=== PATIENT | female | born 1975 | race Caucasian/White ===

== ENCOUNTER 2017-09-21 17:24 | Emergency (ER) | payer MEDICAID, SELFPAY ==
[2017-09-21 17:25] VITALS: BP 133/92; PULSE 72; RESP 18; TEMP 36.3; O2SAT 96; BMI 47.8
--- NOTE | 2017-09-21 18:03 | EKG12_ITS ---
Test Reason : CP Blood Pressure : / mmHG Vent. Rate : 065 BPM Atrial Rate : 065 BPM P-R Int : 152 ms QRS Dur : 094 ms QT Int : 412 ms P-R-T Axes : 049 -65 036 degrees QTc Int : 428 ms Normal sinus rhythm Low voltage QRS Left anterior fascicular block Poor R wave progression Abnormal ECG Confirmed by MAMTA LEAL, KELLY ([id number]), photograph editor DONTA CUNNINGHAM ([id number]) on 09/25/2017 3:16:18 PM Referred By: Confirmed By:KELLY OLEARY MD
--- NOTE | 2017-09-21 18:10 | RAD_ITS ---
STUDY: X-RAY CHEST REASON FOR EXAM: Female, 42 years old. Chest pain radiating down left arm TECHNIQUE: AP COMPARISON: January 19, 2014 FINDINGS: The lungs are clear and expanded. There is no demonstrated pleural abnormality. Normal size heart. Normal mediastinum and prashant. Normal visualized pulmonary arteries. Normal visualized aortic arch and descending thoracic aorta. Normal visualized thoracic spine. Normal visualized ribs, clavicles, and shoulders. There is no demonstrated abnormality of the visualized soft tissue structures of the upper abdomen. No significant change since prior study RAD/Chest 1 View (Portable) IMPRESSION: Normal x-ray examination of the chest. Electronically Signed: Luis Alberto Gamino MD at 18:54 EDT , Service support ,
[2017-09-21 18:21] VITALS: BP 92/57; PULSE 62; RESP 18; O2SAT 99
[2017-09-21 18:21] LABS: Absolute Lymphocyte Count 3.15 X10^3/ul (0.83-4.51); Absolute Neutrophil Count 5.4 X10^3/uL (2.0-7.7); Basophil# 0.03 X10^3/uL; Basophil% 0.3 % (0-1); Eosinophil# 0.17 X10^3/uL; Eosinophils% 1.8 % (0-5); Hematocrit 41.6 % (37-47); Hemoglobin 12.9 g/dl (12.0-15.0); Lymphocyte # 3.15 X10^3/ul (4.0); Lymphocyte % 32.5 % (19-41); Mean Corpuscular Hgb 28.2 pg (27.0-32.0); Mean Corpuscular Volume 90.8 fL (81-99); Mean Platelet Vol. 10.2 fl (6.2-12.0); Monocyte# 0.91 X10^3/uL; Monocyte% 9.4 % (0-10); Neutrophil # 5.41 X10^3/uL (2.7-7.7); Neutrophil % 55.8 % (47-70); Platelet Count 337 K/mm3 (150-450); RBC Distribution Width CV 13.9 % (11.6-14.6); RBC Distribution Width SD 45.7 fl (35.1-43.9); Red Blood Count 4.58 M/mm3 (4.2-5.4); White Blood Count 9.7 K/mm3 (4.4-11.0)
[2017-09-21 18:22] LABS: POSITIVE COUNT NO; POSITIVE DIFFERENTIAL NO; POSITIVE MORPHOLOGY NO
[2017-09-21 18:41] LABS: Anion Gap 7 (5-15); BUN 13 mg/dL (7-18); Calcium,Total 8.9 mg/dL (8.5-10.1); Chloride 108 mmol/L (98-107); EST Glomerular Filtration Rate 48 mL/min (>60); Est Glom Filt Rate - Afr Amer 58 mL/min (>60); Estimated Creatinine Clearance 55.38 ml/min; Glucose 102 mg/dL (74-106); Potassium 4.6 mmol/L (3.5-5.1); Sodium Level 140 mmol/L (136-145)
--- NOTE | 2017-09-21 18:43 | ED.VISSUMM ---
- ER Visit Summary Date of Service: 09/21/17 Chief Complaint: [] Left sharp stabbing chest pain for weeks history of cardiac stent in 2013 History of Present Illness: The patient is a 42 F [] that history she indicates she has had a sharp stabbing pain to the left chest for 4 weeks it is not like her angina, nothing makes it better or worse it is not related to exertion there is no diaphoresis orthopnea or PND her 14-year-old daughter wanted her evaluated and she came in for evaluation. She indicates again she is not sure why she has the pain other than to report she is under significant stress and she feels that is causing her symptoms. She is otherwise been healthy no fever no cough no orthopnea or PND eating and drinking well bowel bladder habits normal review of systems otherwise negative no history of DVT or PE Physical Examination: [] She is resting comfortably in the bed no distress her vital signs are all within normal range she points with one finger tip to the left subcostal margin at about the second rib sternal interface this area is tender to palpation and there is no warmth or redness her lungs are clear the heart tones are unremarkable the abdomen soft nontender upper lower extremity unremarkable moving upper extremities causes minimal pain to this area her pulses are symmetric her upper lower extremity movements are normal no sinus clubbing or edema and she assures me this is nothing like her angina she has had it for 4 weeks or more Test Results: [] Emergency Department Course and Treatment: [] Patient's EKG shows a sinus rhythm her lab studies chest x-ray troponin are negative and again she has had pain for weeks, she does not wish to be admitted we spoke about inpatient versus outpatient management she wants to go home she feels better knowing the tests are negative she understands the concept of an occult cardiac condition and to follow with her physicians and return for change in symptoms, we discussed her situational stress she reports is nothing that can be done about it and she will try to manage as best she can Treatment Plan: [] Disposition: [] Home stable and admission Impression: [] Sharp left stabbing chest pain for 4 weeks history of cardiac stent This note was generated with [employer] dictation software. It may contain incorrect words, spelling, and punctuation that were not noted in review of the chart prior to signing ED Disposition - Plan for ED Patient: Chief Complaint: Chest Pain Referrals: [facility] Doctor,Out of [Primary Care Provider] -
--- NOTE | 2017-09-21 18:49 | ED.DEP ---
ED Disposition - Plan for ED Patient: Chief Complaint: Chest Pain Instructions: ED Chest Pain Atypical Unkn Cause Referrals: [facility],Out of [Primary Care Provider] -
[2017-09-21 19:25] VITALS: BP 143/82; PULSE 76; RESP 16; O2SAT 98
== END 2017-09-21 19:25 | disposition home or self-care (01) ==
PROVIDERS: Emergency Provider Emergency Medicine
DX: R07.9 Chest pain, unspecified (principal); Z95.5 Presence of coronary angioplasty implant and graft; Z79.899 Other long term (current) drug therapy
CPT/HCPCS: 71045; 80048; 84484; 85025; 93005; 99284; A4216

== ENCOUNTER 2018-01-21 18:16 | Emergency (ER) | payer MEDICAID, SELFPAY ==
[2018-01-21 18:17] VITALS: BP 117/96; PULSE 75; RESP 18; TEMP 36.9; O2SAT 98; BMI 47.8
[2018-01-21 18:32] VITALS: O2SAT 98
[2018-01-21 18:44] VITALS: BP 131/117; PULSE 75; RESP 20; O2SAT 94
[2018-01-21 18:50] LABS: Absolute Lymphocyte Count 3.12 X10^3/ul (0.83-4.51); Basophil# 0.06 X10^3/uL; Basophil% 0.5 % (0-1); Eosinophil# 0.16 X10^3/uL; Eosinophils% 1.4 % (0-5); Hematocrit 39.4 % (37-47); Hemoglobin 12.4 g/dl (12.0-15.0); Lymphocyte # 3.12 X10^3/ul (4.0); Lymphocyte % 26.8 % (19-41); Mean Corp Hgb Conc 31.5 g/gl (32-36); Mean Corpuscular Hgb 28.2 pg (27.0-32.0); Mean Corpuscular Volume 89.7 fL (81-99); Mean Platelet Vol. 10.6 fl (6.2-12.0); Monocyte# 1.22 X10^3/uL; Monocyte% 10.5 % (0-10); Neutrophil # 7.04 X10^3/uL (2.7-7.7); Neutrophil % 60.5 % (47-70); Platelet Count 332 K/mm3 (150-450); RBC Distribution Width CV 14.1 % (11.6-14.6); RBC Distribution Width SD 46.6 fl (35.1-43.9); Red Blood Count 4.39 M/mm3 (4.2-5.4); White Blood Count 11.6 K/mm3 (4.4-11.0)
[2018-01-21 18:51] LABS: POSITIVE COUNT NO; POSITIVE DIFFERENTIAL NO; POSITIVE MORPHOLOGY NO
[2018-01-21 19:40] LABS: BUN 13 mg/dL (7-18); Estimated Creatinine Clearance 51.43 ml/min; Glucose 112 mg/dL (74-106)
[2018-01-21 19:41] LABS: Anion Gap 12 (5-15); BUN/Creat Ratio 9.3 RATIO (10-20); Calcium,Total 8.3 mg/dL (8.5-10.1); Chloride 108 mmol/L (98-107); EST Glomerular Filtration Rate 44 mL/min (>60); Est Glom Filt Rate - Afr Amer 53 mL/min (>60); Potassium 4.7 mmol/L (3.5-5.1); Sodium Level 141 mmol/L (136-145)
[2018-01-21 19:48] VITALS: BP 107/88; PULSE 78; RESP 17; O2SAT 97
[2018-01-21 20:00] VITALS: BP 135/79; PULSE 71; RESP 23; O2SAT 96
--- NOTE | 2018-01-21 20:47 | ED.VISSUMM ---
- ER Visit Summary Date of Service: 01/21/18 Chief Complaint: Intermittent central anterior sharp chest pain History of Present Illness: The patient is a 42 F who presents with intermittent sharp central chest pain rated the back 15-20 minute duration. First episode 08 100. Has had at least 10 episodes. No associated symptoms. She denies history of PE or DVT. She denies any pleuritic discomfort. She denies any leg pain, swelling discoloration. She denies any GI symptoms. There is no history of recent URI symptoms. Past medical history of TIA, coronary disease status post stent placement, ischemic cardiomyopathy, atypical chest pain, hypercholesterolemia and end-stage renal disease. Review of old records remarkable for Takotsuba syndrome. Physical Examination: Vital signs reveal slight elevation blood pressure 135/79. BMI is 47.8. Head is atraumatic normocephalic. Pupils are equal round reactive. Extraocular muscles are intact. TMs are pearly white with landmarks noted. Nares patent with no drainage. Posterior pharynx without erythema or exudate. Uvula is midline. There is no dysphonia or dysphasia. Trachea is midline. There is no stridor with auscultation of the neck. Heart is regular without murmur, gallop or rub. S1 and S2 are normal. Lungs are clear to auscultation with good movement of air bilaterally. Abdomen is soft nontender bowel sounds are present normal. There is no CVA tenderness noted. There is no asymmetry, swelling, discoloration, leg vein distention, palpable cords or tenderness along the distribution of the deep venous system. Neuro exam is nonfocal. Test Results: EKG reveals a sinus rhythm rate of 75 a left anterior fascicular block. This is unchanged from prior. Two-view chest x-ray is negative for any acute pathology and unchanged from prior dated September 21, 2017. White count slightly elevated 11.6 with no shift. This is non-specific. Creatinine slightly elevated 1.40. Troponin less than 0.015. Emergency Department Course and Treatment: In light of patient's multiple medical problems and atypical presentation will evaluate for pulmonary versus cardiac versus other cause of her chest discomfort. EKG, chest x-ray and appropriate blood work was obtained. Treatment Plan: Patient was informed that her tests are unremarkable. Plan is to discharge to home with appropriate home-going instructions Disposition: Discharged home in stable condition Impression: 1. Intermittent atypical chest pain unknown etiology 2. History of coronary disease 3. History of hypercholesterolemia 4. History of end-stage renal disease 5. History of atypical chest pain This note was generated with [employer] dictation software. It may contain incorrect words, spelling, and punctuation that were not noted in review of the chart prior to signing ED Disposition - Plan for ED Patient: Disposition: Home or Assisted Living Chief Complaint: Chest Pain Instructions: ED Chest Pain Atypical Unkn Cause Referrals: Kayla Noe NP-C [Primary Care Provider] - 3-5 Days
[2018-01-21 21:10] VITALS: BP 126/81; PULSE 76; RESP 15; O2SAT 96
== END 2018-01-21 21:11 | disposition home or self-care (01) ==
PROVIDERS: Emergency Provider Emergency Medicine; Family Provider Nurse Practitioner Family; PCP Nurse Practitioner Family
DX: R07.89 Other chest pain (principal); I25.10 Atherosclerotic heart disease of native coronary artery without angina pectoris; E78.00 Pure hypercholesterolemia, unspecified; N18.6 End stage renal disease; I25.5 Ischemic cardiomyopathy; E66.9 Obesity, unspecified; Z86.73 Personal history of transient ischemic attack (TIA), and cerebral infarction without residual deficits; Z95.5 Presence of coronary angioplasty implant and graft; Z72.0 Tobacco use; Z79.82 Long term (current) use of aspirin; Z79.899 Other long term (current) drug therapy
CPT/HCPCS: 71045; 80048; 84484; 85025; 93005; 99285; A4216

== ENCOUNTER 2018-02-14 15:43 | Emergency (ER) | payer MEDICAID, SELFPAY ==
[2018-02-14 15:47] VITALS: BP 131/80; PULSE 91; RESP 28; TEMP 35.9; O2SAT 96; BMI 46.6
[2018-02-14 16:10] VITALS: O2SAT 88
--- NOTE | 2018-02-14 16:11 | EKG12_ITS ---
Test Reason : SOB Blood Pressure : / mmHG Vent. Rate : 085 BPM Atrial Rate : 085 BPM P-R Int : 138 ms QRS Dur : 084 ms QT Int : 362 ms P-R-T Axes : 050 -84 062 degrees QTc Int : 430 ms Normal sinus rhythm Pulmonary disease pattern Left anterior fascicular block Abnormal ECG Confirmed by JADA LEAL, SUE ([id number]), film editor supervisor DONTA CUNNINGHAM ([id number]) on 02/19/2018 2:40:49 PM Referred By: TL Confirmed By:SUE ELIAS MD
--- NOTE | 2018-02-14 16:12 | ED.VISSUMM ---
- ER Visit Summary Date of Service: 02/14/18 Chief Complaint: Dyspnea, cough History of Present Illness: The patient is a 42 F 3 day history of dyspnea and nonproductive cough. Subjective fever, chills, sweats. States also continuous midsternal chest pain worse with cough. No radicular symptoms. History of DE ?2 with coronary stent, followed by Dr. Leyva. No nausea vomiting diarrhea. No urinary symptoms. Went to urgent care states pulse ox 91% was sent here due to cardiac history. Denies wheezing. Tobacco history. No PE risk factors. Physical Examination: General: Alert and oriented ?3, frequent coughing while examining. HEENT: Normocephalic, atraumatic. Moist mucosa membranes Neck: supple, nontender. Cardiovascular: Regular rate and rhythm, no murmurs Respiratory: Normal breath sounds, symmetric, no distress Abdomen: Soft, nontender, nondistended Extremities: Nontender, no edema, pulses intact ?4 Neuro: no focal neurological deficits. Test Results: Chest x-ray negative. White count 15.7. Hemoglobin 12.6. Creatinine 1.33. Troponin negative. EKG sinus rate of [address] changes. Isolated T-wave inversion in aVL. Emergency Department Course and Treatment: Patient with coughing episodes leading to chest discomfort. EKG was normal. Cardiac workup along with chest x-ray to rule out pneumonia initiated. This was negative. After aerosol treatments reported she went on 88% with wheezing. She is placed on O2. No pneumonia on x-ray. Troponin negative. 3 days of symptoms negative troponin less likely cardiac in nature. She does have a white count of 15. Creatinine 1.3, however last month she was 1.4. She was ambulated off oxygen remain in the 90s. She was stable. She underlying smoking history denies being diagnosed with COPD or asthma. However concerns for underlying COPD will be treated with Zithromax and prednisone in the ED. 4 additional days of medications. Signs and symptoms discussed with patient to return to ED. Discussed with patient may need official workup pulmonary function tests as an outpatient. All questions were answered. Treatment Plan: [] Disposition: Discharge Impression: 1. Acute bronchitis 2. Atypical chest pain This note was generated with [employer] software. It may contain incorrect words, spelling, and punctuation that were not noted in review of the chart prior to signing ED Disposition - Plan for ED Patient: Disposition: Home or Assisted Living Chief Complaint: Shortness of Breath Diagnosis: Acute bronchitis, Atypical chest pain Instructions: Acute Bronchitis, ED Chest Pain Atypical Unkn Cause Prescriptions: Azithromycin [Zithromax] 250 mg PO DAILY #4 tablet Prednisone [Deltasone] 60 mg PO DAILY #12 tablet Referrals: Kayla Noe NP-C [Primary Care Provider] - 3-5 Days
[2018-02-14] MEDS: Ipratropium/Albuterol Sulfate 3 ML AMPUL.NEB INHALATION (16:26)
[2018-02-14 16:28] VITALS: PULSE 91; RESP 20
--- NOTE | 2018-02-14 17:00 | RAD_ITS ---
STUDY: X-RAY CHEST REASON FOR EXAM: Female, 42 years old. Cough and shortness of breath x3 days TECHNIQUE: PA and lateral views of the chest. COMPARISON: None. FINDINGS: EKG leads overlie the chest The lungs are clear and expanded. There is no demonstrated pleural abnormality. Normal size heart. Normal mediastinum and prashant. Normal visualized pulmonary arteries. Normal visualized aortic arch and descending thoracic aorta. Normal visualized thoracic spine. Normal visualized ribs, clavicles, and shoulders. There is no demonstrated abnormality of the visualized soft tissue structures of the upper abdomen. RAD/Chest PA and Lateral IMPRESSION: Normal x-ray examination of the chest. Electronically Signed: Karthik Ibrahim MD at 17:28 EDT , Service support ,
[2018-02-14 17:06] LABS: Absolute Lymphocyte Count 1.97 X10^3/ul (0.83-4.51); Absolute Neutrophil Count 12.4 X10^3/uL (2.0-7.7); Basophil# 0.05 X10^3/uL; Basophil% 0.3 % (0-1); Eosinophil# 0.21 X10^3/uL; Eosinophils% 1.3 % (0-5); Hematocrit 40.9 % (37-47); Hemoglobin 12.6 g/dl (12.0-15.0); Lymphocyte # 1.97 X10^3/ul (4.0); Lymphocyte % 12.5 % (19-41); Mean Corp Hgb Conc 30.8 g/gl (32-36); Mean Corpuscular Hgb 27.9 pg (27.0-32.0); Mean Corpuscular Volume 90.5 fL (81-99); Mean Platelet Vol. 10.3 fl (6.2-12.0); Neutrophil # 12.39 X10^3/uL (2.7-7.7); Neutrophil % 78.8 % (47-70); Platelet Count 337 K/mm3 (150-450); RBC Distribution Width CV 14.7 % (11.6-14.6); RBC Distribution Width SD 48.3 fl (35.1-43.9); Red Blood Count 4.52 M/mm3 (4.2-5.4); White Blood Count 15.7 K/mm3 (4.4-11.0)
[2018-02-14 17:08] LABS: POSITIVE COUNT NO; POSITIVE DIFFERENTIAL NO; POSITIVE MORPHOLOGY NO
[2018-02-14 17:13] LABS: Anion Gap 9 (5-15); BUN 15 mg/dL (7-18); BUN/Creat Ratio 11.3 RATIO (10-20); Calcium,Total 8.9 mg/dL (8.5-10.1); Chloride 105 mmol/L (98-107); Creatinine, Serum 1.33 mg/dL (0.55-1.02); EST Glomerular Filtration Rate 47 mL/min (>60); Est Glom Filt Rate - Afr Amer 56 mL/min (>60); Estimated Creatinine Clearance 54.13 ml/min; Glucose 103 mg/dL (74-106); Potassium 4.5 mmol/L (3.5-5.1); Sodium Level 138 mmol/L (136-145)
[2018-02-14 18:09] VITALS: BP 120/82; PULSE 96; RESP 28; O2SAT 93; O2SAT 96
[2018-02-14] MEDS: predniSONE 20 MG Tablet 60 MG PO (18:42)
[2018-02-14] MEDS: Azithromycin 250 MG Tablet 500 MG PO (18:42)
[2018-02-14 18:43] VITALS: BP 110/72; PULSE 99; RESP 20; TEMP 37.7; O2SAT 93
== END 2018-02-14 19:03 | disposition home or self-care (01) ==
PROVIDERS: Emergency Provider Emergency Medicine; Family Provider Nurse Practitioner Family; PCP Nurse Practitioner Family
DX: J20.9 Acute bronchitis, unspecified (principal); R07.89 Other chest pain; I25.2 Old myocardial infarction; Z95.5 Presence of coronary angioplasty implant and graft; I25.10 Atherosclerotic heart disease of native coronary artery without angina pectoris; E78.00 Pure hypercholesterolemia, unspecified; I11.0 Hypertensive heart disease with heart failure; I50.9 Heart failure, unspecified; Z86.73 Personal history of transient ischemic attack (TIA), and cerebral infarction without residual deficits; Z72.0 Tobacco use; Z79.899 Other long term (current) drug therapy
CPT/HCPCS: 71046; 80048; 84484; 85025; 93005; 94640; 99285; A4216

== ENCOUNTER 2018-06-20 07:36 | Emergency (ER) | payer MEDICAID, SELFPAY ==
[2018-06-20 07:39] VITALS: BP 152/82; PULSE 79; RESP 18; TEMP 36.1; O2SAT 96; BMI 48.9
--- NOTE | 2018-06-20 07:57 | RAD_ITS ---
STUDY: X-RAY - RIGHT SHOULDER REASON FOR EXAM: Female, 42 years old. Pain following a fall. TECHNIQUE: 4 view(s) of the shoulder. COMPARISON: None. FINDINGS: Normal glenohumeral articulation. Normal acromioclavicular joint. Normal acromion. Normal humeral head and visualized proximal humerus. The soft tissue structures are unremarkable. Normal visualized pulmonary apex. RAD/Shoulder min 2 Views IMPRESSION: Normal x-ray examination of the shoulder. Electronically Signed: Duane Davidson MD at 8:57 EST Tel [phone], Service support ,
--- NOTE | 2018-06-20 08:03 | ED.VISSUMM ---
- ER Visit Summary Date of Service: 06/20/18 Chief Complaint: Slip and fall complaining of right elbow and right shoulder pain History of Present Illness: The patient is a 42 F hand dominant. This morning slipped and fell on ice about 3 hours ago. Landing on her right elbow complaining primarily of pain along her right shoulder and clavicle. She denies hitting her head or neck. No LOC. She is on Plavix and aspirin secondary to cardiac stent but again had no head injury. She is right-hand dominant. No prior surgery to the right shoulder or elbow. She denies any other injuries. Physical Examination: Middle-aged female. No acute distress. Vital signs are stable. Afebrile. H EENT exam pupils round reactive light. There is no signs of trauma to either her face or scalp. They are nontender and nonswollen. C-spine nontender. Her right trapezius has some tenderness in the soft tissue. Chest nontender except mild tenderness to the mid right clavicle. No swelling. No deformity. Lungs clear to auscultation bilaterally. Heart regular rate and rhythm no murmur. Abdomen soft and nontender. LV girdle intact. Nontender. She has full range of motion and completely nontender left upper extremity and both lower extremities. Back other than the right trapezius is nontender. The thoracic and lumbar spine are nontender. She is tenderness along the mid right clavicle. Not so much along the shoulder. There is no deformity. She has increased discomfort with range of motion. She is able to AB and adduction of shoulder. Internal and external rotate the shoulder humerus is nontender. She has mild tenderness along the right elbow but there is no swelling or signs of trauma. She is able to flex and extend and supinate and pronate the right elbow. Right wrist and hand are nontender neurovascular intact. She has 5 out of 5 flatwork finisher hand strength. Radial pulses intact. Neurologically she is awake and alert with no focal motor deficits. GCS of 15. Test Results: Right shoulder and clavicle x-ray shows 4 views there is no acute abnormality. No fracture or dislocation. Right elbow x-ray shows 3 views no acute abnormality. No fracture or dislocation. I did go over the films with the patient. Emergency Department Course and Treatment: Repeat exam at 08:37 AM patient is doing well. I went over the films with the patient. She did not want anything stronger for pain. She will use Tylenol. She does not take NSAIDs due to her stage III renal insufficiency. Treatment Plan: Ice to elbow and shoulder. Tylenol for pain. Follow-up as needed. She did not want a sling. Disposition: Discharge Impression: Slipped and fell on the ice Right shoulder strain Right elbow contusion This note was generated with [employer] dictation software. It may contain incorrect words, spelling, and punctuation that were not noted in review of the chart prior to signing ED Disposition - Plan for ED Patient: Chief Complaint: Upper Extremity Injury Referrals: Kayla Noe, [facility] [Primary Care Provider] -
--- NOTE | 2018-06-20 08:07 | ED.DCSUM_ITS ---
- ER Visit Summary Date of Service: 06/20/18 Chief Complaint: Slip and fall complaining of right elbow and right shoulder pain History of Present Illness: The patient is a 42 F hand dominant. This morning slipped and fell on ice about 3 hours ago. Landing on her right elbow complaining primarily of pain along her right shoulder and clavicle. She denies hitting her head or neck. No LOC. She is on Plavix and aspirin secondary to cardiac stent but again had no head injury. She is right-hand dominant. No prior surgery to the right shoulder or elbow. She denies any other injuries. Physical Examination: Middle-aged female. No acute distress. Vital signs are stable. Afebrile. H EENT exam pupils round reactive light. There is no signs of trauma to either her face or scalp. They are nontender and nonswollen. C- spine nontender. Her right trapezius has some tenderness in the soft tissue. Chest nontender except mild tenderness to the mid right clavicle. No swelling. No deformity. Lungs clear to auscultation bilaterally. Heart regular rate and rhythm no murmur. Abdomen soft and nontender. LV girdle intact. Nontender. She has full range of motion and completely nontender left upper extremity and both lower extremities. Back other than the right trapezius is nontender. The thoracic and lumbar spine are nontender. She is tenderness along the mid right clavicle. Not so much along the shoulder. There is no deformity. She has increased discomfort with range of motion. She is able to AB and adduction of shoulder. Internal and external rotate the shoulder humerus is nontender. She has mild tenderness along the right elbow but there is no swelling or signs of trauma. She is able to flex and extend and supinate and pronate the right elbow. Right wrist and hand are nontender neurovascular intact. She has 5 out of 5 nailer machine strength. Radial pulses intact. Neurologically she is awake and alert with no focal motor deficits. GCS of 15. Test Results: Right shoulder and clavicle x-ray shows 4 views there is no acute abnormality. No fracture or dislocation. Right elbow x-ray shows 3 views no acute abnormality. No fracture or dislocation. I did go over the films with the patient. Emergency Department Course and Treatment: Repeat exam at 08:37 AM patient is doing well. I went over the films with the patient. She did not want anything stronger for pain. She will use Tylenol. She does not take NSAIDs due to her stage III renal insufficiency. Treatment Plan: Ice to elbow and shoulder. Tylenol for pain. Follow-up as needed. She did not want a sling. Disposition: Discharge Impression: Slipped and fell on the ice Right shoulder strain Right elbow contusion This note was generated with [employer] dictation software. It may contain incorrect words, spelling, and punctuation that were not noted in review of the chart prior to signing ED Disposition - Plan for ED Patient: Chief Complaint: Upper Extremity Injury Referrals: Kayla Noe, [facility] [Primary Care Provider] -
--- NOTE | 2018-06-20 08:20 | RAD_ITS ---
STUDY: X-RAY - RIGHT ELBOW REASON FOR EXAM: Female, 42 years old. Pain following a fall. TECHNIQUE: 3 view(s) of the elbow. COMPARISON: None. FINDINGS: Normal visualized humerus, radius and ulna. Normal radiocapitellar and ulnotrochlear articulations. The soft tissue structures are unremarkable. RAD/Elbow min 3 Views IMPRESSION: Normal x-ray examination of the elbow. Electronically Signed: Duane Davidson MD at 8:56 EST Tel [phone], Service support ,
--- NOTE | 2018-06-20 08:41 | ED.DEP ---
ED Disposition - Plan for ED Patient: Disposition: Home or Assisted Living Chief Complaint: Upper Extremity Injury Instructions: ED Contusion Upper Ext, ED Sprain Shoulder Referrals: Kayla Noe NP-C [Primary Care Provider] - 1 Week if not improving Additional Instructions: Ice to all sore areas. Tylenol for pain. If not improving in 1 week have it reevaluated. At this time your x-rays were negative. There were no signs of any broken bones or dislocations.
[2018-06-20 08:46] VITALS: BP 121/67; PULSE 74; RESP 15; O2SAT 98
--- OUTSIDE RECORDS SUMMARY | 2018-08-24 22:57 | XMS RPT_ITS ---
:1975 Author Organization OHIP Care Team Providers Name Role Phone Marlene Boyer Primary Care Unavailable Luis Alberto Watosn Attending Unavailable Marlene Boyer Primary Care Unavailable Matty Ariza Attending Unavailable Bubba Cody Attending Unavailable Marlene Boyer Primary Care Unavailable Lg Leyva Attending Unavailable DOCTOR, OUT OF TOWN Referring Unavailable EARLENE NGUYEN Primary Care Unavailable Jim Fitzgerald Attending Unavailable EARLENE NGUYEN Primary Care Unavailable Sheela Hudson Attending Unavailable KRISTINE GAMEZ ([facility]) Referring Unavailable PAUL BELLAMY Attending Unavailable PAUL BELLAMY Referring Unavailable PAUL BELLAMY Attending Unavailable JOSESITO PAUL Attending Unavailable [facility] Referring Unavailable MARLENE BOYER Primary Care Unavailable JOSESITO, PAUL Attending Unavailable JOSESITO, PAUL Referring Unavailable MARLENE BOYER Primary Care Unavailable GIANNA BELLAMYO Attending Unavailable [facility] Referring Unavailable MARLENE BOYER Primary Care Unavailable PROBLEMS PROBLEMS DATE TYPE CONDITION / CODE ATTENDING STATUS SOURCE Active Pain in left knee / BELLAMY, Active [place] 9 M25.562(ICD-10) [facility] Other [facility] Repository Active Contusion of right knee, BELLAMY, Active [place] [facility] subsequent encounter / [facility] Other S80.01XD(ICD-10) [facility] Repository Active Encounter for screening BELLAMY, [facility] 9 mammogram for malignant [facility] Other neoplasm of breast / [facility] Z12.31(ICD-10) Repository Active Morbid (severe) obesity [facility], [facility] 7 due to excess calories / [facility] Other E66.01(ICD-10) [facility] Repository Active Essential (primary) BELLAMY, [facility] 7 hypertension / [facility] Other I10(ICD-10) [facility] Repository Active Old myocardial infarction [facility], [facility] 7 / I25.2(ICD-10) [facility] Other [facility] Repository Active Personal history of BELLAMY, Active [place] 7 nicotine dependence / [facility] Other Z87.891(ICD-10) [facility] Repository Active Abnormal uterine and BELLAMY, Active [place] 8 vaginal bleeding, [facility] Other unspecified / [facility] N93.9(ICD-10) Repository Active Hyperlipidemia, BELLAMY, Active [place] [facility] unspecified / [facility] Other E78.5(ICD-10) [facility] Repository Active Encounter for screening BELLAMY, [facility] 8 for diabetes mellitus / [facility] Other Z13.1(ICD-10) [facility] Repository Admitting Unknown / UNK(Unknown) JOSESITO, Active [facility] 7 diagnosis [facility] Repository Unknown 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[place], [place]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 / Repository I25.10(ICD-10) Unknown I51.81 - Takotsubo [facility], [place] Active [facility] syndrome / I51.81(ICD-10) [facility] Repository Unknown E78.00 - Pure Gordon, Lg Active [facility] 8 hypercholesterolemia, Community unspecified / Hospital E78.00(ICD-10) Repository Unknown E78.0 - Pure Gordon, Gl Active [place] 8 hypercholesterolemia / Community E78.0(ICD-10) Hospital Repository PROCEDURES PROCEDURES No Procedure Records FoundRESULTS RESULTS EMERGENCY DEPARTMENT Observed: 06/20/2018 Status: F Source: [place] SUMMARY 4:05 PM REPOSITORY [facility] Medical Records Department [address] [place] [address] Emergency Department Summary 06/20/18 0803 MR#: [id number] Acct: [id number] Name: DARREL ROSAS Rep #: [id number] : 1975 42 From: Luis Alberto Watson MD PCP: TONYA Gomez Status: DEP ER - ER Visit Summary Date of Service: 06/20/18 Chief Complaint: Slip and fall complaining of right elbow and right shoulder pain History of Present Illness: The patient is a 42 F hand dominant. This morning slipped and fell on ice about 3 hours ago. Landing on her right elbow complaining primarily of pain along her right shoulder and clavicle. She denies hitting her head or neck. No LOC. She is on Plavix and aspirin secondary to cardiac stent but again had no head injury. She is right-hand dominant. No prior surgery to the right shoulder or elbow. She denies any other injuries. Physical Examination: Middle-aged female. No acute distress. Vital signs are stable. Afebrile. H EENT exam pupils round reactive light. There is no signs of trauma to either her face or scalp. They are nontender and nonswollen. C-spine nontender. Her right trapezius has some tenderness in the soft tissue. Chest nontender except mild tenderness to the mid right clavicle. No swelling. No deformity. Lungs clear to auscultation bilaterally. Heart regular rate and rhythm no murmur. Abdomen soft and nontender. LV girdle intact. Nontender. She has full range of motion and completely nontender left upper extremity and both lower extremities. Back other than the right trapezius is nontender. The thoracic and lumbar spine are nontender. She is tenderness along the mid right clavicle. Not so much along the shoulder. There is no deformity. She has increased discomfort with range of motion. She is able to AB and adduction of shoulder. Internal and external rotate the shoulder humerus is nontender. She has mild tenderness along the right elbow but there is no swelling or signs of trauma. She is able to flex and extend and supinate and pronate the right elbow. Right wrist and hand are nontender neurovascular intact. 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 Radial pulses intact. Neurologically she is awake and alert with no focal motor deficits. GCS of 15. Test Results: Right shoulder and clavicle x-ray shows 4 views there is no acute abnormality. No fracture or dislocation. Right elbow x-ray shows 3 views no acute abnormality. No fracture or dislocation. I did go over the films with the patient. Emergency Department Course and Treatment: Repeat exam at 08:37 AM patient is doing well. I went over the films with the patient. She did not want anything stronger for pain. She will use Tylenol. She does not take NSAIDs due to her stage III renal insufficiency. Treatment Plan: Ice to elbow and shoulder. Tylenol for pain. Follow-up as needed. She did not want a sling. Disposition: Discharge Impression: Slipped and fell on the ice Right shoulder strain Right elbow contusion This note was generated with [employer] dictation software. It may contain incorrect words, spelling, and punctuation that were not noted in review of the chart prior to signing ED Disposition - Plan for ED Patient: Chief Complaint: Upper Extremity Injury Referrals: Marlene Boyer NP-C [Primary Care Provider] - What to do if you have Problems For any increased pain, shortness of breath, bleeding, nausea or vomiting, chest pain, or any unexpected problems, contact your Primary Care Provider. Call [facility] ([phone]) or report to the closest Emergency Room. Call 911 if necessary. 06/20/181604 <Electronically signed by Luis Alberto Watson MD> Date Luis Alberto Watson MD Cosigner Signature (If Indicated): Date CC: TONYA Boyer DISCHARGE INSTRUCTION Observed: 06/20/2018 Status: F Source: [place] 4:05 PM REPOSITORY [facility] Medical Records Department [address] [place] [address] Discharge Instruction 06/20/18 0841 MR#: [id number] Acct: [id number] Name: DARREL ROSAS Rep #: [id number] : 1975 42 From: Luis Alberto Watson MD PCP: TONYA Gomez Status: DEP ER ED Disposition - Plan for ED Patient: Disposition: Home or Assisted Living Chief Complaint: Upper Extremity Injury Instructions: ED Contusion Upper Ext, ED Sprain Shoulder Referrals: Marlene Boyer NP-C [Primary Care Provider] - 1 Week if not improving Additional Instructions: Ice to all sore areas. Tylenol for pain. If not improving in 1 week have it reevaluated. At this time your x-rays were negative. There were no signs of any broken bones or dislocations. What to do if you have Problems For any increased pain, shortness of breath, bleeding, nausea or vomiting, chest pain, or any unexpected problems, contact your Primary Care Provider. Call [facility] ([phone]) or report to the closest Emergency Room. Call 911 if necessary. 06/20/181604 <Electronically signed by Luis Alberto Watson MD> Date Luis Alberto Watson MD Cosigner Signature (If Indicated): Date CC: TONYA Boyer ELBOW MIN 3 VIEWS Observed: 06/20/2018 Status: F Source: [place] 8:03 AM REPOSITORY [facility] Imaging Services [address] [place] [address] Elbow min 3 Views MR#: [id number] Acct: [id number] Name: DARREL ROSAS Rep #: [id number] : 1975 F 42 From: Duane Davidson MD PCP: TONYA Gomez Status: DEP ER Study: Elbow min 3 Views Date of Exam: 06/20/18 Exam# [id number] Ordering Dr: Luis Alberto Watson MD STUDY: X-RAY - RIGHT ELBOW REASON FOR EXAM: Female, 42 years old. Pain following a fall. TECHNIQUE: 3 view(s) of the elbow. COMPARISON: None. FINDINGS: Normal visualized humerus, radius and ulna. Normal radiocapitellar and ulnotrochlear articulations. The soft tissue structures are unremarkable. RAD/Elbow min 3 Views IMPRESSION: Normal x-ray examination of the elbow. Electronically Signed: Duane Davidson MD at 8:56 EST Tel [phone], Service support , CC: TONYA Boyer; Luis Alberto Watson MD [employer]: Signed SHOULDER MIN 2 VIEWS Observed: 06/20/2018 Status: F Source: [place] 8:03 AM REPOSITORY [facility] Imaging Services [address] [place] [address] Shoulder min 2 Views MR#: [id number] Acct: [id number] Name: DARREL ROSAS Rep #: [id number] : 1975 F 42 From: Duane Davidson MD PCP: TONYA Gomez Status: DEP ER Study: Shoulder min 2 Views Date of Exam: 06/20/18 Exam# [id number] Ordering Dr: Luis Alberto Watson MD STUDY: X-RAY - RIGHT SHOULDER REASON FOR EXAM: Female, 42 years old. Pain following a fall. TECHNIQUE: 4 view(s) of the shoulder. COMPARISON: None. FINDINGS: Normal glenohumeral articulation. Normal acromioclavicular joint. Normal acromion. Normal humeral head and visualized proximal humerus. The soft tissue structures are unremarkable. Normal visualized pulmonary apex. RAD/Shoulder min 2 Views IMPRESSION: Normal x-ray examination of the shoulder. Electronically Signed: Duane Davidson MD at 8:57 EST Tel [phone], Service support , CC: TONYA Boyer; Luis Alberto Watson MD [employer]: Signed PROGRESS Observed: 06/07/2018 Status: COMPLETED Source: [place] 3:20 PM [facility] OTHER CAMPUS REPOSITORY HNO ID: [id number] Author: Paul Schmitz Service: (none) Author Type: Physician Type: Progress Notes Filed: 06/07/2018 4:19 PM Note Text: [facility] Dr. Paul Bellamy M.D. [address] [place], [place] [address] [place] [address] Dept Dept. Visit Date: June 07, 2018 Ms.Crystal Bustillo Fortune Date of : 1975 MRN/E #: [id number] PCP: Marlene Boyer APRN.SCIENTIFIC DATABASE CURATOR Chief Complaint: Patient presents with: Right Knee Pain: x 1 month but hit the knee on a concrete wall this morning. History of Present Illness Darrel Rosas is a 42 year old female. The history is provided by the patient. Knee Pain The pain is present in the right knee. This is a new problem. Episode onset: 2 wks ago twisted knee, 2 days ago had minor concussion, today this AM hit deep freezer. There has been a history of trauma (minor). The problem has been unchanged. The pain is at a severity of 5/10. The pain is moderate. 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 Pertinent negatives include no joint locking, joint swelling or tingling. The symptoms are aggravated by activity. She has tried nothing for the symptoms. The treatment provided no relief. 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 rosuvastatin (CRESTOR) 10 mg tablet Take 1 tablet by mouth daily at bedtime. escitalopram oxalate (LEXAPRO) 20 mg tablet Take 1 tablet by mouth once daily. VITAMIN D-3 2,000 unit cap Take 1 capsule by mouth once daily. famotidine (PEPCID) 40 mg tablet Take 1 tablet by mouth daily at bedtime. clopidogrel (PLAVIX) 75 mg tablet lisinopril (ZESTRIL, PRINIVIL) 5 mg tablet metoprolol tartrate, short acting, (LOPRESSOR) 25 mg tablet acetaminophen (TYLENOL EXTRA STRENGTH) 500 mg tablet Take 2 tablets by mouth three times daily as needed. medroxyPROGESTERone (PROVERA) 10 mg tablet Take 1 tablet by mouth once daily for 10 days. busPIRone (BUSPAR) 15 mg tablet Take 1 tablet by mouth twice daily. No current facility-administered medications for this visit. Review of Systems Review of Systems Musculoskeletal: Positive for stiffness (mild). Neurological: Positive for numbness (upper lower leg). Negative for tingling. Physical Exam BP 141/94 Pulse 85 Temp 97 Resp 16 Wt 312 lb (141.5kg) SpO2 96% Physical Exam Constitutional: She is oriented to person, place, and time. She appears well-developed and well-nourished. She is cooperative. Obese HENT: Head: Atraumatic. Musculoskeletal: Right knee: She exhibits decreased range of motion (due to pain) and swelling (minimal - knee was wrapped). She exhibits no ecchymosis and no deformity. Mild limping over RT leg noticed during ambulation. Neurological: She is alert and oriented to person, place, and time. Psychiatric: She has a normal mood and affect. She is not agitated and not aggressive. Assessment and Plan Encounter Diagnosis ICD-10-CM 1. Acute pain of left knee M25.562 acetaminophen (TYLENOL EXTRA STRENGTH) 500 mg tablet Pt with minor trauma, today, 2 days ago, and 2 wks ago, over RT knee. Seen at Urgent Care this AM. Xray negative. RICE and Tylenol recommended. 2. Contusion of right knee, subsequent encounter S80.01XD acetaminophen (TYLENOL EXTRA STRENGTH) 500 mg tablet Work letter written. 3. Visit for screening mammogram Z12.31 [facility]CREEN[facility] Discussed above plan with patient and/or caregiver. Patient and/or caregiver agreeable with above plan. Return if symptoms worsen or fail to improve. Paul Bellamy MD, signed on June 07, 2018 3:49 PM CNOV Observed: 06/07/2018 Status: COMPLETED Source: [place] 3:20 PM CLINIC OTHER CAMPUS REPOSITORY Office Visit (AGFAMPLI) DARREL ROSAS ([id number]) 1975 F Date Time Provider Department 06/07/18 3:20 PM PAUL SCHMITZ During your visit today, we recorded the following information about you: Temperature Pulse Respiration Blood pressure 97 degrees 85/minute 16/minute 141/94 Weight 141.5 kg Connie Epstein MA 06/07/2018 3:49 PM Signed Pt here today for right knee pain. VAN Putnam MD 06/07/2018 4:19 PM Signed [facility] Dr. Paul Bellamy M.D. [address] [place] [address] Dept Dept. Visit Date: June 07, 2018 Ms.Crystal Iwona Rosas Date of : 1975 MRN/E #: [id number] PCP: Marlene Boyer APRN.SCIENTIFIC DATABASE CURATOR Chief Complaint: Patient presents with: Right Knee Pain: x 1 month but hit the knee on a concrete wall this morning. History of Present Illness Darrel Rosas is a 42 year old female. The history is provided by the patient. Knee Pain The pain is present in the right knee. This is a new problem. Episode onset: 2 wks ago twisted knee, 2 days ago had minor concussion, today this AM hit deep freezer. There has been a history of trauma (minor). The problem has been unchanged. The pain is at a severity of 5/10. The pain is moderate. 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 Pertinent negatives include no joint locking, joint swelling or tingling. The symptoms are aggravated by activity. She has tried nothing for the symptoms. The treatment provided no relief. 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 rosuvastatin (CRESTOR) 10 mg tablet Take 1 tablet by mouth daily at bedtime. escitalopram oxalate (LEXAPRO) 20 mg tablet Take 1 tablet by mouth once daily. VITAMIN D-3 2,000 unit cap Take 1 capsule by mouth once daily. famotidine (PEPCID) 40 mg tablet Take 1 tablet by mouth daily at bedtime. clopidogrel (PLAVIX) 75 mg tablet lisinopril (ZESTRIL, PRINIVIL) 5 mg tablet metoprolol tartrate, short acting, (LOPRESSOR) 25 mg tablet acetaminophen (TYLENOL EXTRA STRENGTH) 500 mg tablet Take 2 tablets by mouth three times daily as needed. medroxyPROGESTERone (PROVERA) 10 mg tablet Take 1 tablet by mouth once daily for 10 days. busPIRone (BUSPAR) 15 mg tablet Take 1 tablet by mouth twice daily. No current facility-administered medications for this visit. Review of Systems Review of Systems Musculoskeletal: Positive for stiffness (mild). Neurological: Positive for numbness (upper lower leg). Negative for tingling. Physical Exam BP 141/94 Pulse 85 Temp 97 Resp 16 Wt 312 lb (141.5kg) SpO2 96% Physical Exam Constitutional: She is oriented to person, place, and time. She appears well-developed and well-nourished. She is cooperative. Obese HENT: Head: Atraumatic. Musculoskeletal: Right knee: She exhibits decreased range of motion (due to pain) and swelling (minimal - knee was wrapped). She exhibits no ecchymosis and no deformity. Mild limping over RT leg noticed during ambulation. Neurological: She is alert and oriented to person, place, and time. Psychiatric: She has a normal mood and affect. She is not agitated and not aggressive. Assessment and Plan Encounter Diagnosis ICD-10-CM 1. Acute pain of left knee M25.562 acetaminophen (TYLENOL EXTRA STRENGTH) 500 mg tablet Pt with minor trauma, today, 2 days ago, and 2 wks ago, over RT knee. Seen at Urgent Care this AM. Xray negative. RICE and Tylenol recommended. 2. Contusion of right knee, subsequent encounter S80.01XD acetaminophen (TYLENOL EXTRA STRENGTH) 500 mg tablet Work letter written. 3. Visit for screening mammogram Z12.31 [facility] SCREENING Discussed above plan with patient and/or caregiver. Patient and/or caregiver agreeable with above plan. Return if symptoms worsen or fail to improve. Paul Bellamy MD, signed on June 07, 2018 3:49 PM Paul Bellamy MD 06/07/2018 4:06 PM Signed For knee symptoms: - Take Tylenol (Acetaminophen) 500mg 2 tabs 3 times a day for the next 3 days, then as needed. Prescription sent to pharmacy. - Rest, meaning take things easy, stay at home and relax. - Ice leg/knee, 15-20 minutes, 3 times a day for the next 2 days. - Elevated leg for 30 minutes, 3 times a day for the 3 days, then as needed. - Compression. Use FRANKLIN wrap, medium pressure, for the next 2-3 days. Can remove when in bed, or leg elevated. Referring Provider: SELF [200] Allergies As of Date: 06/07/2018 Noted Allergy Reaction CLARITIN-D 12 HOUR (LORATADINE-PS*08/18/2008 4 - Hives Date Reviewed: 06/07/2018 Reviewed by: Connie Welch) Minor - Fully Assessed Reason for Visit: Right Knee Pain [1209] Cmt: x 1 month but hit the knee on a concrete wall this morning. Primary Visit Diagnosis:Acute pain of left knee [M25.562] Comment:Pt with minor trauma, today, 2 days ago, and 2 wks ago, over RT knee. Seen at Urgent Care this AM. Xray negative. RICE and Tylenol recommended. Other Visit Diagnoses:Contusion of right knee, subsequent encounter [S80.01XD] Comment:Work letter written. Visit for screening mammogram [Z12.31] Order(s):[facility] SCREENING [[id number]] Order #: [id number] FUTURE acetaminophen (TYLENOL EXTRA STRENGTH) 500 mg tabletTake 2 tablets by mouth three times daily as needed.Disp: 60 tabletRfl: 1 Prescriptions as of 06/07/2018 Sig: ASPIRIN 81 MG TABLET,DELAYED * Take 81 mg by mouth once preston* ROSUVASTATIN 10 MG TABLET Take 1 tablet by mouth daily * ESCITALOPRAM 20 MG TABLET Take 1 tablet by mouth once d* VITAMIN D3 2,000 UNIT CAPSULE Take 1 capsule by mouth once * FAMOTIDINE 40 MG TABLET Take 1 tablet by mouth daily * CLOPIDOGREL 75 MG TABLET LISINOPRIL 5 MG TABLET METOPROLOL TARTRATE 25 MG TAB* ACETAMINOPHEN 500 MG TABLET Take 2 tablets by mouth three* MEDROXYPROGESTERONE 10 MG TAB* Take 1 tablet by mouth once d* BUSPIRONE 15 MG TABLET Take 1 tablet by mouth twice * Medication notes this encounter BUSPIRONE 15 MG TABLET >> Connie Epstein MA 06/07/2018 3:41 PM >> CONNIE EPSTEIN MA Jun 07, 2018 3:41 PM Not taking Problem List As Of Date 06/07/2018 Noted Resolved HEADACHE [R51] INVALID FOR* Chronic kidney disease with active medical debra*INVALID FOR* Essential (primary) hypertension [I10] INVALID FOR* Hyperlipidemia, unspecified [E78.5] INVALID FOR* Old myocardial infarction [I25.2] INVALID FOR* Personal history of nicotine dependence [Z87.89*INVALID FOR* Presence of coronary angioplasty implant and gr*INVALID FOR* Depression [F32.9] INVALID FOR* Gastroesophageal reflux disease without esophag*INVALID FOR* Bacterial vaginosis [N76.0, B96.89] INVALID FOR* Transformation zone absent on cervical Pap smea*INVALID FOR* Obesity, Class III, BMI >= 40 (morbid obesity) *INVALID FOR* Other instructions from your clinician: For knee symptoms: - Take Tylenol (Acetaminophen) 500mg 2 tabs 3 times a day for the next 3 days, then as needed. Prescription sent to pharmacy. - Rest, meaning take things easy, stay at home and relax. - Ice leg/knee, 15-20 minutes, 3 times a day for the next 2 days. - Elevated leg for 30 minutes, 3 times a day for the 3 days, then as needed. - Compression. Use FRANKLIN wrap, medium pressure, for the next 2-3 days. Can remove when in bed, or leg elevated. Visit Notes: >> Connie Epstein Leilani Jun 07, 2018 3:20 PM Status: Signed Pt here today for right knee pain. Connie Epstein MA Prescriptions ordered this encounter Disp Refills Start End ACETAMINOPHEN 500 MG TABLET 60 t* 1 06/07/2018 Route: ORAL Sig: Take 2 tablets by mouth three times daily as needed. Disposition: Return if symptoms worsen or fail to improve. Follow-up and Disposition History Recorded Letter Text Paul Bellamy M.D. [facility] [address] [place] [address], [address] [place] [address] June 07, 2018 Darrel Rosas [address] [facility] [address] 1975 To Whom It May Concern: This is to certify that Darrel is currently under my professional care. Mrs. Rosas suffered RT knee injury 2 days ago, and today. Was seen on Urgent Care, and today at my office. She will be unable to work from 06/07/18, and may return to work as of: 06/11/18. Work Restrictions: No restrictions Additional Comments: If symptoms or limitations return, will need additional evaluation and treatment. Sincerely, Paul Bellamy M.D. (Electronically signed to expedite care.) Encounter Status:Closed by PAUL BELLAMY MD on 06/07/18 PROGRESS Observed: 06/07/2018 Status: COMPLETED Source: [place] 1:24 PM [facility] REPOSITORY O ID: [id number] Author: KERVIN Villegas (Ct) Service: (none) Author Type: Clinical Supervisor Mixing Type: Progress Notes Filed: 06/07/2018 1:25 PM Note Text: Radiology Service Progress Note PATIENT NAME: Darrel Rosas DATE OF SERVICE: June 07, 2018 TIME: 1:24 PM PATIENT IDENTITY VERIFICATION COMPLETED USING TWO (2) METHODS: Patient confirmed name verbally and Date of . PATIENT GENDER DATA: Female. status: : No status: NO. PATIENT RELEVANT IMPLANT DATA REVIEWED: Not Applicable RADIOLOGY DEPARTMENT: General X-ray: Exam(s) Completed: Lower Extremity X-Ray(s): Knee, AP / Lat / Tunne / Merchant Right, Bilateral and Wt. Bearing: PERIPHERAL IV DATA: Not applicable SIGNED BY: KERVIN Villegas June 07, 2018 1:24 PM XR KNEE 4V AP/PA Observed: 06/07/2018 Status: F Source: [place] BOTH+LAT/RICKY RT 1:24 PM [facility] [place] REPOSITORY * * *Final Report* * * DATE OF EXAM: Jun 07 2018 1:24PM WOX [id number] - XR KNEE 4V AP/PA BOTH+LAT/RICKY RT / PROCEDURE REASON: Acute pain of right knee * * * * Physician Interpretation * * * * EXAMINATION: XR KNEE 4V AP/PA BOTH+LAT/RICKY RT CLINICAL HISTORY: TWISTED KNEE AT THE END OF MAY, THEN FELL ONTO RIGHT KNEE YESTERDAY, PAIN WITH ALL MOVEMENT Acute pain of right knee Technique: XR KNEE 4V AP/PA BOTH+LAT/RICKY RT -- RIGHT knee with 4 views on 4 images Comparison: None RESULT: No acute fracture or dislocation. The joint spaces are maintained without significant degenerative spurring. No right knee joint effusion. IMPRESSION: No acute osseous abnormality or joint effusion. 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 No car inspection and repair manager was used. HPI Darrel Rosas is a 42 year old female who presents today for CC of right knee pain. This started 6 months ago, she twisted knee, seemed to get better and than last week fell landing on patella and then again fell yesterday the same way. She has used ice and tylenol as needed. Mild swelling pain with walking. No surgeries or previous injury to right knee She is able to weight bear. H/o [place] on plavix BP 140/96 Pulse 80 Temp 36.6 ?C (97.9 ?F) (Left Tympanic) Resp 20 Wt (!) 140.4 kg (309 lb 9.6 oz) BMI 48.49 kg/m? PAST MEDICAL HISTORY Diagnosis Date - Anemia in chronic kidney disease - Hyperparathyroidism (HCC) Dr. 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 Stevens - Sleep apnea - Stroke ([facility]) 2009 I have confirmed and edited as necessary, the [facility] Review of Systems Constitutional: Negative for chills and fever. Musculoskeletal: Positive for joint pain (right knee). Negative for myalgias. Skin: Negative for rash. All other systems reviewed and are negative. Objective Physical Exam Constitutional: She is oriented to person, place, and time and well-developed, well-nourished, and in no distress. Cardiovascular: Pulses: Dorsalis pedis pulses are 2+ on the right side, and 2+ on the left side. Posterior tibial pulses are 2+ on the right side, and 2+ on the left side. Pulmonary/Chest: Effort normal. Musculoskeletal: Right knee: She exhibits decreased range of motion, swelling and abnormal meniscus. She exhibits no effusion, no ecchymosis, no deformity, no laceration, no erythema, normal alignment, no LCL laxity, normal patellar mobility, no bony tenderness and no MCL laxity. Tenderness found. Medial joint line and lateral joint line tenderness noted. No MCL, no LCL and no patellar tendon tenderness noted. Neurological: She is alert and oriented to person, place, and time. She has normal sensation and normal reflexes. Gait abnormal. Reflex Scores: Patellar reflexes are 2+ on the right side and 2+ on the left side. Achilles reflexes are 2+ on the right side and 2+ on the left side. Skin: Skin is warm and dry. Psychiatric: Affect normal. Nursing note and vitals reviewed. ASSESSMENT/PLAN: 1. Acute pain of right knee - ICD9: 719.46, ICD10: M25.561 Rest, ice, elevation, FRANKLIN wrap , pain medications as discussed Tylenol as needed for pain See your doctor if not improving if pain persists beyond 10-14 days there are times where a repeat x-ray is needed to rule out occult fracture - XR KNEE GENERAL 4V AP BOTH/PA BOTH/LAT/MERC RT - interpreted by BRAN ADAME MD IMPRESSION: No acute osseous abnormality or joint effusion. RESULT: No acute fracture or dislocation. The joint spaces are maintained without significant degenerative spurring. No right knee joint effusion. Diagnosis and treatment plan were discussed and questions were answered to the patient's satisfaction. Pt acknowledged understanding of concepts and follow up plan. Specific signs and symptoms that would indicate the need for higher level of care were discussed in detail warranting prompt ER evaluation. Kristine Gamez APRN.CNP CNOV Observed: 06/07/2018 Status: COMPLETED Source: [place] 12:30 PM [facility] REPOSITORY Office Visit (WSTR) DARREL ROSAS ([id number]) 1975 F Date Time Provider Department 06/07/18 12:30 PM KRISTINE GAMEZ (MARILEE) [facility] During your visit today, we recorded the following information about you: Temperature Pulse Respiration Blood pressure 97.9 degrees 80/minute 20/minute 140/96 Weight 140.4 kg Kristine Gamez APRN.CNP 06/07/2018 1:45 PM Signed Subjective The history is provided by the patient. No car inspection and repair manager was used. CANDACE Rosas is a 42 year old female who presents today for CC of right knee pain. This started 6 months ago, she twisted knee, seemed to get better and than last week fell landing on patella and then again fell yesterday the same way. She has used ice and tylenol as needed. Mild swelling pain with walking. No surgeries or previous injury to right knee She is able to weight bear. H/o [place] on plavix BP 140/96 Pulse 80 Temp 36.6 ?C (97.9 ?F) (Left Tympanic) Resp 20 Wt (!) 140.4 kg (309 lb 9.6 oz) BMI 48.49 kg/m? PAST MEDICAL HISTORY Diagnosis Date - Anemia in chronic kidney disease - Hyperparathyroidism (HCC) Dr. 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 Stevens - Sleep apnea - Stroke (HCC) 2009 I have confirmed and edited as necessary, the [facility] Review of Systems Constitutional: Negative for chills and fever. Musculoskeletal: Positive for joint pain (right knee). Negative for myalgias. Skin: Negative for rash. All other systems reviewed and are negative. Objective Physical Exam Constitutional: She is oriented to person, place, and time and well-developed, well-nourished, and in no distress. Cardiovascular: Pulses: Dorsalis pedis pulses are 2+ on the right side, and 2+ on the left side. Posterior tibial pulses are 2+ on the right side, and 2+ on the left side. Pulmonary/Chest: Effort normal. Musculoskeletal: Right knee: She exhibits decreased range of motion, swelling and abnormal meniscus. She exhibits no effusion, no ecchymosis, no deformity, no laceration, no erythema, normal alignment, no LCL laxity, normal patellar mobility, no bony tenderness and no MCL laxity. Tenderness found. Medial joint line and lateral joint line tenderness noted. No MCL, no LCL and no patellar tendon tenderness noted. Neurological: She is alert and oriented to person, place, and time. She has normal sensation and normal reflexes. Gait abnormal. Reflex Scores: Patellar reflexes are 2+ on the right side and 2+ on the left side. Achilles reflexes are 2+ on the right side and 2+ on the left side. Skin: Skin is warm and dry. Psychiatric: Affect normal. Nursing note and vitals reviewed. ASSESSMENT/PLAN: 1. Acute pain of right knee - ICD9: 719.46, ICD10: M25.561 Rest, ice, elevation, FRANKLIN wrap , pain medications as discussed Tylenol as needed for pain See your doctor if not improving if pain persists beyond 10-14 days there are times where a repeat x-ray is needed to rule out occult fracture - XR KNEE GENERAL 4V AP BOTH/PA BOTH/LAT/MERC RT - interpreted by BRAN ADAME MD IMPRESSION: No acute osseous abnormality or joint effusion. RESULT: No acute fracture or dislocation. The joint spaces are maintained without significant degenerative spurring. No right knee joint effusion. Diagnosis and treatment plan were discussed and questions were answered to the patient's satisfaction. Pt acknowledged understanding of concepts and follow up plan. Specific signs and symptoms that would indicate the need for higher level of care were discussed in detail warranting prompt ER evaluation. GABRIELA Soto APRN.CNP 06/07/2018 1:38 PM Signed ASSESSMENT/PLAN: 1. Acute pain of right knee - ICD9: 719.46, ICD10: M25.561 Rest, ice, elevation, FRANKLIN wrap , pain medications as discussed Tylenol as needed for pain See your doctor if not improving if pain persists beyond 10-14 days there are times where a repeat x-ray is needed to rule out occult fracture - XR KNEE GENERAL 4V AP BOTH/PA BOTH/LAT/MERC RT Referring Provider: SELF [200] Allergies As of Date: 06/07/2018 Noted Allergy Reaction CLARITIN-D 12 HOUR (LORATADINE-PS*08/18/2008 4 - Hives Date Reviewed: 06/07/2018 Reviewed by: Kristine (Marilee) Franco - Fully Assessed Reason for Visit: Knee Pain [132] Cmt: RIGHT with swelling from fall x 2 days Primary Visit Diagnosis:Acute pain of right knee [M25.561] Order(s):XR KNEE GENERAL 4V AP BOTH/PA BOTH/LAT/MERC RT [[id number]] Order #: [id number]. #:[id number] CONSULT TO ORTHOPAEDICS [9071] Order #: [id number]: [id number] Prescriptions as of 06/07/2018 Sig: ASPIRIN 81 MG TABLET,DELAYED * Take 81 mg by mouth once preston* ROSUVASTATIN 10 MG TABLET Take 1 tablet by mouth daily * ESCITALOPRAM 20 MG TABLET Take 1 tablet by mouth once d* VITAMIN D3 2,000 UNIT CAPSULE Take 1 capsule by mouth once * BUSPIRONE 15 MG TABLET Take 1 tablet by mouth twice * FAMOTIDINE 40 MG TABLET Take 1 tablet by mouth daily * CLOPIDOGREL 75 MG TABLET LISINOPRIL 5 MG TABLET METOPROLOL TARTRATE 25 MG TAB* MEDROXYPROGESTERONE 10 MG TAB* Take 1 tablet by mouth once d* Problem List As Of Date 06/07/2018 Noted Resolved HEADACHE [R51] INVALID FOR* Chronic kidney disease with active medical debra*INVALID FOR* Essential (primary) hypertension [I10] INVALID FOR* Hyperlipidemia, unspecified [E78.5] INVALID FOR* Old myocardial infarction [I25.2] INVALID FOR* Personal history of nicotine dependence [Z87.89*INVALID FOR* Presence of coronary angioplasty implant and gr*INVALID FOR* Depression [F32.9] INVALID FOR* Gastroesophageal reflux disease without esophag*INVALID FOR* Bacterial vaginosis [N76.0, B96.89] INVALID FOR* 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 Acute pain of right knee - ICD9: 719.46, ICD10: M25.561 Rest, ice, elevation, FRANKLIN wrap , pain medications as discussed Tylenol as needed for pain See your doctor if not improving if pain persists beyond 10-14 days there are times where a repeat x-ray is needed to rule out occult fracture - XR KNEE GENERAL 4V AP BOTH/PA BOTH/LAT/MERC RT Encounter Status:Closed by KRISTINE GAMEZ CNP on 06/07/18 HEMOGRAM Collected: 05/10/2018 Status: F Source: [facility] 12:52 PM HEALTH SYSTEM REPOSITORY TYPE CODE TESTS RESULT OUT OF REFERENCE UNITS RANGE LAB LWBC(LOINC) 4.8-10.8 thou/cmm WBC 9.3 LAB LRBC(LOINC) 4.20-5.40 mil/cmm RBC 4.33 LAB LHGB(LOINC) 12.0-16.0 g/dL Hgb 12.2 LAB LHCT(LOINC) 37.0-47.0 % Hct 39.8 LAB LMCV(LOINC) 81.0-99.0 fl MCV 91.9 LAB LMCH(LOINC) 27.0-31.0 pg MCH 28.2 LAB LMCHC(LOINC 32.0-36.0 % ) Low MCHC 30.7 LAB LRDW(LOINC) 11.5-15.9 % RDW 14.9 LAB LPLT(LOINC) 150-400 thou/cmm Platelet 341 LAB LMPV(LOINC) 7.1-10.5 fl MPV 10.3 Performed By: #### LCBC #### [place] [address] HCG, QUAL. SERUM Collected: 05/10/2018 Status: F Source: [facility] 12:52 PM HEALTH SYSTEM REPOSITORY TYPE CODE TESTS RESULT OUT OF REFERENCE UNITS RANGE LAB LSHCG(LOINC Negative ) HCG, Negative Qual. Serum Performed By: #### LSHCG #### [place] [address] LIPID PROFILE Collected: 05/10/2018 Status: F Source: [facility] 12:52 PM HEALTH SYSTEM REPOSITORY TYPE CODE TESTS RESULT OUT OF REFERENCE UNITS RANGE LAB LCHOL(LOIN 0-199 mg/dL C) Cholesterol High Blood 259 LAB LTRIG(LOIN 0-149 mg/dL C) Triglyceride High Blood 167 LAB LHDL2(LOIN >40 mg/dL C) HDL Cholesterol 50 LAB LLDL(LOINC 0-150 mg/dL ) LDL High 176 LAB LCHHD(LOIN 1.8-5.3 C) CHOL/HDL 5.2 LAB LRISK(LOIN C) Risk Factor 5.2 Result Comment: Cardiac Risk Factor The CHD risk factor is based on the total Chol/HDL ratio. Other factors affect CHD risk such as hypertension, smoking, diabetes, severe obesity and premature CHD. Cardiac Risk Total Chol/HDL ratio Men Women 1/2 avg risk 3.4-4.9 3.3-6.3 Avg risk 5.0-9.5 6.4-7.0 2x avg risk 9.6-23.3 7.1-10.9 3x avg risk >23.4 >11.0 Performed By: #### LLIPD #### [facility] [address] [place] [address] PROTIME Collected: 05/10/2018 Status: F Source: [facility] 12:[facility] REPOSITORY TYPE CODE TESTS RESULT OUT OF REFERENCE UNITS RANGE LAB LPTI(LOINC 9.7-13.0 sec ) Prothrombin Time 9.7 Result Comment: . LAB LINR(LOINC) 0.90-1.30 INR 0.95 Result Comment: Note: Reference Range Change Vitamin K Antagonist (VKA) Therapeutic Range: INR 2 to 3 (Target INR of 2.5) Note: For patients treated with VKA drugs, such as warfarin, the [place] [employer] 2012 Guideline recommends a therapeutic INR range of 2 to 3 (target INR of 2.5). This recommendation includes high-risk patients with antiphospholipid syndrome with previous arterial or venous thromboembolism, current-generation mechanical or bioprosthetic aortic heart valve replacement. VKA Therapeutic Range for some Mechanical Valve Replacement: INR 2.5 to 3.5 (Target INR of 3) Note: Patients with mechanical aortic valve replacement and additional risk factors for thromboembolic events (atrial fibrillation, previous thromboembolism, LV dysfunction, hypercoagulable conditions) or an older generation mechanical AVR (i.e., ball in-Cage) or any mechanical MVR should have a INR therapeutic range of 2.5 to 3.5 target INR of 3). Kavonyatt GH, et al. Chest 2012; 141:7S-47S Jesica RA et al. JAC 2017; 70: 252-289 Performed By: #### LPT #### [place] [address] HEMOGLOBIN A1C Collected: 05/10/2018 Status: F Source: [facility] 12:52 PM HEALTH SYSTEM REPOSITORY TYPE CODE TESTS RESULT OUT OF REFERENCE UNITS RANGE LAB LA1C2(LOINC 4.5-6.2 % ) High Hgb A1c 6.4 LAB ESAV(LOINC) mg/dl Est. Avg. 137 Glucose Performed By: #### LA1C #### [address] [address] PROGRESS Observed: 05/10/2018 Status: COMPLETED Source: [place] 11:20 AM CLINIC OTHER CAMPUS REPOSITORY O ID: [id number] Author: Paul Schmitz Service: (none) Author Type: Physician Type: Progress Notes Filed: 05/10/2018 2:02 PM Note Text: [facility] Dr. Paul Bellamy M.D. [address] [place] [address],[address] [place] [address] Dept Dept. Visit Date: May 10, 2018 Ms.Crystal Iwona Rosas Date of : 1975 MRN/E #: [id number] PCP: Marlene Boyer APRN.CNP Chief Complaint: Patient presents with: Menstrual Problem: bleeding x 10 days bright red, clots, lower abdominal cramping History of Present Illness Darrel Rosas is a 42 year old female. Vaginal Bleeding This is a new problem. The current episode started 1 to 4 weeks ago (for the last 10 days). The problem occurs constantly. The problem has been unchanged (bleeding for the last 10 days. Pt missed normal period last month. Previous to that normal regular menses). Associated symptoms include fatigue (always). Pertinent negatives include no abdominal pain, chest pain, chills, coughing, diaphoresis, fever, headaches, nausea, rash or vomiting. Associated symptoms comments: Heavy bleeding, 52 pads so far, using 2 pads at a time, 3-4 times changes per day, suprapubic/low abdomen pain. 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 escitalopram oxalate (LEXAPRO) 20 mg tablet Take 1 tablet by mouth once daily. VITAMIN D-3 2,000 unit cap Take 1 capsule by mouth once daily. busPIRone (BUSPAR) 15 mg tablet Take 1 tablet by mouth twice daily. famotidine (PEPCID) 40 mg tablet Take 1 tablet by mouth daily at bedtime. clopidogrel (PLAVIX) 75 mg tablet lisinopril (ZESTRIL, PRINIVIL) 5 mg tablet metoprolol tartrate, short acting, (LOPRESSOR) 25 mg tablet medroxyPROGESTERone (PROVERA) 10 mg tablet Take 1 tablet by mouth once daily for 10 days. rosuvastatin (CRESTOR) 10 mg tablet Take 1 tablet by mouth daily at bedtime. No current facility-administered medications for this visit. Review of Systems Review of Systems Constitutional: Positive for fatigue (always). Negative for activity change, appetite change, chills, diaphoresis and fever. Respiratory: Positive for apnea (Hx of [place], no CPAP). Negative for cough and shortness of breath. Cardiovascular: Negative for chest pain and palpitations. Gastrointestinal: Negative for abdominal pain, diarrhea, nausea and vomiting. Genitourinary: Positive for menstrual problem (just now. Hx of regular menses, 3 days, every month) and vaginal bleeding. Negative for difficulty urinating and frequency. Skin: Negative for rash. Neurological: Negative for dizziness and headaches. Psychiatric/Behavioral: Positive for sleep disturbance (chronic. Interrupted sleeping, takes time to fall back to sleep.). Physical Exam BP 113/83 Pulse 65 Temp 96.7 Resp 16 Ht 5' 7 (1.70m) Wt 303 lb (137.4kg) SpO2 96% BMI 47.45 kg/(m2). Last 2 Encounter Wt Readings: Date: Wt: 05/10/2018 137.4 kg (303 lb) 11/30/2017 135 kg (297 lb 9.6 oz) Physical Exam Constitutional: She is oriented to person, place, and time. Vital signs are normal. She appears well-developed and well-nourished. She is cooperative. She does not have a sickly appearance. She does not appear ill. No distress. Obese HENT: Mouth/Throat: Oropharynx is clear and moist. Mucous membranes are not pale and not dry. Abdominal: Bowel sounds are normal. There is tenderness (mild) in the right lower quadrant, suprapubic area and left lower quadrant. There is no rigidity and no guarding. Genitourinary: Genitourinary Comments: Not examined Neurological: She is alert and oriented to person, place, and time. Skin: Skin is warm. No pallor. Psychiatric: She has a normal mood and affect. Her behavior is normal. Assessment and Plan Encounter Diagnosis ICD-10-CM 1. Abnormal uterine bleeding N93.9 CBC HCG QUAL BLD medroxyPROGESTERone (PROVERA) 10 mg tablet PROTHROMBIN TIME/PT CANCELED: INR FINGERSTICK B/O Metrorrhagia, first time. Hx of regular menses. Pt on ASA AND Plavix which puts her at risk for bleeding. Consider early menopause changed. Labs ordered. Consider also US imaging. 2. Essential (primary) hypertension I10 CONSULT TO BARIATRIC SURGERY HGB A1C Controlled. 3. Old myocardial infarction I25.2 CONSULT TO BARIATRIC SURGERY LIPID PANEL BASIC Pt with established CAD. Pt at very high risk for ASCVD. On ASA and Plavix. Not on statin. 4. Obesity, Class III, BMI >= 40 (morbid obesity) E66.01 E66.01 CONSULT TO BARIATRIC SURGERY HGB A1C High risk pt. BMI >40, we'll refer to bariatrics for consultation. Advise given. We'll refer to supervised exercise program. 5. Personal history of nicotine dependence Z87.891 6. Hyperlipidemia LDL goal <70 E78.5 rosuvastatin (CRESTOR) 10 mg tablet Hx of intolerance to Atorvastatin. Should be on statin if tolerated due to high risk of ASCVD. We'll try rosuvastatin. LDL goal <55 following guidelines. 7. Screening for diabetes mellitus Z13.1 HGB A1C Discussed above plan with patient and/or caregiver. Patient and/or caregiver agreeable with above plan. Return in about 6 weeks (around 06/21/2018) for f/u cholesterol med, general. Paul Bellamy MD, signed on May 10, 2018 11:16 AM CHARLIE Observed: 05/10/2018 Status: COMPLETED Source: [place] 11:20 AM [facility] OTHER CAMPUS REPOSITORY Office Visit (BETH) DARREL ROSAS ([id number]) 1975 F Date Time Provider Department 05/10/18 11:20 AM PAUL SCHMITZ During your visit today, we recorded the following information about you: Temperature Pulse Respiration Blood pressure 96.7 degrees 65/minute 16/minute 113/83 Weight Height 137.4 kg 1.702 m Paul Bellamy MD 05/10/2018 2:02 PM Addendum [facility] Dr. Paul Bellamy M.D. [address] [place] [address],[address] [place] [address] Dept Dept. Visit Date: May 10, 2018 Ms.Crystal Iwona Rosas Date of : 1975 MRN/E #: [id number] PCP: Marlene Boyer APRN.MARILEE Chief Complaint: Patient presents with: Menstrual Problem: bleeding x 10 days bright red, clots, lower abdominal cramping History of Present Illness Darrel Rosas is a 42 year old female. Vaginal Bleeding This is a new problem. The current episode started 1 to 4 weeks ago (for the last 10 days). The problem occurs constantly. The problem has been unchanged (bleeding for the last 10 days. Pt missed normal period last month. Previous to that normal regular menses). Associated symptoms include fatigue (always). Pertinent negatives include no abdominal pain, chest pain, chills, coughing, diaphoresis, fever, headaches, nausea, rash or vomiting. Associated symptoms comments: Heavy bleeding, 52 pads so far, using 2 pads at a time, 3-4 times changes per day, suprapubic/low abdomen pain. 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 escitalopram oxalate (LEXAPRO) 20 mg tablet Take 1 tablet by mouth once daily. VITAMIN D-3 2,000 unit cap Take 1 capsule by mouth once daily. busPIRone (BUSPAR) 15 mg tablet Take 1 tablet by mouth twice daily. famotidine (PEPCID) 40 mg tablet Take 1 tablet by mouth daily at bedtime. clopidogrel (PLAVIX) 75 mg tablet lisinopril (ZESTRIL, PRINIVIL) 5 mg tablet metoprolol tartrate, short acting, (LOPRESSOR) 25 mg tablet medroxyPROGESTERone (PROVERA) 10 mg tablet Take 1 tablet by mouth once daily for 10 days. rosuvastatin (CRESTOR) 10 mg tablet Take 1 tablet by mouth daily at bedtime. No current facility-administered medications for this visit. Review of Systems Review of Systems Constitutional: Positive for fatigue (always). Negative for activity change, appetite change, chills, diaphoresis and fever. Respiratory: Positive for apnea (Hx of [place], no CPAP). Negative for cough and shortness of breath. Cardiovascular: Negative for chest pain and palpitations. Gastrointestinal: Negative for abdominal pain, diarrhea, nausea and vomiting. Genitourinary: Positive for menstrual problem (just now. Hx of regular menses, 3 days, every month) and vaginal bleeding. Negative for difficulty urinating and frequency. Skin: Negative for rash. Neurological: Negative for dizziness and headaches. Psychiatric/Behavioral: Positive for sleep disturbance (chronic. Interrupted sleeping, takes time to fall back to sleep.). Physical Exam BP 113/83 Pulse 65 Temp 96.7 Resp 16 Ht 5' 7 (1.70m) Wt 303 lb (137.4kg) SpO2 96% BMI 47.45 kg/(m2). Last 2 Encounter Wt Readings: Date: Wt: 05/10/2018 137.4 kg (303 lb) 11/30/2017 135 kg (297 lb 9.6 oz) Physical Exam Constitutional: She is oriented to person, place, and time. Vital signs are normal. She appears well-developed and well-nourished. She is cooperative. She does not have a sickly appearance. She does not appear ill. No distress. Obese HENT: Mouth/Throat: Oropharynx is clear and moist. Mucous membranes are not pale and not dry. Abdominal: Bowel sounds are normal. There is tenderness (mild) in the right lower quadrant, suprapubic area and left lower quadrant. There is no rigidity and no guarding. Genitourinary: Genitourinary Comments: Not examined Neurological: She is alert and oriented to person, place, and time. Skin: Skin is warm. No pallor. Psychiatric: She has a normal mood and affect. Her behavior is normal. Assessment and Plan Encounter Diagnosis ICD-10-CM 1. Abnormal uterine bleeding N93.9 CBC HCG QUAL BLD medroxyPROGESTERone (PROVERA) 10 mg tablet PROTHROMBIN TIME/PT CANCELED: INR FINGERSTICK B/O Metrorrhagia, first time. Hx of regular menses. Pt on ASA AND Plavix which puts her at risk for bleeding. Consider early menopause changed. Labs ordered. Consider also US imaging. 2. Essential (primary) hypertension I10 CONSULT TO BARIATRIC SURGERY HGB A1C Controlled. 3. Old myocardial infarction I25.2 CONSULT TO BARIATRIC SURGERY LIPID PANEL BASIC Pt with established CAD. Pt at very high risk for ASCVD. On ASA and Plavix. Not on statin. 4. Obesity, Class III, BMI >= 40 (morbid obesity) E66.01 E66.01 CONSULT TO BARIATRIC SURGERY HGB A1C High risk pt. BMI >40, we'll refer to bariatrics for consultation. Advise given. We'll refer to supervised exercise program. 5. Personal history of nicotine dependence Z87.891 6. Hyperlipidemia LDL goal <70 E78.5 rosuvastatin (CRESTOR) 10 mg tablet Hx of intolerance to Atorvastatin. Should be on statin if tolerated due to high risk of ASCVD. We'll try rosuvastatin. LDL goal <55 following guidelines. 7. Screening for diabetes mellitus Z13.1 HGB A1C Discussed above plan with patient and/or caregiver. Patient and/or caregiver agreeable with above plan. Return in about 6 weeks (around 06/21/2018) for f/u cholesterol med, general. Paul Bellamy MD, signed on May 10, 2018 11:16 AM Connie Epstein MA 05/10/2018 11:33 AM Signed See symptoms VAN Putnam MD 05/10/2018 2:02 PM Signed Addended by: PAUL BELLAMY MD on: 05/10/2018 02:02 PM Modules accepted: Orders Referring Provider: SELF [[id number]] Allergies As of Date: 05/10/2018 Noted Allergy Reaction CLARITIN-D 12 HOUR (LORATADINE-PS*08/18/2008 4 - Hives Date Reviewed: 05/10/2018 Reviewed by: Connie Welch) Lucian - Fully Assessed Reason for Visit: Menstrual Problem [67] Cmt: bleeding x 10 days bright red, clots, lower abdominal cramping Primary Visit Diagnosis:Abnormal uterine bleeding [N93.9] Comment:Metrorrhagia, first time. Hx of regular menses. Pt on ASA AND Plavix which puts her at risk for bleeding. Consider early menopause changed. Labs ordered. Cons Other Visit Diagnoses:Essential (primary) hypertension [I10] Comment:Controlled. Old myocardial infarction [I25.2] Comment:Pt with established CAD. Pt at very high risk for ASCVD. On ASA and Plavix. Not on statin. Obesity, Class III, BMI >= 40 (morbid obesity) E66.01 [E66.01] Comment:High risk pt. BMI >40, we'll refer to bariatrics for consultation. Advise given. We'll refer to supervised exercise program. Personal history of nicotine dependence [Z87.891] Hyperlipidemia LDL goal <70 [E78.5] Comment:Hx of intolerance to Atorvastatin. Should be on statin if tolerated due to high risk of ASCVD. We'll try rosuvastatin. LDL goal <55 following guidelines. Screening for diabetes mellitus [Z13.1] Order(s):CBC [SQCBC] Order #: [id number] FUTURE HCG QUAL BLD [SQHCG] Order #: [id number] FUTURE medroxyPROGESTERone (PROVERA) 10 mg tabletTake 1 tablet by mouth once daily for 10 days.Disp: 10 tabletRfl: 0 CONSULT TO BARIATRIC SURGERY [2039698] Order #: [id number]: 1 rosuvastatin (CRESTOR) 10 mg tabletTake 1 tablet by mouth daily at bedtime.Disp: 30 tabletRfl: 2 PROTHROMBIN TIME/PT [SQPT] Order #: [id number] FUTURE LIPID PANEL BASIC [SQLIPB] Order #: [id number] FUTURE HGB A1C [YEIWQ1Q] Order #: [id number] FUTURE CONSULT TO CARD REHAB PHASE III [1306560] Order #: [id number]: 1 Prescriptions as of 05/10/2018 Sig: ASPIRIN 81 MG TABLET,DELAYED * Take 81 mg by mouth once preston* ESCITALOPRAM 20 MG TABLET Take 1 tablet by mouth once d* VITAMIN D3 2,000 UNIT CAPSULE Take 1 capsule by mouth once * BUSPIRONE 15 MG TABLET Take 1 tablet by mouth twice * FAMOTIDINE 40 MG TABLET Take 1 tablet by mouth daily * CLOPIDOGREL 75 MG TABLET LISINOPRIL 5 MG TABLET METOPROLOL TARTRATE 25 MG TAB* MEDROXYPROGESTERONE 10 MG TAB* Take 1 tablet by mouth once d* ROSUVASTATIN 10 MG TABLET Take 1 tablet by mouth daily * Problem List As Of Date 05/10/2018 Noted Resolved HEADACHE [R51] INVALID FOR* Chronic kidney disease with active medical debra*INVALID FOR* Essential (primary) hypertension [I10] INVALID FOR* Hyperlipidemia, unspecified [E78.5] INVALID FOR* Old myocardial infarction [I25.2] INVALID FOR* Personal history of nicotine dependence [Z87.89*INVALID FOR* Presence of coronary angioplasty implant and gr*INVALID FOR* Depression [F32.9] INVALID FOR* Gastroesophageal reflux disease without esophag*INVALID FOR* Bacterial vaginosis [N76.0, B96.89] INVALID FOR* Transformation zone absent on cervical Pap smea*INVALID FOR* Obesity, Class III, BMI >= 40 (morbid obesity) *INVALID FOR* Visit Notes: >> Connie Epstein [facility] May 10, 2018 11:20 AM Status: Signed See symptoms Connie Epstein MA Prescriptions ordered this encounter Disp Refills Start End MEDROXYPROGESTERONE 10 MG TABLET 10 t* 0 05/10/2018 05/20/2018 Route: ORAL Sig: Take 1 tablet by mouth once daily for 10 days. ROSUVASTATIN 10 MG TABLET 30 t* 2 05/10/2018 08/08/2018 Route: ORAL Sig: Take 1 tablet by mouth daily at bedtime. Medications Discontinued During This Encounter atorvastatin (LIPITOR) 40 mg tablet 04/24/2016 05/10/2018 Class: Historical Med Sig: Disc: Side Effects Disposition: Return in about 6 weeks (around 06/21/2018) for f/u cholesterol med, general. Follow-up and Disposition History Recorded Encounter Status:Closed by PAUL BELLAMY MD on 05/10/18 12 LEAD ELECTROCARDIOGRAM Observed: 02/19/2018 Status: F Source: [place] 2:40 PM REPOSITORY [facility] Cardiovascular Services [address] [place] [address] 12 Lead EKG 02/14/18 1619 MR#: [id number] Acct: [id number] Name: DARREL ROSAS Rep #: [id number] : 1975 42 From: Lg Leyva MD Attending Dr: Status: DEP ER Ordering Dr: Matty Ariza DO Date: 02/14/18 Location: ED Sex: F C Admitted: Test Reason : SOB Blood Pressure : / mmHG Vent. Rate : 085 BPM Atrial Rate : 085 BPM P-R Int : 138 ms QRS Dur : 084 ms QT Int : 362 ms P-R-T Axes : 050 -84 062 degrees QTc Int : 430 ms Normal sinus rhythm Pulmonary disease pattern Left anterior fascicular block Abnormal ECG Confirmed by LG LEYVA MD ([id number]), acquisition editor DONTA CUNNINGHAM ([id number]) on 02/19/2018 2:40:49 PM Referred By: TL Confirmed By:LG LEYVA MD 02/19/18 1440 Date Lg Leyva MD CC: MEDIA PRODUCER-C Marlene Boyer; Matty Ariza Signed OBSOLETE Observed: 02/15/2018 Status: COMPLETED Source: [place] 12:00 AM [facility] REPOSITORY Refill (AGFAMPLE) DARREL ROSAS ([id number]) 1975 F Date Time Provider Department 02/15/18 MARLENE BOYER ([facility]) AGFAMPLE During your visit today, we recorded the following information about you: Allergies As of Date: 02/15/2018 Noted Allergy Reaction CLARITIN-D 12 HOUR (LORATADINE-PS*08/18/2008 4 - Hives Date Reviewed: 11/30/2017 Reviewed by: Ashley ([facility]) Thompson - Fully Assessed Reason for Visit: Refill Request [94] Prescriptions as of 02/15/2018 Sig: ESCITALOPRAM 20 MG TABLET Take 1 tablet by mouth once d* VITAMIN D3 2,000 UNIT CAPSULE Take 1 capsule by mouth once * BUSPIRONE 15 MG TABLET Take 1 tablet by mouth twice * FAMOTIDINE 40 MG TABLET Take 1 tablet by mouth daily * ATORVASTATIN 40 MG TABLET CLOPIDOGREL 75 MG TABLET LISINOPRIL 5 MG TABLET METOPROLOL TARTRATE 25 MG TAB* Problem List As Of Date 02/15/2018 Noted Resolved HEADACHE [R51] INVALID FOR* Chronic kidney disease with active medical debra*INVALID FOR* Essential (primary) hypertension [I10] INVALID FOR* Hyperlipidemia, unspecified [E78.5] INVALID FOR* Old myocardial infarction [I25.2] INVALID FOR* Personal history of nicotine dependence [Z87.89*INVALID FOR* Presence of coronary angioplasty implant and gr*INVALID FOR* Depression [F32.9] INVALID FOR* Gastroesophageal reflux disease without esophag*INVALID FOR* Bacterial vaginosis [N76.0, B96.89] INVALID FOR* Transformation zone absent on cervical Pap smea*INVALID FOR* Obesity, Class III, BMI >= 40 (morbid obesity) *INVALID FOR* Encounter Status:Closed by ALFRED CABELLO on 03/19/18 EMERGENCY DEPARTMENT Observed: 02/14/2018 Status: F Source: [place] SUMMARY 6:35 PM REPOSITORY [facility] Medical Records Department [address] [place] [address] Emergency Department Summary 02/14/18 1612 MR#: [id number] Acct: [id number] Name: DARREL ROSAS Rep #: [id number] : 1975 42 From: Matty Aparicio PCP: TONYA Gomez Status: REG ER - ER Visit Summary Date of Service: 02/14/18 Chief Complaint: Dyspnea, cough History of Present Illness: The patient is a 42 F 3 day history of dyspnea and nonproductive cough. Subjective fever, chills, sweats. States also continuous midsternal chest pain worse with cough. No radicular symptoms. History of WV 2 with coronary stent, followed by Dr. Leyva. No nausea vomiting diarrhea. No urinary symptoms. Went to urgent care states pulse ox 91% was sent here due to cardiac history. Denies wheezing. Tobacco history. No PE risk factors. Physical Examination: General: Alert and oriented 3, frequent coughing while examining. HEENT: Normocephalic, atraumatic. Moist mucosa membranes Neck: supple, nontender. Cardiovascular: Regular rate and rhythm, no murmurs Respiratory: Normal breath sounds, symmetric, no distress Abdomen: Soft, nontender, nondistended Extremities: Nontender, no edema, pulses intact 4 Neuro: no focal neurological deficits. Test Results: Chest x-ray negative. White count 15.7. Hemoglobin 12.6. Creatinine 1.33. Troponin negative. EKG sinus rate of [address] changes. Isolated T-wave inversion in aVL. Emergency Department Course and Treatment: Patient with coughing episodes leading to chest discomfort. EKG was normal. Cardiac workup along with chest x-ray to rule out pneumonia initiated. This was negative. After aerosol treatments reported she went on 88% with wheezing. She is placed on O2. No pneumonia on x-ray. Troponin negative. 3 days of symptoms negative troponin less likely cardiac in nature. She does have a white count of 15. Creatinine 1.3, however last month she was 1.4. She was ambulated off oxygen remain in the 90s. She was stable. She underlying smoking history denies being diagnosed with COPD or asthma. However concerns for underlying COPD will be treated with Zithromax and prednisone in the ED. 4 additional days of medications. Signs and symptoms discussed with patient to return to ED. Discussed with patient may need official workup pulmonary function tests as an outpatient. All questions were answered. Treatment Plan: [] Disposition: Discharge Impression: 1. Acute bronchitis 2. Atypical chest pain This note was generated with [employer] dictation software. It may contain incorrect words, spelling, and punctuation that were not noted in review of the chart prior to signing ED Disposition - Plan for ED Patient: Disposition: Home or Assisted Living Chief Complaint: Shortness of Breath Diagnosis: Acute bronchitis, Atypical chest pain Instructions: Acute Bronchitis, ED Chest Pain Atypical Unkn Cause Prescriptions: Azithromycin [Zithromax] 250 mg PO DAILY #4 tablet Prednisone [Deltasone] 60 mg PO DAILY #12 tablet Referrals: Marlene Boyer NP-C [Primary Care Provider] - 3-5 Days What to do if you have Problems For any increased pain, shortness of breath, bleeding, nausea or vomiting, chest pain, or any unexpected problems, contact your Primary Care Provider. Call [facility] ([phone]) or report to the closest Emergency Room. Call 911 if necessary. 02/14/18 2495 <Electronically signed by Matty Aparicio> Date Matty Aparicio Cosigner Signature (If Indicated): Date CC: DIONY-C Marlene Boyer CBC W/DIFF, AUTOMATED Collected: 02/14/2018 Status: F Source: [place] 4:30 PM REPOSITORY TYPE CODE TESTS RESULT OUT OF RANGE REFERENCE UNITS LAB L100.1000 4.4-11.0 K/mm3 High WBC 15.7 LAB L100.1200 4.2-5.4 M/mm3 Normal RBC 4.52 LAB L100.1300 12.0-15.0 g/dl Normal HGB 12.6 LAB L100.1400 37-47 % Normal HCT 40.9 LAB L100.1500 81-99 fL Normal MCV 90.5 LAB L100.1600 27.0-32.0 pg Normal MCH 27.9 LAB L100.1700 32-36 g/gl Low MCHC 30.8 LAB L100.1810 11.6-14.6 % High RDW CV 14.7 LAB L100.1820 35.1-43.9 fl High RDW SD 48.3 LAB L100.1900 150-450 K/mm3 Normal PLT 337 LAB L100.2000 6.2-12.0 fl Normal MPV 10.3 LAB L100.2100 47-70 % High NEUT% 78.8 LAB L100.2200 19-41 % Low LY% 12.5 LAB L100.2300 0-10 % Normal MONO% 7.0 LAB L100.2400 0-5 % Normal EO% 1.3 LAB L100.2500 0-1 % Normal BASO% 0.3 LAB L100.2550 0.0-0.9 % Normal IM GRAN % 0.100 Result Comment: IG% - Immature Granulocytes (promyelocytes, myelocytes and metamyelocytes) > 1% indicates that a LEFT SHIFT is Present. LAB L100.2620 2.0-7.7 X10 3/uL High Absolute Neut 12.4 LAB L100.2720 0.83-4.51 X10 3/ul Normal Absolute Lymph 1.97 Performed By: #### L100.0100 #### [facility] [address] [place], [place], [address] BASIC METABOLIC Collected: 02/14/2018 Status: F Source: [place] PROFILE (BMP) 4:30 PM REPOSITORY TYPE CODE TESTS RESULT OUT OF RANGE REFERENCE UNITS LAB L501.0100 74-106 mg/dL Normal GLU 103 Result Comment: Fasting Glucose result from 100 to 125 mg/dL suggests IMPAIRED HOMEOSTASIS per A.D.A. criteria. Please note revised GLUCOSE reference range effective 2017. LAB L501.1000 7-18 mg/dL Normal BUN 15 LAB L501.1100 0.55-1.02 mg/dL High CREAT,SERUM 1.33 Result Comment: The validity of the calculated GFR AND GFRAA in patients over 70 years has not been determined. Clinical correlation is essential. LAB L501.1110 >60 mL/min Low EST GFR 47 Result Comment: Non- GFR Calc LAB L501.1115 >60 mL/min Low EST GFR - AA 56 Result Comment: GFR Calc LAB L501.1255 ml/min Normal Estimated CRCL 54.13 LAB L501.1300 10-20 RATIO Normal BUN/CRE 11.3 LAB L501.2200 8.5-10 mg/dL Normal .1 CA 8.9 LAB L501.5300 136-14 mmol/L Normal 5 NA 138 LAB L501.5600 3.5-5. mmol/L Normal 1 K 4.5 LAB L501.5900 98-107 mmol/L Normal CL 105 LAB L501.6100 21.0-3 mmol/L Normal 2.0 CO2 24.0 LAB L501.6200 5-15 Normal GAP 9 Performed By: #### L500.2500, L501.4010 #### [facility] [address] [place], [address] TROPONIN-I Collected: 02/14/2018 Status: F Source: [place] 4:30 PM REPOSITORY TYPE CODE TESTS RESULT OUT OF RANGE REFERENCE UNITS LAB L501.4010 <0.045 ng/mL Normal < 0.015 TROPONIN-I Result Comment: TROPONIN-I EXPECTED VALUES <0.045 Negative 0.045 - 0.590 Consistent with Cardiac Damage > OR = 0.600 Critical Value Not every elevated troponin is indicative of WV. These values should be used with clinical judgement in examining the patient's clinical picture for diagnosis. To establish a diagnosis of WV versus myocardial injury, there must be a demonstrated rise and/or fall in the troponin values, in addition to ischemic symptoms, EKG changes, new regional wall motion abnormality, and/or angiographical evidence. PLEASE NOTE: REFERENCE RANGES EDITED 17 Performed By: #### L500.2500, L501.4010 #### [facility] [address] [place], [address] CHEST PA AND LATERAL Observed: 02/14/2018 Status: F Source: [place] 4:12 PM REPOSITORY [facility] Imaging Services [address] [place] [address] Chest PA and Lateral MR#: [id number] Acct: [id number] Name: DARREL ROSAS Rep #: [id number] : 1975 F 42 From: Ryan Ibrahim MD PCP: TONYA Gomez Status: [facility] ER Study: Chest PA and Lateral Date of Exam: 02/14/18 Exam# [id number] Ordering Dr: Matty Ariza DO STUDY: X-RAY CHEST REASON FOR EXAM: Female, 42 years old. Cough and shortness of breath x3 days TECHNIQUE: PA and lateral views of the chest. COMPARISON: None. FINDINGS: EKG leads overlie the chest The lungs are clear and expanded. There is no demonstrated pleural abnormality. Normal size heart. Normal mediastinum and prashant. Normal visualized pulmonary arteries. Normal visualized aortic arch and descending thoracic aorta. Normal visualized thoracic spine. Normal visualized ribs, clavicles, and shoulders. There is no demonstrated abnormality of the visualized soft tissue structures of the upper abdomen. RAD/Chest PA and Lateral IMPRESSION: Normal x-ray examination of the chest. Electronically Signed: Karthik Ibrahim MD at 17:28 EDT , Service support , CC: TONYA Boyer; Matty Ariza Electrical Electronics Engineers: Signed 12 LEAD ELECTROCARDIOGRAM Observed: 01/25/2018 Status: F Source: [place] 1:02 PM REPOSITORY [facility] Cardiovascular Services [address] [place] [address] 12 Lead EKG 01/21/18 1822 MR#: [id number] Acct: [id number] Name: DARREL ROSAS Rep #: [id number] : 1975 42 From: Fermin Oleary MD Attending Dr: Status: DEP ER Ordering Dr: Provider, Ed P. Date: 01/21/18 Location: ED Sex: F C Admitted: Test Reason : CP Blood Pressure : / mmHG Vent. Rate : 075 BPM Atrial Rate : 075 BPM P-R Int : 144 ms QRS Dur : 090 ms QT Int : 396 ms P-R-T Axes : 042 -72 065 degrees QTc Int : 442 ms Normal sinus rhythm Left anterior fascicular block Poor R wave progression Abnormal ECG Confirmed by MAMTA LEAL, FERMIN ([id number]), acquisition editor DONTA CUNNINGHAM ([id number]) on 01/25/2018 1:01:36 PM Referred By: IRVIN Confirmed By:FERMIN OLEARY MD 01/25/18 1308 Date Fermin Oleary MD CC: TONYA Boyer; ED PHYSICIAN PROVIDER; Bubba Cody MD Signed EMERGENCY DEPARTMENT Observed: 01/21/2018 Status: F Source: [place] SUMMARY 8:52 PM REPOSITORY [facility] Medical Records Department [address] [place] [address] Emergency Department Summary 01/21/182046 MR#: [id number] Acct: [id number] Name: DARREL ROSAS Rep #: [id number] : 1975 42 From: Bubba Cody MD PCP: TONYA Gomez Status: REG ER - ER Visit Summary Date of Service: 01/21/18 Chief Complaint: Intermittent central anterior sharp chest pain History of Present Illness: The patient is a 42 F who presents with intermittent sharp central chest pain rated the back 15-20 minute duration. First episode 08 100. Has had at least 10 episodes. No associated symptoms. She denies history of PE or DVT. She denies any pleuritic discomfort. She denies any leg pain, swelling discoloration. She denies any GI symptoms. There is no history of recent URI symptoms. Past medical history of TIA, coronary disease status post stent placement, ischemic cardiomyopathy, atypical chest pain, hypercholesterolemia and end-stage renal disease. Review of old records remarkable for Takotsuba syndrome. Physical Examination: Vital signs reveal slight elevation blood pressure 135/79. BMI is 47.8. Head is atraumatic normocephalic. Pupils are equal round reactive. Extraocular muscles are intact. TMs are pearly white with landmarks noted. Nares patent with no drainage. Posterior pharynx without erythema or exudate. Uvula is midline. There is no dysphonia or dysphasia. Trachea is midline. There is no stridor with auscultation of the neck. Heart is regular without murmur, gallop or rub. S1 and S2 are normal. Lungs are clear to auscultation with good movement of air bilaterally. Abdomen is soft nontender bowel sounds are present normal. There is no CVA tenderness noted. There is no asymmetry, swelling, discoloration, leg vein distention, palpable cords or tenderness along the distribution of the deep venous system. Neuro exam is nonfocal. Test Results: EKG reveals a sinus rhythm rate of 75 a left anterior fascicular block. This is unchanged from prior. Two-view chest x-ray is negative for any acute pathology and unchanged from prior dated September 21, 2017. White count slightly elevated 11.6 with no shift. This is non-specific. Creatinine slightly elevated 1.40. Troponin less than 0.015. Emergency Department Course and Treatment: In light of patient's multiple medical problems and atypical presentation will evaluate for pulmonary versus cardiac versus other cause of her chest discomfort. EKG, chest x-ray and appropriate blood work was obtained. Treatment Plan: Patient was informed that her tests are unremarkable. Plan is to discharge to home with appropriate home-going instructions Disposition: Discharged home in stable condition Impression: 1. Intermittent atypical chest pain unknown etiology 2. History of coronary disease 3. History of hypercholesterolemia 4. History of end-stage renal disease 5. History of atypical chest pain This note was generated with [employer] software. It may contain incorrect words, spelling, and punctuation that were not noted in review of the chart prior to signing ED Disposition - Plan for ED Patient: Disposition: Home or Assisted Living Chief Complaint: Chest Pain Instructions: ED Chest Pain Atypical Unkn Cause Referrals: Marlene Boyer NP-C [Primary Care Provider] - 3-5 Days What to do if you have Problems For any increased pain, shortness of breath, bleeding, nausea or vomiting, chest pain, or any unexpected problems, contact your Primary Care Provider. Call [facility] ([phone]) or report to the closest Emergency Room. Call 911 if necessary. 01/21/182051 <Electronically signed by Bubba Cody MD> Date Bubba Cody MD Cosigner Signature (If Indicated): Date CC: TONYA Boyer CHEST 1 VIEW Observed: 01/21/2018 Status: F Source: [place] (PORTABLE) 6:33 PM REPOSITORY [facility] Imaging Services [address] [place] [address] Chest 1 View (Portable) MR#: [id number] Acct: [id number] Name: DARREL ROSAS Rep #: [id number] : 1975 F 42 From: Lizzette Mccrary MD PCP: TONYA Gomez Status: PRE ER Study: Chest 1 View (Portable) Date of Exam: 01/21/18 Exam# [id number] Ordering Dr: Bubba Cody MD STUDY: X-RAY CHEST REASON FOR EXAM: Female, 42 years old. Intermittent chest pain. TECHNIQUE: 1 view COMPARISON: Prior chest radiograph of September 21, 2017 FINDINGS: The lungs are clear and expanded. There is no demonstrated pleural abnormality. Normal size heart. Normal mediastinum and prashant. Normal visualized pulmonary arteries. Normal visualized aortic arch and descending thoracic aorta. Normal visualized thoracic spine. Normal visualized ribs, clavicles, and shoulders. There is no demonstrated abnormality of the visualized soft tissue structures of the upper abdomen. RAD/Chest 1 View (Portable) IMPRESSION: Normal x-ray examination of the chest. Electronically Signed: Lizzette Mccrary MD at 19:06 EDT , Service support , CC: TOYNA Boyer; Bubba Cody MD Electrical [employer]: Signed CBC W/DIFF, AUTOMATED Collected: 01/21/2018 Status: F Source: [place] 6:22 PM REPOSITORY TYPE CODE TESTS RESULT OUT OF RANGE REFERENCE UNITS LAB L100.1000 4.4-11.0 K/mm3 High WBC 11.6 LAB L100.1200 4.2-5.4 M/mm3 Normal RBC 4.39 LAB L100.1300 12.0-15.0 g/dl Normal HGB 12.4 LAB L100.1400 37-47 % Normal HCT 39.4 LAB L100.1500 81-99 fL Normal MCV 89.7 LAB L100.1600 27.0-32.0 pg Normal MCH 28.2 LAB L100.1700 32-36 g/gl Low MCHC 31.5 LAB L100.1810 11.6-14.6 % Normal RDW CV 14.1 LAB L100.1820 35.1-43.9 fl High RDW SD 46.6 LAB L100.1900 150-450 K/mm3 Normal PLT 332 LAB L100.2000 6.2-12.0 fl Normal MPV 10.6 LAB L100.2100 47-70 % Normal NEUT% 60.5 LAB L100.2200 19-41 % Normal LY% 26.8 LAB L100.2300 0-10 % High MONO% 10.5 LAB L100.2400 0-5 % Normal EO% 1.4 LAB L100.2500 0-1 % Normal BASO% 0.5 LAB L100.2550 0.0-0.9 % Normal IM GRAN % 0.300 Result Comment: IG% - Immature Granulocytes (promyelocytes, myelocytes and metamyelocytes) > 1% indicates that a LEFT SHIFT is Present. LAB L100.2620 2.0-7.7 X10 3/uL Normal Absolute Neut 7.0 LAB L100.2720 0.83-4.51 X10 3/ul Normal Absolute Lymph 3.12 Performed By: #### L100.0100 #### [facility] [address] [place], [place], [id number] BASIC METABOLIC Collected: 01/21/2018 Status: F Source: [place] PROFILE (BMP) 6:22 PM REPOSITORY TYPE CODE TESTS RESULT OUT OF RANGE REFERENCE UNITS LAB L501.0100 74-106 mg/dL High GLU 112 Result Comment: Fasting Glucose result from 100 to 125 mg/dL suggests IMPAIRED HOMEOSTASIS per A.D.A. criteria. Please note revised GLUCOSE reference range effective 2017. LAB L501.1000 7-18 mg/dL Normal BUN 13 LAB L501.1100 0.55-1.02 mg/dL High CREAT,SERUM 1.40 Result Comment: The validity of the calculated GFR AND GFRAA in patients over 70 years has not been determined. Clinical correlation is essential. LAB L501.1110 >60 mL/min Low EST GFR 44 Result Comment: Non- GFR Calc LAB L501.1115 >60 mL/min Low EST GFR - AA 53 Result Comment: GFR Calc LAB L501.1255 ml/min Normal Estimated CRCL 51.43 LAB L501.1300 10-20 RATIO Low BUN/CRE 9.3 LAB L501.2200 8.5-10 mg/dL Low .1 CA 8.3 LAB L501.5300 136-14 mmol/L Normal 5 NA 141 LAB L501.5600 3.5-5. mmol/L Normal 1 K 4.7 LAB L501.5900 98-107 mmol/L High CL 108 LAB L501.6100 21.0-3 mmol/L Normal 2.0 CO2 21.0 LAB L501.6200 5-15 Normal GAP 12 Performed By: #### L500.2500, L501.4010 #### [facility] [address] [facility] [place], [place], [id number] TROPONIN-I Collected: 01/21/2018 Status: F Source: [place] 6:22 PM REPOSITORY TYPE CODE TESTS RESULT OUT OF RANGE REFERENCE UNITS LAB L501.4010 <0.045 ng/mL Normal < 0.015 TROPONIN-I Result Comment: TROPONIN-I EXPECTED VALUES <0.045 Negative 0.045 - 0.590 Consistent with Cardiac Damage > OR = 0.600 Critical Value Not every elevated troponin is indicative of WV. These values should be used with clinical judgement in examining the patient's clinical picture for diagnosis. To establish a diagnosis of WV versus myocardial injury, there must be a demonstrated rise and/or fall in the troponin values, in addition to ischemic symptoms, EKG changes, new regional wall motion abnormality, and/or angiographical evidence. PLEASE NOTE: REFERENCE RANGES EDITED 17 Performed By: #### L500.2500, L501.4010 #### [facility] [address] [facility] [place], [place], [id number] GROUP A STREP BY Collected: 11/30/2017 Status: F Source: [facility] 6:28 PM [facility] [place] REPOSITORY TYPE CODE TESTS RESULT OUT OF REFERENCE UNITS RANGE LAB GASSRC Throat Swab GAS Specimen Source LAB PCRGAS Negative for Group A Strep Group A PCR Streptococcus by PCR. Result Comment: This test was developed and its performance characteristics determined by [facility] [place] ([facility]). It has not been cleared or approved by the FDA. [facility] is regulated under CLIA as qualified to perform high-complexity testing. This test is used for clinical purposes. It should not be regarded as inv estigational or for research. Performed By: #### GASPCR #### [facility] [address] [place], [place] [address] PROGRESS Observed: 11/30/2017 Status: COMPLETED Source: [place] 5:07 PM [facility] [place] REPOSITORY HNO ID: [id number] Author: Ashley ([employer]) Thompson Service: (none) Author Type: Nurse Practitioner Type: Progress Notes Filed: 11/30/2017 5:20 PM Note Text: Subjective HPI Darrel Rosas is a 42 year old female who presents with cough, congestion, bilateral ear pain and sore throat for the past 7 days. She has taken mucinex, tylenol. Review of Systems Constitutional: Positive for chills. Negative for fever. HENT: Positive for congestion, ear pain and sore throat. Negative for ear discharge, hearing loss and tinnitus. Respiratory: Positive for cough and shortness of breath (chronic per patient). Cardiovascular: Negative. Negative for chest pain. Gastrointestinal: Negative. Negative for abdominal pain, diarrhea, nausea and vomiting. Musculoskeletal: Negative. Skin: Negative. Negative for rash. BP 120/84 Pulse 82 Temp 36.9 ?C (98.4 ?F) (Tympanic) Resp 16 Wt 135 kg (297 lb 9.6 oz) SpO2 97% BMI 46.61 kg/m? PAST MEDICAL HISTORY Diagnosis Date - Anemia in chronic kidney disease - Hyperparathyroidism (HCC) Dr. 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 Stevens - Sleep apnea - Stroke (HCC) 2009 PAST SURGICAL HISTORY Procedure Laterality Date - APPENDECTOMY - LAPAROSCOPIC CHOLEYCYSTECTOMY Cholecystectomy, lap - PAST SURGICAL HISTORY OF cardiac stentsx1 ALLERGIES Claritin-D 12 Hour [Loratadine-Pseudoephedrine] MEDICATIONS escitalopram oxalate (LEXAPRO) 20 mg tablet Take 1 tablet by mouth once daily. VITAMIN D-3 2,000 unit cap Take 1 capsule by mouth once daily. busPIRone (BUSPAR) 15 mg tablet Take 1 tablet by mouth twice daily. famotidine (PEPCID) 40 mg tablet Take 1 tablet by mouth daily at bedtime. atorvastatin (LIPITOR) 40 mg tablet clopidogrel (PLAVIX) 75 mg tablet lisinopril (ZESTRIL, PRINIVIL) 5 mg tablet metoprolol tartrate, short acting, (LOPRESSOR) 25 mg tablet predniSONE (DELTASONE) 10 mg tablet metroNIDAZOLE (FLAGYL) 500 mg tablet Take 1 tablet by mouth twice daily. nystatin (MYCOSTATIN) cream Apply 1 application to affected area twice daily. FAMILY HISTORY Problem Relation Age of Onset - Diabetes Father - Cancer Mother ovarian - Hypertension Father Social History Substance Use Topics - Smoking status: Former Smoker Packs/day: 0.50 Types: Cigarettes Quit date: 06/05/2013 - Smokeless tobacco: Never Used - Alcohol use No Objective Physical Exam Constitutional: She is well-developed, well-nourished, and in no distress. HENT: Head: Normocephalic. Right Ear: Tympanic membrane, external ear and ear canal normal. Left Ear: Tympanic membrane, external ear and ear canal normal. Nose: Rhinorrhea present. No sinus tenderness. Mouth/Throat: Uvula is midline and mucous membranes are normal. Posterior oropharyngeal erythema present. No oropharyngeal exudate or posterior oropharyngeal edema. Eyes: Conjunctivae are normal. Right eye exhibits no discharge. Left eye exhibits no discharge. Neck: Neck supple. Cardiovascular: Normal rate, regular rhythm and normal heart sounds. Pulmonary/Chest: Effort normal and breath sounds normal. Lymphadenopathy: She has no cervical adenopathy. Neurological: She is alert. Skin: Skin is warm and dry. No rash noted. Nursing note and vitals reviewed. ASSESSMENT/PLAN: 1. Sore throat - ICD9: 462, ICD10: J02.9 (primary diagnosis) - suspect viral - Rapid Strep negative in the office today and Throat culture pending - Discussed supportive care treatment with fluids, rest and analgesia. - The patient may also use warm salt water gargles, throat lozenges and/or OTC throat spray as needed. - Call back if drooling, increased temperature, symptoms of dehydration and/or still sick in one week - RAPID STREP TEST B/O - GROUP A STREPTOCOCCUS BY PCR 2. Viral URI with cough - ICD9: 465.9, ICD10: J06.9, B97.89 - Discussed viral etiology and rationale for treatment. - Rapid strep negative in office today - Symptomatic treatment with prn analgesia - Supportive care with fluids and rest - GUAIFENESIN ER 600 MG TABLET, EXTENDED RELEASE 12 HR - Follow-up with your PCP in 3-5 days if symptoms have not improved or sooner if symptoms worsen - Discussed red flags and need for immediate medical evaluation if any occur. - Discussed supportive care treatment with fluids, rest and analgesia. - Discussed expected course of illness Ashley Mackay APRN.CNP CNOV Observed: 11/30/2017 Status: COMPLETED Source: [place] 5:00 PM [facility] REPOSITORY Office Visit (UCWSTR) DARREL ROSAS ([id number]) 1975 F Date Time Provider Department 11/30/17 5:00 PM ASHLEY MACKAY ([facility]) [facility] During your visit today, we recorded the following information about you: Temperature Pulse Respiration Blood pressure 98.4 degrees 82/minute 16/minute 120/84 Weight 135 kg Ashley Mackay APRN.CNP 11/30/2017 5:20 PM Signed Subjective HPI Darrel Rosas is a 42 year old female who presents with cough, congestion, bilateral ear pain and sore throat for the past 7 days. She has taken mucinex, tylenol. Review of Systems Constitutional: Positive for chills. Negative for fever. HENT: Positive for congestion, ear pain and sore throat. Negative for ear discharge, hearing loss and tinnitus. Respiratory: Positive for cough and shortness of breath (chronic per patient). Cardiovascular: Negative. Negative for chest pain. Gastrointestinal: Negative. Negative for abdominal pain, diarrhea, nausea and vomiting. Musculoskeletal: Negative. Skin: Negative. Negative for rash. BP 120/84 Pulse 82 Temp 36.9 ?C (98.4 ?F) (Tympanic) Resp 16 Wt 135 kg (297 lb 9.6 oz) SpO2 97% BMI 46.61 kg/m? PAST MEDICAL HISTORY Diagnosis Date - Anemia in chronic kidney disease - Hyperparathyroidism (HCC) Dr. 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 Stevens - Sleep apnea - Stroke (HCC) 2009 PAST SURGICAL HISTORY Procedure Laterality Date - APPENDECTOMY - LAPAROSCOPIC CHOLEYCYSTECTOMY Cholecystectomy, lap - PAST SURGICAL HISTORY OF cardiac stentsx1 ALLERGIES Claritin-D 12 Hour [Loratadine-Pseudoephedrine] MEDICATIONS escitalopram oxalate (LEXAPRO) 20 mg tablet Take 1 tablet by mouth once daily. VITAMIN D-3 2,000 unit cap Take 1 capsule by mouth once daily. busPIRone (BUSPAR) 15 mg tablet Take 1 tablet by mouth twice daily. famotidine (PEPCID) 40 mg tablet Take 1 tablet by mouth daily at bedtime. atorvastatin (LIPITOR) 40 mg tablet clopidogrel (PLAVIX) 75 mg tablet lisinopril (ZESTRIL, PRINIVIL) 5 mg tablet metoprolol tartrate, short acting, (LOPRESSOR) 25 mg tablet predniSONE (DELTASONE) 10 mg tablet metroNIDAZOLE (FLAGYL) 500 mg tablet Take 1 tablet by mouth twice daily. nystatin (MYCOSTATIN) cream Apply 1 application to affected area twice daily. FAMILY HISTORY Problem Relation Age of Onset - Diabetes Father - Cancer Mother ovarian - Hypertension Father Social History Substance Use Topics - Smoking status: Former Smoker Packs/day: 0.50 Types: Cigarettes Quit date: 06/05/2013 - Smokeless tobacco: Never Used - Alcohol use No Objective Physical Exam Constitutional: She is well-developed, well-nourished, and in no distress. HENT: Head: Normocephalic. Right Ear: Tympanic membrane, external ear and ear canal normal. Left Ear: Tympanic membrane, external ear and ear canal normal. Nose: Rhinorrhea present. No sinus tenderness. Mouth/Throat: Uvula is midline and mucous membranes are normal. Posterior oropharyngeal erythema present. No oropharyngeal exudate or posterior oropharyngeal edema. Eyes: Conjunctivae are normal. Right eye exhibits no discharge. Left eye exhibits no discharge. Neck: Neck supple. Cardiovascular: Normal rate, regular rhythm and normal heart sounds. Pulmonary/Chest: Effort normal and breath sounds normal. Lymphadenopathy: She has no cervical adenopathy. Neurological: She is alert. Skin: Skin is warm and dry. No rash noted. Nursing note and vitals reviewed. ASSESSMENT/PLAN: 1. Sore throat - ICD9: 462, ICD10: J02.9 (primary diagnosis) - suspect viral - Rapid Strep negative in the office today and Throat culture pending - Discussed supportive care treatment with fluids, rest and analgesia. - The patient may also use warm salt water gargles, throat lozenges and/or OTC throat spray as needed. - Call back if drooling, increased temperature, symptoms of dehydration and/or still sick in one week - RAPID STREP TEST B/O - GROUP A STREPTOCOCCUS BY PCR 2. Viral URI with cough - ICD9: 465.9, ICD10: J06.9, B97.89 - Discussed viral etiology and rationale for treatment. - Rapid strep negative in office today - Symptomatic treatment with prn analgesia - Supportive care with fluids and rest - GUAIFENESIN ER 600 MG TABLET, EXTENDED RELEASE 12 HR - Follow-up with your PCP in 3-5 days if symptoms have not improved or sooner if symptoms worsen - Discussed red flags and need for immediate medical evaluation if any occur. - Discussed supportive care treatment with fluids, rest and analgesia. - Discussed expected course of illness GABRIELA Jack APRN.CNP 11/30/2017 5:15 PM Signed Treatment for Viral Upper Respiratory Tract Infections Your body will kill off the virus by itself. Additionally, you can prime your body's immune system. This may help you get better more quickly. 1. Drink lots of fluids - at least one gallon of non-caffeinated liquids per day 2. Make sure you are eating well 3. Get plenty of rest - at least 8 hours of sleep per night for adults and more for children We do not have any medications that kill off these viruses. Antibiotics are used to treat bacterial infections; however, they are not active against viral infections. There are some things that might help you feel better, though. 1. Vaporizers, humidifiers, hot showers, and hot fluids help open respiratory and sinus passages 2. [place] Nasal [place] may offer relief of nasal and head congestion 3. [place]'s Vapor Rub placed on a hot towel and draped over the head may relieve congestion 4. Tylenol and Advil help control fevers and headaches 5. Salt water gargles help relieve sore throats 6. Chloraceptic spray or throat lozenges may also help relieve sore throat symptoms 7. Mucinex will help loosen up secretions and also provide relief from a cough Occasionally, viral infections turn into something more serious. You should see your doctor or return to the Urgent Care if: 1. You have fevers for longer than five days 2. You have fevers above 102 degrees 3. You are still sick after 10 days 4. You have shortness of breath or wheezing 5. After several days you are getting worse rather than better Referring Provider: SELF [200] Allergies As of Date: 11/30/2017 Noted Allergy Reaction CLARITIN-D 12 HOUR (LORATADINE-PS*08/18/2008 4 - Hives Date Reviewed: 11/30/2017 Reviewed by: Ashley ([facility]) Thompson - Fully Assessed Reason for Visit: cough, congestion, bilateral ear pain and ST [Other] Cmt: x 1 week Primary Visit Diagnosis:Sore throat [J02.9] Other Visit Diagnosis:Viral URI with cough [J06.9, B97.89] Order(s):RAPID STREP TEST B/O [0316047] Order #: [id number] GROUP A STREPTOCOCCUS BY PCR [SQGASPCR] Order #: [id number] guaiFENesin (MUCINEX) 600 mg 12 hr tabletTake 2 tablets by mouth twice daily for 10 days.Disp: 40 tabletRfl: 0 Prescriptions as of 11/30/2017 Sig: ESCITALOPRAM 20 MG TABLET Take 1 tablet by mouth once d* VITAMIN D3 2,000 UNIT CAPSULE Take 1 capsule by mouth once * BUSPIRONE 15 MG TABLET Take 1 tablet by mouth twice * FAMOTIDINE 40 MG TABLET Take 1 tablet by mouth daily * ATORVASTATIN 40 MG TABLET CLOPIDOGREL 75 MG TABLET LISINOPRIL 5 MG TABLET METOPROLOL TARTRATE 25 MG TAB* GUAIFENESIN ER 600 MG TABLET,* Take 2 tablets by mouth twice* Problem List As Of Date 11/30/2017 Noted Resolved HEADACHE [R51] INVALID FOR* Chronic kidney disease with active medical debra*INVALID FOR* Essential (primary) hypertension [I10] INVALID FOR* Hyperlipidemia, unspecified [E78.5] INVALID FOR* Old myocardial infarction [I25.2] INVALID FOR* Personal history of nicotine dependence [Z87.89*INVALID FOR* Presence of coronary angioplasty implant and gr*INVALID FOR* Depression [F32.9] INVALID FOR* Gastroesophageal reflux disease without esophag*INVALID FOR* Bacterial vaginosis [N76.0, B96.89] INVALID FOR* Transformation zone absent on cervical Pap smea*INVALID FOR* Obesity, Class III, BMI >= 40 (morbid obesity) *INVALID FOR* Other instructions from your clinician: Treatment for Viral Upper Respiratory Tract Infections Your body will kill off the virus by itself. Additionally, you can prime your body's immune system. This may help you get better more quickly. 1. Drink lots of fluids - at least one gallon of non-caffeinated liquids per day 2. Make sure you are eating well 3. Get plenty of rest - at least 8 hours of sleep per night for adults and more for children We do not have any medications that kill off these viruses. Antibiotics are used to treat bacterial infections; however, they are not active against viral infections. There are some things that might help you feel better, though. 1. Vaporizers, humidifiers, hot showers, and hot fluids help open respiratory and sinus passages 2. [place] Nasal [place] may offer relief of nasal and head congestion 3. [place]'s Vapor Rub placed on a hot towel and draped over the head may relieve congestion 4. Tylenol and Advil help control fevers and headaches 5. Salt water gargles help relieve sore throats 6. Chloraceptic spray or throat lozenges may also help relieve sore throat symptoms 7. Mucinex will help loosen up secretions and also provide relief from a cough Occasionally, viral infections turn into something more serious. You should see your doctor or return to the Urgent Care if: 1. You have fevers for longer than five days 2. You have fevers above 102 degrees 3. You are still sick after 10 days 4. You have shortness of breath or wheezing 5. After several days you are getting worse rather than better Prescriptions ordered this encounter Disp Refills Start End GUAIFENESIN ER 600 MG TABLET, EXTEND* 40 t* 0 11/30/2017 12/10/2017 Route: ORAL Sig: Take 2 tablets by mouth twice daily for 10 days. Medications Discontinued During This Encounter predniSONE (DELTASONE) 10 mg tablet 02/24/2017 11/30/2017 Class: Historical Med Sig: Disc: Reason for discontinue is not on file. metroNIDAZOLE (FLAGYL) 500 mg tablet 14 t* 0 08/17/2016 11/30/2017 Route: ORAL Sig: Take 1 tablet by mouth twice daily. Disc: Reason for discontinue is not on file. nystatin (MYCOSTATIN) cream 30 g 2 08/09/2016 11/30/2017 Route: TOPICAL Sig: Apply 1 application to affected area twice daily. Disc: Reason for discontinue is not on file. Letter Text Ashley Mackay APRN.[facility] [address] [facility] [address] Dept: [phone] 11/30/2017 Darrel Rosas [address] [facility] [address] To Whom it May Concern: This is to certify that Darrel Rosas was seen at our office for medical care. Darrel may return to work on 12/01/2017. If you have any questions please feel free to call. Sincerely: Ashley Mackay APRN.[facility] Encounter Status:Closed by ASHLEY MACKAY on 11/30/17 TOTAL 25-OH VITAMIN Collected: 10/19/2017 Status: F Source: [facility] 7:19 AM [facility] REPOSITORY TYPE CODE TESTS RESULT OUT OF REFERENCE UNITS RANGE LAB 25VD1(LOINC 30.0-100.0 ng/mL ) Total 25-OH 35.7 Vitamin D Performed By: #### 25VD1 #### [place] [address] PTH, INTACT Collected: 10/19/2017 Status: F Source: [facility] 7:19 AM [facility]ALTH SYSTEM REPOSITORY TYPE CODE TESTS RESULT OUT OF REFERENCE UNITS RANGE LAB PTHI2(LOINC 18.5-88.0 pg/mL ) PTH, Intact 41.2 Performed By: #### PTHI2 #### [place] [address] URINE PROTEIN/CREATININE Collected: Status: F Source: [facility] 10/19/2017 7:19 AM [facility] REPOSITORY TYPE CODE TESTS RESULT OUT OF REFERENCE UNITS RANGE LAB UP(LOINC) 0.0-11.9 mg/dL High Urine Protein 29.2 LAB CREAU(LOINC mg/dL ) Creatinine,Uri 209.0 ne LAB PCRAT(LOINC 0.02-0.16 mg/mg creat ) Prot/Creat 0.14 Ratio Performed By: #### UPCRE #### [facility] [address] [place] [address] HEMOGRAM Collected: 10/19/2017 Status: F Source: [facility] 7:18 AM [facility]ALTH SYSTEM REPOSITORY TYPE CODE TESTS RESULT OUT OF REFERENCE UNITS RANGE LAB LWBC(LOINC) 4.8-10.8 thou/cmm WBC 9.9 LAB LRBC(LOINC) 4.20-5.40 mil/cmm Low RBC 4.19 LAB LHGB(LOINC) 12.0-16.0 g/dL Hgb 12.0 LAB LHCT(LOINC) 37.0-47.0 % Hct 38.3 LAB LMCV(LOINC) 81.0-99.0 fl MCV 91.4 LAB LMCH(LOINC) 27.0-31.0 pg MCH 28.6 LAB LMCHC(LOINC 32.0-36.0 % ) Low MCHC 31.3 LAB LRDW(LOINC) 11.5-15.9 % RDW 13.8 LAB LPLT(LOINC) 150-400 thou/cmm Platelet 339 LAB LMPV(LOINC) 7.1-10.5 fl MPV 10.4 Performed By: #### LCBC #### [facility] [address] [place] [address] LIPID PROFILE Collected: 10/19/2017 Status: F Source: [facility] 7:18 AM [facility]ALTH SYSTEM REPOSITORY TYPE CODE TESTS RESULT OUT OF REFERENCE UNITS RANGE LAB LCHOL(LOIN 0-199 mg/dL C) Cholesterol High Blood 213 LAB LTRIG(LOIN 0-149 mg/dL C) Triglyceride High Blood 222 LAB LHDL2(LOIN >40 mg/dL C) HDL Cholesterol 40 LAB LLDL(LOINC 0-150 mg/dL ) LDL 129 LAB LCHHD(LOIN 1.8-5.3 C) CHOL/HDL 5.3 LAB LRISK(LOIN C) Risk Factor 5.3 Result Comment: Cardiac Risk Factor The CHD risk factor is based on the total Chol/HDL ratio. Other factors affect CHD risk such as hypertension, smoking, diabetes, severe obesity and premature CHD. Cardiac Risk Total Chol/HDL ratio Men Women 1/2 avg risk 3.4-4.9 3.3-6.3 Avg risk 5.0-9.5 6.4-7.0 2x avg risk 9.6-23.3 7.1-10.9 3x avg risk >23.4 >11.0 Performed By: #### LLIPD #### [place] [address] RENAL PANEL Collected: 10/19/2017 Status: F Source: [facility] 7:18 AM [facility]ALTH SYSTEM REPOSITORY TYPE CODE TESTS RESULT OUT OF REFERENCE UNITS RANGE LAB [place](LOINC) 136-145 mEq/L Low Sodium Blood 135 LAB LK(LOINC) 3.5-5.1 mEq/L Potassium Blood 4.6 LAB LCL(LOINC) 98-107 mEq/L Chloride High Blood 108 LAB LCO2(LOINC 21-32 mEq/L ) CO2 Blood 25 LAB LGLU(LOINC 70-99 mg/dL ) Glucose High Blood 105 LAB LBUN(LOINC 7-25 mg/dL ) BUN Blood 16 LAB LCREA(LOIN 0.51-0.95 mg/dL C) High Creatinine Blood 1.27 LAB LCA(LOINC) 8.5-10.1 mg/dL Calcium Blood 9.0 LAB LALB(LOINC 3.4-5.0 g/dL ) Low Albumin Blood 3.2 LAB LPHOS(LOIN 2.6-4.7 mg/dL C) Phosphorus Blood 4.1 LAB LANGP(LOIN 8-20 C) Low Anion Gap 6 LAB LBNCR(LOIN 10-20 C) BUN/Creatinine 13 Ratio Performed By: #### LRENL #### [facility] [address] [place] [address] MAGNESIUM BLOOD Collected: 10/19/2017 Status: F Source: [facility] 7:18 AM [facility] SYSTEM REPOSITORY TYPE CODE TESTS RESULT OUT OF REFERENCE UNITS RANGE LAB LMAG(LOINC 1.8-2.4 mg/dL ) Magnesium Blood 1.9 Performed By: #### LMAG #### [facility] [address] [place], [place] [address] MDRD EGFR Collected: 10/19/2017 Status: F Source: [facility] 7:18 AM [facility] SYSTEM REPOSITORY TYPE CODE TESTS RESULT OUT OF RANGE REFERENCE UNITS LAB LGFRF(LOINC >60mL/min/1.73m ) 2 eGFR 49.23 Result Comment: If the patient is , multiply the result by 1.210. Performed By: #### LGFR #### [facility] [address] [place], [place] [address] CARDIOLOGY VISIT Observed: 10/12/2017 Status: F Source: [facility] REPORT 11:34 AM REPOSITORY [facility] [address] [place] [address] OFFICE VISIT Date of Service: 10/12/17 MR#: [id number] Acct: [id number] Name: DARREL ROSAS Rep #: [id number] : 1975 Provider: Lg Leyva MD Age/Sex: 42/F Location: [facility] [place] Status: Signed HPI HPI Chief Complaint: Follow up Details: DARREL ROSAS, is a 42 F who presents to the office today for a follow-up visit. She is a lady with history of premature coronary artery disease status post previous non-ST elevation myocardial infarction in 2009 and subsequently 2013. Her last cardiac catheterization demonstrated a discrete 90% stenotic lesion in the left anterior descending artery which was angioplastied. She also has a history of previous cerebrovascular accident for which is completely recovered and a history of hyperlipidemia. She has been under some stress recently because of family issues. She has had no neck arm or jaw discomfort suggest angina no dizziness or diaphoresis she does have mild shortness of breath with activity. She remains compliant with all her medications. Her last stress test in 2014 demonstrated no evidence of ischemia at a moderate workload there is evidence of previous anterior apical infarct present. Her physical exam today demonstrates clear lung bennett regular rate and rhythm and no pedal edema. Her chest pain that she occasionally gets is rather atypical and sharp. 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 Accompanied by: None Is patient in pain?: No Allergies loratadine [From Claritin-D] Allergy (Verified 10/12/17 11:18) Hives pseudoephedrine sulfate [From Claritin-D] Allergy (Verified 10/12/17 11:18) Hives Medications clopidogrel 75 mg tablet 75 mg PO QDAY #1 tab 07/20/17 [Rx Confirmed 10/12/17] lisinopril 5 mg tablet 5 mg PO QDAY #1 tab 07/20/17 [Rx Confirmed 10/12/17] metoprolol tartrate 25 mg tablet 12.5 mg PO BID #1 tab 07/20/17 [Rx Confirmed 10/12/17] aspirin 81 mg tablet,delayed release 81 mg PO QDAY 10/12/17 [History Confirmed 10/12/17] buspirone 15 mg tablet 15 mg PO BID 30 Days #60 tab 10/12/17 [History Confirmed 10/12/17] cholecalciferol (vitamin D3) 2,000 unit capsule 2,000 unit PO QDAY 30 Days #30 cap 10/12/17 [History Confirmed 10/12/17] escitalopram 20 mg tablet 20 mg PO QDAY 30 Days #30 tab 10/12/17 [History Confirmed 10/12/17] Ejection fraction %: 40 to 44 (40% per echo 01/20/2014 at [facility]) [facility] Medical History Atypical chest pain (Chronic) History of coronary artery stent placement (Chronic) Takotsubo syndrome (Chronic) TIA (transient ischemic attack) (Chronic) Ischemic cardiomyopathy (Chronic) Atherosclerotic heart disease of havasupai coronary artery without angina pectoris (Chronic) Old myocardial infarction (Chronic) HLD (hyperlipidemia) (Chronic) Renal failure (Chronic) Surgical History Hx laparoscopic cholecystectomy (Chronic) Hx of appendectomy (Chronic) Family History Sister Cancer Renal cancer Social History Smoking Status: Former smoker how long ago did patient quit smokin01/2014 alcohol intake: never ROS Const Const: Positive for fatigue and headache(s); negative for body ache, fever(s), chills, night sweats, daytime sleepiness, difficulty sleeping, weight gain, weight loss, increased appetite, poor appetite, anorexia, other, frequent falls, weakness or excessive sweating Eyes Eyes: Negative for blind spots, loss of peripheral vision, transient loss of vision, change in vision, floaters, tunnel vision, other, blurry vision or double vision ENT ENT: Positive for headache(s), neck pain and dizziness; negative for hearing loss, tinnitus, Nosebleed/epistaxis, post nasal drip, bleeding gums, hoarseness, dry mouth, other, balance problems, tongue swelling or lip swelling Cardio Chest Pain: Yes (went to ER determined it was stress related) Palpitations: No Edema: None Muscle aches with walking: Bilateral (lower extremities) Resp Respiratory: Positive for SOB with activity; negative for SOB at rest, SOB orthopnea\SOB lying down, Cough, Coughing up blood/hemoptysis, chest congestion, pain on inspiration, snoring, stridor, wheezing, crackles, paroxysmal nocturnal dyspnea or other GI GI: Negative nausea, vomiting, heartburn, constipation, belching, bloating, cramping, vomiting blood/hematemesis, bright, red blood in stools, black,tarry stools, loose stools, Difficulty Swallowing or other : Negative for hematuria, frequent nighttime urination/ nocturia, erectile dysfunction or abnormal vaginal bleeding Musc Musc: Positive for muscle aches/ myalgia; negative for muscle weakness, joint pain or balance problems Skin Skin: Negative redness, non-healing lesions, unusual bruising, skin ulcer, wounds, jaundice, other or rash Neuro Neuro: Positive for headache(s) and dizziness; negative for lightheadedness, near syncope, syncope, orthostatic symptoms, frequent falls, weakness, confusion, memory loss, restless legs, blurry vision, double vision, vertigo, seizures, lack of coordination or other Jose Hematologic/Lymphatic: Negative for easy bleeding, easy bruising, enlarged lymph nodes or other Endo Endo: Positive for fatigue; negative for cold intolerance, heat intolerance, excessive sweating, flushing, increased thirst/drinking, increased hunger, hair loss, hair growth or other Psych Psych: Negative for anxiety, depression, thoughts of harming anyone, thoughts of harming yourself, visual hallucinations, panic attacks or audible hallucinations Allergy Allergy/Immunology: Negative for throat swelling, Negative for tongue swelling, Negative for hives, Negative for rash, Negative for lip swelling Cardiology Exam Const Appearance: cooperative, healthy appearing, well developed, well groomed and no acute distress Nutritional Appearance: well nourished and average body habitus Orientation: alert, awake and oriented x3 Head Head: normal to inspection, normocephalic and atraumatic Ears: hearing grossly normal bilaterally and external ears normal Nose: external nose normal, nasal mucous membranes and turbinates normal, nares normal, septum normal, no nasal discharge Face and Sinus: face symmetric Mouth: oral mucosae normal, tongue normal, oropharynx normal and moist mucous membranes Teeth and gingiva: dentition normal Throat: posterior oropharynx normal, tonsils normal and uvula midline Eyes General: appearance normal, both eyes and all related structures Eyelids: eyelids normal Conjunctivae: conjunctivae normal Pupils: PERRL, normal by confrontation and accommodation normal EOM: EOM intact bilaterally Neck Neck: normal visual inspection, trachea midline and no JVD JVD: +5 Carotids: normal carotid upstroke and bounding pulses Chest Chest inspection: normal inspection of the chest, symmetric chest movement and normal respiratory effort Auscultation: Bilateral: Clear to Auscultation Cardio Palpation: normal PMI Rate: regular rate Rhythm: regular rhythm Heart sounds: S1 normal, S2 normal and normal, physiologic split S2; negative rub, gallop or murmur GI GI: normal to inspection, soft, no hepatosplenomegaly and bowel sounds present Neuro General: alert, awake, oriented x3, no focal sensory deficit, gait normal and moves all extremities Skin Skin: no rashes or lesions noted Extremities Pulses: Normal: Right Femoral Pulse, Left Femoral Pulse, Right Dorsalis Pedis Pulse, Left Dorsalis Pedis Pulse, Right Posterior Tibial Pulse, Left Posterior Tibial Pulse, Right Radial Pulse, Left Radial Pulse Lower Extremity Edema: None: Bilateral Musculoskel Musculoskeletal: No joint tenderness Psych Psychological: normal affect Assessment AND Plan 1. 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 My recommendation is to continue her on the current medications. She will remain on the aspirin the beta-roman as well as the clopidogrel. 2. Takotsubo syndrome I51.81 Plan This appears to have largely recovered. Her last evaluation in 2013 demonstrated an ejection fraction of 50-55%. There was hypokinesis of the apical myocardium present. 3. Pure hypercholesterolemia E78.00; E78.0 Plan She is currently not on any statins due to leg cramps and myalgias her last lipid profile however demonstrated total cholesterol 150 LDL of 66 and HDL of 51. No other major changes will be made. Thank you for allowing me to participate in the care of your patient. 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 transplanted heart: havasupai heart Takotsubo syndrome I51.81 Pure hypercholesterolemia E78.00; E78.0 Hyperlipidemia type: pure hypercholesterolemia 10/12/17 1134 <Electronically signed by Lg Leyva MD> Date Lg Leyva MD Cosigner Signature: Date (if applicable) CC: TONYA Boyer 12 LEAD ELECTROCARDIOGRAM Observed: 09/25/2017 Status: F Source: [place] 3:16 PM REPOSITORY [facility] Cardiovascular Services [address] [place] [address] 12 Lead EKG 09/21/17 1733 MR#: [id number] Acct: [id number] Name: DARREL ROSAS Rep #: [id number] : 1975 42 From: Fermin Oleary MD Attending Dr: Status: DEP ER Ordering Dr: Ismael Garza Date: 09/21/17 Location: ED Sex: F C Admitted: Test Reason : CP Blood Pressure : / mmHG Vent. Rate : 065 BPM Atrial Rate : 065 BPM P-R Int : 152 ms QRS Dur : 094 ms QT Int : 412 ms P-R-T Axes : 049 -65 036 degrees QTc Int : 428 ms Normal sinus rhythm Low voltage QRS Left anterior fascicular block Poor R wave progression Abnormal ECG Confirmed by MAMTA LEAL, FERMIN ([id number]), acquisition editor DONTA CUNNINGHAM ([id number]) on 09/25/2017 3:16:18 PM Referred By: Confirmed By:FERMIN OLEARY MD 09/25/17 1516 Date Fermin Oleary MD CC: MD Darren Hudson; ED PHYSICIAN PROVIDER; OUT OF TOWN DOCTOR Signed EMERGENCY DEPARTMENT Observed: 09/22/2017 Status: F Source: [place] SUMMARY 12:54 AM REPOSITORY [facility] Medical Records Department [address] [place] [address] Emergency Department Summary 09/21/17 1843 MR#: [id number] Acct: [id number] Name: DARREL ROSAS Rep #: [id number] : 1975 42 From: Sheela Hudson MD PCP: OUT OF TOWN DOCTOR Status: DEP ER - ER Visit Summary Date of Service: 09/21/17 Chief Complaint: [] Left sharp stabbing chest pain for weeks history of cardiac stent in 2013 History of Present Illness: The patient is a 42 F [] that history she indicates she has had a sharp stabbing pain to the left chest for 4 weeks it is not like her angina, nothing makes it better or worse it is not related to exertion there is no diaphoresis orthopnea or PND her 14-year-old daughter wanted her evaluated and she came in for evaluation. She indicates again she is not sure why she has the pain other than to report she is under significant stress and she feels that is causing her symptoms. She is otherwise been healthy no fever no cough no orthopnea or PND eating and drinking well bowel bladder habits normal review of systems otherwise negative no history of DVT or PE Physical Examination: [] She is resting comfortably in the bed no distress her vital signs are all within normal range she points with one finger tip to the left subcostal margin at about the second rib sternal interface this area is tender to palpation and there is no warmth or redness her lungs are clear the heart tones are unremarkable the abdomen soft nontender upper lower extremity unremarkable moving upper extremities causes minimal pain to this area her pulses are symmetric her upper lower extremity movements are normal no sinus clubbing or edema and she assures me this is nothing like her angina she has had it for 4 weeks or more Test Results: [] Emergency Department Course and Treatment: [] Patient's EKG shows a sinus rhythm her lab studies chest x-ray troponin are negative and again she has had pain for weeks, she does not wish to be admitted we spoke about inpatient versus outpatient management she wants to go home she feels better knowing the tests are negative she understands the concept of an occult cardiac condition and to follow with her physicians and return for change in symptoms, we discussed her situational stress she reports is nothing that can be done about it and she will try to manage as best she can Treatment Plan: [] Disposition: [] Home stable and admission Impression: [] Sharp left stabbing chest pain for 4 weeks history of cardiac stent This note was generated with [employer] dictation software. It may contain incorrect words, spelling, and punctuation that were not noted in review of the chart prior to signing ED Disposition - Plan for ED Patient: Chief Complaint: Chest Pain Referrals: [facility] Doctor,Out of [Primary Care Provider] - What to do if you have Problems For any increased pain, shortness of breath, bleeding, nausea or vomiting, chest pain, or any unexpected problems, contact your Primary Care Provider. Call Doctors [facility] ([phone]) or report to the closest Emergency Room. Call 911 if necessary. 09/22/17 0054 <Electronically signed by Sheela Hudson MD> Date Sheela Hudson MD Cosigner Signature (If Indicated): Date CC: OUT OF TOWN DOCTOR DISCHARGE INSTRUCTION Observed: 09/21/2017 Status: F Source: [place] 6:49 PM [facility] Medical Records Department [address] [place] [address] Discharge Instruction 09/21/171848 MR#: [id number] Acct: [id number] Name: DARREL ROSAS Rep #: [id number] : 1975 42 From: Sheela Hudson MD PCP: OUT OF TOWN DOCTOR Status: PRE ER ED Disposition - Plan for ED Patient: Chief Complaint: Chest Pain Instructions: ED Chest Pain Atypical Unkn Cause Referrals: [facility] Doctor,Out of [Primary Care Provider] - What to do if you have Problems For any increased pain, shortness of breath, bleeding, nausea or vomiting, chest pain, or any unexpected problems, contact your Primary Care Provider. Call [facility] ([phone]) or report to the closest Emergency Room. Call 911 if necessary. 09/21/171848 <Electronically signed by Sheela uHdson MD> Date Sheela Hudson MD Cosigner Signature (If Indicated): Date CC: OUT OF TOWN DOCTOR CHEST 1 VIEW Observed: 09/21/2017 Status: F Source: [place] (PORTABLE) 6:04 PM [facility] Imaging Services [address] [place] [address] Chest 1 View (Portable) MR#: [id number] Acct: [id number] Name: DARREL ROSAS Rep #: [id number] : 1975 F 42 From: Luis Alberto Gamino MD PCP: OUT OF TOWN DOCTOR Status: PRE ER Study: Chest 1 View (Portable) Date of Exam: 09/21/17 Exam# [id number] Ordering Dr: Sheela Hudson MD STUDY: X-RAY CHEST REASON FOR EXAM: Female, 42 years old. Chest pain radiating down left arm TECHNIQUE: AP COMPARISON: January 19, 2014 FINDINGS: The lungs are clear and expanded. There is no demonstrated pleural abnormality. Normal size heart. Normal mediastinum and prashant. Normal visualized pulmonary arteries. Normal visualized aortic arch and descending thoracic aorta. Normal visualized thoracic spine. Normal visualized ribs, clavicles, and shoulders. There is no demonstrated abnormality of the visualized soft tissue structures of the upper abdomen. No significant change since prior study RAD/Chest 1 View (Portable) IMPRESSION: Normal x-ray examination of the chest. Electronically Signed: Luis Alberto Gamino MD at 18:54 EDT , Service support , CC: MD Darren Hudson; [facility] Electrical [employer]: Signed CBC W/DIFF, AUTOMATED Collected: 09/21/2017 Status: F Source: [place] 6:01 PM REPOSITORY TYPE CODE TESTS RESULT OUT OF RANGE REFERENCE UNITS LAB L100.1000 4.4-11.0 K/mm3 Normal WBC 9.7 LAB L100.1200 4.2-5.4 M/mm3 Normal RBC 4.58 LAB L100.1300 12.0-15.0 g/dl Normal HGB 12.9 LAB L100.1400 37-47 % Normal HCT 41.6 LAB L100.1500 81-99 fL Normal MCV 90.8 LAB L100.1600 27.0-32.0 pg Normal MCH 28.2 LAB L100.1700 32-36 g/gl Low MCHC 31.0 LAB L100.1810 11.6-14.6 % Normal RDW CV 13.9 LAB L100.1820 35.1-43.9 fl High RDW SD 45.7 LAB L100.1900 150-450 K/mm3 Normal PLT 337 LAB L100.2000 6.2-12.0 fl Normal MPV 10.2 LAB L100.2100 47-70 % Normal NEUT% 55.8 LAB L100.2200 19-41 % Normal LY% 32.5 LAB L100.2300 0-10 % Normal MONO% 9.4 LAB L100.2400 0-5 % Normal EO% 1.8 LAB L100.2500 0-1 % Normal BASO% 0.3 LAB L100.2550 0.0-0.9 % Normal IM GRAN % 0.200 Result Comment: IG% - Immature Granulocytes (promyelocytes, myelocytes and metamyelocytes) > 1% indicates that a LEFT SHIFT is Present. LAB L100.2620 2.0-7.7 X10 3/uL Normal Absolute Neut 5.4 LAB L100.2720 0.83-4.51 X10 3/ul Normal Absolute Lymph 3.15 Performed By: #### L100.0100 #### [facility] [address] [place], [address] BASIC METABOLIC Collected: 09/21/2017 Status: F Source: [place] PROFILE ([facility]) 6:01 PM REPOSITORY Order Comment: 'TROP' Serial specimen #1, #2, #3, or #4: 1 TYPE CODE TESTS RESULT OUT OF RANGE REFERENCE UNITS LAB L501.0100 74-106 mg/dL Normal GLU 102 Result Comment: Fasting Glucose result from 100 to 125 mg/dL suggests IMPAIRED HOMEOSTASIS per A.D.A. criteria. Please note revised GLUCOSE reference range effective 2017. LAB L501.1000 7-18 mg/dL Normal BUN 13 LAB L501.1100 0.55-1.02 mg/dL High CREAT,SERUM 1.30 Result Comment: The validity of the calculated GFR AND GFRAA in patients over 70 years has not been determined. Clinical correlation is essential. LAB L501.1110 >60 mL/min Low EST GFR 48 Result Comment: Non- GFR Calc LAB L501.1115 >60 mL/min Low EST GFR - AA 58 Result Comment: GFR Calc LAB L501.1255 ml/min Normal Estimated CRCL 55.38 LAB L501.1300 10-20 RATIO Normal BUN/CRE 10.0 LAB L501.2200 8.5-10 mg/dL Normal .1 CA 8.9 LAB L501.5300 136-14 mmol/L Normal 5 NA 140 LAB L501.5600 3.5-5. mmol/L Normal 1 K 4.6 LAB L501.5900 98-107 mmol/L High CL 108 LAB L501.6100 21.0-3 mmol/L Normal 2.0 CO2 25.0 LAB L501.6200 5-15 Normal GAP 7 Performed By: #### L500.2500, L501.4010 #### [facility] [address] [facility]. [place], [place], [id number] TROPONIN-I Collected: 09/21/2017 Status: F Source: [place] 6:01 PM REPOSITORY Order Comment: 'TROP' Serial specimen #1, #2, #3, or #4: 1 TYPE CODE TESTS RESULT OUT OF RANGE REFERENCE UNITS LAB L501.4010 <0.06 ng/mL Normal < 0.02 TROPONIN-I Result Comment: TROPONIN-I EXPECTED VALUES <0.05 NEGATIVE 0.06 - 0.59 AT RISK OF [place] > OR = 0.60 SUGGEST [place] Performed By: #### L500.2500, L501.4010 #### [facility] [address] [facility] [place], [place], [address] OBSOLETE Observed: 08/02/2017 Status: COMPLETED Source: [place] 12:00 AM [facility] REPOSITORY Refill (WENDY) DARREL ROSAS ([id number]) 1975 F Date Time Provider Department 08/02/17 MARLENE BOYER (SCIENTIFIC DATABASE CURATOR) WENDY During your visit today, we recorded the following information about you: Shruti Chacko CMA 08/02/2017 4:18 PM Signed Last OV 03/13/17 Pharmacy electronically requests the following refill(s) Pending Prescriptions Disp Refills ESCITALOPRAM 20 MG TABLET 30 tablet 2 Sig: Take 1 tablet by mouth once daily. RUPA: Yes Shruti Chacko CMA Allergies As of Date: 08/02/2017 Noted Allergy Reaction CLARITIN-D 12 HOUR (LORATADINE-PS*08/18/2008 4 - Hives Date Reviewed: 03/13/2017 Reviewed by: Shruti Hernandez) [place] - Fully Assessed Reason for Visit: Refill Request [94] Order(s):escitalopram oxalate (LEXAPRO) 20 mg tabletTake 1 tablet by mouth once daily.Disp: 30 tabletRfl: 11 Prescriptions as of 08/02/2017 Sig: ESCITALOPRAM 20 MG TABLET Take 1 tablet by mouth once d* VITAMIN D3 2,000 UNIT CAPSULE Take 1 capsule by mouth once * BUSPIRONE 15 MG TABLET Take 1 tablet by mouth twice * PREDNISONE 10 MG TABLET METRONIDAZOLE 500 MG TABLET Take 1 tablet by mouth twice * NYSTATIN 100,000 UNIT/GRAM TO* Apply 1 application to affect* FAMOTIDINE 40 MG TABLET Take 1 tablet by mouth daily * ATORVASTATIN 40 MG TABLET CLOPIDOGREL 75 MG TABLET LISINOPRIL 5 MG TABLET METOPROLOL TARTRATE 25 MG TAB* Problem List As Of Date 08/02/2017 Noted Resolved HEADACHE [R51] INVALID FOR* Chronic kidney disease with active medical debra*INVALID FOR* Essential (primary) hypertension [I10] INVALID FOR* Hyperlipidemia, unspecified [E78.5] INVALID FOR* Old myocardial infarction [I25.2] INVALID FOR* Personal history of nicotine dependence [Z87.89*INVALID FOR* Presence of coronary angioplasty implant and gr*INVALID FOR* Depression [F32.9] INVALID FOR* Gastroesophageal reflux disease without esophag*INVALID FOR* Bacterial vaginosis [N76.0, B96.89] INVALID FOR* Transformation zone absent on cervical Pap smea*INVALID FOR* Obesity, Class III, BMI >= 40 (morbid obesity) *INVALID FOR* Prescriptions ordered this encounter Disp Refills Start End ESCITALOPRAM 20 MG TABLET 30 t* 11 08/02/2017 Sig: Take 1 tablet by mouth once daily. Medications Discontinued During This Encounter escitalopram oxalate (LEXAPRO) 20 mg* 30 t* 11 07/12/2016 08/02/2017 Route: ORAL Sig: Take 1 tablet by mouth once daily. Disc: Reason for discontinue is not on file. Encounter Status:Closed by MARLENE BOYER CNP on 08/02/17 OBSOLETE Observed: 07/14/2017 Status: COMPLETED Source: [place] 12:00 AM [facility] REPOSITORY Refill (AGFAMPLE) DARREL ROSAS ([id number]) 1975 F Date Time Provider Department 07/14/17 MARLENE BOYER (MARILEE) AGFAMPLE During your visit today, we recorded the following information about you: Mckenzie Landon LPN 07/14/2017 1:50 PM Signed Pharmacy calls in requesting the following refill(s): Pending Prescriptions Disp Refills VITAMIN D3 2,000 UNIT CAPSULE 30 capsule 0 Sig: Take 1 capsule by mouth once daily. RUPA: Yes Last OV 03/13/17. Last Rx filled 07/12/16. Please advise. Thank you. Mckenzie Landon LPN Allergies As of Date: 07/14/2017 Noted Allergy Reaction CLARITIN-D 12 HOUR (LORATADINE-PS*08/18/2008 4 - Hives Date Reviewed: 03/13/2017 Reviewed by: Shruti ([facility]) [place] - Fully Assessed Reason for Visit: Refill Request [94] Order(s):VITAMIN D-3 2,000 unit capTake 1 capsule by mouth once daily.Disp: 30 capsuleRfl: 11 Prescriptions as of 07/14/2017 Sig: VITAMIN D3 2,000 UNIT CAPSULE Take 1 capsule by mouth once * BUSPIRONE 15 MG TABLET Take 1 tablet by mouth twice * PREDNISONE 10 MG TABLET METRONIDAZOLE 500 MG TABLET Take 1 tablet by mouth twice * NYSTATIN 100,000 UNIT/GRAM TO* Apply 1 application to affect* ESCITALOPRAM 20 MG TABLET Take 1 tablet by mouth once d* FAMOTIDINE 40 MG TABLET Take 1 tablet by mouth daily * ATORVASTATIN 40 MG TABLET CLOPIDOGREL 75 MG TABLET LISINOPRIL 5 MG TABLET METOPROLOL TARTRATE 25 MG TAB* Problem List As Of Date 07/14/2017 Noted Resolved HEADACHE [R51] INVALID FOR* Chronic kidney disease with active medical debra*INVALID FOR* Essential (primary) hypertension [I10] INVALID FOR* Hyperlipidemia, unspecified [E78.5] INVALID FOR* Old myocardial infarction [I25.2] INVALID FOR* Personal history of nicotine dependence [Z87.89*INVALID FOR* Presence of coronary angioplasty implant and gr*INVALID FOR* Depression [F32.9] INVALID FOR* Gastroesophageal reflux disease without esophag*INVALID FOR* Bacterial vaginosis [N76.0, B96.89] INVALID FOR* Transformation zone absent on cervical Pap smea*INVALID FOR* Obesity, Class III, BMI >= 40 (morbid obesity) *INVALID FOR* Prescriptions ordered this encounter Disp Refills Start End VITAMIN D3 2,000 UNIT CAPSULE 30 c* 11 07/14/2017 Sig: Take 1 capsule by mouth once daily. Medications Discontinued During This Encounter Cholecalciferol, Vitamin D3, (VITAMI* 30 c* 11 07/12/2016 07/14/2017 Route: ORAL Sig: Take 1 capsule by mouth once daily. Disc: Reason for discontinue is not on file. Encounter Status:Closed by MARLENE BOYER CNP on 07/14/17 ALLERGIES ALLERGIES DATE TYPE / NAME / CODE REACTION SEVERITY SOURCE CODE 06/20/2018 Drug pseudoephedrine Hives Unknown [place] Allergy/41 sulfate/[id number]([facility] [id number]([facility]) Repository 06/20/2018 Drug loratadine/[id number] Hives Unknown [place] Allergy/41 ([facility]NORM) Community [id number]([facility]) Repository 08/18/2008 DRUG/[id number] LORATADINE-PSEUDOEPHE HIVES [facility] 1003([facility] [place]) Repository [id number] LORATADINE-PSEUDOEPHE [facility] 06([facility]) Repository ENCOUNTERS ENCOUNTERS ADMIT/DISCHARGE ACCOUNT NUMBER ADMITTING ENCOUNTER LOCATION SOURCE CLASS 06/20/2018/06/20/19 [id number] Emergency [address] ding:ED Repository 06/18/2018 [id number] Ambulatory [facility] MEDICAL Repository CENTERBuildi ng:AGLO 06/07/2018/06/07/19 [id number] Ambulatory [address] Other [place] Repository 06/07/2018/06/07/19 [id number] Ambulatory [address] MEDICAL Repository CENTERBuildi ng:AGLO 06/07/2018/06/07/19 [id number] Ambulatory [address] Main [place] Repository 06/07/2018/06/08/19 [id number] Ambulatory [address] Main [place] Repository 05/10/2018 [id number] Ambulatory [facility] Other [place] Repository 05/10/2018/05/10/20 [id number] Ambulatory [address] Other [place] Repository 05/10/2018/05/10/20 [id number] Ambulatory [address] MEDICAL Repository CENTERBuildi ng:AGLO 02/14/2018/02/15/20 [id number] Emergency [place] ding:ED Repository 01/21/2018/01/22/20 [id number] Emergency [address] ding:ED Repository 11/30/2017/12/02/19 [id number] Ambulatory [address] [place] Repository 10/12/2017/10/13/19 [id number] Ambulatory BMSBuilding: [place] 18 [facility] Repository 10/11/2017 [id number] Ambulatory BMSBuilding: [place] [facility]MS[facility] Repository 09/21/2017/09/22/19 [id number] Emergency [place] ding:ED Repository PAYERS PAYERS ENCOUNTER GUARANTOR PAYER SUBSCRIBER SOURCE 06/20/2018 CRYSTAL E Primary CRYSTAL E [place] [id number] Insurance:[facility] Number: [id number], [place] [id number] Repository 09655Xms: (330) Date:2018-06-20 O [phone] () [address]ATTN: [place] [address]TA: 06/20/2018 Secondary NOT GIVENUNK [place] Insurance:SELF PAY [facility] Number: Effective Repository Date:2018-06-20 06/18/2018 CRYSTAL E Primary CRYSTAL E [facility] FORTUNEDOB: Insurance:CARESOURCE FORTUNEDOB: Health System MEDICAIDPolicy [id number] Repository KARLA Number[facility] [place] [id number] [address]Eaz: ([phone]) Date: [id number] () 06/07/2018 CRYSTAL E Primary CRYSTAL E [facility] FORTUNEDOB: Insurance:[facility] FORTUNEDOB: [facility] System MEDICAIDPolicy [id number] Repository KARLA Number: [facility] [id number]: ([phone]) Date: [phone] () 05/10/2018 CRYSTAL E Primary CRYSTAL E [facility] FORTUNEDOB: Insurance:[facility] FORTUNEDOB: Health System MEDICAIDPolicy [id number] Repository KARLA Number: [place] [id number]: ([phone]) Date: [phone] () 02/14/2018 CRYSTAL E Primary CRYSTAL E [place] [id number] Insurance:CARESOURCEP FORTUNEDOB: [facility] Number: [id number], [place] [id number] Repository [address]Ymq: (330) Date:2018-02-14 O [phone] () [address]ATTN: [place] [address]WG: 02/14/2018 Secondary NOT GIVENUNK [place] Insurance:SELF PAY [facility] Number: Effective Repository Date:2018-02-14 01/21/2018 CRYSTAL E Primary CRYSTAL E [place] [id number] Insurance:CARESOURCEP FORTUNEDOB: Community KARLA olicy Number: [id number], [place] [id number] Repository [address]Kaa: (330) Date:2018-01-21P O [phone] () [address]ATTN: [place] [address]SC: 01/21/2018 Secondary NOT GIVENUNK [place] Insurance:SELF PAY [facility] Number: Effective Repository Date:2018-01-21 10/12/2017 CRYSTAL E Primary CRYSTAL E [place] [id number] Insurance:CARESOURCEP FORTUNEDOB: Community KARLA olicy Number: [id number], [place] [id number] Repository [address]Rgg: (330) Date:2017-05-15P O [phone] () [address]ATTN: [place] [address]VP: 10/12/2017 Secondary NOT GIVENUNK [place] Insurance:SELF PAY [facility] Number: Effective Repository Date:2017-10-12 10/11/2017 CRYSTAL E Primary CRYSTAL E [place] [id number] Insurance:CARESOURCEP FORTUNEDOB: Community [place] olicy Number: [id number], [place] [id number] Repository [address]Dhm: (330) Date:2017-10-11P O [phone] () [address]ATTN: [place] [address]XN: 10/11/2017 Secondary NOT GIVENUNK [place] Insurance:SELF PAY [facility] Number: Effective Repository Date:2017-10-11 09/21/2017 CRYSTAL E Primary CRYSTAL E [place] [id number] Insurance:CARESOURCEP FORTUNEDOB: Community Karla olicy Number: [id number], [place] [id number] Repository [address]Ogf: (330) Date:2017-09-21P O [phone] () [address]ATTN: [place] [address]DF: 09/21/2017 Secondary NOT GIVENUNK [place] Insurance:SELF PAY [facility] Number: Effective Repository Date:2017-09-21
== END 2018-06-20 08:48 | disposition home or self-care (01) ==
PROVIDERS: Emergency Provider Emergency Medicine; Family Provider Nurse Practitioner Family; PCP Nurse Practitioner Family
DX: S50.01XA Contusion of right elbow, initial encounter (principal); S46.911A Strain of unspecified muscle, fascia and tendon at shoulder and upper arm level, right arm, initial encounter; Z95.5 Presence of coronary angioplasty implant and graft; Z79.02 Long term (current) use of antithrombotics/antiplatelets; Z79.82 Long term (current) use of aspirin; Z79.899 Other long term (current) drug therapy; W00.0XXA Fall on same level due to ice and snow, initial encounter; Y93.01 Activity, walking, marching and hiking; Y92.89 Other specified places as the place of occurrence of the external cause; Y99.8 Other external cause status
CPT/HCPCS: 73030; 73080; 99282

== ENCOUNTER → 2018-07-09 11:46 | Outpatient (CLI) | payer MEDICAID, SELFPAY ==
[2018-06-20 07:39] VITALS: BMI 48.9
[2018-07-09 12:37] LABS: Color, Urine Yellow (Yellow); Glucose, Dipstick Normal (Normal); Ketone-Dipstick Negative (Negative); Leukocyte Esterase-Dipstick 100 /ul (Negative); Nitrite-Dipstick Negative (Negative); Occult Blood-Urine 10 /ul (Negative); Protein-Dipstick 15 mg/dl (Negative); Specific Gravity, Urine 1.025 (1.002-1.030); Urine Bilirubin Dipstick Negative (Negative); Urine Clarity Sl. Cloudy (Clear); Urine Urobilinogen Normal (Normal)
[2018-07-09 12:47] LABS: Hematocrit 38.9 % (37-47); Hemoglobin 11.8 g/dl (12.0-15.0); Mean Corp Hgb Conc 30.3 g/gl (32-36); Mean Corpuscular Hgb 27.7 pg (27.0-32.0); Mean Corpuscular Volume 91.3 fL (81-99); Mean Platelet Vol. 10.7 fl (6.2-12.0); Platelet Count 321 K/mm3 (150-450); RBC Distribution Width CV 14.7 % (11.6-14.6); Red Blood Count 4.26 M/mm3 (4.2-5.4); Scan Indicated on CBC? Y/N NO; White Blood Count 7.8 K/mm3 (4.4-11.0)
[2018-07-09 13:01] LABS: Microalbumin,Random Urine 59.5 mg/L (NO RANGE EST.); Microalbumin:Creatinine Ratio 42.5 mg/g CRE (<30 mg/g CRE); Protein, Urine (Random) 23.6 mg/dL (<11.9); Protein:Creat Ratio 169 mg/g CRE (0-200)
[2018-07-09 13:05] LABS: Albumin, Serum 3.3 g/dL (3.2-5.0); BUN 18 mg/dL (7-18); Calcium,Total 8.5 mg/dL (8.5-10.1); Chloride 113 mmol/L (98-107); Creatinine, Serum 1.29 mg/dL (0.55-1.02); EST Glomerular Filtration Rate 48 mL/min (>60); Est Glom Filt Rate - Afr Amer 58 mL/min (>60); Glucose 159 mg/dL (74-106); Phosphorus 2.6 mg/dL (2.5-4.9); Potassium 5.1 mmol/L (3.5-5.1); Sodium Level 140 mmol/L (136-145)
[2018-07-09 13:14] LABS: Vitamin D,25 Hydroxy 25.4 ng/mL (29.95-100.01)
[2018-07-09 13:15] LABS: PTHIN 51.5 pg/mL (18.4-80.1)
== END ==
PROVIDERS: Family Provider Nurse Practitioner Family; PCP Nurse Practitioner Family; Referring Provider Internal Medicine Nephrology; Visit Provider Internal Medicine Nephrology
DX: N18.3 Chronic kidney disease, stage 3 (moderate) (principal); N25.81 Secondary hyperparathyroidism of renal origin; D63.1 Anemia in chronic kidney disease
CPT/HCPCS: 36415; 80069; 81002; 82043; 82306; 82570; 83970; 84156; 85027

== ENCOUNTER 2018-09-12 09:19 | Observation (INO) | payer MEDICAID, SELFPAY ==
[2018-09-12] VITALS (12 sets, daily range): BP systolic 128–151; BP diastolic 74–96; PULSE 59–79; RESP 14–20; TEMP 36.3–36.7; O2SAT 95–99; BMI 47.0; BMI 47.5
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
--- NOTE | 2018-09-12 09:37 | RAD_ITS ---
STUDY: X-RAY CHEST REASON FOR EXAM: Female, 43 years old. Chest pain. TECHNIQUE: Single AP portable view of the chest. COMPARISON: Comparison is made with prior study of February 14, 2018. FINDINGS: The lungs are clear and expanded. There is no demonstrated pleural abnormality. Normal size heart. Normal mediastinum and prashant. Normal visualized pulmonary arteries. Normal visualized aortic arch and descending thoracic aorta. Normal visualized thoracic spine. Normal visualized ribs, clavicles, and shoulders. There is no demonstrated abnormality of the visualized soft tissue structures of the upper abdomen. RAD/Chest 1 View (Portable) IMPRESSION: Normal x-ray examination of the chest. Electronically Signed: Duane Davidson, at 10:13 EDT , Service support ,
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
[2018-09-12] MEDS: fentaNYL 100 MCG/2 ML Ampul 50 MCG IV (09:58)
[2018-09-12 09:59] LABS: Absolute Lymphocyte Count 2.31 X10^3/ul (0.83-4.51); Absolute Neutrophil Count 7.5 X10^3/uL (2.0-7.7); Basophil# 0.06 X10^3/uL; Basophil% 0.6 % (0-1); Eosinophil# 0.13 X10^3/uL; Eosinophils% 1.2 % (0-5); Hematocrit 39.8 % (37-47); Hemoglobin 12.3 g/dl (12.0-15.0); Lymphocyte # 2.31 X10^3/ul (4.0); Lymphocyte % 21.3 % (19-41); Mean Corp Hgb Conc 30.9 g/gl (32-36); Mean Corpuscular Hgb 27.4 pg (27.0-32.0); Mean Corpuscular Volume 88.6 fL (81-99); Mean Platelet Vol. 10.1 fl (6.2-12.0); Monocyte# 0.81 X10^3/uL; Monocyte% 7.5 % (0-10); Neutrophil # 7.48 X10^3/uL (2.7-7.7); Platelet Count 345 K/mm3 (150-450); RBC Distribution Width CV 14.8 % (11.6-14.6); RBC Distribution Width SD 47.8 fl (35.1-43.9); Red Blood Count 4.49 M/mm3 (4.2-5.4); White Blood Count 10.8 K/mm3 (4.4-11.0)
[2018-09-12 10:00] LABS: POSITIVE COUNT NO; POSITIVE DIFFERENTIAL NO; POSITIVE MORPHOLOGY NO
[2018-09-12 10:12] LABS: Partial Thromboplast Time 24.4 Seconds (24.1-36.2)
[2018-09-12 10:15] LABS: Anion Gap 3 (5-15); BUN 14 mg/dL (7-18); BUN/Creat Ratio 11.6 RATIO (10-20); Calcium,Total 8.8 mg/dL (8.5-10.1); Chloride 110 mmol/L (98-107); Creatinine, Serum 1.21 mg/dL (0.55-1.02); EST Glomerular Filtration Rate 52 mL/min (>60); Est Glom Filt Rate - Afr Amer 63 mL/min (>60); Glucose 113 mg/dL (74-106); Potassium 5.2 mmol/L (3.5-5.1); Sodium Level 140 mmol/L (136-145)
--- NOTE | 2018-09-12 11:00 | NURSING ---
DR VICKI SEGAL
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
--- NOTE | 2018-09-12 11:11 | NURSING ---
MED SURG SYNCOPE KORAM
[2018-09-12] MEDS: Ketorolac 15 MG/ML Vial IV (11:13)
--- NOTE | 2018-09-12 11:37 | NURSING ---
DR COHEN IN ER
[2018-09-12] MEDS: 0.9% Normal Saline 1,000 ML 120 ML IV ×2 (14:20→22:47)
[2018-09-12] MEDS: Escitalopram Oxalate 20 MG Tablet PO (14:23)
[2018-09-12] MEDS: Aspirin E.C. 81 MG Tablet PO (14:23)
[2018-09-12] MEDS: Metoprolol Tartrate 25 MG Tablet 12.5 MG PO ×2 (14:24→21:05)
[2018-09-12] MEDS: Clopidogrel Bisulfate 75 MG Tablet PO (14:24)
[2018-09-12] MEDS: SUMAtriptan 6 MG/0.5 ML Vial SC (14:38)
[2018-09-12] MEDS: Sodium Polystyrene Sulfonate 15 GM/60 ML UDC PO (16:51)
[2018-09-12] MEDS: Acetaminophen 325 MG Tablet 650 MG PO (18:21)
[2018-09-12] MEDS: Atorvastatin Calcium 20 MG Tablet PO (21:07)
[2018-09-12 21:41] LABS: Bedside Glucose 159 mg/dL (70-110)
[2018-09-12] MEDS: 0.9% NaCl Peripheral Flush Adult/Peds IV (22:24)
[2018-09-13 03:02] VITALS: PULSE 54
[2018-09-13 03:05] VITALS: BP 121/70; PULSE 53; RESP 20; TEMP 36.5; O2SAT 97
[2018-09-13 06:16] LABS: Absolute Lymphocyte Count 1.23 X10^3/ul (0.83-4.51); Absolute Neutrophil Count 12.8 X10^3/uL (2.0-7.7); Basophil# 0.01 X10^3/uL; Basophil% 0.1 % (0-1); Hematocrit 38.4 % (37-47); Hemoglobin 11.8 g/dl (12.0-15.0); Lymphocyte # 1.23 X10^3/ul (4.0); Lymphocyte % 8.6 % (19-41); Mean Corp Hgb Conc 30.7 g/gl (32-36); Mean Corpuscular Volume 87.9 fL (81-99); Mean Platelet Vol. 10.6 fl (6.2-12.0); Monocyte% 2.1 % (0-10); Neutrophil # 12.75 X10^3/uL (2.7-7.7); Neutrophil % 88.6 % (47-70); Platelet Count 313 K/mm3 (150-450); RBC Distribution Width CV 14.5 % (11.6-14.6); RBC Distribution Width SD 46.5 fl (35.1-43.9); Red Blood Count 4.37 M/mm3 (4.2-5.4); White Blood Count 14.4 K/mm3 (4.4-11.0)
[2018-09-13 06:23] LABS: POSITIVE COUNT NO; POSITIVE DIFFERENTIAL NO; POSITIVE MORPHOLOGY NO
[2018-09-13 06:47] LABS: Anion Gap 6 (5-15); BUN 14 mg/dL (7-18); BUN/Creat Ratio 12.5 RATIO (10-20); Calcium,Total 8.1 mg/dL (8.5-10.1); Chloride 110 mmol/L (98-107); Creatinine, Serum 1.12 mg/dL (0.55-1.02); EST Glomerular Filtration Rate 57 mL/min (>60); Est Glom Filt Rate - Afr Amer 69 mL/min (>60); Estimated Creatinine Clearance 63.63 ml/min; Glucose 144 mg/dL (74-106); Potassium 5.7 mmol/L (3.5-5.1); Sodium Level 139 mmol/L (136-145)
[2018-09-13 07:29] VITALS: PULSE 64
[2018-09-13 09:05] VITALS: BP 124/78; PULSE 70; RESP 18; TEMP 36.8; O2SAT 94
[2018-09-13] MEDS: Acetaminophen 325 MG Tablet 650 MG PO (09:50)
[2018-09-13] MEDS: Sodium Polystyrene Sulfonate 15 GM/60 ML UDC 30 GM PO (09:50)
[2018-09-13 09:51] VITALS: PULSE 74
[2018-09-13] MEDS: Clopidogrel Bisulfate 75 MG Tablet PO (09:51)
[2018-09-13] MEDS: Aspirin E.C. 81 MG Tablet PO (09:51)
[2018-09-13] MEDS: Metoprolol Tartrate 25 MG Tablet 12.5 MG PO (09:51)
[2018-09-13] MEDS: Enoxaparin 40 MG/0.4 ML Syringe SC (09:52)
[2018-09-13] MEDS: Escitalopram Oxalate 20 MG Tablet PO (09:52)
--- NOTE | 2018-09-13 11:52 | DCINST_ITS ---
You will use the following diet at home:: Cardiac Discharge Activity: Return to Normal Activity Call your doctor if you observe: Shortness of breath, Dizziness, Fainting spells, Chest pain Additional Instructions: Your home lisinopril regimen was discontinued due to high potassium. You will need repeat BMP in 1 week to reassess potassium by primary care provider. This may be restarted or replaced with different blood pressure medication as found necessary. Your blood pressure is currently well controlled on metoprolol alone. Recommend follow up with neurology to evaluate for chronic migraines. Allergies/Adverse Reactions: Allergies loratadine [From Claritin-D] Allergy (Verified 09/12/18 09:25) Hives pseudoephedrine sulfate [From Claritin-D] Allergy (Verified 09/12/18 09:25) Hives Medications to take at Discharge aspirin 81 mg tablet,delayed release 81 mg PO QDAY 10/12/17 cholecalciferol (vitamin D3) 2,000 unit capsule 2,000 unit PO QDAY 30 Days #30 cap 10/12/17 escitalopram 20 mg tablet 20 mg PO QDAY 30 Days #30 tab 10/12/17 clopidogrel 75 mg tablet 75 mg PO QDAY #90 tab 10/27/17 Crestor 10 mg PO QHS 06/20/18 Metoprolol Tartrate 12.5 mg PO BID 09/12/18 Primary Care Physician: Kayla Noe NP-C [Primary Care Provider] - Please follow up with your Primary Care Physician in: 1 Week Test Results: Test results from this visit will be discussed in further detail at your follow- up appointment, if applicable. Please Follow Up With: Lg Leyva MD When: As scheduled, 10/16/18 Please Follow Up With: Neurologist - Dr. Noble or your preference When: Evaluation of chronic migraines Proposed Discharge Date: 09/13/18
[2018-09-13 13:11] LABS: Potassium 4.4 mmol/L (3.5-5.1)
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
== END 2018-09-13 11:50 | disposition home or self-care (01) ==
LOC: ED 09:54 → PCU 11:46
PROVIDERS: Nurse Practitioner Family; Admitting Provider Student in an Organized Health Care Education/Training Program; Emergency Provider Emergency Medicine; Family Provider Nurse Practitioner Family; PCP Nurse Practitioner Family; Visit Provider Student in an Organized Health Care Education/Training Program
DX: G43.909 Migraine, unspecified, not intractable, without status migrainosus (principal); E87.5 Hyperkalemia; I25.10 Atherosclerotic heart disease of native coronary artery without angina pectoris; E78.5 Hyperlipidemia, unspecified; G47.33 Obstructive sleep apnea (adult) (pediatric); I12.9 Hypertensive chronic kidney disease with stage 1 through stage 4 chronic kidney disease, or unspecified chronic kidney disease; N18.3 Chronic kidney disease, stage 3 (moderate); E66.9 Obesity, unspecified; I25.2 Old myocardial infarction; Z68.42 Body mass index [BMI] 45.0-49.9, adult; Z71.3 Dietary counseling and surveillance; Z95.5 Presence of coronary angioplasty implant and graft; Z86.73 Personal history of transient ischemic attack (TIA), and cerebral infarction without residual deficits; Z79.899 Other long term (current) drug therapy; Z79.82 Long term (current) use of aspirin; Z79.02 Long term (current) use of antithrombotics/antiplatelets
CPT/HCPCS: 36415; 70450; 71045; 72125; 80048; 82962; 84132; 84484; 85025; 85610; 85730; 93005; 96361; 96372; 96374; 96375; 96376; 99218; 99285; 99406; J7030; A4216; G0378; J3030

== ENCOUNTER 2018-11-16 14:33 | Emergency (ER) | payer MEDICAID, SELFPAY ==
[2018-09-12 12:15] VITALS: BMI 47.5
[2018-11-16 14:34] VITALS: BP 151/82; PULSE 95; RESP 25; TEMP 36.9; O2SAT 96; BMI 50.4
--- NOTE | 2018-11-16 14:58 | EKG12_ITS ---
Test Reason : CP Blood Pressure : / mmHG Vent. Rate : 084 BPM Atrial Rate : 084 BPM P-R Int : 140 ms QRS Dur : 094 ms QT Int : 394 ms P-R-T Axes : 062 -74 056 degrees QTc Int : 465 ms Normal sinus rhythm Left anterior fascicular block Anterior infarct , age undetermined Abnormal ECG Confirmed by JADA LEAL, SUE ([id number]), deputy editor in chief ZEKE GUPTA ([id number]) on 11/20/2018 9:23:17 AM Referred By: ARIANE Confirmed By:SUE ELIAS MD
--- NOTE | 2018-11-16 14:58 | RAD_ITS ---
STUDY: X-RAY CHEST REASON FOR EXAM: Female, 43 years old. Chest pain. TECHNIQUE: Single AP portable view of the chest. COMPARISON: Comparison is made with prior study dated September 12, 2018. FINDINGS: EKG electrode traversing. The lungs are clear and expanded. Scattered calcified granulomas. There is no demonstrated pleural abnormality. Normal size heart. Normal mediastinum and prashant. Normal visualized pulmonary arteries. Normal visualized aortic arch and descending thoracic aorta. Normal visualized thoracic spine. Normal visualized ribs, clavicles, and shoulders. There is no demonstrated abnormality of the visualized soft tissue structures of the upper abdomen. RAD/Chest 1 View (Portable) IMPRESSION: No acute abnormality is seen. Electronically Signed: Duane Davidson, at 15:35 EDT , Service support ,
--- NOTE | 2018-11-16 15:12 | ED.VIS.GEN ---
History of Present Illness Chief Complaint: Chest Pain Informant: Patient Onset: Today Narrative: Patient reports waxing and waning substernal chest pain after waking 8 AM this morning 7 hours ago. No radicular symptoms. No dyspnea or nausea. No diaphoresis. Reports similar symptoms in 2013 when she had a heart stent. Prior to that she reports had diagnosis of Takasubo in 2009. She reports she is followed by Dr. Leyva. Last seen a year ago. She thinks her last stress test was a year ago. History of hypertension hypercholesterolemia. Tobacco history. Denies family history of MIs at young age, however does not know her father's side. No history of diabetes. No recent travel, surgeries, or immobilizations. No history of PE or DVT. Patient is on aspirin and Plavix therapy, took her medications this morning. 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 She had a normal ejection fraction at that time noting improvement of her takasubo syndrome. Prior similar symptoms: Yes Past Medical History - Allergies and Home Meds Allergies/Adverse Reactions: Allergies loratadine [From Claritin-D] Allergy (Verified 11/16/18 14:46) Hives pseudoephedrine sulfate [From Claritin-D] Allergy (Verified 11/16/18 14:46) jL Primary Care Physician: Kayla Noe NP-C [Primary Care Provider] - Surgical History: appendectomy, cholecystectomy, - - cardiac cath at [facility] in 2009 Smoking Status: Current every day smoker - Family History Paternal Family History: Family History (Last Reviewed 10/12/17 @ 11:31 by Lg Leyva MD) Sister Cancer Family History: Reports: Diabetes, Hypertension Maternal Family History: Family History (Last Reviewed 10/12/17 @ 11:31 by Lg Leyva MD) Sister Cancer Family History: Reports: - - she is estranged from her mother and does not know any of the maternal history Sibling Family History: Family History (Last Reviewed 10/12/17 @ 11:31 by Lg Leyva MD) Sister Cancer Family History: Reports: - - She states she has a sister who has 2 different kinds of CA but she does not know what they are Review of Systems General: Denies: Chills, Fever, Sweats Eyes: Denies: Visual changes - bilaterally, Diplopia ENT: Denies: Rhinorrhea, Sore throat Cardiovascular: Reports: Chest pain. Denies: Palpitations Respiratory: Denies: Dyspnea, Cough, Dyspnea on exertion Gastrointestinal: Denies: Abdominal pain, Nausea, Vomiting, Diarrhea, Melena, Hematochezia Genitourinary: Denies: Dysuria, Hematuria, Frequency Musculoskeletal: Denies: Back pain, Extremity Pain Skin: Denies: Rash, Wounds Neurological: Denies: Headache, Weakness, Numbness Physical Exam Vital Signs/Narrative: Vital Signs Temp Pulse Resp BP Pulse Ox 11/16/18 14:34 98.4 F 95 25 H 151/82 H 96 Inital Vital Signs reviewed: Yes General: Well nourished, Well developed, No Acute Distress Head: Normocephalic, Atraumatic Eyes: Perrl, EOMI ENT: Moist mucous membranes, No rhinorrhea Neck: Supple, Nontender Cardiovascular: Regular rate, Regular rhythm, No murmurs Respiratory: No distress, CTA bilaterally, Chest nontender Abdomen: Soft, Nontender, Nondistended, Normal bowel sounds Back: Nontender, Normal Inspection Extremities: Nontender, No edema Skin: Normal color, No rash Neurological: Alert, Oriented x3, Cranial nerves II-XII grossly intact, Normal Strength, Normal Sensation Psychological: Normal affect, Normal Mood Diagnostic/Tx/Re-eval Chest X-Ray - ED: 2 View, Read by ED Physician, Read by Radiologist, No Acute Disease - EKG Initial EKG Interpretation: Sinus Rhythm - Sinus rate of 84, no ST changes. T wave flattening in aVL. - Medical Decision Making Patient EKG nonspecific T wave flattening aVL. Took aspirin and Plavix this morning. Initial order for nitroglycerin however she declined this per nursing. Cardiac work-up negative chest x-ray negative. She requested Tylenol which was given, reevaluation symptoms were improving. She had more than 7 hours of symptoms negative troponin. I did discussed heart pathway guideline with the patient, she understands the risks she did not want to stay for repeat troponin. CARROLL score is 1. Heart score 3. Signs and symptoms discussed with patient to return she has appoint with Dr. Leyva this coming Monday. ED Disposition - Plan for ED Patient: Disposition: Home or Assisted Living Diagnosis: Chest pain Instructions: ED Chest Pain Atypical Unkn Cause Referrals: Kayla Noe NP-C [Primary Care Provider] - Lg Leyva MD [STAFF PHYSICIAN] - Keep Komal appointment
[2018-11-16 15:13] VITALS: O2SAT 100
--- NOTE | 2018-11-16 15:15 | ED.DCSUM_ITS ---
History of Present Illness Chief Complaint: Chest Pain Informant: Patient Onset: Today Narrative: Patient reports waxing and waning substernal chest pain after waking 8 AM this morning 7 hours ago. No radicular symptoms. No dyspnea or nausea. No diaphoresis. Reports similar symptoms in 2013 when she had a heart stent. Prior to that she reports had diagnosis of Takasubo in 2009. She reports she is followed by Dr. Leyva. Last seen a year ago. She thinks her last stress test was a year ago. History of hypertension hypercholesterolemia. Tobacco history. Denies family history of MIs at young age, however does not know her father's side. No history of diabetes. No recent travel, surgeries, or immobilizations. No history of PE or DVT. Patient is on aspirin and Plavix therapy, took her medications this morning. 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 She had a normal ejection fraction at that time noting improvement of her takasubo syndr ome. Prior similar symptoms: Yes Past Medical History - Allergies and Home Meds Allergies/Adverse Reactions: Allergies loratadine [From Claritin-D] Allergy (Verified 11/16/18 14:46) Hives pseudoephedrine sulfate [From Claritin-D] Allergy (Verified 11/16/18 14:46) Lj Primary Care Physician: Kayla Noe NP-C [Primary Care Provider] - Surgical History: appendectomy, cholecystectomy, - - cardiac cath at [facility] in 2009 Smoking Status: Current every day smoker - Family History Paternal Family History: Family History (Last Reviewed 10/12/17 @ 11:31 by Lg Leyva MD) Sister Cancer Family History: Reports: Diabetes, Hypertension Maternal Family History: Family History (Last Reviewed 10/12/17 @ 11:31 by Lg Leyva MD) Sister Cancer Family History: Reports: - - she is estranged from her mother and does not know any of the maternal history Sibling Family History: Family History (Last Reviewed 10/12/17 @ 11:31 by Lg Leyva MD) Sister Cancer Family History: Reports: - - She states she has a sister who has 2 different kinds of CA but she does not know what they are Review of Systems General: Denies: Chills, Fever, Sweats Eyes: Denies: Visual changes - bilaterally, Diplopia ENT: Denies: Rhinorrhea, Sore throat Cardiovascular: Reports: Chest pain. Denies: Palpitations Respiratory: Denies: Dyspnea, Cough, Dyspnea on exertion Gastrointestinal: Denies: Abdominal pain, Nausea, Vomiting, Diarrhea, Melena, Hematochezia Genitourinary: Denies: Dysuria, Hematuria, Frequency Musculoskeletal: Denies: Back pain, Extremity Pain Skin: Denies: Rash, Wounds Neurological: Denies: Headache, Weakness, Numbness Physical Exam Vital Signs/Narrative: Vital Signs Temp Pulse Resp BP Pulse Ox 11/16/18 14:34 98.4 F 95 25 H 151/82 H 96 Inital Vital Signs reviewed: Yes General: Well nourished, Well developed, No Acute Distress Head: Normocephalic, Atraumatic Eyes: Perrl, EOMI ENT: Moist mucous membranes, No rhinorrhea Neck: Supple, Nontender Cardiovascular: Regular rate, Regular rhythm, No murmurs Respiratory: No distress, CTA bilaterally, Chest nontender Abdomen: Soft, Nontender, Nondistended, Normal bowel sounds Back: Nontender, Normal Inspection Extremities: Nontender, No edema Skin: Normal color, No rash Neurological: Alert, Oriented x3, Cranial nerves II-XII grossly intact, Normal Strength, Normal Sensation Psychological: Normal affect, Normal Mood Diagnostic/Tx/Re-eval Chest X-Ray - ED: 2 View, Read by ED Physician, Read by Radiologist, No Acute Disease - EKG Initial EKG Interpretation: Sinus Rhythm - Sinus rate of 84, no ST changes. T wave flattening in aVL. - Medical Decision Making Patient EKG nonspecific T wave flattening aVL. Took aspirin and Plavix this mor oanh. Initial order for nitroglycerin however she declined this per nursing. Cardiac work-up negative chest x-ray negative. She requested Tylenol which was given, reevaluation symptoms were improving. She had more than 7 hours of symptoms negative troponin. I did discussed heart pathway guideline with the patient, she understands the risks she did not want to stay for repeat troponin. CARROLL score is 1. Heart score 3. Signs and symptoms discussed with patient to return she has appoint with Dr. Leyva this coming Monday. ED Disposition - Plan for ED Patient: Disposition: Home or Assisted Living Diagnosis: Chest pain Instructions: ED Chest Pain Atypical Unkn Cause Referrals: Kayla Noe NP-C [Primary Care Provider] - Lg Leyva MD [STAFF PHYSICIAN] - Keep Komal appointment
[2018-11-16 15:16] LABS: Absolute Lymphocyte Count 2.91 X10^3/ul (0.83-4.51); Absolute Neutrophil Count 6.5 X10^3/uL (2.0-7.7); Basophil# 0.05 X10^3/uL; Basophil% 0.5 % (0-1); Eosinophil# 0.17 X10^3/uL; Eosinophils% 1.6 % (0-5); Hematocrit 37.7 % (37-47); Hemoglobin 11.9 g/dl (12.0-15.0); Lymphocyte # 2.91 X10^3/ul (4.0); Lymphocyte % 27.5 % (19-41); Mean Corp Hgb Conc 31.6 g/gl (32-36); Mean Corpuscular Hgb 27.4 pg (27.0-32.0); Mean Corpuscular Volume 86.7 fL (81-99); Mean Platelet Vol. 10.3 fl (6.2-12.0); Monocyte# 0.97 X10^3/uL; Monocyte% 9.2 % (0-10); Neutrophil # 6.46 X10^3/uL (2.7-7.7); Neutrophil % 60.9 % (47-70); Platelet Count 404 K/mm3 (150-450); RBC Distribution Width CV 15.1 % (11.6-14.6); RBC Distribution Width SD 48.5 fl (35.1-43.9); Red Blood Count 4.35 M/mm3 (4.2-5.4); White Blood Count 10.6 K/mm3 (4.4-11.0)
--- NOTE | 2018-11-16 15:16 | ED.RN ---
PT REFUSED NITRO
[2018-11-16 15:17] LABS: POSITIVE COUNT NO; POSITIVE DIFFERENTIAL NO; POSITIVE MORPHOLOGY NO
[2018-11-16] MEDS: Acetaminophen 500 MG Tablet 1000 MG PO (15:26)
[2018-11-16 15:36] LABS: Anion Gap 5 (5-15); BUN 14 mg/dL (7-18); BUN/Creat Ratio 11.4 RATIO (10-20); Calcium,Total 8.8 mg/dL (8.5-10.1); Chloride 112 mmol/L (98-107); Creatinine, Serum 1.23 mg/dL (0.55-1.02); EST Glomerular Filtration Rate 51 mL/min (>60); Est Glom Filt Rate - Afr Amer 62 mL/min (>60); Estimated Creatinine Clearance 57.94 ml/min; Glucose 115 mg/dL (74-106); Potassium 4.5 mmol/L (3.5-5.1); Sodium Level 138 mmol/L (136-145)
[2018-11-16 16:11] VITALS: BP 127/84; PULSE 69; RESP 15; O2SAT 99
--- NOTE | 2018-11-16 16:11 | ED.RN ---
IV DC'ED, CATHETER INTACT, SMALL GAUZE DRESSING PLACED. DISCHARGE INSTRUCTIONS GIVEN TO AND REVIEWED WITH PATIENT, PATIENT DENIES QUESTIONS OR CONCERNS AND VOICES UNDERSTANDING OF DISCHARGE INSTRUCTIONS. PT AMBULATES OUT OF ROOM WITHOUT DIFFICULTY.
== END 2018-11-16 16:12 | disposition home or self-care (01) ==
PROVIDERS: Emergency Provider Emergency Medicine; Family Provider Nurse Practitioner Family; PCP Nurse Practitioner Family
DX: R07.9 Chest pain, unspecified (principal); E78.00 Pure hypercholesterolemia, unspecified; I10 Essential (primary) hypertension; F17.200 Nicotine dependence, unspecified, uncomplicated; Z79.82 Long term (current) use of aspirin; Z79.02 Long term (current) use of antithrombotics/antiplatelets; Z79.899 Other long term (current) drug therapy
CPT/HCPCS: 71045; 80048; 84484; 85025; 93005; 99285; A4216

== ENCOUNTER 2018-11-22 06:56 | Day surgery (SDC) | payer MEDICAID, SELFPAY ==
[2018-11-20 13:03] VITALS: BMI 48.0
[2018-11-21 09:17] VITALS: BMI 48.0
[2018-11-22 08:11] LABS: Internal QC Validated? YES +Cl - CLEAR BKGD; Pregnancy, Serum, hCG Quali. NEGATIVE Negative
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
--- NOTE | 2018-11-22 09:02 | CL.D_ITS ---
Patient Name: DARREL VICK Study Date: 11/22/2018 Performing: Lg Leyva MD Ht: 66.92 inches 170 cm : 1975 Wt: 306.44 lbs 139 kg Age: 43 Gender: female BSA: 2.42 PROCEDURE(S) PERFORMED [id number]/LV CLINICAL PROFILE AND INDICATIONS Indications: Suspected CAD Heart Failure: None Stress/Imaging Stress/Image Study Performed: No CAD Presentations: Unstable angina. CONCLUSIONS Mild coronary artery disease with previously placed stent in the left anterior descending artery with mild in-stent stenosis. Mild cardiomyopathy present. RECOMMENDATIONS Medical therapy DESCRIPTION OF PROCEDURE The patient arrived to the procedure lab. The risks and benefits of the procedure as well as a full d escription of our services here and current unavailability of surgical backup were fully explained to the patient and/or their significant other prior to the catheterization. The Timeout was completed, verifying the correct patient and procedure. The patient's procedural site was prepped and draped in the usual fashion. Local anesthetic was given subcutaneously to right radial region with Lidocaine 2% . Using a modified Seldinger technique, arterial access was obtained via the right radial artery, a 6 Fr sheath was inserted. Left Coronary Artery selective angiography was performed in multiple views u sing a 5 Fr. 4.0 [place] catheter. Right Coronary Artery selective angiography was then performed in mu ltiple views using a 5 Fr. 4.0 [place] catheter. Left Ventriculography was performed in LINO projection using a 5 Fr. [place] catheter. LV to AO pullback pressures were then recorded.The arterial sheath was pulled and a TR Band was applied for hemostasis CORONARY ANGIOGRAPHY DOMINANCE: Right Dominant LEFT HEART ASSESSMENT Left Ventricular Ejection Fraction: by LV Gram 40 % Global Hypokinesis - Mild Depressed Left Ventricular systolic function LEFT MAIN: Angiographically normal LEFT ANTERIOR DESCENDING ARTERY: MID LAD: Previously placed stent has an instent 30 % restenosis CIRCUMFLEX ARTERY: Mild luminal irregularities RIGHT CORONARY ARTERY: Mild luminal irregularities COMPLICATIONS No Complications PROCEDURE MEDICATIONS Versed 1 mg IV Fentanyl 50 mcg IV Oxygen: 2 L/min via nasal cannula Heparin diluted in 23cc Heparinized saline. Patient given 5cc IA of this solution. 11/22/2018 08:34:4 2 Verapamil 2.5mg, Ntg 100mcgs, 2000 units of Heparin diluted in 23cc Heparinized saline. Patient give n 5cc IA of this solution. 11/22/2018 08:34:42 SUMMARY OF HEMODYNAMIC DATA Time AIR REST ECG 07:50:20 AO 116/78 (93) SA 08:36:06 LV 112/9, 15 08:45:01 LV 113/9, 16 08:45:07 LV 117/6, 24 08:45:53 LVp 120/5, 21 08:46:06 AOp 123/73 (95) 08:46:11 ECG 08:55:22 Signed By Lg Leyva MD On 11/22/2018 09:01:04 Lg Leyva MD
== END 2018-11-22 11:30 | disposition home or self-care (01) ==
LOC: CLSP 06:57
PROVIDERS: Family Provider Nurse Practitioner Family; PCP Nurse Practitioner Family; Referring Provider Internal Medicine Cardiovascular Disease; Visit Provider Internal Medicine Cardiovascular Disease
DX: R07.9 Chest pain, unspecified (principal); I25.5 Ischemic cardiomyopathy; E78.00 Pure hypercholesterolemia, unspecified; I25.2 Old myocardial infarction; I25.110 Atherosclerotic heart disease of native coronary artery with unstable angina pectoris; N18.9 Chronic kidney disease, unspecified; E66.9 Obesity, unspecified; G47.33 Obstructive sleep apnea (adult) (pediatric); F17.200 Nicotine dependence, unspecified, uncomplicated; Z68.42 Body mass index [BMI] 45.0-49.9, adult; Z79.82 Long term (current) use of aspirin; Z79.899 Other long term (current) drug therapy; Z86.73 Personal history of transient ischemic attack (TIA), and cerebral infarction without residual deficits
CPT/HCPCS: 84703; 93458; 99152; 99153; J7040; Q9967; C1769; C1894

== ENCOUNTER 2018-12-03 16:52 | Inpatient (IN) | payer MEDICAID, SELFPAY ==
[2018-11-21 09:17] VITALS: BMI 48.0
[2018-12-03] VITALS (8 sets, daily range): BP systolic 109–121; BP diastolic 63–75; PULSE 74–83; RESP 24–32; TEMP 36.6–37.1; O2SAT 94–97; BMI 45.7; BMI 45.8
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
[2018-12-03] MEDS: Ipratropium/Albuterol Sulfate 3 ML AMPUL.NEB INHALATION (17:38)
[2018-12-03] MEDS: Ceftriaxone 1 GM/50 ML BAG IV (18:03)
[2018-12-03] MEDS: guaiFENesin 1,200 MG Tablet 1200 MG PO (22:01)
[2018-12-03] MEDS: Metoprolol Tartrate 25 MG Tablet 12.5 MG PO (22:01)
[2018-12-03] MEDS: MELATONIN 3 MG TABLET PO (22:05)
[2018-12-04] VITALS (20 sets, daily range): BP systolic 90–128; BP diastolic 52–79; PULSE 66–990; RESP 18–32; TEMP 36.2–37.1; O2SAT 93–97
[2018-12-04] MEDS: 0.9% Normal Saline 1,000 ML 100 ML IV (01:18)
[2018-12-04] MEDS: Albuterol 2.5 MG/3 ML VIAL.NEB. INHALATION (04:25)
[2018-12-04] MEDS: Ceftriaxone 1 GM/50 ML BAG IV (05:23)
[2018-12-04] MEDS: Enoxaparin 40 MG/0.4 ML Syringe SC (05:23)
[2018-12-04 06:16] LABS: Absolute Lymphocyte Count 1.69 X10^3/ul (0.83-4.51); Basophil# 0.06 X10^3/uL; Basophil% 0.4 % (0-1); Eosinophil# 0.19 X10^3/uL; Eosinophils% 1.3 % (0-5); Hematocrit 30.4 % (37-47); Hemoglobin 9.9 g/dl (12.0-15.0); Lymphocyte # 1.69 X10^3/ul (4.0); Lymphocyte % 11.3 % (19-41); Mean Corp Hgb Conc 32.6 g/gl (32-36); Mean Corpuscular Hgb 26.7 pg (27.0-32.0); Mean Corpuscular Volume 81.9 fL (81-99); Mean Platelet Vol. 11.3 fl (6.2-12.0); Monocyte# 0.96 X10^3/uL; Monocyte% 6.4 % (0-10); Neutrophil # 10.95 X10^3/uL (2.7-7.7); Neutrophil % 73.6 % (47-70); Platelet Count 321 K/mm3 (150-450); RBC Distribution Width CV 16.2 % (11.6-14.6); RBC Distribution Width SD 46.4 fl (35.1-43.9); Red Blood Count 3.71 M/mm3 (4.2-5.4); White Blood Count 14.9 K/mm3 (4.4-11.0)
[2018-12-04 06:18] LABS: POSITIVE COUNT NO; POSITIVE DIFFERENTIAL NO; POSITIVE MORPHOLOGY NO
[2018-12-04 06:33] LABS: ALB/GLOB Ratio 0.4 RATIO (0.9-2.4); AST(SGOT) 200 U/L (15-37); Alanine Aminotransfer ALT/SGPT 145 U/L (13-56); Albumin, Serum 1.8 g/dL (3.2-5.0); Alkaline Phosphatase 149 U/L (45-117); Anion Gap 10 (5-15); BUN 16 mg/dL (7-18); BUN/Creat Ratio 15.7 RATIO (10-20); Calcium,Total 8.3 mg/dL (8.5-10.1); Chloride 108 mmol/L (98-107); Creatinine, Serum 1.02 mg/dL (0.55-1.02); EST Glomerular Filtration Rate 63 mL/min (>60); Est Glom Filt Rate - Afr Amer 76 mL/min (>60); Estimated Creatinine Clearance 69.87 ml/min; Glucose 98 mg/dL (74-106); Potassium 4.3 mmol/L (3.5-5.1); Protein, Total 6.8 g/dL (6.4-8.2); Sodium Level 140 mmol/L (136-145)
[2018-12-04] MEDS: Ipratropium/Albuterol Sulfate 3 ML AMPUL.NEB INHALATION ×3 (06:47→19:13)
[2018-12-04 06:51] LABS: Eosinophil 1 % (0-5); Lymphocyte 7 % (19-41); Metamyelocyte 1 % (0-1); Monocyte 1 % (0-10); Neutrophil-Band 5 % (0-5); Neutrophil-Segmented 85 % (47-70)
[2018-12-04 06:52] LABS: Anisocytosis 1+; Hypochromasia 1+; Microcytosis 1+; Platelet Estimate ADEQUATE (ADEQ); Platelet Morphology LARGE; Polychromasia RARE
[2018-12-04 06:53] LABS: Differential Indicated SCAN CRITERIA MET
[2018-12-04] MEDS: guaiFENesin 1,200 MG Tablet 1200 MG PO ×2 (07:55→22:02)
[2018-12-04] MEDS: Aspirin E.C. 81 MG Tablet PO (07:55)
[2018-12-04] MEDS: Escitalopram Oxalate 20 MG Tablet PO (07:55)
[2018-12-04] MEDS: Metoprolol Tartrate 25 MG Tablet 12.5 MG PO ×2 (07:56→22:02)
[2018-12-04] MEDS: Isosorbide Mononitrate 30 MG Tablet PO (07:56)
[2018-12-04] MEDS: Clopidogrel Bisulfate 75 MG Tablet PO (07:56)
--- NOTE | 2018-12-04 10:00 | CASEMGMT ---
RN CM Face to Face with patient for initial transition planning/care coordination assessment. RN CM introduced self and role at [facility]. Patient lying in bed, alert and oriented. Patient willing to participate in assessment and is able to answer all questions appropriately. Care providers, pharmacy, and demographics verified. Patient wishes to discharge home, denies need for home health at this time. Patient states he has no further needs or concerns at this time. CM to follow for discharge planning needs that may arise. PCP: DIONY Noe Specialists: Gordon, medical claims assistant, Traveling Engineer at [facility] Preferred Pharmacy: [facility], [place] or [place] Insurance: [employer] Prescription Benefit: yes Living Will/HPOA: none LNOK: mother, teenage children Living Arrangements: Patient lives with children in 2 story house with bed and bath on first floor. Transportation: self/family DME/HHC: Patient denies need for DME Or HHC. Will monitor for need for home oxygen at discharge. Patient prefers [facility] for DME if needed. Disposition Plan: Patient to discharge home with family support and follow-up plans in place. Rosa CANTU, RN, CM
--- NOTE | 2018-12-04 14:05 | PN_ITS ---
Patient Problems: Active and Suspected Problems (Last Reviewed 12/03/18 @ 17:30 by Juan Mckeon DO) Pneumonia (Acute) Pneumococcal pneumonia (Acute) Subjective: Pt reports feeling about the same as yesterday. No change in cough, SOB, O2 demand. + for legionella. No CP/LH/palp. No N/V/abd pain. Remains on 2lpm. - Physical Exam General: Alert, Oriented x3, Cooperative HEENT: Atraumatic, PERRLA, EOMI, Normocephalic Neck: Supple, No JVD, Negative Carotid Bruits Lungs: Normal air movement, No rales - left side, Wheezes - left lobe, middle lobe heard posteriorly on exhalation Cardiovascular: Regular rate, No murmurs Abdomen: Bowel Sounds Present, Soft, Non Tender Extremities: No edema, Capillary Refill Less than 3 Seconds Skin: No rashes, No breakdown Musculoskeletal: No Tenderness to Palpation of Joints or Extremities Neurological: Cranial nerves II-XII grossly intact Psych/Mental Status: Normal Affect, Appropriate, Alert and oriented to time, place, person, mood and affect Vital Signs Temp Pulse Resp BP Pulse Ox 97.6 F L 66 24 H 118/68 95 12/04/18 12:30 12/04/18 12:30 12/04/18 12:30 12/04/18 12:30 12/04/18 12:30 Oxygen Flow Rate (L/min) 2 Oxygen Delivery Method Nasal Cannula Weight: 292 lb 1.8 oz Body Mass Index (BMI) 45.7 Intake and Output for Last 24 Hours 12/02/18 12/03/18 12/04/18 23:59 23:59 23:59 Intake Total 2768 / 2768 Balance 2768 / 2768 Microbiology Past 72 Hours 12/04/18 08:10 Gram Stain - Final Sputum, Expectorated/Coughed 12/03/18 19:25 Gram Stain - Final Sputum, Expectorated/Coughed 12/03/18 19:25 Streptococcus pneumoniae Antigen (M - Final Urine, Clean Catch 12/03/18 19:25 Legionella Antigen - Final Urine, Clean Catch Legionella Antigen Laboratory Tests Past 24 Hrs 12/04/18 12/04/18 05:30 05:30 WBC 14.9 H RBC 3.71 L Hgb 9.9 L Hct 30.4 L MCV 81.9 MCH 26.7 L MCHC 32.6 RDW 16.2 H RDW Differential 46.4 H Plt Count 321 MPV 11.3 Immature Gran % (Auto) 7.000 H Neut % (Auto) 73.6 H Lymph % (Auto) 11.3 L [place] % (Auto) 6.4 Eos % (Auto) 1.3 Baso % (Auto) 0.4 Absolute Neuts (auto) 11.0 H Absolute Lymphs (auto) 1.69 Total Counted 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 Neutrophils % (Manual) 85 H Band Neutrophils % 5 Lymphocytes % (Manual) 7 L Monocytes % (Manual) 1 Eosinophils % (Manual) 1 Metamyelocytes % 1 Diff Path Review May foll Platelet Estimate ADEQUATE Plt Morphology Comment LARGE Polychromasia RARE Hypochromasia 1+ Anisocytosis 1+ Microcytosis 1+ Sodium 140 Potassium 4.3 Chloride 108 H Carbon Dioxide 22.0 Anion Gap 10 BUN 16 Creatinine 1.02 Estim Creat Clear Calc 69.87 Est GFR (MDRD) Af Amer 76 Est GFR (MDRD) Non-Af 63 BUN/Creatinine Ratio 15.7 Glucose 98 Calcium 8.3 L Total Bilirubin 0.30 AST 200 H ALT 145 H Alkaline Phosphatase 149 H Total Protein 6.8 Albumin 1.8 L Globulin 5.0 H Albumin/Globulin Ratio 0.4 L Medical Necessity - Tobacco Use Smoking Status: Current every day smoker Tobacco Use: Cigarettes Assessment/Plan All Active Problems (Last Reviewed 12/03/18 @ 17:30 by Juan Mckeon DO) Pneumonia (Acute) Pneumococcal pneumonia (Acute) Dyspnea (Acute) Chest pain (Acute) History of non-ST elevation myocardial infarction (NSTEMI) (Resolved) History of coronary artery stent placement (Resolved 01/20/14) Takotsubo syndrome (Resolved) Atypical chest pain (Resolved) 1. Acute sepsis 2/2 Acute left sided CAP - legionella antigen is +. Sputum culture prelim shows 3+ WBC, 2+ GPC, 2+ GPR. Continue rocephin/azithro, mucinex, PEP/IS/Vest. Slight improvement in WBC. Abnormal LFTs. Unclear etiology possibly 2/2 sepsis, will trend. Will need followed as o/p. Continue aerosols. Monitor for hemoptysis. 2. Nicotine abuse - smoked since age 19. Denies lung disease. Smokes 1/2-1ppd. Needs outpatient PFTs. 3. Hx CAD prior 2x VT and 1x stent - last stent 2013, however had cath about 2 weeks ago-per the cath report mild coronary disease with previously placed stent in the LAD with mild in-stent stenosis and medical therapy was recommended. No CP at all reported here. On asa/plavix/imdur/metoprolol/crestor 4. Hx CVA 5. Morbid obesity - dietary eval 6. Anx/Depression - continue home meds. DVT ppx: lovenox This patient was seen by Raymond Greene PA-C under the supervision of Dr. Jeffrey
[2018-12-04] MEDS: MELATONIN 3 MG TABLET PO (22:02)
[2018-12-04] MEDS: 0.9% NaCl Peripheral Flush Adult/Peds IV (22:03)
[2018-12-05] VITALS (10 sets, daily range): BP systolic 117–134; BP diastolic 72–86; PULSE 72–89; RESP 16–22; TEMP 36.6–36.7; O2SAT 94–95
[2018-12-05] MEDS: Enoxaparin 40 MG/0.4 ML Syringe SC (05:33)
[2018-12-05] MEDS: Ceftriaxone 1 GM/50 ML BAG IV (05:33)
[2018-12-05] MEDS: 0.9% NaCl Peripheral Flush Adult/Peds IV (05:33)
[2018-12-05] MEDS: Ipratropium/Albuterol Sulfate 3 ML AMPUL.NEB INHALATION ×3 (05:46→19:06)
[2018-12-05 06:16] LABS: Hematocrit 29.7 % (37-47); Hemoglobin 9.6 g/dl (12.0-15.0); Mean Corp Hgb Conc 32.3 g/gl (32-36); Mean Corpuscular Hgb 27.1 pg (27.0-32.0); Mean Corpuscular Volume 83.9 fL (81-99); Mean Platelet Vol. 10.8 fl (6.2-12.0); Platelet Count 408 K/mm3 (150-450); RBC Distribution Width SD 49.2 fl (35.1-43.9); Red Blood Count 3.54 M/mm3 (4.2-5.4); White Blood Count 15.2 K/mm3 (4.4-11.0)
[2018-12-05 06:18] LABS: Differential Indicated MANUAL DIFF; POSITIVE COUNT YES; POSITIVE DIFFERENTIAL NO; POSITIVE MORPHOLOGY YES
[2018-12-05 06:19] LABS: ALB/GLOB Ratio 0.4 RATIO (0.9-2.4); AST(SGOT) 106 U/L (15-37); Alanine Aminotransfer ALT/SGPT 105 U/L (13-56); Albumin, Serum 1.9 g/dL (3.2-5.0); Alkaline Phosphatase 131 U/L (45-117); Anion Gap 11 (5-15); BUN 14 mg/dL (7-18); BUN/Creat Ratio 15.2 RATIO (10-20); Calcium,Total 8.4 mg/dL (8.5-10.1); Chloride 109 mmol/L (98-107); Creatinine, Serum 0.92 mg/dL (0.55-1.02); EST Glomerular Filtration Rate 71 mL/min (>60); Est Glom Filt Rate - Afr Amer 86 mL/min (>60); Estimated Creatinine Clearance 77.46 ml/min; Globulin 4.7 g/dL (2.2-4.2); Glucose 96 mg/dL (74-106); Potassium 4.3 mmol/L (3.5-5.1); Protein, Total 6.6 g/dL (6.4-8.2); Sodium Level 142 mmol/L (136-145)
[2018-12-05 06:39] LABS: Eosinophil 2 % (0-5); Lymphocyte 9 % (19-41); Metamyelocyte 4 % (0-1); Monocyte 3 % (0-10); Neutrophil-Band 3 % (0-5); Neutrophil-Segmented 79 % (47-70); Total Cells Counted 100 (MANUAL DIFF)
[2018-12-05 06:40] LABS: Anisocytosis 1+; Hypochromasia 1+; Microcytosis 1+; Platelet Estimate ADEQUATE (ADEQ); Polychromasia 1+
[2018-12-05 06:42] LABS: Absolute Lymphocyte Count 1.37 X10^3/ul (0.83-4.51); Absolute Neutrophil Count 12.5 X10^3/uL (2.0-7.7)
[2018-12-05 09:51] LABS: Pathologist Review Reviewed
[2018-12-05] MEDS: Escitalopram Oxalate 20 MG Tablet PO (10:26)
[2018-12-05] MEDS: Isosorbide Mononitrate 30 MG Tablet PO (10:27)
[2018-12-05] MEDS: Clopidogrel Bisulfate 75 MG Tablet PO (10:27)
[2018-12-05] MEDS: guaiFENesin 1,200 MG Tablet 1200 MG PO ×2 (10:27→21:33)
[2018-12-05] MEDS: Aspirin E.C. 81 MG Tablet PO (10:27)
[2018-12-05] MEDS: Metoprolol Tartrate 25 MG Tablet 12.5 MG PO ×2 (10:27→21:32)
[2018-12-05 14:33] LABS: Pathologist Review Reviewed
--- NOTE | 2018-12-05 16:23 | PCM.PROGNOTE ---
Patient Problems: Active and Suspected Problems (Last Reviewed 12/03/18 @ 17:30 by Juan Mckeon DO) Pneumonia (Acute) Pneumococcal pneumonia (Acute) Subjective: Day #3 Rocephin and azithromycin All events of the past 24 hours have been reviewed Afebrile since admission Vital signs stable Maintaining appropriate oxygen saturation of 95% on room air Good oral intake All lab was reviewed. White blood cell count remains elevated at 15.2. Hemoglobin is stable at 9.6. LFTs are still mildly elevated but are improving. Creatinine is 0.92 today with a BUN of 14. Sputum Gram stain had 3+ white blood cells. The sputum culture obtained on 12/03/2018 appears to be normal respiratory jacqueline. We received a urine culture done at another facility on 12/03/2018 and this was positive for E. coli which was resistant to fluoroquinolones but susceptible to ceftriaxone. States she is feeling better and she wants to go home. rare cough, denies SOB, no N/V/D - Physical Exam General: Alert, Oriented x3, Cooperative, No apparent distress, Well developed, Well nourished Oral: Moist Mucosa Neck: Supple, Trachea Midline Lungs: Clear to auscultation, - - Not tachypneic, no conversational dyspnea, no accessory muscle use, lying flat in bed without any shortness of breath Cardiovascular: Regular rate, Regular Rhythm, Normal S1, Normal S2, No murmurs, No Gallop Abdomen: Bowel Sounds Present, Soft, Non Tender, Non-Distended Extremities: No edema Psych/Mental Status: Normal Affect, Appropriate Vital Signs Temp Pulse Resp BP Pulse Ox 97.9 F 78 20 H 124/86 H 95 12/05/18 10:22 12/05/18 10:27 12/05/18 10:22 12/05/18 10:22 12/05/18 10:22 Oxygen Flow Rate (L/min) 2 Oxygen Delivery Method Room Air Weight: 292 lb 1.8 oz Body Mass Index (BMI) 45.7 Intake and Output for Last 24 Hours 12/03/18 12/04/18 12/05/18 23:59 23:59 23:59 Intake Total 4575 / 4575 710 / 710 Balance 4575 / 4575 710 / 710 Microbiology Past 72 Hours 12/03/18 19:25 Gram Stain - Final Sputum, Expectorated/Coughed Respiratory Culture - Preliminary Appears to be normal respiratory jacqueline. Further studies to follow. 12/04/18 08:10 Gram Stain - Final Sputum, Expectorated/Coughed 12/03/18 19:25 Streptococcus pneumoniae Antigen (M - Final Urine, Clean Catch 12/03/18 19:25 Legionella Antigen - Final Urine, Clean Catch Legionella Antigen Laboratory Tests Past 24 Hrs 12/04/18 12/05/18 12/05/18 05:30 04:56 04:56 WBC 15.2 H RBC 3.54 L Hgb 9.6 L Hct 29.7 L MCV 83.9 MCH 27.1 MCHC 32.3 RDW 16.0 H RDW Differential 49.2 H Plt Count 408 MPV 10.8 Neut % (Auto) Not Reportable Absolute Neuts (auto) 12.5 H Absolute Lymphs (auto) 1.37 Total Counted 100 Neutrophils % (Manual) 79 H Band Neutrophils % 3 Lymphocytes % (Manual) 9 L Monocytes % (Manual) 3 Eosinophils % (Manual) 2 Metamyelocytes % 4 H Diff Path Review Reviewed Reviewed Platelet Estimate ADEQUATE Polychromasia 1+ Hypochromasia 1+ Anisocytosis 1+ Microcytosis 1+ Sodium 142 Potassium 4.3 Chloride 109 H Carbon Dioxide 22.0 Anion Gap 11 BUN 14 Creatinine 0.92 Estim Creat Clear Calc 77.46 Est GFR (MDRD) Af Amer 86 Est GFR (MDRD) Non-Af 71 BUN/Creatinine Ratio 15.2 Glucose 96 Calcium 8.4 L Total Bilirubin 0.30 AST 106 H ALT 105 H Alkaline Phosphatase 131 H Total Protein 6.6 Albumin 1.9 L Globulin 4.7 H Albumin/Globulin Ratio 0.4 L Medical Necessity - Tobacco Use Smoking Status: Current every day smoker Tobacco Use: Cigarettes Assessment/Plan All Active Problems (Last Reviewed 12/03/18 @ 17:30 by Juan Mckeon DO) Pneumonia (Acute) Pneumococcal pneumonia (Acute) Dyspnea (Acute) Chest pain (Acute) History of non-ST elevation myocardial infarction (NSTEMI) (Resolved) History of coronary artery stent placement (Resolved 01/20/14) Takotsubo syndrome (Resolved) Atypical chest pain (Resolved) Impressions 1. Severe sepsis secondary to Legionella pneumonia and E. coli UTI 2. Urinary tract infection secondary to E. coli 3. Morbid obesity 4. Tobacco dependence 5. Abnormal LFTs 6. Anxiety/depression 7. History of CVA 8. Coronary artery disease with history of PTCA/ZAFAR to the LAD 9. History of obstructive sleep apnea-noncompliant with CPAP 10. Normocytic anemia with an increased RDW and unremarkable iron studies - this is new in the past few months. She is on 2 antiplatelet agents Continue azithromycin and Rocephin PA and lateral chest x-ray in the a.m. Ambulatory pulse ox on room air prior to discharge Recommended she follow-up in the pulmonary clinic to have PFTs and a sleep study arranged Start Protonix 40 mg daily Check Hemoccult stool Possible discharge tomorrow Smoking cessation counseling given and weight loss advised Code Visit Inpatient E&M: 19695 Subs Hosp L2
[2018-12-05 17:20] LABS: Immature Platelet Fraction 4.2 % (1.0-7.9); RET-HE 30.7 pg (30-35); Reticulocyte Count 0.99 % (0.5-1.5)
[2018-12-05 18:11] LABS: Ferritin 450 ng/mL (8-252); Iron 60 ug/dL (50-170); Iron Binding Capacity,Total 214 ug/dL (250-450)
[2018-12-05] MEDS: Pantoprazole Sodium 40 MG Tablet PO (21:32)
--- NOTE | 2018-12-06 05:55 | RAD_ITS ---
STUDY: X-RAY CHEST REASON FOR EXAM: Female, 43 years old. legionella pneumonia TECHNIQUE: PA and lateral chest COMPARISON: 11/16/2017 FINDINGS: Right lung is clear. Diffuse hazy to intermediately dense infiltrates are present throughout the left lung, without dense focal consolidation. These features were not present on the study of 11/16/2017. Normal cardiomediastinal silhouette, prashant and pleural margins. No acute osseous or upper abdominal process. RAD/Chest PA and Lateral IMPRESSION: Diffuse left lung infiltrates, although, all segments. Electronically Signed: Min Simms MD at 10:04 EDT Tel , Service support ,
[2018-12-06 06:42] VITALS: PULSE 80; RESP 16; O2SAT 94
[2018-12-06] MEDS: Ipratropium/Albuterol Sulfate 3 ML AMPUL.NEB INHALATION (06:42)
[2018-12-06 09:32] VITALS: BP 142/77; PULSE 78; RESP 18; TEMP 36.4; O2SAT 95
[2018-12-06 09:35] VITALS: PULSE 78
[2018-12-06] MEDS: 0.9% NaCl Peripheral Flush Adult/Peds IV (09:35)
[2018-12-06] MEDS: guaiFENesin 1,200 MG Tablet 1200 MG PO (09:35)
[2018-12-06] MEDS: Aspirin E.C. 81 MG Tablet PO (09:35)
[2018-12-06] MEDS: Metoprolol Tartrate 25 MG Tablet 12.5 MG PO (09:35)
[2018-12-06] MEDS: Clopidogrel Bisulfate 75 MG Tablet PO (09:35)
[2018-12-06] MEDS: Ceftriaxone 1 GM/50 ML BAG IV (09:35)
[2018-12-06] MEDS: Isosorbide Mononitrate 30 MG Tablet PO (09:35)
[2018-12-06] MEDS: Escitalopram Oxalate 20 MG Tablet PO (09:35)
[2018-12-06] MEDS: Pantoprazole Sodium 40 MG Tablet PO (09:36)
--- NOTE | 2018-12-06 10:02 | DCINST_ITS ---
- Discharge Diagnoses Current Active Problems: Current Active and Chronic Problems (Last Reviewed 12/03/18 @ 17:30 by Juan Mckeon DO) CAD (coronary artery disease) (Chronic) Nicotine abuse (Chronic) Morbid obesity (Chronic) Pneumonia (Acute) Pneumococcal pneumonia (Acute) You will use the following diet at home:: Other - recommend a 1600 - 1800 calorie diet to assist with weight loss Your food should be the consistency of: Regular Your liquids should be the consistency of: Regular/Thin Discharge Activity: - - Gradually return to normal activity as tolerated. Avoid exposure to any strong smells such as bleach, cleaning products, strong colognes or perfumes, paint fumes and smoke of any kind. Avoid sudden exposure to cold air because this can cause bronchospasm. You may want to cover your mouth when you go outside in the winter. Avoid exposure to anyone who is sick with a cough or sore throat. Call your doctor if you observe: Fever of 101 or Higher, Shortness of breath, Dizziness, Fainting spells, Swelling in the ankles, Chest pain, Calf discomfort, - - Call your PCP if severe diarrhea ( > 5 stools a day), painful sores in the mouth, painful swallowing, rash or itching. Taking a probiotic such as Lactobacillus or Kefir can help with loose stools while taking antibiotics. Instructions: Tips for Quitting Smoking (Cardiovascular), Why Do You Smoke?, Planning to Quit Smoking, Getting Support for Quitting Smoking Additional Instructions: 1. You have pneumonia and a urinary tract infection. you will need 2 different antibiotics for 4 days after DC. Make sure to take ALL of the antibiotic prescribed or the infections could recur and may then be resistant to the antibiotics. 2. There are a lot of bad things that happen over the years when you have untreated sleep apnea. The BP increases in the lungs and causes Pulmonary Hypertension, addictions are common and difficult to quit, depression is common, Headaches, restless legs, weight gain, cardiac arrythmias are common, etc. There are many different types of masks now and there is even an option that fits in the nose only- like the oxygen you got in the hospital. I think it would be a good idea to ask your PCP about scheduling a sleep study. 3. Losing weight will help with heart disease, breathing, sleep apnea and overall well being. Exercise helps increase the metabolism to help with weight loss. 4. you will need a repeat chest XRAY in 4-6 weeks to document clearing of the pneumonia Pending Tests on Discharge: Blood and urine culture results Allergies/Adverse Reactions: Allergies levofloxacin [From Levaquin] Allergy (Verified 12/03/18 17:00) Hives loratadine [From Claritin-D] Allergy (Verified 11/20/18 13:04) Hives pseudoephedrine Allergy (Verified 12/03/18 17:24) Hives pseudoephedrine sulfate [From Claritin-D] Allergy (Verified 11/20/18 13:04) Hives Medications to take at Discharge aspirin 81 mg tablet,delayed release 81 mg PO QDAY 10/12/17 cholecalciferol (vitamin D3) 2,000 unit capsule 2,000 unit PO QDAY 30 Days #30 cap 10/12/17 escitalopram 20 mg tablet 20 mg PO QDAY 30 Days #30 tab 10/12/17 clopidogrel 75 mg tablet 75 mg PO QDAY #90 tab 10/30/18 metoprolol tartrate 25 mg tablet 12.5 mg PO BID #90 tab 10/30/18 rosuvastatin 10 mg tablet 10 mg PO QHS 11/20/18 Albuterol Sulfate [Albuterol Sulfate Hfa] 2 puff INHALATION 4X/DAY PRN PRN 12/03/18 Cyclobenzaprine HCl 5 mg PO TID PRN 12/03/18 Isosorbide Mononitrate [Isosorbide Mononitrate ER] 30 mg PO DAILY 12/03/18 Azithromycin 500 mg PO DAILY #4 tab 12/06/18 Cefadroxil 1 gm PO DAILY #4 tab 12/06/18 Guaifenesin [Mucinex] 1,200 mg PO BID #20 tab 12/06/18 The following prescriptions were given: Azithromycin 500 mg PO DAILY #4 tab Prescription Printed Cefadroxil 1 gm PO DAILY #4 tab Prescription Printed Guaifenesin [Mucinex] 1,200 mg PO BID #20 tab Prescription Printed Primary Care Physician: Kayla Noe NP-C [Primary Care Provider] - Please follow up with your Primary Care Physician in: 5-7 days Test Results: Test results from this visit will be discussed in further detail at your follow- up appointment, if applicable. Proposed Discharge Date: 12/06/18
--- NOTE | 2018-12-06 10:18 | PCM.DC.SUM ---
Discharge Date and Diagnosis Date of Admission: 12/03/18 Date of Discharge: 12/06/18 - Primary Discharge Diagnosis Active and Suspected Problems (Last Reviewed 12/03/18 @ 17:30 by Juan Mckeon DO) Severe sepsis due to Legionella pneumonia and E. coli UTI with abnormal LFTs Legionella pneumonia (Acute) E. Coli UTI Abnormal LFTs-likely secondary to legionnaires disease - Secondary Discharge Diagnosis Chronic Problems (Last Reviewed 12/03/18 @ 17:30 by Juan Mckeon DO) CAD (coronary artery disease) (Chronic) Nicotine abuse (Chronic) Morbid obesity (Chronic) Old anterior wall myocardial infarction (Chronic) CVA (cerebral vascular accident) (Chronic) Ischemic cardiomyopathy (Chronic) Atherosclerotic heart disease of [place] coronary artery without angina pectoris (Chronic) [id number] 01/20/2014 HLD (hyperlipidemia) (Chronic) Obstructive sleep apnea-noncompliant with positive pressure ventilation Hospital Course and Treatment Imaging Results: 12/06/18 05:55 Chest PA and Lateral [RAD] AM (NON MEDS) Clinical Impression(s) from Imaging Studies Chest X-Ray 12/06/18 05:55 IMPRESSION: Diffuse left lung infiltrates, although, all segments. Electronically Signed: Min Simms MD at 10:04 EDT Tel , Service support , Laboratory Results - last 24 hr 12/05/18 12/05/18 12/05/18 04:56 04:56 04:56 Diff Path Review Reviewed Immature Plt Fraction 4.2 Retic Count 0.99 Immature Retic Fraction 32.40 H Retic Hgb Equivalent 30.7 Iron 60 TIBC 214 L Iron Saturation 28.0 Ferritin 450 H Microbiology 12/03/18 19:25 Sputum, Expectorated/Coughed Gram Stain - Final 12/03/18 19:25 Sputum, Expectorated/Coughed Respiratory Culture - Final Mixed normal respiratory jacqueline. No Haemophilus, Streptococcus pneumoniae, beta-hemolytic Streptococcus or Staphylococcus aureus isolated. 12/04/18 08:10 Sputum, Expectorated/Coughed Gram Stain - Final 12/03/18 19:25 Urine, Clean Catch Streptococcus pneumoniae Antigen (M - Final 12/03/18 19:25 Urine, Clean Catch Legionella Antigen - Final Legionella Antigen none Operations: None Procedures: None Summary of Care Provided: The patient is a 43 year old F with a past medical history of tobacco dependence, coronary artery disease, CVA, morbid obesity, obstructive sleep apnea (noncompliant with CPAP) and hyperlipidemia who was admitted to the hospital with a diagnosis of severe sepsis secondary to pneumonia. Legionella antigen in the urine was positive. She was treated with Rocephin and azithromycin. She had recently been diagnosed with urinary tract infection and had a urine culture done at another facility which was positive for E. coli which was sensitive to Rocephin. Smoking cessation counseling was given while she was in the hospital. On 12/06/2018 she was afebrile with a pulse rate of 78, blood pressure 142/77 and she was 95% saturated on room air. She was also 95% ambulating on room air. She does have a hx of [place] that was diagnosed many years ago and she is non-compliant with CPAP. She was advised to consider a new sleep study and she was given printed literature regarding visiting a sleep lab and the adverse aided with long-standing untreated sleep apnea. Weight loss was recommended in a regular exercise program. She was discharged home with prescriptions for cefadroxil and azithromycin to complete 7 days of treatment for E. coli UTI and Legionella pneumonia. She was instructed to follow-up with her primary care provider in 5 to 7 days. PHYSICAL EXAM: GENERAL: alert, oriented X 3, Cooperative, NAD ORAL: moist mucosa, no mucosal lesions NECK: No JVD, supple, trachea midline LUNGS: CTA, symmetric chest expansion HEART: RRR, Normal S1 and S2, no rub, no gallop ABDOMEN: soft, NT, ND, BS present, no guarding with palpation, no obese EXTREMITIES: no edema, no cyanosis, no calf tenderness SKIN: No rashes, no breakdown NEUROLOGIC: no focal neurologic deficits PSYCH: appropriate, normal affect, pleasant This note was generated with [employer] dictation software. It may contain incorrect words, spelling, and punctuation that were not noted in checking the note before signing. - Physical Exam Vital Signs Temp Pulse Resp BP Pulse Ox 97.5 F L 78 18 142/77 H 95 12/06/18 09:32 12/06/18 09:35 12/06/18 09:32 12/06/18 09:32 12/06/18 09:32 Oxygen Flow Rate (L/min) 2 Oxygen Delivery Method Room Air Weight: 292 lb 1.8 oz Body Mass Index (BMI) 45.7 Intake and Output for Last 24 Hours 12/04/18 12/05/18 12/06/18 23:59 23:59 23:59 Intake Total 4575 / 4575 1310 / 2364 1654 / 1654 Output Total 725 / 725 Balance 4575 / 4575 1310 / 1639 929 / 929 Microbiology Past 72 Hours 12/03/18 19:25 Gram Stain - Final Sputum, Expectorated/Coughed Respiratory Culture - Final Mixed normal respiratory jacqueline. No Haemophilus, Streptococcus pneumoniae, beta-hemolytic Streptococcus or Staphylococcus aureus isolated. 12/04/18 08:10 Gram Stain - Final Sputum, Expectorated/Coughed 12/03/18 19:25 Streptococcus pneumoniae Antigen (M - Final Urine, Clean Catch 12/03/18 19:25 Legionella Antigen - Final Urine, Clean Catch Legionella Antigen Laboratory Tests Past 24 Hrs 12/05/18 12/05/18 12/05/18 04:56 04:56 04:56 Diff Path Review Reviewed Immature Plt Fraction 4.2 Retic Count 0.99 Immature Retic Fraction 32.40 H Retic Hgb Equivalent 30.7 Iron 60 TIBC 214 L Iron Saturation 28.0 Ferritin 450 H Discharge Activity: - - Gradually return to normal activity as tolerated. Avoid exposure to any strong smells such as bleach, cleaning products, strong colognes or perfumes, paint fumes and smoke of any kind. Avoid sudden exposure to cold air because this can cause bronchospasm. You may want to cover your mouth when you go outside in the winter. Avoid exposure to anyone who is sick with a cough or sore throat. Call your doctor if you observe: Fever of 101 or Higher, Shortness of breath, Dizziness, Fainting spells, Swelling in the ankles, Chest pain, Calf discomfort, - - Call your PCP if severe diarrhea ( > 5 stools a day), painful sores in the mouth, painful swallowing, rash or itching. Taking a probiotic such as Lactobacillus or Kefir can help with loose stools while taking antibiotics. Home Medications: Medications to take at Discharge aspirin 81 mg tablet,delayed release 81 mg PO QDAY 10/12/17 cholecalciferol (vitamin D3) 2,000 unit capsule 2,000 unit PO QDAY 30 Days #30 cap 10/12/17 escitalopram 20 mg tablet 20 mg PO QDAY 30 Days #30 tab 10/12/17 clopidogrel 75 mg tablet 75 mg PO QDAY #90 tab 10/30/18 metoprolol tartrate 25 mg tablet 12.5 mg PO BID #90 tab 10/30/18 rosuvastatin 10 mg tablet 10 mg PO QHS 11/20/18 Albuterol Sulfate [Albuterol Sulfate Hfa] 2 puff INHALATION 4X/DAY PRN PRN 12/03/18 Cyclobenzaprine HCl 5 mg PO TID PRN 12/03/18 Isosorbide Mononitrate [Isosorbide Mononitrate ER] 30 mg PO DAILY 12/03/18 Azithromycin 500 mg PO DAILY #4 tab 12/06/18 Cefadroxil 1 gm PO DAILY #4 tab 12/06/18 Guaifenesin [Mucinex] 1,200 mg PO BID #20 tab 12/06/18 Following Prescrptions Were Given to Patient: Azithromycin 500 mg PO DAILY #4 tab Prescription Printed Cefadroxil 1 gm PO DAILY #4 tab Prescription Printed Guaifenesin [Mucinex] 1,200 mg PO BID #20 tab Prescription Printed Primary Care Physician: Kayla Noe NP-C [Primary Care Provider] - Please follow up with your Primary Care Physician in: 5-7 days Patient Instructions: Tips for Quitting Smoking (Cardiovascular), Why Do You Smoke?, Planning to Quit Smoking, Getting Support for Quitting Smoking Disposition: Home Minutes spent on discharge:: 30 Patient Condition:: Stable Medical Necessity - Tobacco Use Smoking Status: Current every day smoker Tobacco Use: Cigarettes Meaningful Use Info Meaningful Use Diagnoses (Choose all that apply): None applicable Code Visit Inpatient E&M: 66831 Disch Hosp
== END 2018-12-06 11:28 | disposition home or self-care (01) | DRG 720 ==
PROVIDERS: Physician Assistant; Family Provider Nurse Practitioner Family; PCP Nurse Practitioner Family; Visit Provider Internal Medicine
DX: A41.59 Other Gram-negative sepsis (principal); I25.10 Atherosclerotic heart disease of native coronary artery without angina pectoris; R65.20 Severe sepsis without septic shock; A48.1 Legionnaires' disease; E66.01 Morbid (severe) obesity due to excess calories; E78.5 Hyperlipidemia, unspecified; F17.210 Nicotine dependence, cigarettes, uncomplicated; N39.0 Urinary tract infection, site not specified; Z68.42 Body mass index [BMI] 45.0-49.9, adult; L50.0 Allergic urticaria; T36.8X5A Adverse effect of other systemic antibiotics, initial encounter; G47.33 Obstructive sleep apnea (adult) (pediatric); B96.20 Unspecified Escherichia coli [E. coli] as the cause of diseases classified elsewhere; D64.9 Anemia, unspecified; Z91.19 Patient's noncompliance with other medical treatment and regimen; R94.5 Abnormal results of liver function studies; I25.5 Ischemic cardiomyopathy; Z95.5 Presence of coronary angioplasty implant and graft; I25.2 Old myocardial infarction; Z86.73 Personal history of transient ischemic attack (TIA), and cerebral infarction without residual deficits
CPT/HCPCS: 36415; 71046; 80053; 82728; 83540; 83550; 85025; 85045; 87070; 87077; 87205; 87449; 94640; 94667; 94668; 99251; J7030; A4216; G0463

== ENCOUNTER → 2019-02-19 | Outpatient (CLI) | payer MEDICAID, SELFPAY ==
[2018-12-03 16:56] VITALS: BMI 45.7
--- NOTE | 2019-02-19 09:11 | ECHOCS_ITS ---
Reason For Study: CAD/ASHD Procedure This was a 2D Doppler, Color Flow transthoracic echocardiogram. The study was technically difficult. Contrast injection was performed. Exam performed in department. Left Ventricle Mildly dilated left ventricle. Mild segmental systolic dysfunction (see wall motion). The estimated ejection fraction is 45 %. Diastolic function is indeterminate. Mid-inferoseptal : Hypokinetic. Mid- anteroseptal : Hypokinetic. [place] : Akinetic. Right Ventricle Normal RV size. Normal systolic function. Atria The left atrium is mildly enlarged. Normal right atrium. No doppler evidence for ASD. Mitral Valve There is no mitral annular calcification. Normal mitral valve. Mild (1+) mitral valve insufficiency. Tricuspid Valve Normal tricuspid valve. Trivial tricuspid valve insufficiency. Unable to estimate RV systolic pressure/pulmonary artery pressure due to technically difficult study. Aortic Valve Trisinus/trileaflet aortic valve. Normal aortic valve. Pulmonic Valve The pulmonic valve is not well visualized. Trivial eccentric pulmonic valve insufficiency. Great Vessels The aortic root is not well visualized. Pericardium/Pleural No pericardial effusion. Medication 22 gauge I.V. with prn adaptor inserted into left arm. Diluted definity 2ml given slow IV push to enhance endocardial definition. MMode/2D Measurements & Calculations LVIDd: 5.7 cm IVSd: 1.1 cm LA dimension: 4.0 cm LVIDs: 4.0 cm LVPWd: 1.3 cm FS: 29.1 % LAV(MOD-bp): 70.9 ml LA A4 area: 23.9 cm2 RA A4 area: 14.4 cm2 LAV(MOD-bp) Indexed: 29.2 ml/m2 LAV(MOD-sp2): 56.8 ml LAV(MOD-sp4): 73.6 ml Time Measurements MV dec time: 0.22 sec Doppler Measurements & Calculations MV E max eliezer: 83.8 cm/sec Lat Peak E' Eliezer: 7.3 cm/sec Med Peak E' Eliezer: 8.6 cm/sec MV A max eliezer: 123.8 cm/sec E/E' lat: 11.5 E/E' med: 9.7 MV E/A: 0.68 MV V2 max: 128.1 cm/sec MV P1/2t max eliezer: 98.2 cm/sec Ao V2 max: 129.0 cm/sec MV max P.6 mmHg MV P1/2t: 69.5 msec Ao max P.7 mmHg MV V2 mean: 65.3 cm/sec MV dec slope: 414.0 cm/sec2 MV mean P.0 mmHg MV V2 VTI: 27.0 cm MVA(P1/2t): 3.2 cm2 LV V1 max: 100.6 cm/sec PA V2 max: 87.6 cm/sec LV V1 max P.0 mmHg Interpretation Summary The study was technically difficult. Contrast injection was performed. Mildly dilated left ventricle. Mild segmental systolic dysfunction (see wall motion). The estimated ejection fraction is 45 %. The left atrium is mildly enlarged. Mild (1+) mitral valve insufficiency. Trivial tricuspid valve insufficiency. Trivial eccentric pulmonic valve insufficiency. Unable to estimate RV systolic pressure/pulmonary artery pressure due to technically difficult study. Diastolic function is indeterminate. Ordering Physician: Fermin Lawson Referring Physician: Fermin Lawson Performed By: Juan Miguel White RCS
[2019-02-19 11:05] LABS: Anion Gap 6 (5-15); BUN 15 mg/dL (7-18); BUN/Creat Ratio 12.7 RATIO (10-20); Calcium,Total 8.6 mg/dL (8.5-10.1); Chloride 111 mmol/L (98-107); Creatinine, Serum 1.18 mg/dL (0.55-1.02); EST Glomerular Filtration Rate 53 mL/min (>60); Est Glom Filt Rate - Afr Amer 64 mL/min (>60); Glucose 93 mg/dL (74-106); Potassium 4.9 mmol/L (3.5-5.1); Sodium Level 143 mmol/L (136-145)
== END | disposition home or self-care (01) ==
PROVIDERS: Family Provider Nurse Practitioner Family; PCP Nurse Practitioner Family; Referring Provider Internal Medicine Cardiovascular Disease; Visit Provider Internal Medicine Cardiovascular Disease
DX: I25.10 Atherosclerotic heart disease of native coronary artery without angina pectoris (principal); I25.5 Ischemic cardiomyopathy; I51.81 Takotsubo syndrome; I25.2 Old myocardial infarction; Z95.5 Presence of coronary angioplasty implant and graft
CPT/HCPCS: 36415; 80048; 93306; Q9957; A4216; C8929

== ENCOUNTER → 2019-03-28 | Outpatient (CLI) | payer MEDICAID, SELFPAY ==
[2019-03-28 08:45] VITALS: BMI 48.7
[2019-03-28 11:01] LABS: AST(SGOT) 21 U/L (15-37); Alanine Aminotransfer ALT/SGPT 27 U/L (13-56); Albumin, Serum 3.7 g/dL (3.2-5.0); Alkaline Phosphatase 104 U/L (45-117); Bilirubin, Direct 0.07 mg/dL (0.00-0.30); Cholesterol 220 mg/dL (200); Globulin 4.3 g/dL (2.2-4.2); High Density Lipoprotein 43 mg/dL; Triglycerides 240 mg/dL; Very Low Density Lipoprotein 48 mg/dL (5-40)
== END | disposition home or self-care (01) ==
LOC: LAB 09:38
PROVIDERS: Family Provider Nurse Practitioner Family; PCP Nurse Practitioner Family; Referring Provider Physician Assistant Medical; Visit Provider Physician Assistant Medical
DX: I25.10 Atherosclerotic heart disease of native coronary artery without angina pectoris (principal); E78.5 Hyperlipidemia, unspecified
CPT/HCPCS: 36415; 80061; 80076

== ENCOUNTER → 2019-06-24 14:35 | Outpatient (CLI) | payer MEDICAID, SELFPAY ==
[2019-03-28 08:45] VITALS: BMI 48.7
[2019-06-24 15:24] LABS: Hematocrit 43.3 % (37-47); Hemoglobin 13.2 g/dL (12.0-15.0); Mean Corp Hgb Conc 30.5 g/dL (32-36); Mean Corpuscular Hgb 28.4 pg (27.0-32.0); Mean Corpuscular Volume 93.3 fL (81-99); Mean Platelet Vol. 10.7 fl (6.2-12.0); Platelet Count 293 K/mm3 (150-450); RBC Distribution Width CV 14.6 % (11.6-14.6); RBC Distribution Width SD 50.6 fl (35.1-43.9); Red Blood Count 4.64 M/mm3 (4.2-5.4); White Blood Count 11.2 K/mm3 (4.4-11.0)
[2019-06-24 15:31] LABS: Color, Urine Yellow (Yellow); Glucose, Dipstick Normal (Normal); Ketone-Dipstick Negative (Negative); Leukocyte Esterase-Dipstick 25 /ul (Negative); Nitrite-Dipstick Negative (Negative); Occult Blood-Urine 10 /ul (Negative); Protein-Dipstick Negative (Negative); Urine Bilirubin Dipstick Negative (Negative); Urine Clarity Cloudy (Clear); Urine Urobilinogen Normal (Normal)
[2019-06-24 16:12] LABS: BUN 15 mg/dL (7-18); Creatinine, Serum 1.26 mg/dL (0.55-1.02); Glucose 112 mg/dL (74-106)
[2019-06-24 16:13] LABS: Albumin, Serum 3.5 g/dL (3.2-5.0); BUN/Creat Ratio 11.9 RATIO (10-20); Calcium,Total 8.6 mg/dL (8.5-10.1); Chloride 105 mmol/L (98-107); EST Glomerular Filtration Rate 49 mL/min (>60); Est Glom Filt Rate - Afr Amer 60 mL/min (>60); Phosphorus 2.9 mg/dL (2.5-4.9); Potassium 4.3 mmol/L (3.5-5.1); Sodium Level 137 mmol/L (136-145)
[2019-06-24 16:15] LABS: Vitamin D,25 Hydroxy 29.6 ng/mL (29.95-100.01)
[2019-06-24 16:29] LABS: Microalbumin,Random Urine 50.5 mg/L (NO RANGE EST.); Microalbumin:Creatinine Ratio 38.8 mg/g CRE (<30 mg/g CRE); Protein, Urine (Random) 14.8 mg/dL (<11.9); Protein:Creat Ratio 114 mg/g CRE (0-200)
[2019-06-25 09:58] LABS: PTHIN 72.8 pg/mL (18.4-80.1)
== END ==
PROVIDERS: PCP Nurse Practitioner Family; Referring Provider Internal Medicine Nephrology; Visit Provider Internal Medicine Nephrology
DX: N18.3 Chronic kidney disease, stage 3 (moderate) (principal); D63.1 Anemia in chronic kidney disease; N25.81 Secondary hyperparathyroidism of renal origin
CPT/HCPCS: 36415; 80069; 81002; 82043; 82306; 82570; 83970; 84156; 85027

== ENCOUNTER → 2019-11-08 | Outpatient (CLI) | payer MEDICAID, SELFPAY ==
[2019-03-28 08:45] VITALS: BMI 48.7
[2019-10-10 07:56] VITALS: BMI 48.7
--- NOTE | 2019-11-08 09:41 | US_ITS ---
STUDY: RENAL ULTRASOUND - COMPLETE REASON FOR EXAM: Female, 44 years old. CKD 3 TECHNIQUE: Ultrasound evaluation of the kidneys was performed with real-time and static de leon-scale imaging. COMPARISON: None. FINDINGS: RIGHT KIDNEY: Normal location of the right kidney, which is normal in size. The right kidney measures 13.7 cm x 6.7 cm x 5.0 cm. There is a normal cortex of the right kidney. The renal cortex measures 1.4 cm. There is no right renal mass or cyst. There are no right renal calculi. There is an extra-renal pelvis of the right kidney. There is no distention of the renal calyces. DISTAL RIGHT URETER: There is non-visualization of the distal right ureter. There is no demonstrated right ureterovesical junction calculus. There is a visualized right ureteral jet. LEFT KIDNEY: with moderate renal atrophy. The left kidney measures 7.4 cm x 4.4 cm x 3.0 cm. There is a normal cortex of the left kidney. The renal cortex measures 0.7 cm. There is no left renal mass or cyst. There are no left renal calculi. There is no left hydronephrosis. DISTAL LEFT URETER: There is non-visualization of the distal left ureter. There is no demonstrated left ureterovesical junction calculus. There is no demonstrated left ureteral jet. BLADDER: The distended urinary bladder has a volume of 101 ml. There is a normal wall thickness of the distended urinary bladder. There is no demonstrated mass within the urinary bladder. There are no demonstrated bladder calculi. US/Kidney and Bladder IMPRESSION: Atrophy of the left kidney. Electronically Signed: Duane Davidson, at 11:15 EDT , Service support ,
== END | disposition home or self-care (01) ==
LOC: US 09:38
PROVIDERS: PCP Nurse Practitioner Family; Referring Provider Internal Medicine; Visit Provider Internal Medicine
DX: N18.3 Chronic kidney disease, stage 3 (moderate) (principal)
CPT/HCPCS: 76770

== ENCOUNTER → 2019-12-12 | Outpatient (CLI) | payer MEDICAID, SELFPAY ==
[2019-12-12 09:52] VITALS: BMI 50.1
[2019-12-12 10:06] LABS: Bacteria 0 SEEN /hpf (None Seen); Mucous, Urine 0 SEEN /hpf (<or=2+); White Blood Cells 0 SEEN /hpf (0-5)
[2019-12-12 10:46] LABS: Color, Urine Yellow (Yellow); Glucose, Dipstick Normal (Normal); Ketone-Dipstick Negative (Negative); Leukocyte Esterase-Dipstick Negative /ul (Negative); Nitrite-Dipstick Negative (Negative); Occult Blood-Urine 150 /ul (Negative); Protein-Dipstick 30 mg/dl (Negative); Urine Bilirubin Dipstick Negative (Negative); Urine Clarity Sl. Cloudy (Clear); Urine Urobilinogen Normal (Normal)
[2019-12-12 10:52] LABS: Red Blood Cells-Urine 0-5 SEEN /hpf (0-5); Squamous Epithelial Cells - UA 0-5 SEEN /hpf (5-10)
[2019-12-12 10:54] LABS: Protein, Urine (Random) 21.1 mg/dL (<11.9); Protein:Creat Ratio 190 mg/g CRE (0-200)
[2019-12-12 11:17] LABS: PTHIN 49.2 pg/mL (18.4-80.1)
[2019-12-12 11:21] LABS: Vitamin D,25 Hydroxy 32.4 ng/mL
[2019-12-12 11:22] LABS: AST(SGOT) 19 U/L (15-37); Alanine Aminotransfer ALT/SGPT 30 U/L (13-56); Albumin, Serum 3.3 g/dL (3.2-5.0); Alkaline Phosphatase 89 U/L (45-117); Anion Gap 4 (5-15); BUN 17 mg/dL (7-18); BUN/Creat Ratio 14.3 RATIO (10-20); Bilirubin, Direct 0.12 mg/dL (0.00-0.30); Calcium,Total 8.6 mg/dL (8.5-10.1); Chloride 109 mmol/L (98-107); Cholesterol 148 mg/dL (200); Creatinine, Serum 1.19 mg/dL (0.55-1.02); EST Glomerular Filtration Rate 53 mL/min (>60); Est Glom Filt Rate - Afr Amer 64 mL/min (>60); Globulin 4.2 g/dL (2.2-4.2); Glucose 104 mg/dL (74-106); High Density Lipoprotein 41 mg/dL; Phosphorus 2.2 mg/dL (2.5-4.9); Potassium 5.4 mmol/L (3.5-5.1); Protein, Total 7.5 g/dL (6.4-8.2); Sodium Level 138 mmol/L (136-145); Triglycerides 237 mg/dL; Very Low Density Lipoprotein 47 mg/dL (5-40)
== END | disposition home or self-care (01) ==
PROVIDERS: PCP Nurse Practitioner Family; Referring Provider Physician Assistant Medical; Visit Provider Physician Assistant Medical
DX: E78.00 Pure hypercholesterolemia, unspecified (principal); E78.5 Hyperlipidemia, unspecified; N18.3 Chronic kidney disease, stage 3 (moderate)
CPT/HCPCS: 36415; 80048; 80061; 80076; 81001; 82306; 82570; 83970; 84100; 84156

== ENCOUNTER → 2020-06-23 11:20 | Outpatient (CLI) | payer MEDICAID, SELFPAY ==
[2020-06-23 10:26] VITALS: BMI 58.3
[2020-06-23 12:41] LABS: Absolute Lymphocyte Count 2.71 X10^3/uL (0.83-4.51); Absolute Neutrophil Count 5.3 X10^3/uL (2.0-7.7); Basophil# 0.08 X10^3/uL; Basophil% 0.9 % (0-1); Eosinophil# 0.25 X10^3/uL; Eosinophils% 2.7 % (0-5); Hematocrit 38.8 % (37-47); Lymphocyte # 2.71 X10^3/ul (4.0); Lymphocyte % 29.2 % (19-41); Mean Corp Hgb Conc 30.9 g/dL (32-36); Mean Corpuscular Hgb 28.3 pg (27.0-32.0); Mean Corpuscular Volume 91.5 fL (81-99); Mean Platelet Vol. 10.6 fl (6.2-12.0); Monocyte# 0.83 X10^3/uL; Monocyte% 8.9 % (0-10); NRBC Flagged by Analyzer 0 % (0-5); Neutrophil # 5.33 X10^3/uL (2.7-7.7); Neutrophil % 57.4 % (47-70); Platelet Count 336 K/mm3 (150-450); RBC Distribution Width CV 13.5 % (11.6-14.6); RBC Distribution Width SD 45.7 fl (35.1-43.9); Red Blood Count 4.24 M/mm3 (4.2-5.4); White Blood Count 9.3 K/mm3 (4.4-11.0)
[2020-06-23 13:03] LABS: Anion Gap 2 (5-15); BNP,B-Type NATRIURETIC PEPTIDE 36.9 pg/mL (0-100); BUN 20 mg/dL (7-18); Calcium,Total 8.7 mg/dL (8.5-10.1); Chloride 109 mmol/L (98-107); Creatinine, Serum 1.25 mg/dL (0.55-1.02); EST Glomerular Filtration Rate 50 mL/min (>60); Est Glom Filt Rate - Afr Amer 60 mL/min (>60); Glucose 96 mg/dL (74-106); Potassium 5.3 mmol/L (3.5-5.1); Sodium Level 137 mmol/L (136-145)
== END ==
PROVIDERS: PCP Nurse Practitioner Family; Referring Provider Nurse Practitioner Family; Visit Provider Nurse Practitioner Family
DX: I25.10 Atherosclerotic heart disease of native coronary artery without angina pectoris (principal); I25.5 Ischemic cardiomyopathy; I10 Essential (primary) hypertension; E78.5 Hyperlipidemia, unspecified; Z95.5 Presence of coronary angioplasty implant and graft
CPT/HCPCS: 36415; 80048; 83880; 85025

== ENCOUNTER → 2020-07-02 06:05 | Outpatient (CLI) | payer MEDICAID, SELFPAY ==
[2020-06-23 10:26] VITALS: BMI 58.3
--- NOTE | 2020-07-02 13:02 | STRESSREP ---
Stress Test Report Pharmacologic myocardial perfusion stress test. 44-year-old lady with a history of previous coronary artery disease status post previous PCI. Medications aspirin, Plavix, carvedilol, rosuvastatin. Stress protocol: Resting EKG demonstrates normal sinus rhythm with a rate of 74 bpm normal intervals are noted resting blood pressure is 126/72 mmHg. Poor R wave progression is noted. 0.4 mg of regadenoson was infused per usual protocol followed by rapid intravenous saline flush injection continuous EKG monitoring was performed. The maximum heart rate attained was 95 bpm which was 53% of max impacted heart rate the maximum workload was 1 metabolic equivalent. At rest there were no ST or T wave changes noted to suggest abnormal flow reserve at peak infusion nonspecific ST-T wave changes were noted with no meet the criteria for abnormal flow reserve. The resting blood pressure is 126/72 with a final blood pressure 134/68 mmHg. Myocardial perfusion protocol. 14.8 mCi of technetium 99m sestamibi was injected at rest. 0.4 mg of regadenoson was infused per usual protocol and at peak infusion 44.3 mCi of technetium 99m sestamibi was injected stress images were obtained stress and rest images were reconstructed and compared in the short axis vertical long horizontal long axis. Gated images were also obtained P Perfusion SPECT analysis: Review of the images demonstrate a defect noted in the distal anterior wall and apex with the rest of the jimenez be normally perfused. The septum and lateral wall and inferior wall are well perfused. On the resting images a similar pattern is noted. The above is suggestive of a distal anterior apical infarct. No ischemia is noted. Gated SPECT analysis: The gated ejection fraction is 51%. Conclusion: Pharmacologic myocardial perfusion stress test with evidence of distal anterior infarct. No ischemia noted.
== END ==
PROVIDERS: PCP Nurse Practitioner Family; Referring Provider Nurse Practitioner Family; Visit Provider Nurse Practitioner Family
DX: I25.10 Atherosclerotic heart disease of native coronary artery without angina pectoris (principal); I25.5 Ischemic cardiomyopathy; E78.5 Hyperlipidemia, unspecified; I10 Essential (primary) hypertension; Z95.5 Presence of coronary angioplasty implant and graft
CPT/HCPCS: 78452; 93017; A9500; A4216; J2785

== ENCOUNTER → 2021-05-08 10:09 | Outpatient (CLI) | payer MEDICAID, SELFPAY ==
[2021-05-08 10:42] LABS: AST(SGOT) 18 U/L (15-37); Alanine Aminotransfer ALT/SGPT 33 U/L (13-56); Albumin, Serum 3.1 g/dL (3.2-5.0); Alkaline Phosphatase 82 U/L (45-117); Anion Gap 3 (5-15); BUN 15 mg/dL (7-18); BUN/Creat Ratio 10.5 RATIO (10-20); Bilirubin, Direct 0.08 mg/dL (0.00-0.30); Calcium,Total 8.8 mg/dL (8.5-10.1); Chloride 110 mmol/L (98-107); Cholesterol 181 mg/dL (200); Creatinine, Serum 1.43 mg/dL (0.55-1.02); EST Glomerular Filtration Rate 42 mL/min (>60); Est Glom Filt Rate - Afr Amer 51 mL/min (>60); Glucose 139 mg/dL (74-106); High Density Lipoprotein 40 mg/dL; Potassium 5.2 mmol/L (3.5-5.1); Protein, Total 7.1 g/dL (6.4-8.2); Sodium Level 139 mmol/L (136-145); Triglycerides 154 mg/dL; Very Low Density Lipoprotein 31 mg/dL (5-40)
== END ==
PROVIDERS: PCP Nurse Practitioner Family; Referring Provider Nurse Practitioner Gerontology; Visit Provider Nurse Practitioner Gerontology
DX: I10 Essential (primary) hypertension (principal); E78.5 Hyperlipidemia, unspecified
CPT/HCPCS: 36415; 80048; 80061; 80076

== ENCOUNTER → 2021-11-30 | Outpatient (CLI) | payer MEDICAID, SELFPAY ==
[2021-11-30 10:07] LABS: BNP,B-Type NATRIURETIC PEPTIDE 112.9 pg/mL (0-100)
[2021-11-30 10:13] LABS: AST(SGOT) 19 U/L (15-37); Alanine Aminotransfer ALT/SGPT 23 U/L (13-56); Albumin, Serum 3.2 g/dL (3.2-5.0); Alkaline Phosphatase 98 U/L (45-117); Anion Gap 4 (5-15); BUN 15 mg/dL (7-18); BUN/Creat Ratio 12.3 RATIO (10-20); Bilirubin, Direct 0.06 mg/dL (0.00-0.30); Calcium,Total 8.7 mg/dL (8.5-10.1); Chloride 111 mmol/L (98-107); Cholesterol 122 mg/dL (200); Creatinine, Serum 1.22 mg/dL (0.55-1.02); EST Glomerular Filtration Rate 51 mL/min (>60); Est Glom Filt Rate - Afr Amer 61 mL/min (>60); Globulin 4.6 g/dL (2.2-4.2); Glucose 181 mg/dL (74-106); High Density Lipoprotein 38 mg/dL; Potassium 5.6 mmol/L (3.5-5.1); Protein, Total 7.8 g/dL (6.4-8.2); Sodium Level 138 mmol/L (136-145); Triglycerides 154 mg/dL; Very Low Density Lipoprotein 31 mg/dL (5-40)
== END | disposition home or self-care (01) ==
PROVIDERS: PCP Nurse Practitioner Family; Visit Provider Nurse Practitioner Gerontology
DX: R06.00 Dyspnea, unspecified (principal); N18.32 Chronic kidney disease, stage 3b
CPT/HCPCS: 36415; 80048; 80061; 80076; 83880

== ENCOUNTER → 2021-12-22 | Outpatient (CLI) | payer MEDICAID, SELFPAY ==
--- NOTE | 2021-12-22 13:53 | ECHOD_ITS ---
Reason For Study: DYSPNEA/SOB Procedure This was a 2D Doppler, Color Flow transthoracic echocardiogram. Exam performed in department. Left Ventricle Normal LV size. Mild segmental systolic dysfunction (see wall motion). The estimated ejection fraction is 40 %. Stage 1 diastolic dysfunction. [place] : Akinetic. Mid-anteroseptal : Hypokinetic. Inferior [place] : Hypokinetic. Right Ventricle Normal RV size. Normal systolic function. Atria Normal left atrium. Normal right atrium. Mitral Valve Normal mitral valve. Tricuspid Valve Normal tricuspid valve. Aortic Valve Normal aortic valve. Trisinus/trileaflet aortic valve. Pulmonic Valve Normal pulmonic valve. Great Vessels Normal aortic root. The pulmonary artery is normal size. Normal inferior vena cava. Pericardium/Pleural No pericardial effusion. MMode/2D Measurements & Calculations LVIDd: 6.3 cm IVSd: 1.1 cm Ao root diam: 3.2 cm LVIDs: 5.0 cm LVPWd: 0.99 cm RVDd: 2.6 cm FS: 21.1 % LAV(MOD-bp): 64.8 ml LVAd ap4: 39.9 cm2 SV(MOD-sp4): 45.9 ml LAV(MOD-bp) Indexed: 25.9 ml/m2 LVLd ap4: 9.4 cm LAV(MOD-sp2): 60.8 ml EDV(MOD-sp4): 146.3 ml LAV(MOD-sp4): 65.0 ml EDV(sp4-el): 143.7 ml LVAs ap4: 31.9 cm2 LVLs ap4: 8.7 cm ESV(MOD-sp4): 100.4 ml ESV(sp4-el): 98.7 ml EF(MOD-sp4): 31.4 % EF(sp4-el): 31.3 % SV(sp4-el): 45.0 ml LA A4 area: 22.1 cm2 LA dimension(2D): 3.9 cm RA A4 area: 10.7 cm2 Time Measurements MV dec time: 0.20 sec Doppler Measurements & Calculations MV E max eliezer: 77.1 cm/sec Lat Peak E' Eliezer: 7.0 cm/sec Med Peak E' Eliezer: 6.6 cm/sec MV A max eliezer: 96.6 cm/sec E/E' lat: 11.0 E/E' med: 11.7 MV E/A: 0.80 Ao V2 max: 135.3 cm/sec LV V1 max: 103.5 cm/sec MV dec slope: 393.0 cm/sec2 Ao max P.3 mmHg LV V1 max P.3 mmHg Ao V2 mean: 98.0 cm/sec LV V1 mean P.6 mmHg Ao mean P.3 mmHg LV V1 mean: 77.1 cm/sec Ao V2 VTI: 34.0 cm LV V1 VTI: 26.1 cm PA V2 max: 84.7 cm/sec ECHO/Echo Complete Interpretation Summary Normal LV size. Mild segmental systolic dysfunction (see wall motion). The estimated ejection fraction is 40 %. Stage 1 diastolic dysfunction. Compared to previous study, the left ventricular systolic function is the same. . Ordering Physician: Tiana Jaramillo Referring Physician: Tiana Jaramillo Performed By: Alejandra Fabian RCS
== END | disposition home or self-care (01) ==
LOC: CVS 13:52
PROVIDERS: PCP Nurse Practitioner Family; Referring Provider Nurse Practitioner Gerontology; Visit Provider Nurse Practitioner Gerontology
DX: R06.02 Shortness of breath (principal)
CPT/HCPCS: 93306

== ENCOUNTER → 2022-05-09 | Outpatient (CLI) | payer MEDICAID, SELFPAY ==
[2022-05-09 11:17] LABS: Hematocrit 42.6 % (37-47); Mean Corp Hgb Conc 30.5 g/dL (32-36); Mean Corpuscular Hgb 27.8 pg (27.0-32.0); Platelet Count 288 K/mm3 (150-450); RBC Distribution Width CV 13.7 % (11.6-14.6); Red Blood Count 4.68 M/mm3 (4.2-5.4)
[2022-05-09 11:28] LABS: Protein, Urine (Random) 8.5 mg/dL (<11.9); Protein:Creat Ratio 75 mg/g CRE (0-200)
[2022-05-09 11:46] LABS: PTHIN 74.7 pg/mL (18.4-80.1)
[2022-05-09 11:48] LABS: Albumin, Serum 3.2 g/dL (3.2-5.0); BUN 20 mg/dL (7-18); BUN/Creat Ratio 14.3 RATIO (10-20); Calcium,Total 8.8 mg/dL (8.5-10.1); Chloride 108 mmol/L (98-107); EST Glomerular Filtration Rate 43 mL/min (>60); Est Glom Filt Rate - Afr Amer 52 mL/min (>60); Glucose 151 mg/dL (74-106); Phosphorus 3.7 mg/dL (2.5-4.9); Potassium 4.6 mmol/L (3.5-5.1); Sodium Level 139 mmol/L (136-145)
[2022-05-09 11:50] LABS: Vitamin D,25 Hydroxy 20.2 ng/mL
== END | disposition home or self-care (01) ==
LOC: LAB 10:42
PROVIDERS: PCP Nurse Practitioner Family; Referring Provider Nurse Practitioner Adult Health; Visit Provider Nurse Practitioner Adult Health
DX: N18.32 Chronic kidney disease, stage 3b (principal); N25.81 Secondary hyperparathyroidism of renal origin; D63.1 Anemia in chronic kidney disease
CPT/HCPCS: 36415; 80069; 82306; 82570; 83970; 84156; 85027

== ENCOUNTER → 2022-07-28 | Outpatient (CLI) | payer MEDICAID, SELFPAY ==
[2022-07-28 11:38] LABS: AST(SGOT) 20 U/L (15-37); Alanine Aminotransfer ALT/SGPT 23 U/L (13-56); Albumin, Serum 3.4 g/dL (3.2-5.0); Alkaline Phosphatase 83 U/L (45-117); Anion Gap 4 (5-15); BUN 17 mg/dL (7-18); Bilirubin, Direct < 0.05 mg/dL (0.00-0.30); Calcium,Total 8.9 mg/dL (8.5-10.1); Chloride 107 mmol/L (98-107); Cholesterol 141 mg/dL (200); Creatinine, Serum 1.42 mg/dL (0.55-1.02); EST Glomerular Filtration Rate 42 mL/min (>60); Est Glom Filt Rate - Afr Amer 51 mL/min (>60); Globulin 4.2 g/dL (2.2-4.2); Glucose 118 mg/dL (74-106); High Density Lipoprotein 41 mg/dL; Protein, Total 7.6 g/dL (6.4-8.2); Sodium Level 137 mmol/L (136-145); Thyroid Stim Hormone (TSH) 1.89 uIU/mL (0.358-3.74); Triglycerides 333 mg/dL; Very Low Density Lipoprotein 67 mg/dL (5-40)
== END | disposition home or self-care (01) ==
LOC: LAB 09:27
PROVIDERS: PCP Nurse Practitioner Family; Referring Provider Internal Medicine Cardiovascular Disease; Visit Provider Internal Medicine Cardiovascular Disease
DX: E78.5 Hyperlipidemia, unspecified (principal)
CPT/HCPCS: 36415; 80048; 80061; 80076; 84443

== ENCOUNTER → 2023-01-06 | Outpatient (CLI) | payer MEDICAID, SELFPAY ==
[2023-01-06 09:16] LABS: Hematocrit 34.3 % (37-47); Hemoglobin 10.4 g/dL (12.0-15.0); Mean Corp Hgb Conc 30.3 g/dL (32-36); Mean Corpuscular Hgb 27.7 pg (27.0-32.0); Mean Corpuscular Volume 91.5 fL (81-99); Mean Platelet Vol. 10.5 fl (6.2-12.0); Platelet Count 351 K/mm3 (150-450); RBC Distribution Width CV 13.6 % (11.6-14.6); RBC Distribution Width SD 45.9 fl (35.1-43.9); Red Blood Count 3.75 M/mm3 (4.2-5.4); White Blood Count 9.1 K/mm3 (4.4-11.0)
[2023-01-06 09:43] LABS: Protein, Urine (Random) 14.2 mg/dL (<11.9); Protein:Creat Ratio 107 mg/g CRE (0-200)
[2023-01-06 09:47] LABS: PTHIN 90.4 pg/mL (18.4-80.1)
[2023-01-06 09:48] LABS: BUN 14 mg/dL (7-18); BUN/Creat Ratio 11.3 RATIO (10-20); Calcium,Total 8.5 mg/dL (8.5-10.1); Chloride 108 mmol/L (98-107); Creatinine, Serum 1.24 mg/dL (0.55-1.02); EST Glomerular Filtration Rate 49 mL/min (>60); Est Glom Filt Rate - Afr Amer 60 mL/min (>60); Glucose 97 mg/dL (74-106); Phosphorus 2.7 mg/dL (2.5-4.9); Potassium 4.9 mmol/L (3.5-5.1); Sodium Level 137 mmol/L (136-145)
[2023-01-06 09:49] LABS: Vitamin D,25 Hydroxy 27.9 ng/mL
== END | disposition home or self-care (01) ==
LOC: LAB 08:04
PROVIDERS: PCP Nurse Practitioner Family; Referring Provider Nurse Practitioner Adult Health; Visit Provider Nurse Practitioner Adult Health
DX: E55.9 Vitamin D deficiency, unspecified (principal); N18.32 Chronic kidney disease, stage 3b; D63.1 Anemia in chronic kidney disease
CPT/HCPCS: 36415; 80069; 82306; 82570; 83970; 84156; 85027

== ENCOUNTER 2023-05-09 18:17 | Inpatient (IN) | payer MEDICAID, SELFPAY ==
[2023-05-09] VITALS (7 sets, daily range): BP systolic 143–173; BP diastolic 64–106; PULSE 71–78; RESP 15–19; TEMP 36.4–36.6; O2SAT 94–98; BMI 54.8
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
--- NOTE | 2023-05-09 18:51 | RAD_ITS ---
INDICATION: chest pain EXAMINATION/TECHNIQUE: X-RAY - portable upright AP chest x-ray COMPARISON: 12/06/2018 FINDINGS: LINES/DEVICES: None. LUNGS: No consolidation, edema or effusion. No pneumothorax. MEDIASTINUM AND CARDIOVASCULAR STRUCTURES: Cardiac silhouette not enlarged. Central airways and mediastinal contour are unremarkable. BONES AND SOFT TISSUES: No acute findings. RAD/Chest 1 View (Portable) IMPRESSION: No radiographic evidence of acute cardiopulmonary disease. Electronically Signed: Marcial Gunderson MD at 19:17 EST ,
[2023-05-09 18:56] LABS: Absolute Lymphocyte Count 3.01 X10^3/uL (0.83-4.51); Absolute Neutrophil Count 5.4 X10^3/uL (2.0-7.7); Basophil# 0.08 X10^3/uL; Basophil% 0.8 % (0-1); Eosinophil# 0.24 X10^3/uL; Eosinophils% 2.5 % (0-5); Hemoglobin 10.4 g/dL (12.0-15.0); Lymphocyte # 3.01 X10^3/ul (0.83-4.51); Lymphocyte % 31.3 % (19-41); Mean Corp Hgb Conc 28.9 g/dL (32-36); Mean Corpuscular Hgb 23.1 pg (27.0-32.0); Mean Corpuscular Volume 79.8 fL (81-99); Mean Platelet Vol. 10.4 fl (6.2-12.0); Monocyte# 0.83 X10^3/uL; Monocyte% 8.6 % (0-10); NRBC Flagged by Analyzer 0 % (0-5); Neutrophil % 56.3 % (47-70); Platelet Count 323 K/mm3 (150-450); RBC Distribution Width CV 17.1 % (11.6-14.6); RBC Distribution Width SD 49.2 fl (35.1-43.9); Red Blood Count 4.51 M/mm3 (4.2-5.4); White Blood Count 9.6 K/mm3 (4.4-11.0)
[2023-05-09 19:15] LABS: Anion Gap 5 (5-15); BUN 13 mg/dL (7-18); BUN/Creat Ratio 11.3 RATIO (10-20); Calcium,Total 8.8 mg/dL (8.5-10.1); Chloride 109 mmol/L (98-107); Creatinine, Serum 1.15 mg/dL (0.55-1.02); EST Glomerular Filtration Rate 54 mL/min (>60); Est Glom Filt Rate - Afr Amer 65 mL/min (>60); Glucose 106 mg/dL (74-106); Potassium 4.6 mmol/L (3.5-5.1); Sodium Level 139 mmol/L (136-145); Troponin-I HS (w/2H Reflex) 63 pg/mL (3.0-54.0)
[2023-05-09 20:52] LABS: Reflex Troponin-HS? (from REC) Y
[2023-05-09 21:45] LABS: Troponin-I HS 122 pg/mL (3.0-54.0)
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
--- NOTE | 2023-05-09 22:40 | ECHOCS_ITS ---
Reason For Study: Chest Pain Procedure This was a 2D Doppler, Color Flow transthoracic echocardiogram. The study was technically difficult. Contrast injection was performed. Exam performed portable in patient room. Left Ventricle Normal size and thickness. The left ventricular ejection fraction is 50 %. Normal diastology for age. Right Ventricle Normal right ventricle. Atria The left and right atria are normal. Lipomatous hypertrophy of the atrial septum. Mitral Valve Trivial mitral valve insufficiency. Tricuspid Valve Trivial tricuspid valve insufficiency. Aortic Valve Trisinus/trileaflet aortic valve. Pulmonic Valve The pulmonic valve is not well visualized. Trivial pulmonic valve insufficiency. Great Vessels Normal sized aortic root. Pericardium/Pleural No pericardial effusion. Medication Diluted definity 2ml given slow IV push to enhance endocardial definition. MMode/2D Measurements & Calculations LVIDd: 6.3 cm IVSd: 1.1 cm Ao root diam: 3.2 cm LVIDs: 4.5 cm LVPWd: 0.98 cm LA dimension: 4.0 cm RVDd: 4.3 cm FS: 29.1 % LAV(MOD-bp): 54.0 ml LVAd ap4: 41.3 cm2 SV(MOD-sp4): 80.2 ml LAV(MOD-bp) Indexed: 22.2 ml/m2 LVLd ap4: 9.2 cm LAV(MOD-sp2): 33.4 ml EDV(MOD-sp4): 153.2 ml LAV(MOD-sp4): 58.2 ml EDV(sp4-el): 157.5 ml LVAs ap4: 25.7 cm2 LVLs ap4: 7.7 cm ESV(MOD-sp4): 73.0 ml ESV(sp4-el): 72.5 ml EF(MOD-sp4): 52.4 % EF(sp4-el): 54.0 % SV(sp4-el): 85.1 ml LA A4 area: 21.1 cm2 RA A4 area: 15.2 cm2 TAPSE: 1.7 cm Time Measurements MV dec time: 0.24 sec Doppler Measurements & Calculations MV E max eliezer: 72.3 cm/sec Lat Peak E' Eliezer: 6.9 cm/sec Med Peak E' Eliezer: 9.8 cm/sec MV A max eliezer: 97.0 cm/sec E/E' lat: 10.4 E/E' med: 7.3 MV E/A: 0.75 MV V2 max: 116.1 cm/sec MV P1/2t max eliezer: 105.9 cm/sec Ao V2 max: 128.5 cm/sec MV max P.4 mmHg MV P1/2t: 94.1 msec Ao max P.6 mmHg MV V2 mean: 67.3 cm/sec Ao V2 mean: 85.3 cm/sec MV mean P.1 mmHg MV dec slope: 329.5 cm/sec2 Ao mean P.3 mmHg MV V2 VTI: 34.8 cm MVA(P1/2t): 2.3 cm2 Ao V2 VTI: 29.3 cm AV (velocity ratio): 0.95 LV V1 max: 114.7 cm/sec PA V2 max: 83.4 cm/sec LV V1 max P.3 mmHg LV V1 mean P.1 mmHg LV V1 mean: 84.6 cm/sec LV V1 VTI: 27.9 cm ECHO/Echo Complete W/ Contrast Interpretation Summary The left ventricular ejection fraction is 50 %. Lipomatous hypertrophy of the atrial septum. Ordering Physician: Jaylon Subramanian Performed By: Juan Miguel White RCS
[2023-05-10] VITALS (15 sets, daily range): BP systolic 119–165; BP diastolic 68–99; PULSE 58–78; RESP 14–18; TEMP 36.4–37.2; O2SAT 93–99; BMI 51.0
[2023-05-10 00:24] LABS: International Normalized Ratio 0.9; Partial Thromboplast Time 23.7 Seconds (24.1-36.2); Prothrombin Time (Protime)PT. 12.4 SECONDS (11.7-14.9)
[2023-05-10] MEDS: Heparin Injection (Vial) 5,000 UNIT/ML VIAL 4000 UNIT IV (00:51)
[2023-05-10] MEDS: HEPARIN/D5w 25,000 UNITS 25,000 UNITS/250 ML IV.SOLN. 10 UNITS CONT INF (01:02)
[2023-05-10 01:28] LABS: Troponin-I HS 369 pg/mL (3.0-54.0)
[2023-05-10] MEDS: Carvedilol 25 MG Tablet PO ×2 (06:40→18:05)
[2023-05-10] MEDS: Aspirin E.C. 81 MG Tablet PO (06:40)
[2023-05-10] MEDS: Clopidogrel Bisulfate 75 MG Tablet PO (06:40)
[2023-05-10 07:16] LABS: Hematocrit 34.4 % (37-47); Hemoglobin 9.7 g/dL (12.0-15.0); Mean Corp Hgb Conc 28.2 g/dL (32-36); Mean Corpuscular Hgb 22.1 pg (27.0-32.0); Mean Corpuscular Volume 78.5 fL (81-99); Mean Platelet Vol. 10.1 fl (6.2-12.0); Platelet Count 299 K/mm3 (150-450); RBC Distribution Width CV 17.2 % (11.6-14.6); RBC Distribution Width SD 49.1 fl (35.1-43.9); Red Blood Count 4.38 M/mm3 (4.2-5.4)
[2023-05-10 07:50] LABS: Partial Thromboplast Time 31.1 Seconds (24.1-36.2)
[2023-05-10 08:00] LABS: ALB/GLOB Ratio 0.7 RATIO (0.9-2.4); AST(SGOT) 23 U/L (15-37); Alanine Aminotransfer ALT/SGPT 23 U/L (13-56); Albumin, Serum 2.9 g/dL (3.2-5.0); Alkaline Phosphatase 78 U/L (45-117); Anion Gap 5 (5-15); BUN 13 mg/dL (7-18); BUN/Creat Ratio 11.7 RATIO (10-20); Calcium,Total 8.5 mg/dL (8.5-10.1); Chloride 110 mmol/L (98-107); Cholesterol 216 mg/dL (200); Creatinine, Serum 1.11 mg/dL (0.55-1.02); EST Glomerular Filtration Rate 56 mL/min (>60); Est Glom Filt Rate - Afr Amer 68 mL/min (>60); Estimated Creatinine Clearance 61.58 ml/min; Globulin 3.9 g/dL (2.2-4.2); Glucose 117 mg/dL (74-106); High Density Lipoprotein 49 mg/dL; Potassium 4.2 mmol/L (3.5-5.1); Protein, Total 6.8 g/dL (6.4-8.2); Sodium Level 138 mmol/L (136-145); Thyroid Stim Hormone (TSH) 1.57 uIU/mL (0.358-3.74); Triglycerides 281 mg/dL; Very Low Density Lipoprotein 56 mg/dL (5-40)
[2023-05-10] MEDS: Heparin Injection (Vial) 5,000 UNIT/ML VIAL IV (08:09)
--- NOTE | 2023-05-10 08:53 | PCM.PN.HOSP ---
Reason for Visit Reason for Visit: Diagnoses Hyperlipidemia, unspecified (05/09/23) Essential (primary) hypertension (05/09/23) Non-ST elevation (NSTEMI) myocardial infarction (05/09/23) Atherosclerotic heart disease of [place] coronary artery without angina pectoris (05/09/23) Ischemic cardiomyopathy (05/09/23) Presence of coronary angioplasty implant and graft (05/09/23) Objective Data Objective Data Vital Signs: Vital Signs Temp Pulse Resp BP Pulse Ox O2 Del Method 97.8 F 76 16 165/91 H 95 Room Air 05/10/23 06:38 05/10/23 06:38 05/10/23 06:38 05/10/23 06:38 05/10/23 07:20 05/10/23 08:45 Oxygen Delivery Method Room Air Weight: 325 lb 13.491 oz Body Mass Index (BMI) 51.0 Intake & Output: Intake and Output for Last 24 Hours 05/08/23 05/09/23 05/10/23 23:59 23:59 23:59 Intake Total 70.17 / 70.17 Balance 70.17 / 70.17 Lab / Micro Data 05/10/23 07:00 05/10/23 07:00 Labs: Laboratory Results - last 24 hr 05/09/23 18:30: WBC 9.6, RBC 4.51, Hgb 10.4 L, Hct 36.0 L, MCV 79.8 L, MCH 23.1 L, MCHC 28.9 L, RDW Std Deviation 49.2 H, RDW Coeff of [place]ane 17.1 H, Plt Count 323, MPV 10.4, Immature Gran % (Auto) 0.500, Neut % (Auto) 56.3, Lymph % (Auto) 31.3, [place] % (Auto) 8.6, Eos % (Auto) 2.5, Baso % (Auto) 0.8, Absolute Neuts (auto) 5.4, Absolute Lymphs (auto) 3.01, Nucleated RBC % 0, Sodium 139, Potassium 4.6, Chloride 109 H, Carbon Dioxide 25.0, Anion Gap 5, BUN 13, Creatinine 1.15 H, Estim Creat Clear Calc 55.00, Est GFR (MDRD) Af Amer 65, Est GFR (MDRD) Non-Af 54 L, BUN/Creatinine Ratio 11.3, Glucose 106, Calcium 8.8, Troponin I High Sens 63 H 05/09/23 21:00: PT 12.4, INR 0.9, APTT 23.7 L, Troponin I High Sens 122 H* 05/10/23 00:50: Troponin I High Sens 369 H* 05/10/23 07:00: WBC 9.0, RBC 4.38, Hgb 9.7 L, Hct 34.4 L, MCV 78.5 L, MCH 22.1 L, MCHC 28.2 L, RDW Std Deviation 49.1 H, RDW Coeff of Dane 17.2 H, Plt Count 299, MPV 10.1, APTT 31.1, Sodium 138, Potassium 4.2, Chloride 110 H, Carbon Dioxide 23.0, Anion Gap 5, BUN 13, Creatinine 1.11 H, Estim Creat Clear Calc 61.58, Est GFR (MDRD) Af Amer 68, Est GFR (MDRD) Non-Af 56 L, BUN/Creatinine Ratio 11.7, Glucose 117 H, Calcium 8.5, Total Bilirubin 0.30, AST 23, ALT 23, Alkaline Phosphatase 78, Total Protein 6.8, Albumin 2.9 L, Globulin 3.9, Albumin/Globulin Ratio 0.7 L, Triglycerides 281 H, Cholesterol 216 H, LDL Cholesterol 111, VLDL Cholesterol 56 H, HDL Cholesterol 49, TSH 1.57 Radiography Diagnostic Testing: Radiology Impression Chest X-Ray 05/09/23 18:51 IMPRESSION: No radiographic evidence of acute cardiopulmonary disease. Electronically Signed: Marcial Gunderson MD at 19:17 EST , Physical Exam Narrative Seen and examined. Patient does not have chest pain or shortness of breath. General: Alert, Oriented x3, Cooperative. Morbid obesity BMI 51.0 kg/m? HEENT: Atraumatic, PERRLA, EOMI, Normocephalic Oral: Thick and white neck. Deep oropharyngeal estrogens could not be visualized. Neck: Supple, No JVD, Negative Carotid Bruits Lungs: Air entry diminished in bilateral lung bases. No crepitation/rhonchi Cardiovascular: Regular rate, Regular Rhythm, Normal S1, Normal S2, No murmurs Abdomen: Bowel Sounds Present, Soft, Non Tender, Non-Distended : No renal angle tenderness. No suprapubic tenderness. Extremities: No edema, Capillary Refill Less than 3 Seconds Skin: No rashes, No breakdown Musculoskeletal: No Tenderness to Palpation of Joints or Extremities Neurological: Cranial nerves II-XII grossly intact, DTR 2+/4. No acute focal neurological deficit. Psych/Mental Status: Normal Affect, Appropriate. Assessment & Plan Assessment/Plan (1) Non-ST elevation myocardial infarction (NSTEMI), initial care episode: (2) History of coronary artery stent placement: (3) Ischemic cardiomyopathy: (4) HLD (hyperlipidemia): PLAN: Plan The 47-year-old female was admitted with chest pain for approximately 1 hour prior to arrival in ED. It is intermittent, pressure-like over substernal area without aggravating or relieving factor lasting for few minutes with spontaneous resolution. She had vomiting. 1. Non-ST elevation ND evidenced by initial troponin of 63 pg/mL followed by a second troponin rising to 122 pg/mL and a third troponin of 369 pg/mL in the setting of 2 previous MIs and ischemic cardiomyopathy - Admit to PCU for ongoing care. Continue aspirin, statin and Coreg plus add IV heparin with Plavix. Serialize troponin. Check echocardiogram to evaluate left ventricular ejection fraction. Give Tylenol as needed for mild to moderate level 1-5 out of 10 pain or fever. Give morphine IV as needed severe level 6-10 out of 10 pain. 05/10: Gear Cutting Machine Set Up Operator Dr. Farooq was consulted. Patient had cardiac cath which shows ISR mid LAD 60%, 90-95% jailed ostial D1. D1 discrete 90% ostial lesion. Medical therapy was recommended. On dapagliflozin 10 mg daily. 2. Ongoing tobacco abuse promoting #1 - Tobacco cessation will be strongly encouraged. 3. Morbid obesity; with BMI 54.9 this admission plus obstructive sleep apnea - Weight loss will be recommended. 4. History of CVA (2009) - Stable. Continue home medications as previous. 5. Essential hypertension - Resume home regimen plus give IV hydralazine as needed for systolic blood pressure greater than 160 mmHg. 6. Hyperlipidemia - Continue statin and check lipid profile. 7. History of migraine headaches - Stable no evidence of recurrence at this time. 8. DVT prophylaxis - Patient on IV heparin Charges/Coding Visit Charges Inpatient E&M: 26733 Subs Hosp L2
--- NOTE | 2023-05-10 10:15 | CASEMGMT ---
RN CM Face to Face with patient for initial transition planning/care coordination assessment. RN CM introduced self and role at [facility]. Patient lying in bed, alert and oriented. Patient willing to participate in assessment and is able to answer all questions appropriately. Care providers, pharmacy, and demographics verified. Patient wishes to discharge home, denies need for home health at this time. Patient states he has no further needs or concerns at this time. CM to follow for discharge planning needs that may arise. PCP: [facility] Specialists: Gordon, welfare adviser; Hannah reexaminer Preferred Pharmacy: [facility] Insurance: [employer] Prescription Benefit: yes Living Will/HPOA: none LNOK: daughter Living Arrangements: Patient lives with daughters and son in a 2 story home with bed and bath on first floor, 2 steps. Patient is independent at home. Transportation: self, daughter DME/HHC: Patient denies DME in the home. No previous HHC or SNF. Disposition Plan: Patient to discharge home with family support and follow-up plans in place. Rosa CANTU, RN, CM
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
--- NOTE | 2023-05-10 12:09 | CL.D_ITS ---
Patient Name: DARREL VICK Study Date: 05/10/2023 Performing: Pedro Pablo Farooq MD Ht: 67 inches 170.18 cm : 1975 Wt: 325.84 lbs 147.8 kg Age: 47 Gender: female BSA: 2.49 PROCEDURE(S) PERFORMED [id number])[facility] CLINICAL PROFILE AND INDICATIONS Indications: ACS <= 24 hrs Heart Failure: None CAD Presentations: Non-STEMI. Symptom onset Date/Time: Time Not Available CONCLUSIONS 90-95% Jailed Ostial D1 60% ISR Mid LAD RECOMMENDATIONS Medical therapy DESCRIPTION OF PROCEDURE The patient arrived to the procedure lab. The risks and benefits of the procedure as well as a full description of our services here and current unavailability of surgical backup were fully explained to the patient and/or their significant other prior to the catheterization. The Timeout was completed, verifying the correct patient and procedure. The patient's procedural site was prepped and draped in the usual fashion. Local anesthetic was given subcutaneously to right radial region with Lidocaine 2%. Using a modified Seldinger technique, arterial access was obtained via the right radial artery, a 6Fr sheath was inserted. Left Coronary Artery selective angiography was performed in multiple views using a 5 Fr. JL3.5 catheter. Right Coronary Artery selective angiography was then performed in multiple views using a 5 Fr. JR 4 catheter.The arterial sheath was pulled and a TR Band was applied for hemostasis CORONARY ANGIOGRAPHY DOMINANCE: Right Dominant LEFT MAIN: Angiographically normal LEFT ANTERIOR DESCENDING ARTERY: 60% ISR Mid LAD; 90-95% Jailed ostial D1 LAD: In-Stent Restenosis 60% Mid lesion in LAD DIAGONAL 1: Discrete 90% Ostial lesion in 1st Diagonal CIRCUMFLEX ARTERY: Angiographically normal RIGHT CORONARY ARTERY: Angiographically normal COMPLICATIONS No Complications PROCEDURE MEDICATIONS Versed 1 mg IV Fentanyl 50 mcg IV Versed 1 mg IV Fentanyl 50 mcg IV Oxygen: 2 L/min via nasal cannula Oxygen: 4 L/min via nasal cannula Heparin given IA 05/10/2023 11:41:58 Verapamil 2.5mg, Ntg 200mcgs, 2000 units of Heparin given IA 05/10/2023 11:41:58 IV Fluids: .9 NaCl IV started @ 100 ml/hr 05/10/2023 11:46:55 SUMMARY OF HEMODYNAMIC DATA Time AIR REST ECG 11:27:47 AO 129/79 (94) SA 11:46:45 Signed By Pedro Pablo Farooq MD On 05/10/2023 12:08:48 Pedro Pablo Farooq MD
--- NOTE | 2023-05-10 12:09 | PCM.PN.BLA ---
Progress Note Coronary angiography performed. 95% jailed ostial D1. 60% ISR mid LAD. Recommend medical management. Start on amlodipine. Continue beta-blockers, aspirin and Plavix. Start on low-dose [place]LIN inhibitor. Stop smoking.
[2023-05-10] MEDS: 0.9% Normal Saline (1000mL) 1,000 ML 100 ML IV (12:34)
[2023-05-10] MEDS: amLODIPine 5 MG Tablet PO (12:34)
[2023-05-10 12:39] LABS: D-Dimer Quantitative (DVT/PE) < 0.27 FEU/ug/m (0.27-0.49)
[2023-05-10 14:30] LABS: Partial Thromboplast Time 27.7 Seconds (24.1-36.2)
[2023-05-10] MEDS: Lisinopril 2.5 MG Tablet PO (15:21)
[2023-05-10] MEDS: Atorvastatin Calcium 40 MG Tablet PO (22:03)
[2023-05-11] MEDS: 0.9% Normal Saline (1000mL) 1,000 ML 75 ML IV (00:35)
[2023-05-11 04:00] VITALS: BP 122/60; PULSE 64; RESP 16; TEMP 36.7; O2SAT 98
[2023-05-11 07:02] VITALS: O2SAT 96
[2023-05-11] MEDS: Aspirin E.C. 81 MG Tablet PO (08:06)
[2023-05-11] MEDS: amLODIPine 5 MG Tablet PO ×2 (08:06→08:07)
[2023-05-11] MEDS: Carvedilol 25 MG Tablet PO (08:07)
[2023-05-11] MEDS: Clopidogrel Bisulfate 75 MG Tablet PO (08:07)
[2023-05-11] MEDS: Lisinopril 2.5 MG Tablet PO (08:07)
[2023-05-11] MEDS: Empagliflozin 10 MG Tablet PO (08:11)
[2023-05-11 08:14] VITALS: BP 153/91; PULSE 66; RESP 18; TEMP 36.6; O2SAT 98
--- NOTE | 2023-05-11 09:28 | DCINST_ITS ---
Discharge Instructions Follow Up Care Test Results: Test results from this visit will be discussed in further detail at your follow- up appointment, if applicable. Discharge Plan Admission Admit Date/Time: 05/09/23 22:38 Attending Provider: Lul Fontana Primary Care Provider: Kayla Noe NP Consulting Providers: Pedro Pablo Farooq; Jaylon Subramanian Discharge Orders/Prescriptions Prescriptions: New clopidogrel 75 mg Tablet 75 mg PO DAILY Qty: 30 3RF lisinopril 5 mg tablet 5 mg PO DAILY Qty: 30 2RF Rx Instructions: Hold for SBP less than 120 mmHg Continued aspirin [Adult Low Dose Aspirin] 81 mg tablet,delayed release (DR/EC) 81 mg PO QDAY Qty: 90 3RF albuterol sulfate [Ventolin HFA] 90 mcg/actuation HFA aerosol inhaler 2 puff inhalation Q6H PRN (Reason: sob) Farxiga 10 mg tablet 10 mg PO DAILY Qty: 90 3RF carvedilol 25 mg tablet 25 mg PO BID Qty: 180 3RF Rx Instructions: must administer with a meal/food Changed rosuvastatin 20 mg tablet 40 mg PO QHS Qty: 90 3RF Referrals / Follow Up: Pedro Pablo Farooq MD [Med Staff - Active Staff] - Within 1 Month Kayla Noe NP, DOUGH MACHINE OPERATOR-C [Primary Care Provider] - Disposition Disposition (needs filled in before D/C Order can be placed): Home, Self Care
--- NOTE | 2023-05-11 09:44 | PCM.DC ---
Discharge Instructions Diet Discharge Diet: Low fat / Low cholesterol, 1800 Calorie Control Diet and 2000 mg Sodium Diet Activity Discharge Activity: Return to Normal Activity Weight Bearing Status: Weight bearing as tolerated Dressing / Incision Call your doctor if you observe: Fever of 101 or Higher, Coldness, Increased Pain, Numbness or Tingling, Change in Color, Inability to urinate, Inability to have a bowel movement, Using more than 1 pad per hour, Shortness of breath, Dizziness, Fainting spells, Swelling in the ankles, Chest pain, Prolonged hiccupping, Increased palpitations (irregular heartbeat) and Calf discomfort Follow Up Care When: IN 2 WEEKS Test Results: Test results from this visit will be discussed in further detail at your follow-up appointment, if applicable. Discharge Plan Admission Admit Date/Time: 05/09/23 22:38 Primary Reason for Your Visit: Non-STEMI Attending Provider: Lul Fontana Primary Care Provider: Kayla Noe NP Consulting Providers: Pedro Pablo Farooq; Jaylon Subramanian Discharge Orders/Prescriptions Prescriptions: New clopidogrel 75 mg Tablet 75 mg PO DAILY Qty: 30 3RF lisinopril 5 mg tablet 5 mg PO DAILY Qty: 30 2RF Rx Instructions: Hold for SBP less than 120 mmHg Continued aspirin [Adult Low Dose Aspirin] 81 mg tablet,delayed release (DR/EC) 81 mg PO QDAY Qty: 90 3RF albuterol sulfate [Ventolin HFA] 90 mcg/actuation HFA aerosol inhaler 2 puff inhalation Q6H PRN (Reason: sob) Farxiga 10 mg tablet 10 mg PO DAILY Qty: 90 3RF carvedilol 25 mg tablet 25 mg PO BID Qty: 180 3RF Rx Instructions: must administer with a meal/food Changed rosuvastatin 20 mg tablet 40 mg PO QHS Qty: 90 3RF Referrals / Follow Up: Pedro Pablo Farooq MD [Med Staff - Active Staff] - Within 1 Month Kayla Noe NP, MEDICAL DIRECTOR/HEAD TEAM PHYSICIAN-C [Primary Care Provider] - Disposition Disposition (needs filled in before D/C Order can be placed): Home, Self Care
--- NOTE | 2023-05-11 09:45 | PCM.DC.SUM ---
Providers Date of Admission: 05/09/23 Primary Care Physician: TONYA Gomez Consultations 05/09/23 22:41 Consult: Cardiology Routine Consulting Provider: Pedro Pablo Farooq Reason for Consult: Chest Pain EMERGENT Consult: No MD Notified: Yes Date Notified: 05/10/23 Time Notified: 06:47 Method of Notification: Text Method of Consult:: In-Person Reason For Visit: NSTEMI Diagnosis Discharge Diagnosis (1) Non-ST elevation myocardial infarction (NSTEMI), initial care episode: Status: Acute Code(s): I21.4 - Non-ST elevation (NSTEMI) myocardial infarction (2) History of coronary artery stent placement: Status: Resolved Code(s): Z95.5 - Presence of coronary angioplasty implant and graft (3) Ischemic cardiomyopathy: Status: Chronic Code(s): I25.5 - Ischemic cardiomyopathy (4) HLD (hyperlipidemia): Status: Chronic Code(s): E78.5 - Hyperlipidemia, unspecified Qualifiers: Hyperlipidemia type: unspecified Qualified Code(s): E78.5 - Hyperlipidemia, unspecified Plan The 47-year-old female was admitted with chest pain for approximately 1 hour prior to arrival in ED. It is intermittent, pressure-like over substernal area without aggravating or relieving factor lasting for few minutes with spontaneous resolution. She had vomiting. 1. Non-ST elevation HI evidenced by initial troponin of 63 pg/mL followed by a second troponin rising to 122 pg/mL and a third troponin of 369 pg/mL in the setting of 2 previous MIs and ischemic cardiomyopathy - Admit to PCU for ongoing care. Continue aspirin, statin and Coreg plus add IV heparin with Plavix. Serialize troponin. Check echocardiogram to evaluate left ventricular ejection fraction. Give Tylenol as needed for mild to moderate level 1-5 out of 10 pain or fever. Give morphine IV as needed severe level 6-10 out of 10 pain. 05/10: Manufacturing Quality Engineer Dr. Farooq was consulted. Patient had cardiac cath which shows ISR mid LAD 60%, 90-95% jailed ostial D1. D1 discrete 90% ostial lesion. Medical therapy was recommended. On dapagliflozin 10 mg daily. 05/11 : Cardiac cath findings were explained to the patient in detail. Prescription given for Plavix, amlodipine and lisinopril. Patient already on maximum dose of carvedilol and Farxiga. Follow-up with the newspaper manager Dr. Farooq. 2. Ongoing tobacco abuse - Tobacco cessation will be strongly encouraged. 3. Morbid obesity; with BMI 54.9 this admission plus obstructive sleep apnea - Weight loss will be recommended. 4. History of CVA (2009) - Stable. Continue home medications as previous. 5. Essential hypertension - Resume home regimen plus give IV hydralazine as needed for systolic blood pressure greater than 160 mmHg. 6. Hyperlipidemia - Continue statin and check lipid profile. 7. History of migraine headaches - Stable no evidence of recurrence at this time. 8. DVT prophylaxis - Patient on IV heparin Discharge medication reconciliation done. Discharge follow-up instructions completed. Discharge process discussed with the patient and all questions were answered to patient's satisfaction. Follow with PCP in 1 to 2 weeks Total time spent, exact 35 minutes on discharge meds reconciliation, examination, coordination of care with nurses and ancillary staff, review of imaging and blood test and discussion with the patient on follow-up instructions. Medications at Discharge Home Medications aspirin 81 mg tablet,delayed release (Adult Low Dose Aspirin) 81 mg PO QDAY heart #90 tabs 05/07/21 albuterol sulfate 90 mcg/actuation aerosol inhaler (Ventolin HFA) 2 puff inhalation Q6H PRN sob 01/19/22 dapagliflozin propanediol 10 mg tablet (Farxiga) 10 mg PO DAILY #90 tabs 07/28/22 carvedilol 25 mg tablet 25 mg PO BID #180 tabs 02/07/23 amlodipine 5 mg tablet 5 mg PO DAILY #30 tabs 05/11/23 clopidogrel 75 mg tablet 75 mg PO DAILY #30 tabs 05/11/23 lisinopril 5 mg tablet 5 mg PO DAILY #30 tabs 05/11/23 rosuvastatin 20 mg tablet 40 mg (2 x 20 mg) PO QHS cholesterol #90 tabs 05/11/23 Physical Exam Narrative Seen and examined. Patient does not have chest pain or shortness of breath. Right radial artery access site no hematoma or bruise. Physical exam General: Alert, Oriented x3, Cooperative. Morbid obesity BMI 51.0 kg/m? HEENT: Atraumatic, PERRLA, EOMI, Normocephalic Oral: Thick and white neck. Deep oropharyngeal estrogens could not be visualized. Neck: Supple, No JVD, Negative Carotid Bruits Lungs: Air entry diminished in bilateral lung bases. No crepitation/rhonchi Cardiovascular: Regular rate, Regular Rhythm, Normal S1, Normal S2, No murmurs Abdomen: Bowel Sounds Present, Soft, Non Tender, Non-Distended : No renal angle tenderness. No suprapubic tenderness. Extremities: No edema, Capillary Refill Less than 3 Seconds Skin: No rashes, No breakdown Musculoskeletal: No Tenderness to Palpation of Joints or Extremities Neurological: Cranial nerves II-XII grossly intact, DTR 2+/4. No acute focal neurological deficit. Psych/Mental Status: Normal Affect, Appropriate. Weight / BMI Weight Weight: 325 lb 13.491 oz Body Mass Index (BMI) 51.0 ABG / Lab / Microbiology Data 05/10/23 07:00 05/10/23 07:00 Laboratory: Laboratory Results - last 24 hr 05/10/23 07:00: D-Dimer Quant (PE/DVT) < 0.27 L 05/10/23 13:51: APTT 27.7 Radiography Diagnostic Testing: Radiology Impression Echocardiogram 05/09/23 22:40 Interpretation Summary The left ventricular ejection fraction is 50 %. Lipomatous hypertrophy of the atrial septum. Ordering Physician: Jaylon Subramanian Performed By: Juan Miguel White RCS D/C Instructions Discharge Diet: Low fat / Low cholesterol, 1800 Calorie Control Diet and 2000 mg Sodium Diet Weight Bearing Status: Weight bearing as tolerated Call your doctor if you observe: Fever of 101 or Higher, Coldness, Increased Pain, Numbness or Tingling, Change in Color, Inability to urinate, Inability to have a bowel movement, Using more than 1 pad per hour, Shortness of breath, Dizziness, Fainting spells, Swelling in the ankles, Chest pain, Prolonged hiccupping, Increased palpitations (irregular heartbeat) and Calf discomfort When: IN 2 WEEKS Meaningful Use Info Meaningful Use Diagnoses (Choose all that apply): None applicable Discharge Plan Admission Admit Date/Time: 05/09/23 22:38 Primary Reason for Your Visit: Non-STEMI Attending Provider: Lul Fontana Primary Care Provider: Kayla Noe NP Consulting Providers: Pedro Pablo Farooq; Jaylon Subramanian Discharge Orders/Prescriptions Prescriptions: New clopidogrel 75 mg Tablet 75 mg PO DAILY Qty: 30 3RF lisinopril 5 mg tablet 5 mg PO DAILY Qty: 30 2RF Rx Instructions: Hold for SBP less than 120 mmHg amlodipine 5 mg tablet 5 mg PO DAILY Qty: 30 2RF Rx Instructions: Hold for SBP less than 120 mmHg Continued aspirin [Adult Low Dose Aspirin] 81 mg tablet,delayed release (DR/EC) 81 mg PO QDAY Qty: 90 3RF albuterol sulfate [Ventolin HFA] 90 mcg/actuation HFA aerosol inhaler 2 puff inhalation Q6H PRN (Reason: sob) Farxiga 10 mg tablet 10 mg PO DAILY Qty: 90 3RF carvedilol 25 mg tablet 25 mg PO BID Qty: 180 3RF Rx Instructions: must administer with a meal/food Changed rosuvastatin 20 mg tablet 40 mg PO QHS Qty: 90 3RF Referrals / Follow Up: Pedro Pablo Farooq MD [Med Staff - Active Staff] - 06/12/23 10:30 am Kayla Noe NP, OFFICE WORKFORCE PLANNER-C [Primary Care Provider] - (TRIED CALLING SEVERAL TIMES AND JUST KEEPS RINGING BUSY) Disposition Disposition (needs filled in before D/C Order can be placed): Home, Self Care Charges/Coding Visit Charges Inpatient E&M: 75297 Disch Hosp >30min
--- NOTE | 2023-05-11 10:09 | CASEMGMT ---
Patient has order for discharge. RN CM in to discuss needs at discharge. Patient denies needs at discharge. Patient had no further questions or concerns.
--- NOTE | 2023-05-11 12:18 | PHA.DC_ITS ---
Pharmacy [facility] has performed discharge medication reconciliation and counseling for this patient. The patient's discharge medication list was reviewed for discrepancies and discrepancies were resolved. The patient was counseled on the following discharge medications and changes in medications for homegoing were reviewed. 1. AMLODIPINE 2. LISINOPRIL 3. PLAVIX The Reason for Use, instructions for use, and potential side effects were reviewed for all new medications. The patient's questions regarding all of their medications were answered. The patient was able to verbally demonstrate an understanding of their discharge medications. Medications at Discharge Home Medications aspirin 81 mg tablet,delayed release (Adult Low Dose Aspirin) 81 mg PO QDAY heart #90 tabs 05/07/21 albuterol sulfate 90 mcg/actuation aerosol inhaler (Ventolin HFA) 2 puff inha lation Q6H PRN sob 01/19/22 dapagliflozin propanediol 10 mg tablet (Farxiga) 10 mg PO DAILY #90 tabs 07/28/22 carvedilol 25 mg tablet 25 mg PO BID #180 tabs 02/07/23 amlodipine 5 mg tablet 5 mg PO DAILY #30 tabs 05/11/23 clopidogrel 75 mg tablet 75 mg PO DAILY #30 tabs 05/11/23 lisinopril 5 mg tablet 5 mg PO DAILY #30 tabs 05/11/23 rosuvastatin 20 mg tablet 40 mg (2 x 20 mg) PO QHS cholesterol #90 tabs 05/11/23
[2023-05-11 13:24] VITALS: BP 112/78; PULSE 68; RESP 16; TEMP 36.4; O2SAT 99
== END 2023-05-11 13:39 | disposition home or self-care (01) | DRG 192 ==
LOC: ED 22:08 → PCU 22:58
PROVIDERS: Internal Medicine Cardiovascular Disease; Admitting Provider Internal Medicine; Emergency Provider Emergency Medicine; PCP Nurse Practitioner Family; Visit Provider Internal Medicine
DX: T82.855A Stenosis of coronary artery stent, initial encounter (principal); I21.4 Non-ST elevation (NSTEMI) myocardial infarction; Z68.43 Body mass index [BMI] 50.0-59.9, adult; E66.01 Morbid (severe) obesity due to excess calories; I12.9 Hypertensive chronic kidney disease with stage 1 through stage 4 chronic kidney disease, or unspecified chronic kidney disease; N18.9 Chronic kidney disease, unspecified; F17.200 Nicotine dependence, unspecified, uncomplicated; E78.5 Hyperlipidemia, unspecified; I25.10 Atherosclerotic heart disease of native coronary artery without angina pectoris; I25.5 Ischemic cardiomyopathy; I25.2 Old myocardial infarction; G47.33 Obstructive sleep apnea (adult) (pediatric); Z79.82 Long term (current) use of aspirin; Y71.2 Prosthetic and other implants, materials and accessory cardiovascular devices associated with adverse incidents; Z95.5 Presence of coronary angioplasty implant and graft; Z86.73 Personal history of transient ischemic attack (TIA), and cerebral infarction without residual deficits
CPT/HCPCS: 36415; 71045; 80048; 80053; 80061; 84443; 84484; 85025; 85027; 85379; 85610; 85730; 93005; 93306; 93454; 99152; 99153; 99285; J7030; J7040; Q9957; Q9967; A4216; C1769; C1894; C8929

== ENCOUNTER → 2023-06-12 | Outpatient (CLI) | payer MEDICAID, SELFPAY ==
[2023-06-12 11:57] LABS: Absolute Neutrophil Count 4.6 X10^3/uL (2.0-7.7); Basophil# 0.09 X10^3/uL; Eosinophil# 0.31 X10^3/uL; Eosinophils% 3.5 % (0-5); Hemoglobin 8.5 g/dL (12.0-15.0); Lymphocyte % 32.3 % (19-41); Mean Corp Hgb Conc 28.3 g/dL (32-36); Mean Corpuscular Hgb 22.3 pg (27.0-32.0); Mean Corpuscular Volume 78.7 fL (81-99); Mean Platelet Vol. 9.7 fl (6.2-12.0); Monocyte# 0.96 X10^3/uL; Monocyte% 10.7 % (0-10); NRBC Flagged by Analyzer 0 % (0-5); Neutrophil # 4.56 X10^3/uL (2.7-7.7); Neutrophil % 50.8 % (47-70); Platelet Count 333 K/mm3 (150-450); RBC Distribution Width CV 17.6 % (11.6-14.6); RBC Distribution Width SD 50.2 fl (35.1-43.9); Red Blood Count 3.81 M/mm3 (4.2-5.4)
--- OUTSIDE RECORDS SUMMARY | 2023-06-12 11:59 | XMS RPT_ITS | CCD ---
Author Name Unknown Address [address] [place] [address] Organization [facility] Care Team Providers Care Mass Spectrometry Manager Name Role Phone [place] ANIMAL BIOLOGIST.Marlene HEATH Primary Care Provider MARLENE BOYER Referring Unavailable MARLENE BOYER Primary Care Unavailable MARLENE BOYER Attending Unavailable MARLENE BOYER Primary Care Unavailable MARLENE BOYER Primary Care Unavailable MARLENE BOYER Primary Care Unavailable [place] ANIMAL BIOLOGIST.Marlene HEATH Primary Care Provider Allergies Allergy Classification Reported Allergen(s) Allergy Type Date of Onset Reaction(s) Facility (20 sources) levoFLOXacin; Translations: [LEVOFLOXACIN] Drug Allergy 12-03-2018 [facility] (20 sources) Loratadine; Translations: [LORATADINE] Drug Allergy 09-20-2010 [facility] Work Phone: (20 sources) Loratadine / Pseudoephedrine; Translations: [LORATADINE-PSEUD OEPHEDRINE] Drug Allergy 08-18-2008 [facility] Work Phone: (20 sources) Pseudoephedrine; Translations: [PSEUDOEPHEDRINE] Drug Allergy 09-20-2010 [facility] Work Phone: Medications Current Medications Medication Drug Class(es) Dates Sig (Normalized) Sig (Original) amoxicillin 875 mg / clavulanate 125 mg oral tablet (1 source) Penicillin-class Antibacterial Start: 03-27-2023 End: 04-03-2023 take 1 tablet by mouth twice daily amoxicillin-clav ulanic acid (AUGMENTIN) 875-125 mg per tablet Indications: Bacterial sinusitis Take 1 tablet by mouth two times a day for 7 days. 14 tablet 0 03/27/2023 04/03/2023 Active Completed/Discontinued Medications Medication Drug Class(es) Dates Sig (Normalized) Sig (Original) acyclovir 400 mg oral tablet (8 sources) Herpesvirus Nucleoside Analog DNA Polymerase Inhibitor, Herpes Simplex Virus Nucleoside Analog DNA Polymerase Inhibitor, Herpes Zoster Virus Nucleoside Analog DNA Polymerase Inhibitor Start: 06-07-2022 take 1 tablet by mouth three times daily acyclovir (ZOVIRAX) 400 mg tablet Indications: Cold sores Take 1 tablet by mouth three times daily. 21 tablet 0 06/07/2022 Active Problems Active Problems Problem Classification Problem Date Documented Date Episodic/Chronic Acute cerebrovascular disease (20 sources) Cerebrovascular accident; Translations: [Cerebral infarction, unspecified] Onset: 9 05-21-2019 Chronic Chronic kidney disease (20 sources) Chronic kidney disease stage 3; Translations: [Chronic kidney disease with active medical management without dialysis, stage 3 (moderate)] Onset: 6 07-25-2016 Chronic Chronic kidney disease (1 source) Chronic kidney disease; Translations: [Chronic kidney disease with active medical management without dialysis, stage 3 (moderate) (HCC)] Onset: 7 Conditions associated with dizziness or vertigo (1 source) Dizziness; Translations: [Dizziness and giddiness] Episodic Coronary atherosclerosis and other heart disease (20 sources) Old myocardial infarction; Translations: [Old myocardial infarction] Onset: 1 07-25-2016 Chronic Diabetes mellitus without complication (4 sources) Type 2 diabetes mellitus; Translations: [Type 2 diabetes mellitus without complications] Onset: 3 Chronic Disorders of lipid metabolism (20 sources) Hyperlipidemia; Translations: [Hyperlipidemia, unspecified] Onset: 6 07-25-2016 Chronic Esophageal disorders (20 sources) Gastroesophageal reflux disease without esophagitis; Translations: [Gastro-esophageal reflux disease without esophagitis] Onset: 7 07-25-2016 Chronic Essential hypertension (20 sources) Essential hypertension; Translations: [Essential (primary) hypertension] Onset: 6 07-25-2016 Chronic Hypertension with complications and secondary hypertension (16 sources) Nephrosclerosis; Translations: [Hypertensive chronic kidney disease with stage 1 through stage 4 chronic kidney disease, or unspecified chronic kidney disease] Onset: 2 12-29-2021 Chronic Mood disorders (20 sources) Depressive disorder; Translations: [Depression] Onset: 7 07-25-2016 Chronic Nutritional deficiencies (16 sources) Vitamin D deficiency; Translations: [Vitamin D deficiency, unspecified] Onset: 2 12-29-2021 Chronic Other and ill-defined heart disease (20 sources) Takotsubo cardiomyopathy; Translations: [Takotsubo syndrome] Onset: 8 09-25-2018 Chronic Other circulatory disease (2 sources) History of cerebrovascular accident; Translations: [Personal history of transient ischemic attack (TIA), and cerebral infarction without residual deficits] Episodic Other connective tissue disease (2 sources) Bilateral hand weakness; Translations: [Other symptoms and signs involving the musculoskeletal system] Episodic Other connective tissue disease (1 source) Pain in left arm; Translations: [Pain in left arm] Episodic Other diseases of kidney and ureters (14 sources) Hyperparathyroidism due to renal insufficiency; Translations: [Secondary hyperparathyroidism of renal origin] Onset: 2 12-29-2021 Chronic Other ear and sense organ disorders (1 source) Bilateral earache; Translations: [Otalgia, bilateral] 03-27-2023 Episodic Other lower respiratory disease (1 source) Cough; Translations: [Acute cough] 03-27-2023 Episodic Other nervous system disorders (1 source) Carpal tunnel syndrome of right wrist; Translations: [Carpal tunnel syndrome, right upper limb] Chronic Other nervous system disorders (1 source) Bilateral carpal tunnel syndrome; Translations: [Carpal tunnel syndrome, bilateral upper limbs] Chronic Other nervous system disorders (3 sources) Numbness of lower limb ; Translations: [Anesthesia of skin] Episodic Other nervous system disorders (2 sources) Numbness of upper limb; Translations: [Anesthesia of skin] Episodic Other nervous system disorders (2 sources) Paresthesia of hand ; Translations: [Anesthesia of skin] Episodic Other nervous system disorders (1 source) Paresthesia; Translations: [Paresthesia of skin] Episodic Other non-traumatic joint disorders (1 source) Acute ankle pain; Translations: [Pain in left ankle and joints of left foot] Episodic Other nutritional; endocrine; and metabolic disorders (20 sources) Body mass index 40+ - severely obese; Translations: [Morbid (severe) obesity due to excess calories] Onset: 03-13-2017 Chronic Other upper respiratory infections (1 source) Bacterial sinusitis; Translations: [Chronic sinusitis, unspecified] 03-27-2023 Chronic Spondylosis; intervertebral disc disorders; other back problems (8 sources) Chronic low back pain; Translations: [Lumbago with sciatica, left side] Episodic Past or Other Problems Problem Classification Problem Date Documented Da te Episodic/Chronic Coronary atherosclerosis and other heart disease (20 sources) History of cardiovascular surgery; Translations: [Presence of coronary angioplasty implant and graft] Onset: 03-25-2014 07-25-2016 Episodic Fluid and electrolyte disorders (15 sources) Hyperkalemia; Translations: [Hyperkalemia] Onset: 12-29-2021 Episodic Headache; including migraine (20 sources) Headache; Translations: [Headache] Onset: 08-20-2008 08-20-2008 Episodic Inflammatory diseases of female pelvic organs (20 sources) Bacterial vaginosis; Translations: [Acute vaginitis] Onset: 08-17-2016 08-17-2016 Episodic Other non-traumatic joint disorders (1 source) Pain in left ankle and joints of left foot; Translations: [Acute left ankle pain] Onset: 06-07-2022 Episodic Other screening for suspected conditions (not mental disorders or infectious disease) (20 sources) Cervical smear transformation zone cells absent; Translations: [Satisfactory cervical smear but lacking transformation zone] Onset: 08-17-2016 08-17-2016 Episodic Screening and history of mental health and substance abuse codes (20 sources) H/O: drug dependency; Translations: [Personal history of nicotine dependence] Onset: 09-16-2015 07-25-2016 Episodic Viral infection (2 sources) Herpes labialis; Translations: [Herpesviral vesicular dermatitis] Onset: 06-07-2022 Episodic Results Test Name Value Interpretation Reference Range Facil ity Vital Signs Date Time Vital Sign Value Performing Clinician John marks 03-27-2023 11:54-0400 Body temperature 97 [degF] Ashley Mackay APRN.CNP Work Phone: [facility] 03-27-2023 11:54-0400 Body weight 147.87 kg Ashley Mackay APRN.CNP Work Phone: [facility] 03-27-2023 11:54-0400 Diastolic blood pressure 74 mm[Hg] Ashley Praisler-Wood ANIMAL BIOLOGIST.CONGRESSIONAL AIDE Work Phone: [facility] 03-27-2023 11:54-0400 Heart rate 76 /min Ashley Praisler-Wood ANIMAL BIOLOGIST.CONGRESSIONAL AIDE Work Phone: [facility] 03-27-2023 11:54-0400 Respiratory rate 16 /min Ashley Praisler-Wood ANIMAL BIOLOGIST.CONGRESSIONAL AIDE Work Phone: [facility] 03-27-2023 11:54-0400 SaO2% (BldA) [Mass fraction] 96 % Ashley Praisler-Wood ANIMAL BIOLOGIST.CONGRESSIONAL AIDE Work Phone: [facility] 03-27-2023 11:54-0400 Systolic blood pressure 128 mm[Hg] Ashley Praisler-Wood ANIMAL BIOLOGIST.CONGRESSIONAL AIDE Work Phone: [facility] 06-07-2022 08:54-0500 Body height 170.2 cm Marlene Trill ANIMAL BIOLOGIST.CONGRESSIONAL AIDE Work Phone: [facility] 06-07-2022 08:54-0500 Body temperature 98.4 [degF] Marlene Trill ANIMAL BIOLOGIST.CONGRESSIONAL AIDE Work Phone: [facility] 06-07-2022 08:54-0500 Body weight 144.7 kg Marlene Trill ANIMAL BIOLOGIST.CONGRESSIONAL AIDE Work Phone: [facility] 06-07-2022 08:54-0500 Diastolic blood pressure 72 mm[Hg] Marlene Trill ANIMAL BIOLOGIST.CONGRESSIONAL AIDE Work Phone: [facility] 06-07-2022 08:54-0500 Heart rate 82 /min Marlene Trill ANIMAL BIOLOGIST.CONGRESSIONAL AIDE Work Phone: [facility] 06-07-2022 08:54-0500 SaO2% (BldA) [Mass fraction] 97 % Marlene Trill ANIMAL BIOLOGIST.CONGRESSIONAL AIDE Work Phone: [facility] 06-07-2022 08:54-0500 Systolic blood pressure 101 mm[Hg] Marlene Trill ANIMAL BIOLOGIST.CONGRESSIONAL AIDE Work Phone: [facility] 12-29-2021 10:27-0400 Body height 170.2 cm Marlene Trill ANIMAL BIOLOGIST.CONGRESSIONAL AIDE Work Phone: [facility] 12-29-2021 10:27-0400 Body temperature 98.01 [degF] Marlene Trill ANIMAL BIOLOGIST.CONGRESSIONAL AIDE Work Phone: [facility] 12-29-2021 10:27-0400 Body weight 151.5 kg Marlene Trill ANIMAL BIOLOGIST.CONGRESSIONAL AIDE Work Phone: [facility] 12-29-2021 10:27-0400 Diastolic blood pressure 76 mm[Hg] Marlene Trill ANIMAL BIOLOGIST.CONGRESSIONAL AIDE Work Phone: [facility] 12-29-2021 10:27-0400 Heart rate 75 /min Marlene Trisanchez ANIMAL BIOLOGIST.CONGRESSIONAL AIDE Work Phone: [facility] 12-29-2021 10:27-0400 SaO2% (BldA) [Mass fraction] 100 % Marlene Trill ANIMAL BIOLOGIST.CONGRESSIONAL AIDE Work Phone: [facility] 12-29-2021 10:27-0400 Systolic blood pressure 121 mm[Hg] Marlene Trill ANIMAL BIOLOGIST.CONGRESSIONAL AIDE Work Phone: [facility] 10-29-2021 11:47-0400 Diastolic blood pressure 91 mm[Hg] Marlene Trill ANIMAL BIOLOGIST.CONGRESSIONAL AIDE Work Phone: [facility] 10-29-2021 11:47-0400 Systolic blood pressure 140 mm[Hg] Marlene Trill ANIMAL BIOLOGIST.CONGRESSIONAL AIDE Work Phone: [facility] 10-29-2021 11:06-0400 Body height 170.2 cm Marlene Trill ANIMAL BIOLOGIST.CONGRESSIONAL AIDE Work Phone: [facility] 10-29-2021 11:06-0400 Body temperature 98.2 [degF] Marlene Trill ANIMAL BIOLOGIST.CONGRESSIONAL AIDE Work Phone: [facility] 10-29-2021 11:06-0400 Body weight 155.58 kg Marlene Trill ANIMAL BIOLOGIST.CONGRESSIONAL AIDE Work Phone: [facility] 10-29-2021 11:06-0400 Heart rate 78 /min Marlene Trill ANIMAL BIOLOGIST.CONGRESSIONAL AIDE Work Phone: [facility] 10-29-2021 11:06-0400 SaO2% (BldA) [Mass fraction] 98 % Marlene Trill ANIMAL BIOLOGIST.CONGRESSIONAL AIDE Work Phone: [facility] 10-20-2021 10:30-0400 Diastolic blood pressure 99 mm[Hg] Marlene Trill ANIMAL BIOLOGIST.CONGRESSIONAL AIDE Work Phone: [facility] 10-20-2021 10:30-0400 Systolic blood pressure 153 mm[Hg] Marlene Trill ANIMAL BIOLOGIST.CONGRESSIONAL AIDE Work Phone: [facility] 10-20-2021 09:59-0400 Body height 170.2 cm Marlene Trill ANIMAL BIOLOGIST.CONGRESSIONAL AIDE Work Phone: [facility] 10-20-2021 09:59-0400 Body temperature 97.7 [degF] Marlene Trill ANIMAL BIOLOGIST.CONGRESSIONAL AIDE Work Phone: [facility] 10-20-2021 09:59-0400 Body weight 155.58 kg Marlene Trill ANIMAL BIOLOGIST.CONGRESSIONAL AIDE Work Phone: [facility] 10-20-2021 09:59-0400 Heart rate 97 /min Marlene Trill ANIMAL BIOLOGIST.CONGRESSIONAL AIDE Work Phone: [facility] 10-20-2021 09:59-0400 SaO2% (BldA) [Mass fraction] 98 % Marlene Trill ANIMAL BIOLOGIST.CONGRESSIONAL AIDE Work Phone: [facility] Encounters Encounter Date Encounter Type Care Provider Facility Start: 05-26-2023 Refill Marlene C Tril l ANIMAL BIOLOGIST.CONGRESSIONAL AIDE Work Phone: [facility] Procedures Date Procedure Procedure Detail Performing Clinician Start: 06-07-2022 Hemoglobin A1c/Hemoglobin.total in Blood Marlene C Trill ANIMAL BIOLOGIST.CONGRESSIONAL AIDE Work Phone: Start: 12-30-2021 End: 12-30-2021 Screening mammography bi 2-view breast inc cad Marlene Boyer APRN.CONGRESSIONAL AIDE Work Phone: Start: 12-29-2021 Radex spine cervical 4 or 5 views Marlene Boyer APRN.CONGRESSIONAL AIDE Work Phone: Start: 11-05-2021 Nerve conduction inocencio dies 5-6 studies Marlene Boyer APRN.CONGRESSIONAL AIDE Work Phone: Start: 10-20-2021 Ct head/brain w/o contrast material Marlene Boyer APRN.CONGRESSIONAL AIDE Work Phone: Start: 10-20-2021 Radex spine lumbosac ral minimum 4 views Marlene Boyer APRN.CONGRESSIONAL AIDE Work Phone: Start: 10-20-2021 Urine albumin quantitative Marlene Boyer APRN.CONGRESSIONAL AIDE Work Phone: Start: 08-25-2016 Mammography Marlene lee APRN.CNP Work Phone: Start: 03-25-2014 History of placement of stent for coronary artery disease History of coronary artery stent placement Marlene Boyer APRN.CNP Work Phone: Plan of Treatment Date Care Activity Detail Author Start: 05-19-2024 BP Controlled (<130/80) BP Controlle d (<130/80) [facility] Start: 03-27-2024 BP Controlled (<130/80) BP Controlle d (<130/80) [facility] Start: 06-07-2023 ANNUAL PCP TEAM SHEET 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 PRINTER RYLEE DISEASE VISIT ANNUAL PCP TEAM CHRONIC DISEASE VISIT [facility] Start: 06-07-2023 BP CONTROLLED (<130/80) BP CONTROLLE D (<130/80) [facility] Start: 02-03-2023 Influenza vaccination [facility] Start: 12-30-2022 Mammography [facility] Start: 12-30-2022 Screening for malign ant neoplasm of breast Mammogram Screening [facility] Start: 12-29-2022 ANNUAL PCP 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 2016 Medicaid [id number] 2016 Medicaid [id number] Social History Date Type Detail Facility Start: 08-10-2021 End: 03-27-2023 Tobacco smoking status NHIS Smokes tobacco daily [facility] History of tobacco use Cigarette Smoker [facility] Start: 08-10-2021 End: 12-12-2022 Cigarettes smoked current (pack per day) - Reported 1 [facility] Start: 08-10-2021 End: 03-27-2023 Tobacco use and exposure Smokeless tobacco non-user [facility] Start: 08-10-2021 End: 10-29-2021 Alcohol intake Current non-drinker of alcohol (finding) [facility] Start: 1975 Sex Assigned At Not on file [facility] Start: 10-09-2021 End: 10-19-2021 Exposure to SARS-CoV-2 (event) Unable to assess [facility] Start: 10-10-2021 End: 12-29-2021 Exposure to SARS-CoV-2 (event) Not sure [facility] Start: 12-29-2021 End: 05-19-2023 Alcohol intake Current drinker of alcohol (finding) [facility] Start: 11-29-2021 History SDOH Alcohol Comment Rarely [facility] Start: 11-29-2021 End: 03-27-2023 Tobacco Comment Smokes 1 pack every 3 days [facility] Start: 06-07-2022 End: 12-12-2022 Tobacco use panel [facility] Adult Depression Scr eening Assessment 0 [facility] Clinical Notes 05-21-2019 to 05-26-2023 Telephone Encounter - Charlee Lyon MA - 05/26/2023 3:52 PM ESTPraAshley Elmore APRN.KUMAR - 03/27/2023 12:10 PM EDTPatient InstructionsMarlene Boyer APRN.CONGRESSIONAL AIDE - 06/07/2022 9:08 AM EST Note Date & Type Note Facility 05-26-2023 Miscellaneous Notes pharm requesting refills: Last office visit 06/07/2022. Last refill 07/01/2022 nov none lmon pt. Vm apt. Needed. My chart message sent also. Requested Prescriptions Pending Prescriptions Disp Refills rosuvastatin (CRESTOR) 20 mg tablet [Pharmacy Med Name: rosuvastatin 20 mg tablet] 30 tablet 5 Sig: Take 1 tablet by mouth daily at bedtime. Please review and advise. Charlee Lyon MA documented in this encounter [facility] 05-19-2023 Note HNO ID: [id number] Author: Ashley Mackay APRN.CONGRESSIONAL AIDE Service: ? Author Type: Nurse Practitioner Type: Progress Notes Filed: 05/19/2023 9:34 AM Note Text: Subjective Cough Associated symptoms include ear pain. Pertinent negatives include no chest pain, no chills, no sore throat, no myalgias, no shortness of breath and no wheezing. Galilea Rosas is a 47 year old female who presents with cough, congestion, sore throat, right ear pain for the past 2 days. Was hospitalized on 05/09/23 for acute KS. Discharged 2 days later. Hx of two previous KS. These symptoms started a week after being discharged. She took Nyquil last night due to frequent cough. She denies fever or chills or chest pain. Review of Systems Constitutional: Negative for chills and fever. HENT: Positive for congestion and ear pain. Negative for sore throat. Respiratory: Positive for cough and sputum production. Negative for shortness of breath and wheezing. Cardiovascular: Negative for chest pain and palpitations. Musculoskeletal: Negative for myalgias. BP 122/76 Pulse 68 Temp 36.8 ?C (98.3 ?F) Resp 20 Wt (!) 149.7 kg (330 lb) LMP 05/19/2023 (Exact Date) SpO2 96% BMI 51.69 kg/m? PAST MEDICAL HISTORY Diagnosis Date Anemia in chronic kidney disease Hyperlipidemia Hyperparathyroidism ([facility]) Dr. Stevens Ischemic cardiomyopathy Dr. Leyva Kidney disease stage 3 Legionella pneumonia ([facility]) 05/21/2019 KS, old 2009, 2013 Nephrosclerosis 03/20/2017 Dr. Stevens NSTEMI (non-ST elevated myocardial infarction) ([facility]) 05/2023 [facility] Sleep apnea Stroke ([facility]) 2009 Takotsubo syndrome PAST SURGICAL HISTORY Procedure Laterality Date APPENDECTOMY CARDIAC CATH 11/22/2018 Dr. Leyva. LVEF 40 %, mild global hypokinesia. Mid LAD previously stented, 30 % restenosis. Mild luminal irregularity in circumflex and RCA ECHO 02/19/2019 LVEF 45%, mildly dilated LV, LA mildly enlarged, mild MV, TV, PV insufficiency. Dr. Lawson LAPAROSCOPY SURG CHOLECYSTECTOMY Cholecystectomy, lap LEFT HEART CATH,PERCUTANEOUS 05/10/2023 ISR mid LAD 60%, 90-95%, jailed ostial D1, D1 discrete ostial lesion. medical therapy recommended, [facility] PAST SURGICAL HISTORY OF cardiac stentsx1 ALLERGIES Levaquin [Levofloxacin], Loratadine, Pseudoephedrine, and Claritin-D 12 Hour [Loratadine-Pseudoephedrine] MEDICATIONS clopidogrel (PLAVIX) 75 mg tablet DAILY amLODIPine (NORVASC) 5 mg tablet Take by mouth. lisinopril (ZESTRIL) 5 mg tablet TAKE 1 TABLET BY MOUTH ONCE DAILY, hold for SBP less than 120mm/Hg albuterol HFA (VENTOLIN HFA) 90 mcg/actuation inhaler Inhale 2 Puffs as instructed every 4 hours as needed for wheezing/shortness of breath. rosuvastatin (CRESTOR) 20 mg tablet Take 1 tablet by mouth daily at bedtime. (Patient taking differently: Take 40 mg by mouth daily at bedtime.) FARXIGA 10 mg tablet Take 10 mg by mouth once daily. aspirin, enteric coated (ASPIRIN, ENTERIC COATED) 81 mg EC tablet Take 1 tablet by mouth. carvedilol (COREG) 12.5 mg tablet Take 1 tablet by mouth twice daily with meals. (Patient taking differently: Take 25 mg by mouth two times a day with meals.) amoxicillin (AMOXIL) 875 mg tablet Take 1 tablet by mouth two times a day for 7 days. triamcinolone (KENALOG) 0.025 % cream Apply 1 application to affected area two times a day. fluconazole (DIFLUCAN) 150 mg tablet Take 1 tablet by mouth once, may repeat dose in 72 hours for persistent symptoms (Patient not taking: Reported on 05/19/2023) fluticasone (FLONASE) 50 mcg/actuation nasal spray Use 2 Sprays in each nostril once daily. Rinse mouth after use. (Patient not taking: Reported on 05/19/2023) Cholecalciferol, Vitamin D3, (VITAMIN D-3) 50 mcg (2,000 unit) cap Take 2 capsules by mouth once daily. (Patient not taking: Reported on 03/27/2023) acyclovir (ZOVIRAX) 400 mg tablet Take 1 tablet by mouth three times daily. (Patient not taking: Reported on 03/27/2023) FAMILY HISTORY Adopted: Yes Problem Relation Age of Onset Ovarian cancer Mother 33 Diabetes Father Hypertension Father Social History Tobacco Use Smoking status: Every Day Packs/day: 1.00 Years: 15.00 Additional pack years: 0.00 Total pack years: 15.00 Types: Cigarettes Smokeless tobacco: Never Tobacco comments: Smokes 1 pack every 3 days Vaping Use Vaping Use: Never used Substance Use Topics Alcohol use: Yes Comment: Rarely Drug use: No Objective Physical Exam Vitals and nursing note reviewed. Constitutional: Appearance: Normal appearance. HENT: Right Ear: Ear canal and external ear normal. A middle ear effusion is present. Tympanic membrane is injected. Left Ear: Tympanic membrane, ear canal and external ear normal. Ears: Nose: Nose normal. Mouth/Throat: Mouth: Mucous membranes are moist. Pharynx: Oropharynx is clear. Uvula midline. No oropharyngeal exudate or posterior oropharyng (more content not included)... [facility] 03-27-2023 Note HNO ID: [id number] Author: Ashley Mackay APRN.CONGRESSIONAL AIDE Service: ? Author Type: Nurse Practitioner Type: Progress Notes Filed: 03/27/2023 12:35 PM Note Text: Subjective HPI Galilea Rosas is a 47 year old female who presents with cough, sore throat, bilateral ear pain, sinus congestion for the past 5 days. She has not had a fever. She has been using her inhaler at home for cough. She feels the cough is being triggered by post nasal drainage. Review of Systems Constitutional: Negative for chills and fever. HENT: Positive for congestion, ear pain and sore throat. Respiratory: Positive for cough. Negative for shortness of breath. Cardiovascular: Negative. Gastrointestinal: Negative. Musculoskeletal: Negative for myalgias. BP 128/74 Pulse 76 Temp 36.1 ?C (97 ?F) Resp 16 Wt (!) 147.9 kg (326 lb) LMP 08/02/2020 SpO2 96% BMI 51.06 kg/m? PAST MEDICAL HISTORY Diagnosis Date Anemia in chronic kidney disease Hyperlipidemia Hyperparathyroidism ([facility]) Dr. Stevens Ischemic cardiomyopathy Dr. Leyva Kidney disease stage 3 Legionella pneumonia ([facility]) 05/21/2019 KS, old 2009, 2013 Nephrosclerosis 03/20/2017 Dr. Stevens Sleep apnea Stroke ([facility]) 2009 Takotsubo syndrome PAST SURGICAL HISTORY Procedure Laterality Date APPENDECTOMY CARDIAC CATH 11/22/2018 Dr. Leyva. LVEF 40 %, mild global hypokinesia. Mid LAD previously stented, 30 % restenosis. Mild luminal irregularity in circumflex and RCA ECHO 02/19/2019 LVEF 45%, mildly dilated LV, LA mildly enlarged, mild MV, TV, PV insufficiency. Dr. Lawson LAPAROSCOPY SURG CHOLECYSTECTOMY Cholecystectomy, lap PAST SURGICAL HISTORY OF cardiac stentsx1 ALLERGIES Levaquin [Levofloxacin], Loratadine, Pseudoephedrine, and Claritin-D 12 Hour [Loratadine-Pseudoephedrine] MEDICATIONS rosuvastatin (CRESTOR) 20 mg tablet Take 1 tablet by mouth daily at bedtime. FARXIGA 10 mg tablet Take 10 mg by mouth once daily. aspirin, enteric coated (ASPIRIN, ENTERIC COATED) 81 mg EC tablet Take 1 tablet by mouth. carvedilol (COREG) 12.5 mg tablet Take 1 tablet by mouth twice daily with meals. amoxicillin-clavulanic acid (AUGMENTIN) 875-125 mg per tablet Take 1 tablet by mouth two times a day for 7 days. fluticasone (FLONASE) 50 mcg/actuation nasal spray Use 2 Sprays in each nostril once daily. Rinse mouth after use. albuterol HFA (VENTOLIN HFA) 90 mcg/actuation inhaler Inhale 2 Puffs as instructed every 4 hours as needed for wheezing/shortness of breath. Cholecalciferol, Vitamin D3, (VITAMIN D-3) 50 mcg (2,000 unit) cap Take 2 capsules by mouth once daily. (Patient not taking: Reported on 03/27/2023) acyclovir (ZOVIRAX) 400 mg tablet Take 1 tablet by mouth three times daily. (Patient not taking: Reported on 03/27/2023) FAMILY HISTORY Adopted: Yes Problem Relation Age of Onset Ovarian cancer Mother 33 Diabetes Father Hypertension Father Social History Tobacco Use Smoking status: Every Day Packs/day: 1.00 Years: 15.00 Additional pack years: 0.00 Total pack years: 15.00 Types: Cigarettes Smokeless tobacco: Never Tobacco comments: Smokes 1 pack every 3 days Vaping Use Vaping Use: Never used Substance Use Topics Alcohol use: Yes Comment: Rarely Drug use: No Objective Physical Exam Vitals and nursing note reviewed. Constitutional: Appearance: Normal appearance. HENT: Right Ear: Tympanic membrane, ear canal and external ear normal. Left Ear: Tympanic membrane, ear canal and external ear normal. Nose: Mucosal edema, congestion and rhinorrhea present. Mouth/Throat: Pharynx: Uvula midline. No oropharyngeal exudate or posterior oropharyngeal erythema. Cardiovascular: Rate and Rhythm: Normal rate and regular rhythm. Heart sounds: Normal heart sounds. Pulmonary: Effort: Pulmonary effort is normal. No respiratory distress. Breath sounds: Normal breath sounds. No wheezing or rales. Musculoskeletal: Cervical back: Neck supple. Lymphadenopathy: Cervical: No cervical adenopathy. Skin: General: Skin is warm and dry. Findings: No erythema or rash. Neurological: Mental Status: She is alert. Creatine clearance calculated at 116 mL/min using last creatinine of 1.42 which was an external lab drawn on 07/28/22. ASSESSMENT/PLAN: 1. Bacterial sinusitis - ICD9: 473.9, 041.9, ICD10: J32.9, B96.89 (primary diagnosis) - Will begin treatment with as per antibiotic as written, see orders - Supportive care with plenty of fluids, rest, and analgesia prn. - AMOXICILLIN 875 MG-POTASSIUM CLAVULANATE 125 MG TABLET - FLUTICASONE PROPIONATE 50 MCG/ACTUATION NASAL SPRAY,SUSPENSION 2. Acute cough - ICD9: 786.2, ICD10: R05.1 - ALBUTEROL SULFATE HFA 90 MCG/ACTUATION AEROSOL INHALER 3. Otalgia of both ears - ICD9: 388.70, ICD10: H92.03 - ear exam is normal today. - Follow-up with your PCP in 3-5 days if symptoms have not improved or sooner if symptoms worsen - Discussed re (more content not included)... [facility] 03-27-2023 History of Presen t illness Narrative Subjective HPI Galilea Rosas is a 47 year old female who presents with cough, sore throat, bilateral ear pain, sinus congestion for the past 5 days. She has not had a fever. She has been using her inhaler at home for cough. She feels the cough is being triggered by post nasal drainage. Review of Systems Constitutional: Negative for chills and fever. HENT: Positive for congestion, ear pain and sore throat. Respiratory: Positive for cough. Negative for shortness of breath. Cardiovascular: Negative. Gastrointestinal: Negative. Musculoskeletal: Negative for myalgias. BP 128/74 Pulse 76 Temp 36.1 C (97 F) Resp 16 Wt (!) 147.9 kg (326 lb) LMP 08/02/2020 SpO2 96% BMI 51.06 kg/m PAST MEDICAL HISTORY Diagnosis Date Anemia in chronic kidney disease Hyperlipidemia Hyperparathyroidism (HCC) Dr. Stevens Ischemic cardiomyopathy Dr. Leyva Kidney disease stage 3 Legionella pneumonia (HCC) 05/21/2019 [place], old 2009, 2013 Nephrosclerosis 03/20/2017 Dr. Stevens Sleep apnea Stroke ([facility]) 2009 Takotsubo syndrome PAST SURGICAL HISTORY Procedure Laterality Date APPENDECTOMY CARDIAC CATH 11/22/2018 Dr. Leyva. LVEF 40 %, mild global hypokinesia. Mid LAD previously stented, 30 % restenosis. Mild luminal irregularity in circumflex and RCA ECHO 02/19/2019 LVEF 45%, mildly dilated LV, LA mildly enlarged, mild MV, TV, PV insufficiency. Dr. Lawson LAPAROSCOPY SURG CHOLECYSTECTOMY Cholecystectomy, lap PAST SURGICAL HISTORY OF cardiac stentsx1 ALLERGIES Levaquin [Levofloxacin], Loratadine, Pseudoephedrine, and Claritin-D 12 Hour [Loratadine-Pseudoephedrine] MEDICATIONS rosuvastatin (CRESTOR) 20 mg tablet Take 1 tablet by mouth daily at bedtime. FARXIGA 10 mg tablet Take 10 mg by mouth once daily. aspirin, enteric coated (ASPIRIN, ENTERIC COATED) 81 mg EC tablet Take 1 tablet by mouth. carvedilol (COREG) 12.5 mg tablet Take 1 tablet by mouth twice daily with meals. amoxicillin-clavulanic acid (AUGMENTIN) 875-125 mg per tablet Take 1 tablet by mouth two times a day for 7 days. fluticasone (FLONASE) 50 mcg/actuation nasal spray Use 2 Sprays in each nostril once daily. Rinse mouth after use. albuterol HFA (VENTOLIN HFA) 90 mcg/actuation inhaler Inhale 2 Puffs as instructed every 4 hours as needed for wheezing/shortness of breath. Cholecalciferol, Vitamin D3, (VITAMIN D-3) 50 mcg (2,000 unit) cap Take 2 capsules by mouth once daily. (Patient not taking: Reported on 03/27/2023) acyclovir (ZOVIRAX) 400 mg tablet Take 1 tablet by mouth three times daily. (Patient not taking: Reported on 03/27/2023) FAMILY HISTORY Adopted: Yes Problem Relation Age of Onset Ovarian cancer Mother 33 Diabetes Father Hypertension Father Social History Tobacco Use Smoking status: Every Day Packs/day: 1.00 Years: 15.00 Additional pack years: 0.00 Total pack years: 15.00 Types: Cigarettes Smokeless tobacco: Never Tobacco comments: Smokes 1 pack every 3 days Vaping Use Vaping Use: Never used Substance Use Topics Alcohol use: Yes Comment: Rarely Drug use: No Objective Physical Exam Vitals and nursing note reviewed. Constitutional: Appearance: Normal appearance. HENT: Right Ear: Tympanic membrane, ear canal and external ear normal. Left Ear: Tympanic membrane, ear canal and external ear normal. Nose: Mucosal edema, congestion and rhinorrhea present. Mouth/Throat: Pharynx: Uvula midline. No oropharyngeal exudate or posterior oropharyngeal erythema. Cardiovascular: Rate and Rhythm: Normal rate and regular rhythm. Heart sounds: Normal heart sounds. Pulmonary: Effort: Pulmonary effort is normal. No respiratory distress. Breath sounds: Normal breath sounds. No wheezing or rales. Musculoskeletal: Cervical back: Neck supple. Lymphadenopathy: Cervical: No cervical adenopathy. Skin: General: Skin is warm and dry. Findings: No erythema or rash. Neurological: Mental Status: She is alert. Creatine clearance calculated at 116 mL/min using last creatinine of 1.42 which was an external lab drawn on 07/28/22. ASSESSMENT/PLAN: 1. Bacterial sinusitis - ICD9: 473.9, 041.9, ICD10: J32.9, B96.89 (primary diagnosis) - Will begin treatment with as per antibiotic as written, see orders - Supportive care with plenty of fluids, rest, and analgesia prn. - AMOXICILLIN 875 MG-POTASSIUM CLAVULANATE 125 MG TABLET - FLUTICASONE PROPIONATE 50 MCG/ACTUATION NASAL SPRAY,SUSPENSION 2. Acute cough - ICD9: 786.2, ICD10: R05.1 - ALBUTEROL SULFATE HFA 90 MCG/ACTUATION AEROSOL INHALER 3. Otalgia of both ears - ICD9: 388.70, ICD10: H92.03 - ear exam is normal today. - Follow-up with your PCP in 3-5 days if symptoms have not improved or sooner if symptoms worsen - Discussed red flags and need for immediate medical evaluation if any occur. - Discussed supportive care treatment with fluids, rest and analgesia. - Discussed expected course of illness Ashley Mackay APRN.CNP documented in this encounter [facility] 03-27-2023 Instructions Ashley Mackay APRN.CNP - 03/27/2023 12:10 PM EDT Images from the original note were not included. ASSESSMENT/PLAN: 1. Bacterial sinusitis - ICD9: 473.9, 041.9, ICD10: J32.9, B96.89 (primary diagnosis) - Will begin treatment with as per antibiotic as written, see orders - Supportive care with plenty of fluids, rest, and analgesia prn. - AMOXICILLIN 875 MG-POTASSIUM CLAVULANATE 125 MG TABLET - FLUTICASONE PROPIONATE 50 MCG/ACTUATION NASAL SPRAY,SUSPENSION 2. Acute cough - ICD9: 786.2, ICD10: R05.1 - ALBUTEROL SULFATE HFA 90 MCG/ACTUATION AEROSOL INHALER 3. Otalgia of both ears - ICD9: 388.70, ICD10: H92.03 - ear exam is normal today. - Follow-up with your PCP in 3-5 days if symptoms have not improved or sooner if symptoms worsen - Discussed red flags and need for immediate medical evaluation if any occur. - Discussed supportive care treatment with fluids, rest and analgesia. - Discussed expected course of illness Ashley Mackay APRN.KUMAR Adult Sinusitis Patient Education What is Sinusitis? Sinusitis [zlyg-[id number]-[id number]] is inflammation of the sinuses or swelling of the lining of the sinus cavity or nose. During an infection the sinuses become blocked with fluid causing swelling of the lining of the sinuses. Symptoms: (viral and bacterial infections) Stuffy nose Runny nose Postnasal drip Fever Toothache Headache Tiredness Cough Sore throat Face and head pressure and or pain Common causes: 98% of sinus infections are viral caused by viruses. Risk Factors of Sinusitis Include: Allergies, air pollution, indoor humidity and outdoor temperature changes, andstructural changes in the nose may contribute to sinus pain, pressure and congestion. When to get help? Temperature greater than 100.4 F Symptoms lasting more than 10 days or worsening symptoms greater than 7-10 days. If you do not improve or worsen after a course of antibiotics, you should be re-examined. Diagnosis and Treatment: Your healthcare provider will ask a number of questions about your symptoms and how long they have occurred. If symptoms of sinusitis persist greater than 10 days, it is possible you have a bacterial sinus infection and an antibiotic is prescribed. If it is viral, antibiotics will not help. You may be instructed to take [id number] medications for symptoms. including fever reducers acetaminophen or ibuprofen, nasal saline spray, cough and cold preparations and decongestants as prescribed by the physician, nurse practitioner or physician assistant sales director. Self-Care and Prevention: Rest Fluids for hydration Good hand washing Humidifier Avoid smoking and exposure to second hand smoke Avoid sick contacts documented in this encounter [facility] 12-12-2022 Miscellaneous Notes No Show Documentation Galilea Rosas no showed for an appointment on 12/12/2022 with Marlene Boyer APRN.CNP at 9:00. She was scheduled for diabetes. I called but unable to reach. Letter sent to call and reschedule Resources discussed/offered to patient: No show determined to be fault of patient: N/A This is the patients first no show in the last 12 months. Patient was rescheduled for . Letter mailed : Yes Is this the Third or Fourth No Show ? No Pamela Howe December 12, 2022 10:54 AM documented in this encounter [facility] 12-05-2022 Miscellaneous Notes All information left on patients vm . Advised to call back and schedule apt. If she doesn't have any of those symptoms. Charlee Lyon MA She needs to be seen as soon as possible. If she is having severe abdominal pain, dizziness, or shortness of breath she should go to the ER. If not I can see her in the office this week. Marlene Boyer APRN.KUMAR Patient lm on vm stating she has been having vaginal bleeding for 2 weeks (heavy) and wants to know what she should do? Please advise. Charlee Lyon MA documented in this encounter [facility] 08-05-2022 Miscellaneous Notes All information left on patients voicemail. (Ok per pt lifetime consent and vm). Charlee Lyon MA Please let patient know we typically do not start medication for triglycerides until they go above 500. Recommend low fat diet. Marlene Boyer APRN.CNP Patient called stating her hollow core door frame assembler checked her cholesterol and everything was okay but her triglycerides were 330. She states they did not put her on any medication just told her they would recheck in 6 months. Patient would like to know if there is a medication she can take that will help lower them. Please advise. Jimena Camarillo MA documented in this encounter [facility] 07-01-2022 Miscellaneous Notes Patient requesting refills: Last office visit 06/07/2022. Last refill 10/20/2021.nov 12/12/2022 Requested Prescriptions Pending Prescriptions Disp Refills rosuvastatin (CRESTOR) 20 mg tablet [Pharmacy Med Name: rosuvastatin 20 mg tablet] 30 tablet 5 Sig: Take 1 tablet by mouth daily at bedtime. Please review and advise. Charlee Lyon MA documented in this encounter [facility] 06-09-2022 Miscellaneous Notes Left message informing patient, phone number to reach the office was left for any questions or concerns. Edie Patten MA ----- Message from Marlene Boyer APRN.CNP sent at 06/08/2022 3:37 PM EST ----- Bone spur on heel bone. Marlene Boyer APRN.CNP documented in this encounter [facility] 06-07-2022 Note HNO ID: [id number] Author: Marlene Boyer APRN.CONGRESSIONAL AIDE Service: ? Author Type: Nurse Practitioner Type: Progress Notes Filed: 06/13/2022 8:21 AM Note Text: This note was created using [employer]. Subjective Galilea Rosas is a 46 year old female here today for diabetes follow-up visit. I reviewed past medical, surgical, social, and family histories today and updated chart. Allergies, chronic medications, and supplements were also reviewed. Patient has type 2 diabetes. Feeling well today, no concerns. Denies changes in vision, fatigue, foot pain. Denies numbness and tingling in extremities. Denies polydipsia, polyphagia, polyuria. Had the flu recently and had chest pain and shortness of breath but it has resolved Had a weird episode while laying in bed. Body felt like it was melting, felt hot and dizzy. She had the flu during this time. Head felt like it was going to explode Not sure if she may be going through menopause Had a short period in May She continues care with her hollow core door frame assembler, Dr. Leyva - brendan Maneva She states her EF was 20 % Home Blood Sugars: Does not check, does not have gluocometer Medication Compliance: She never forgets Low Blood Sugars: none Diet: Following renal diet Exercise: no routine Eye Exam: does not remember last eye exam Podiatry: Left ankle feels like a twisted ankle and like it wants to give out on her Has fallen several times, the ankle snapped underneath her No swelling Pain is located to lateral ankle She states its probably her own fault because she wears flip flops all the time Still having problems with left leg going numb with walking Knee feels funky when she moves it She had lumbar x-ray and PT consult. She is unable to complete PT due to transportation issues Tobacco use - Still smoking about 1 pack every 3 days Alcohol use - rarely PAST MEDICAL HISTORY Diagnosis Date Anemia in chronic kidney disease Hyperlipidemia Hyperparathyroidism (HCC) Dr. Stevens Ischemic cardiomyopathy Dr. Leyva Kidney disease stage 3 Legionella pneumonia ([facility]) 05/21/2019 [place], old 2009, 2013 Nephrosclerosis 03/20/2017 Dr. Stevens Sleep apnea Stroke ([facility]) 2009 Takotsubo syndrome PAST SURGICAL HISTORY Procedure Laterality Date APPENDECTOMY CARDIAC CATH 11/22/2018 Dr. Leyva. LVEF 40 %, mild global hypokinesia. Mid LAD previously stented, 30 % restenosis. Mild luminal irregularity in circumflex and RCA ECHO 02/19/2019 LVEF 45%, mildly dilated LV, LA mildly enlarged, mild MV, TV, PV insufficiency. Dr. Lawson LAPAROSCOPY SURG CHOLECYSTECTOMY Cholecystectomy, lap PAST SURGICAL HISTORY OF cardiac stentsx1 ALLERGIES Levaquin [Levofloxacin], Loratadine, Pseudoephedrine, and Claritin-D 12 Hour [Loratadine-Pseudoephedrine] MEDICATIONS FARXIGA 10 mg tablet Take 10 mg by mouth once daily. aspirin, enteric coated (ASPIRIN, ENTERIC COATED) 81 mg EC tablet Take 1 tablet by mouth. carvedilol (COREG) 12.5 mg tablet Take 1 tablet by mouth twice daily with meals. rosuvastatin (CRESTOR) 20 mg tablet Take 1 tablet by mouth daily at bedtime. albuterol HFA (VENTOLIN HFA) 90 mcg/actuation inhaler Inhale 2 Puffs as instructed every 4 hours as needed for Wheezing/Shortness of Breath. FAMILY HISTORY Adopted: Yes Problem Relation Age of Onset Ovarian cancer Mother 33 Diabetes Father Hypertension Father Social History Tobacco Use Smoking status: Every Day Packs/day: 1.00 Years: 15.00 Pack years: 15.00 Types: Cigarettes Smokeless tobacco: Never Tobacco comments: Smokes 1 pack every 3 days Vaping Use Vaping Use: Never used Substance Use Topics Alcohol use: Yes Comment: Rarely Drug use: No Review of Systems Constitutional: Negative for appetite change, chills, fatigue, fever and unexpected weight change. HENT: Negative for congestion, ear pain, rhinorrhea and sore throat. Eyes: Negative for pain, discharge, itching and visual disturbance. Respiratory: Positive for shortness of breath. Negative for cough and wheezing. Cardiovascular: Negative for chest pain, palpitations and leg swelling. Gastrointestinal: Negative for abdominal pain, constipation, diarrhea, nausea and vomiting. Genitourinary: Negative for difficulty urinating. Musculoskeletal: Positive for arthralgias. Skin: Negative for rash. Neurological: Positive for dizziness and numbness. Negative for tremors, weakness and headaches. Psychiatric/Behavioral: Positive for dysphoric mood. Negative for sleep disturbance. The patient is not nervous/anxious. Objective BP 101/72 Pulse 82 Temp 36.9 ?C (98.4 ?F) Ht 170.2 cm (5' 7 ) Wt (!) 144.7 kg (319 lb) LMP 08/02/2020 SpO2 97% BMI 49.96 kg/m? Physical Exam Constitutional: Appearance: Normal appearance. She is well-developed. She is not diaphoretic. HENT: Head: Normocephalic and atraumatic. Right Ear: Hearing, tympanic membrane, ear canal and exter (more content not included)... [facility] 06-07-2022 History of Presen t illness Narrative This note was created using [employer]. Subjective Galilea Rosas is a 46 year old female here today for diabetes follow-up visit. I reviewed past medical, surgical, social, and family histories today and updated chart. Allergies, chronic medications, and supplements were also reviewed. Patient has type 2 diabetes. Feeling well today, no concerns. Denies changes in vision, fatigue, foot pain. Denies numbness and tingling in extremities. Denies polydipsia, polyphagia, polyuria. Had the flu recently and had chest pain and shortness of breath but it has resolved Had a weird episode while laying in bed. Body felt like it was melting, felt hot and dizzy. She had the flu during this time. Head felt like it was going to explode Not sure if she may be going through menopause Had a short period in May She continues care with her hollow core door frame assembler, Dr. Leyva - brendan Manzanares She states her EF was 20 % Home Blood Sugars: Does not check, does not have gluocometer Medication Compliance: She never forgets Low Blood Sugars: none Diet: Following renal diet Exercise: no routine Eye Exam: does not remember last eye exam Podiatry: Left ankle feels like a twisted ankle and like it wants to give out on her Has fallen several times, the ankle snapped underneath her No swelling Pain is located to lateral ankle She states its probably her own fault because she wears flip flops all the time Still having problems with left leg going numb with walking Knee feels funky when she moves it She had lumbar x-ray and PT consult. She is unable to complete PT due to transportation issues Tobacco use - Still smoking about 1 pack every 3 days Alcohol use - rarely PAST MEDICAL HISTORY Diagnosis Date Anemia in chronic kidney disease Hyperlipidemia Hyperparathyroidism (HCC) Dr. Stevens Ischemic cardiomyopathy Dr. Leyva Kidney disease stage 3 Legionella pneumonia (HCC) 05/21/2019 [place], old 2009, 2013 Nephrosclerosis 03/20/2017 Dr. Stevens Sleep apnea Stroke ([facility]) 2010 Takotsubo syndrome PAST SURGICAL HISTORY Procedure Laterality Date APPENDECTOMY CARDIAC CATH 11/22/2018 Dr. Leyva. LVEF 40 %, mild global hypokinesia. Mid LAD previously stented, 30 % restenosis. Mild luminal irregularity in circumflex and RCA ECHO 02/19/2019 LVEF 45%, mildly dilated LV, LA mildly enlarged, mild MV, TV, PV insufficiency. Dr. Lawson LAPAROSCOPY SURG CHOLECYSTECTOMY Cholecystectomy, lap PAST SURGICAL HISTORY OF cardiac stentsx1 ALLERGIES Levaquin [Levofloxacin], Loratadine, Pseudoephedrine, and Claritin-D 12 Hour [Loratadine-Pseudoephedrine] MEDICATIONS FARXIGA 10 mg tablet Take 10 mg by mouth once daily. aspirin, enteric coated (ASPIRIN, ENTERIC COATED) 81 mg EC tablet Take 1 tablet by mouth. carvedilol (COREG) 12.5 mg tablet Take 1 tablet by mouth twice daily with meals. rosuvastatin (CRESTOR) 20 mg tablet Take 1 tablet by mouth daily at bedtime. albuterol HFA (VENTOLIN HFA) 90 mcg/actuation inhaler Inhale 2 Puffs as instructed every 4 hours as needed for Wheezing/Shortness of Breath. FAMILY HISTORY Adopted: Yes Problem Relation Age of Onset Ovarian cancer Mother 33 Diabetes Father Hypertension Father Social History Tobacco Use Smoking status: Every Day Packs/day: 1.00 Years: 15.00 Pack years: 15.00 Types: Cigarettes Smokeless tobacco: Never Tobacco comments: Smokes 1 pack every 3 days Vaping Use Vaping Use: Never used Substance Use Topics Alcohol use: Yes Comment: Rarely Drug use: No Review of Systems Constitutional: Negative for appetite change, chills, fatigue, fever and unexpected weight change. HENT: Negative for congestion, ear pain, rhinorrhea and sore throat. Eyes: Negative for pain, discharge, itching and visual disturbance. Respiratory: Positive for shortness of breath. Negative for cough and wheezing. Cardiovascular: Negative for chest pain, palpitations and leg swelling. Gastrointestinal: Negative for abdominal pain, constipation, diarrhea, nausea and vomiting. Genitourinary: Negative for difficulty urinating. Musculoskeletal: Positive for arthralgias. Skin: Negative for rash. Neurological: Positive for dizziness and numbness. Negative for tremors, weakness and headaches. Psychiatric/Behavioral: Positive for dysphoric mood. Negative for sleep disturbance. The patient is not nervous/anxious. Objective BP 101/72 Pulse 82 Temp 36.9 C (98.4 F) Ht 170.2 cm (5' 7 ) Wt (!) 144.7 kg (319 lb) LMP 08/02/2020 SpO2 97% BMI 49.96 kg/m Physical Exam Constitutional: Appearance: Normal appearance. She is well-developed. She is not diaphoretic. HENT: Head: Normocephalic and atraumatic. Right Ear: Hearing, tympanic membrane, ear canal and external ear normal. Left Ear: Hearing, tympanic membrane, ear canal and external ear normal. Nose: Nose normal. Mouth/Throat: Lips: [place]. Mouth: Mucous membranes are moist. Pharynx: Oropharynx is clear. Eyes: General: Lids are normal. Extraocular Movements: Extraocular movements intact. Conjunctiva/sclera: Conjunctivae normal. Pupils: Pupils are equal, round, and reactive to light. Neck: Thyroid: No thyroid mass or thyromegaly. Vascular: Normal carotid pulses. No carotid bruit. Cardiovascular: Rate and Rhythm: Normal rate and regular rhythm. Pulses: Radial pulses are 2+ on the right side and 2+ on the left side. Dorsalis pedis pulses are 2+ on the right side and 2+ on the left side. Posterior tibial pulses are 2+ on the right side and 2+ on the left side. Heart sounds: Normal heart sounds. No murmur heard. Pulmonary: Effort: Pulmonary effort is normal. Breath sounds: Normal breath sounds. No wheezing, rhonchi or rales. Abdominal: General: Bowel sounds are normal. Palpations: Abdomen is soft. Tenderness: There is no abdominal tenderness. Musculoskeletal: Cervical back: Normal range of motion. Left ankle: No swelling. Tenderness present over the lateral malleolus. Normal range of motion. Lymphadenopathy: Cervical: No cervical adenopathy. Upper Body: Right upper body: No supraclavicular adenopathy. Left upper body: No supraclavicular adenopathy. Skin: General: Skin is warm and dry. Findings: No lesion or rash. Neurological: General: No focal deficit present. Mental Status: She is alert and oriented to person, place, and time. Cranial Nerves: No cranial nerve deficit. Sensory: Sensation is intact. Motor: Motor function is intact. Coordination: Coordination is intact. Gait: Gait normal. Psychiatric: Attention and Perception: Attention and perception normal. Mood and Affect: Mood and affect normal. Speech: Speech normal. Behavior: Behavior normal. Behavior is cooperative. Cognition and Memory: Cognition and memory normal. Judgment: Judgment normal. Component Latest Ref Rng & Units 11/16/2021 11/16/2021 7:38 AM 7:38 AM Protein, Total 6.3 - 8.0 g/dL 7.3 Albumin 3.9 - 4.9 g/dL 4.2 Calcium 8.5 - 10.2 mg/dL 9.4 Bilirubin, Total 0.2 - 1.3 mg/dL 0.2 Alkaline Phosphatase 34 - 123 U/L 89 AST 13 - 35 U/L 18 ALT 7 - 38 U/L 22 Glucose 74 - 99 mg/dL 139 (H) BUN 7 - 21 mg/dL 12 Creatinine 0.58 - 0.96 mg/dL 1.21 (H) Sodium 136 - 144 mmol/L 140 Potassium 3.7 - 5.1 mmol/L 5.6 (H) Chloride 97 - 105 mmol/L 106 (H) CO2 22 - 30 mmol/L 26 Anion Gap 9 - 18 mmol/L 8 (L) eGFR >=60 mL/min/1.73m 56 (L) WBC 3.70 - 11.00 k/uL 8.73 RBC 3.90 - 5.20 m/uL 4.45 Hemoglobin 11.5 - 15.5 g/dL 12.8 Hematocrit 36.0 - 46.0 % 41.3 MCV 80.0 - 100.0 fL 92.8 MCH 26.0 - 34.0 pg 28.8 MCHC 30.5 - 36.0 g/dL 31.0 RDW-CV 11.5 - 15.0 % 13.8 Platelet Count 150 - 400 k/uL 272 MPV 9.0 - 12.7 fL 11.1 Cholesterol, Total <200 mg/dL 120 Triglyceride <150 mg/dL 147 HDL Cholesterol >39 mg/dL 41 Non HDL Cholesterol <130 mg/dL 79 Fasting Time hrs 12 VLDL Cholesterol <30 mg/dL 29 TC:HDL Ratio <5.10 2.93 LDL Cholesterol <100 mg/dL 50 LDL:HDL Ratio <2.54 1.22 Protein, Urine Random 0 - 20 mg/dL 23 (H) Creatinine, Ur Random (UCRR) 42.2 - 237.9 mg/dL 230.0 230.0 Protein/Creat Ratio <0.2 0.1 Albumin, Urine Random mg/L 79.9 Albumin/Creat Ratio <30 mg/g 35 (H) Hemoglobin A1C 4.3 - 5.6 % 6.8 (H) Estimated Average Glucose mg/dL 148 Vitamin D 25 Hydroxy 30.0 - 100.0 ng/mL 35.3 PTH, Intact 19 - 88 pg/mL 58 Phosphorus 2.7 - 4.8 mg/dL 3.0 Component Latest Ref Rng & Units 10/21/2020 08/11/2021 11/16/2021 Hemoglobin A1C 4.3 - 5.6 % 6.6 (H) 6.7 (H) 6.8 (H) Estimated Average Glucose mg/dL 143 146 148 Outside Labs 05/09/22 = BUN 20, Creat 1.4, GFR 43, Vit D 20 ASSESSMENT/PLAN: 1. Type 2 diabetes (HCC) - ICD9: 250.00, ICD10: E11.9 (primary diagnosis) Controlled. - Continue current medications - farxiga 10 mg daily - Follow up in 6 months, sooner should any other issues arise. - BP goal of <130/80 - HEMOGLOBIN A1C (POC) - CONSULT TO OPHTHALMOLOGY 2. Essential (primary) hypertension - ICD9: 401.9, ICD10: I10 - good control Coreg 12.5 mg BID Continue care with cardiology 3. Nephrosclerosis, stage 1 through stage 4 or unspecified chronic kidney disease - ICD9: 403.90, ICD10: I12.9 Continue care with nephrology 4. History of ST elevation myocardial infarction (STEMI) - ICD9: 412, ICD10: I25.2 Continue care with cardiology 5. Gastroesophageal reflux disease without esophagitis - ICD9: 530.81, ICD10: K21.9 - Stable off medication 6. Chronic kidney disease with active medical management without dialysis, stage 3 (moderate) (HCC) - ICD9: 585.3, ICD10: N18.30 - eGFR: Stable - Statin therapy: Yes - SGLT2i prescribed: Yes - Following with nephrology: Yes - Counseled on avoiding regular use of NSAIDs, adequate hydration, potential risk of IV dye - Recommend maintaining A1c < 7% - Recommend maintaining blood pressure under 130/80 7. Recurrent major depressive disorder, in partial remission (HCC) - ICD9: 296.35, ICD10: F33.41 Stable off medications 8. Colon cancer screening - ICD9: V76.51, ICD10: Z12.[address] Lamont Lopes - CONSULT TO GENERAL SURGERY 9. Hyperlipidemia, unspecified hyperlipidemia type - ICD9: 272.4, ICD10: E78.5 - good control - Continue current dose of rosuvastatin (Crestor) 20 mg. - Encouraged following a low fat, low cholesterol diet. 10. Vitamin D deficiency - ICD9: 268.9, ICD10: E55.9 - CHOLECALCIFEROL (VITAMIN D3) 50 MCG (2,000 UNIT) CAPSULE 11. Acute left ankle pain - ICD9: 719.47, ICD10: M25.572 X-ray to evaluate - XR ANKLE GENERAL 3V AP/LAT/OBL LEFT 12. Cold sores - ICD9: 054.9, ICD10: B00.1 Acyclovir 400 mg TID x 7 days - ACYCLOVIR 400 MG TABLET Marlene Boyer APRN.CNP documented in this encounter [facility] 01-04-2022 Miscellaneous Notes Patient is informed. Edie Patten MA ----- Message from Marlene Boyer APRN.CONGRESSIONAL AIDE sent at 01/03/2022 8:15 PM EDT ----- Mild degenerative/arthritis changes in spine. Marlene Boyer APRN.CNP documented in this encounter [facility] 12-31-2021 Miscellaneous Notes Patient notified. Charlee Lyon MA ----- Message from Marlene Boyer APRN.CONGRESSIONAL AIDE sent at 12/30/2021 7:09 PM EDT ----- Normal. Marlene Boyer APRN.CNP documented in this encounter [facility] 12-30-2021 Miscellaneous Notes [address] [address] December 30, 2021 PID: [id number] Galilea Rosas [address] [place] [address] Dear Ms. Rosas, We are pleased to inform you that the results of your recent breast imaging exam on 12/30/2021 are normal. Early detection of cancer is very important. We also understand recommendations regarding breast cancer screening are controversial. Please discuss with your primary care provider which strategy is best for you and whether a mammogram is right for you. Your imaging studies and report will be kept on file at [facility] as part of your permanent medical record and are available for your continuing care. Thank you for allowing us to help in meeting your health care needs. Sincerely, Dr. Doyle Interpreting Radiologist [facility] (Normal over 40) documented in this encounter [facility] 12-30-2021 History of Presen t illness Narrative Radiology Service Progress Note PATIENT NAME: Galilea Rosas DATE OF SERVICE: December 30, 2021 TIME: 8:24 AM PATIENT IDENTITY VERIFICATION COMPLETED USING TWO (2) IDENTIFIERS: Name and Date of confirmed by patient verbally. FALL SCREENING: Has the patient had 2 falls in the last year or 1 fall with injury or currently using an Ambulatory Assistive Device (Walker, Cane, Wheelchair, Crutches, etc.)? No PATIENT GENDER DATA: Female. status: : No status: N/A PATIENT RELEVANT IMPLANT DATA REVIEWED: Not Applicable RADIOLOGY DEPARTMENT: Mammography PERIPHERAL IV DATA: Not applicable SIGNED BY: RT Frank(R) December 30, 2021 8:24 AM documented in this encounter [facility] 12-29-2021 History of Presen t illness Narrative Radiology Service Progress Note PATIENT NAME: Galilea Rosas DATE OF SERVICE: December 29, 2021 TIME: 4:36 PM PATIENT IDENTITY VERIFICATION COMPLETED USING TWO (2) IDENTIFIERS: Name and Date of confirmed by patient verbally. FALL SCREENING: Has the patient had 2 falls in the last year or 1 fall with injury or currently using an Ambulatory Assistive Device (Walker, Cane, Wheelchair, Crutches, etc.)? No PATIENT GENDER DATA: Female. status: : No status: N/A PATIENT RELEVANT IMPLANT DATA REVIEWED: Not Applicable RADIOLOGY DEPARTMENT: General X-ray: Exam(s) Completed: Spine X-Ray(s): Cervical AP / LAT / OBL PERIPHERAL IV DATA: Not applicable SIGNED BY: RT Christopher(R) December 29, 2021 4:36 PM documented in this encounter [facility] 12-29-2021 History of Presen t illness Narrative This note was created using [employer]. Subjective Galilea Rosas is a 46 year old female here today for follow-up back pain. I reviewed past medical, surgical, social, and family histories today and updated chart. Allergies, chronic medications, and supplements were also reviewed. Patient continues to have left back pain radiating into left leg She is unable to go to physical therapy, unable to afford gas money to get there Flexeril helps, takes tylenol minimal relief She has not been working, unable to She saw orthopedist, Dr. Call for carpal tunnel. Got injection left wrist, helped a lot. She still gets numbness, tingling in both upper arms. Dr. Call was concerned about possible cervical radiculopathy per patient. She admits she does have neck pain and headaches. PAST MEDICAL HISTORY Diagnosis Date Anemia in chronic kidney disease Hyperlipidemia Hyperparathyroidism (HCC) Dr. Stevens Ischemic cardiomyopathy Dr. Leyva Kidney disease stage 3 Legionella pneumonia (HCC) 05/21/2019 [place], old 2009, 2013 Nephrosclerosis 03/20/2017 Dr. Stevens Sleep apnea Stroke ([facility]) 2009 Takotsubo syndrome PAST SURGICAL HISTORY Procedure Laterality Date APPENDECTOMY CARDIAC CATH 11/22/2018 Dr. Leyva. LVEF 40 %, mild global hypokinesia. Mid LAD previously stented, 30 % restenosis. Mild luminal irregularity in circumflex and RCA ECHO 02/19/2019 LVEF 45%, mildly dilated LV, LA mildly enlarged, mild MV, TV, PV insufficiency. Dr. Lawson LAPAROSCOPY SURG CHOLECYSTECTOMY Cholecystectomy, lap PAST SURGICAL HISTORY OF cardiac stentsx1 ALLERGIES Levaquin [Levofloxacin], Loratadine, Pseudoephedrine, and Claritin-D 12 Hour [Loratadine-Pseudoephedrine] MEDICATIONS carvedilol (COREG) 12.5 mg tablet Take 1 tablet by mouth twice daily with meals. rosuvastatin (CRESTOR) 20 mg tablet Take 1 tablet by mouth daily at bedtime. cyclobenzaprine (FLEXERIL) 10 mg tablet Take 1 tablet by mouth three times daily as needed. albuterol HFA (VENTOLIN HFA) 90 mcg/actuation inhaler Inhale 2 Puffs as instructed every 4 hours as needed for Wheezing/Shortness of Breath. aspirin, enteric coated (ASPIRIN, ENTERIC COATED) 81 mg EC tablet Take 1 tablet by mouth once daily. FAMILY HISTORY Adopted: Yes Problem Relation Age of Onset Ovarian cancer Mother 33 Diabetes Father Hypertension Father Social History Tobacco Use Smoking status: Current Every Day Smoker Packs/day: 1.00 Years: 15.00 Pack years: 15.00 Types: Cigarettes Smokeless tobacco: Never Used Tobacco comment: Smokes 1 pack every 3 days Vaping Use Vaping Use: Never used Substance Use Topics Alcohol use: Yes Comment: Rarely Drug use: No Review of Systems Constitutional: Positive for fatigue. Negative for appetite change, chills, fever and unexpected weight change. HENT: Negative for congestion, ear pain, rhinorrhea and sore throat. Eyes: Negative for pain, discharge, itching and visual disturbance. Respiratory: Negative for cough, shortness of breath and wheezing. Cardiovascular: Negative for chest pain, palpitations and leg swelling. Gastrointestinal: Negative for abdominal pain, constipation, diarrhea, nausea and vomiting. Genitourinary: Negative for difficulty urinating. Musculoskeletal: Positive for arthralgias, back pain and neck pain. Skin: Negative for rash. Neurological: Negative for dizziness, tremors, weakness and headaches. Psychiatric/Behavioral: Negative for dysphoric mood and sleep disturbance. The patient is not nervous/anxious. Objective BP 121/76 Pulse 75 Temp 36.7 C (98 F) Ht 170.2 cm (5' 7 ) Wt (!) 151.5 kg (334 lb) LMP 08/02/2020 SpO2 100% BMI 52.31 kg/m Physical Exam Constitutional: Appearance: She is not diaphoretic. Cardiovascular: Rate and Rhythm: Normal rate and regular rhythm. Heart sounds: Normal heart sounds. Pulmonary: Effort: Pulmonary effort is normal. Breath sounds: Normal breath sounds. Musculoskeletal: Cervical back: Tenderness present. Pain with movement present. Decreased range of motion. Lumbar back: Tenderness and bony tenderness present. No swelling, edema or deformity. Decreased range of motion. Right hip: Normal. Left hip: Normal. Skin: General: Skin is warm and dry. Neurological: Mental Status: She is alert and oriented to person, place, and time. Deep Tendon Reflexes: Reflexes are normal and symmetric. Psychiatric: Attention and Perception: Attention and perception normal. Mood and Affect: Mood and affect normal. Speech: Speech normal. 10/22/2021 4:43 PM - Radiology, Oru In Impression IMPRESSION: No acute findings radiographically. Mild degenerative changes as noted, not significantly changed in appearance. Scarfing Machine Operator: TRAV Transcribe Date/Time: Oct 22 2021 4:38P Dictated by : MARCELLUS LEONARD MD This examination was interpreted and the report reviewed and electronically signed by: MARCELLUS LEONARD MD on Oct 22 2021 4:41PM EST Results-Findings * * *Final Report* * * DATE OF EXAM: Oct 20 2021 1:59PM LDX [id number] - XR LUMBAR PARS 4V AP/LAT/OBL X2 / PROCEDURE REASON: multiple diagnoses * * * * Physician Interpretation * * * * EXAM TITLE: XR LUMBAR PARS 4V AP/LAT/OBL X2 DATE: 10/20/2021 COMPARISON: 10/20/2020 CLINICAL INDICATION/HISTORY: The patient presents with chronic low back pain TECHNIQUE: AP, lateral, and oblique views of the lumbar spine are presented. FINDINGS: There are five [id number] lumbar vertebra. No fracture or subluxations are noted. This case are overall preserved. There is mild multilevel endplate osteophyte formation. Mild facet arthrosis bilaterally at L5-S1. No osseous destructive process. ASSESSMENT/PLAN: 1. Chronic left-sided low back pain with left-sided sciatica - ICD9: 724.2, 724.3, 338.29, ICD10: M54.42, G89.29 (primary diagnosis) Stable Mild degenerative changes on x-ray Continue tylenol and flexeril as needed Follow up for worsening or persistent symptoms. 2. Encounter for screening mammogram for breast cancer - ICD9: V76.12, ICD10: Z12.31 - Set up for mammogram, yearly mammogram recommended - Follow up for annual exam in one year. - HUMBERTO SCREENING 3. Colon cancer screening - ICD9: V76.51, ICD10: Z12.11 Patient agreeable to colonoscopy - CONSULT TO GENERAL SURGERY 4. Essential (primary) hypertension - ICD9: 401.9, ICD10: I10 Continue care with cardiology Continue current medications 5. Hyperlipidemia, unspecified hyperlipidemia type - ICD9: 272.4, ICD10: E78.5 Continue crestor 6. Neck pain - ICD9: 723.1, ICD10: M54.2 X-ray to evaluate - XR CERV OTHER 4V AP/LAT/OBL 7. Cervical radiculopathy - ICD9: 723.4, ICD10: M54.12 - XR CERV OTHER 4V AP/LAT/OBL Marlene Boyer APRN.CONGRESSIONAL AIDE documented in this encounter [facility] 11-17-2021 Miscellaneous Notes Patient notified. Reminder placed. Charlee Lyon MA Seeing kidney dr. 11/25/2021. ----- Message from Marlene Boyer APRN.CONGRESSIONAL AIDE sent at 11/17/2021 12:21 PM EDT ----- A1C is 6.8, a bit higher than last time. She needs to work on decreasing sugars and carbs in the diet. Kidney function was normal. Potassium level was elevated. Recheck in 1 week. Needs to see her kidney doctor. Marlene Boyer APRN.KUMAR documented in this encounter [facility] 11-15-2021 Miscellaneous Notes Patient informed of fasting lab orders. Jimena Camarillo MA Thank you. Please see orders. Marlene Boyer APRN.KUMAR ----- Message from Charlee Lyon MA sent at 08/13/2021 3:34 PM EST ----- Remind patient time to recheck Alc after being slightly elevated. Charlee Lyon MA documented in this encounter [facility] 11-09-2021 Miscellaneous Notes Patient notified. Charlee Lyon MA Okay see new referral to Dr. Call. Marlene Boyer APRN.KUMAR Patient called and stated that dr. Del Castillo doesn't do carpal tunnel anymore. Edie Patten MA Patient notified. Please process referral. Charlee Lyon MA EMG shows bilateral carpal tunnel. See referral to hand specialist thank you. Marlene Boyer APRN.KUMAR documented in this encounter [facility] 11-05-2021 History of Presen t illness Narrative UNIVERSAL PROTOCOL / SAFETY CHECKLIST Procedure to be Performed: EMG Sign In: A Moment of CARE was completed. Personnel directly involved with the procedure wore the appropriate PPE (Personal Protective Equipment). Patient/Surrogate Stated/Verified: PATIENT VERIFIED(optional for EMERGENT procedures): Patient name, Date of , Relevant allergies and The intended procedure Time Out Communication: Intended patient and procedure match the source documents. Correct side/site marked and visible. Sign Out: SIGN OUT (optional for EMERGENT procedures): Post-procedure follow-up management communicated and Plan of Care Visit completed when applicable. Patsy Byrd Emg Channing Cottrell DO documented in this encounter [facility] 10-29-2021 History of Presen t illness Narrative This note was created using [employer]. Subjective Galilea Rosas is a 46 year old female here today for follow-up back pain, left sided weakness. I reviewed past medical, surgical, social, and family histories today and updated chart. Allergies, chronic medications, and supplements were also reviewed. She was seen in the office on 10/20 for lower back pain She was having left arm and left leg numbness, also had dizziness, headaches and drooling from left side of month. She had CT scan brain which was negative for acute changes. There was evidence of her old stroke She is feeling tired today Still having headaches Dizziness just once in a blue saenz Still having left leg numbness Left hand from elbow down still goes numb at times. She has not started PT yet She has appointments set up with cardiology and nephrology She is taking her medications She states she's had right sided drooling since her last stroke, last visit noticed left sided drooling as well PAST MEDICAL HISTORY Diagnosis Date Anemia in chronic kidney disease Hyperlipidemia Hyperparathyroidism (HCC) Dr. Stevens Ischemic cardiomyopathy Dr. Leyva Kidney disease stage 3 Legionella pneumonia ([facility]) 05/21/2019 [place], old 2009, 2013 Nephrosclerosis 03/20/2017 Dr. Stevens Sleep apnea Stroke ([facility]) 2009 Takotsubo syndrome PAST SURGICAL HISTORY Procedure Laterality Date APPENDECTOMY CARDIAC CATH 11/22/2018 Dr. Leyva. LVEF 40 %, mild global hypokinesia. Mid LAD previously stented, 30 % restenosis. Mild luminal irregularity in circumflex and RCA ECHO 02/19/2019 LVEF 45%, mildly dilated LV, LA mildly enlarged, mild MV, TV, PV insufficiency. Dr. Lawson LAPAROSCOPY SURG CHOLECYSTECTOMY Cholecystectomy, lap PAST SURGICAL HISTORY OF cardiac stentsx1 ALLERGIES Levaquin [Levofloxacin], Loratadine, Pseudoephedrine, and Claritin-D 12 Hour [Loratadine-Pseudoephedrine] MEDICATIONS carvedilol (COREG) 12.5 mg tablet Take 1 tablet by mouth twice daily with meals. rosuvastatin (CRESTOR) 20 mg tablet Take 1 tablet by mouth daily at bedtime. cyclobenzaprine (FLEXERIL) 10 mg tablet Take 1 tablet by mouth three times daily as needed. albuterol HFA (VENTOLIN HFA) 90 mcg/actuation inhaler Inhale 2 Puffs as instructed every 4 hours as needed for Wheezing/Shortness of Breath. aspirin, enteric coated (ASPIRIN, ENTERIC COATED) 81 mg EC tablet Take 1 tablet by mouth once daily. FAMILY HISTORY Adopted: Yes Problem Relation Age of Onset Ovarian cancer Mother 33 Diabetes Father Hypertension Father Social History Tobacco Use Smoking status: Current Every Day Smoker Packs/day: 1.00 Years: 15.00 Pack years: 15.00 Types: Cigarettes Smokeless tobacco: Never Used Vaping Use Vaping Use: Never used Substance Use Topics Alcohol use: No Drug use: No Review of Systems Constitutional: Positive for fatigue. Negative for appetite change, chills, fever and unexpected weight change. HENT: Negative for congestion, ear pain, rhinorrhea and sore throat. Eyes: Negative for pain, discharge, itching and visual disturbance. Respiratory: Negative for cough, shortness of breath and wheezing. Cardiovascular: Negative for chest pain, palpitations and leg swelling. Gastrointestinal: Negative for abdominal pain, constipation, diarrhea, nausea and vomiting. Genitourinary: Negative for difficulty urinating. Musculoskeletal: Positive for arthralgias, back pain and gait problem. Skin: Negative for rash. Neurological: Positive for dizziness, weakness, numbness and headaches. Negative for tremors. Psychiatric/Behavioral: Negative for dysphoric mood and sleep disturbance. The patient is not nervous/anxious. Objective BP 125/86 Pulse 78 Temp 36.8 C (98.2 F) Ht 170.2 cm (5' 7 ) Wt (!) 155.6 kg (343 lb) LMP 08/02/2020 SpO2 98% BMI 53.72 kg/m Physical Exam Constitutional: Appearance: Normal appearance. She is well-developed. She is obese. She is not diaphoretic. HENT: Head: Normocephalic and atraumatic. Right Ear: Hearing, tympanic membrane, ear canal and external ear normal. Left Ear: Hearing, tympanic membrane, ear canal and external ear normal. Nose: Nose normal. Mouth/Throat: Lips: [place]. Mouth: Mucous membranes are moist. Pharynx: Oropharynx is clear. Eyes: General: Lids are normal. Conjunctiva/sclera: Conjunctivae normal. Pupils: Pupils are equal, round, and reactive to light. Neck: Vascular: Normal carotid pulses. No carotid bruit or JVD. Cardiovascular: Rate and Rhythm: Normal rate and regular rhythm. Pulses: Carotid pulses are 2+ on the right side and 2+ on the left side. Radial pulses are 2+ on the right side and 2+ on the left side. Dorsalis pedis pulses are 2+ on the right side and 2+ on the left side. Heart sounds: Normal heart sounds. No murmur heard. Pulmonary: Effort: Pulmonary effort is normal. Breath sounds: Normal breath sounds. No wheezing, rhonchi or rales. Abdominal: General: Bowel sounds are normal. Palpations: Abdomen is soft. Tenderness: There is no abdominal tenderness. Musculoskeletal: Cervical back: Neck supple. Lumbar back: Tenderness present. Decreased range of motion. Right lower leg: No edema. Left lower leg: No edema. Lymphadenopathy: Cervical: No cervical adenopathy. Skin: General: Skin is warm and dry. Findings: No rash. Neurological: General: No focal deficit present. Mental Status: She is alert and oriented to person, place, and time. Cranial Nerves: No cranial nerve deficit. Sensory: Sensation is intact. Motor: Motor function is intact. Coordination: Coordination is intact. Gait: Gait is intact. Psychiatric: Attention and Perception: Attention and perception normal. Mood and Affect: Mood and affect normal. Speech: Speech normal. Behavior: Behavior normal. Behavior is cooperative. Thought Content: Thought content normal. Judgment: Judgment normal. ASSESSMENT/PLAN: 1. Essential (primary) hypertension - ICD9: 401.9, ICD10: I10 (primary diagnosis) Improved control. Parameters of monitoring explained to patient. - Continue current medication(s) Continue care with cardiology - Recommended regular aerobic exercise. - Recommend home blood pressure monitoring, to bring results in on next visit - Goal of BP <130/80 2. Hyperlipidemia, unspecified hyperlipidemia type - ICD9: 272.4, ICD10: E78.5 - improved control - Continue current medication. - Encouraged following a low fat, low cholesterol diet. - Discussed the benefits of regular aerobic exercise and weight loss. 3. Weakness of both hands - ICD9: 729.89, ICD10: R29.898 EMG to evaluate for neuropathy - EMG(NEURO/NI) 4. Numbness and tingling in left hand - ICD9: 782.0, ICD10: R20.0, R20.2 EMG to evaluate for neuropathy - EMG(NEURO/NI) 5. Chronic left-sided low back pain with left-sided sciatica - ICD9: 724.2, 724.3, 338.29, ICD10: M54.42, G89.29 Mild degenerative changes on L-spine x-ray NSAIDs contraindicated d/t CKD Continue tylenol and flexeril as needed Will start PT soon, f/u once completed. Marlene Boyer APRN.CONGRESSIONAL AIDE documented in this encounter [facility] 10-25-2021 Miscellaneous Notes Please advise if patient can wait till next week for this follow up apt. Thanks. Charlee Lyon MA ----- Message from Pamela Howe sent at 10/25/2021 9:00 AM EDT ----- Regarding: FW: Medicine/[place]/Seeking Sooner Appt Contact: ----- Message ----- From: Leydi Persaud Sent: 10/25/2021 8:26 AM EDT To: [facility] Triage Pool Subject: Medicine/[place]/Seeking Sooner Appt Patient has been identified by name and Date of : Yes Patient: Galilea Rosas Date of : 1975 Provider for this encounter : Marlene Boyer APRN.CNP Reason for call: Request for a sooner appointment Was an appointment scheduled: No Reason for requesting visit (RFV/signs and symptoms/diagnosis) : patient advised by PCP to schedule appt this week to follow up on L arm, leg numbness. No appts available w/ PCP until 11/16/21. Declined offer to be seen by another provider. Wants to be seen this week, per PCP instructions. Person calling: self Return call to: self Call patient at: at home [phone] (home) [phone] (cell) Payor: [facility] MEDICAID / Plan: [facility] MEDICAID / Product Type: Medicaid / Leydi Persaud documented in this encounter [facility] 10-25-2021 Miscellaneous Notes Patient notified. Charlee Lyon MA ----- Message from Marlene Boyer APRN.CNP sent at 10/22/2021 5:55 PM EDT ----- Mild degenerative disc disease. Marlene Boyer APRN.CNP documented in this encounter [facility] 10-20-2021 History of Presen t illness Narrative This note was created using Megadyneter. Subjective Galilea Rosas is a 46 year old female here today for back pain, blood pressure follow-up. I reviewed past medical, surgical, social, and family histories today and updated chart. Allergies, chronic medications, and supplements were also reviewed. 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 She had an xray L-spine done in 2020 showing degenerative disc disease She went to a few PT sessions and it didn't help Then back pain got better for a time, prior to the job standing on the concrete She is taking extra strength tylenol for her back She avoids NSAIDs - due to her heart disease and kidney disease Excedrins for migraines on occasion Diet - doesn't eat a lot of carbs and watches her diet for kidney disease She is still smoking, she does not want to quit due to stress She does not exercise Alcohol is once in a blue saenz Drinks coffee everyday She has not seen her 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 Stevens Ischemic cardiomyopathy Dr. Leyva Kidney disease stage 3 Legionella pneumonia ([facility]) 05/21/2019 [place], old 2009, 2013 Nephrosclerosis 03/20/2017 Dr. Stevens Sleep apnea Stroke ([facility]) 2009 Takotsubo syndrome PAST SURGICAL HISTORY Procedure Laterality Date APPENDECTOMY CARDIAC CATH 11/22/2018 Dr. Leyva. LVEF 40 %, mild global hypokinesia. Mid LAD previously stented, 30 % restenosis. Mild luminal irregularity in circumflex and RCA ECHO 02/19/2019 LVEF 45%, mildly dilated LV, LA mildly enlarged, mild MV, TV, PV insufficiency. Dr. Lawson LAPAROSCOPY SURG CHOLECYSTECTOMY Cholecystectomy, lap PAST SURGICAL HISTORY OF cardiac stentsx1 ALLERGIES Levaquin [Levofloxacin], Loratadine, Pseudoephedrine, and Claritin-D 12 Hour [Loratadine-Pseudoephedrine] MEDICATIONS rosuvastatin (CRESTOR) 20 mg tablet Take 1 tablet by mouth daily at bedtime. carvedilol (COREG) 12.5 mg tablet Take 1 tablet by mouth twice daily with meals. albuterol HFA (VENTOLIN HFA) 90 mcg/actuation inhaler Inhale 2 Puffs as instructed every 4 hours as needed for Wheezing/Shortness of Breath. aspirin, enteric coated (ASPIRIN, ENTERIC COATED) 81 mg EC tablet Take 1 tablet by mouth once daily. predniSONE (DELTASONE) 10 mg tablet Take 4 tablets for 3 days, then 2 tablets for 3 days, then 1 tablet for 3 days, then stop azithromycin (ZITHROMAX Z-KY) 250 mg tablet 2 tablets by mouth first day then 1 tablet the next 4 days FAMILY HISTORY Adopted: Yes Problem Relation Age of Onset Ovarian cancer Mother 33 Diabetes Father Hypertension Father Social History Tobacco Use Smoking status: Current Every Day Smoker Packs/day: 1.00 Years: 15.00 Pack years: 15.00 Types: Cigarettes Smokeless tobacco: Never Used Vaping Use Vaping Use: Never used Substance Use Topics Alcohol use: No Drug use: No Review of Systems Constitutional: Negative for appetite change, chills, fatigue, fever and unexpected weight change. HENT: Negative for congestion, ear pain, rhinorrhea and sore throat. Eyes: Negative for pain, discharge, itching and visual disturbance. Respiratory: Positive for shortness of breath. Negative for cough and wheezing. Cardiovascular: Negative for chest pain, palpitations and leg swelling. Gastrointestinal: Negative for abdominal pain, constipation, diarrhea, nausea and vomiting. Genitourinary: Negative for difficulty urinating. Musculoskeletal: Positive for arthralgias, back pain, gait problem and myalgias. Skin: Negative for rash. Neurological: Positive for numbness and headaches. Negative for dizziness, tremors and weakness. Psychiatric/Behavioral: Negative for dysphoric mood and sleep disturbance. The patient is nervous/anxious. Objective BP 151/100 Pulse 97 Temp 36.5 C (97.7 F) Ht 170.2 cm (5' 7 ) Wt (!) 155.6 kg (343 lb) LMP 08/02/2020 SpO2 98% BMI 53.72 kg/m Physical Exam Constitutional: Appearance: Normal appearance. She is well-developed. She is obese. She is not toxic-appearing or diaphoretic. HENT: Head: Normocephalic and atraumatic. Right Ear: Hearing, tympanic membrane, ear canal and external ear normal. Left Ear: Hearing, tympanic membrane, ear canal and external ear normal. Nose: Nose normal. No mucosal edema or rhinorrhea. Right Sinus: No frontal sinus tenderness. Left Sinus: No frontal sinus tenderness. Mouth/Throat: Lips: [place]. Mouth: Mucous membranes are moist. Pharynx: Oropharynx is clear. Eyes: General: Lids are normal. Conjunctiva/sclera: Conjunctivae normal. Pupils: Pupils are equal, round, and reactive to light. Neck: Vascular: Normal carotid pulses. No carotid bruit or JVD. Cardiovascular: Rate and Rhythm: Normal rate and regular rhythm. Pulses: Carotid pulses are 2+ on the right side and 2+ on the left side. Radial pulses are 2+ on the right side and 2+ on the left side. Dorsalis pedis pulses are 2+ on the right side and 2+ on the left side. Heart sounds: Normal heart sounds. No murmur heard. Pulmonary: Effort: Pulmonary effort is normal. Breath sounds: Normal breath sounds. No wheezing, rhonchi or rales. Abdominal: General: Bowel sounds are normal. Palpations: Abdomen is soft. Tenderness: There is no abdominal tenderness. Musculoskeletal: General: Normal range of motion. Cervical back: Normal range of motion and neck supple. Lumbar back: Tenderness present. Right lower leg: No edema. Left lower leg: No edema. Lymphadenopathy: Cervical: No cervical adenopathy. Skin: General: Skin is warm and dry. Findings: No rash. Neurological: Mental Status: She is alert and oriented to person, place, and time. Cranial Nerves: No cranial nerve deficit. Sensory: Sensation is intact. Motor: Weakness (Left leg 4/5) present. Coordination: Coordination is intact. Gait: Gait is intact. Gait normal. Deep Tendon Reflexes: Reflexes are normal and symmetric. Comments: Umqzzg-[id number] test normal. Psychiatric: Attention and Perception: Attention and perception normal. Mood and Affect: Mood and affect normal. Speech: Speech normal. Behavior: Behavior normal. Behavior is cooperative. Thought Content: Thought content normal. Judgment: Judgment normal. Component Latest Ref Rng & Units 08/11/2021 Protein, Total 6.3 - 8.0 g/dL 7.4 Albumin 3.9 - 4.9 g/dL 4.0 Calcium 8.5 - 10.2 mg/dL 9.1 Bilirubin, Total 0.2 - 1.3 mg/dL 0.2 Alkaline Phosphatase 34 - 123 U/L 85 AST 13 - 35 U/L 19 ALT 7 - 38 U/L 25 Glucose 74 - 99 mg/dL 112 (H) BUN 7 - 21 mg/dL 16 Creatinine 0.58 - 0.96 mg/dL 1.26 (H) Sodium 136 - 144 mmol/L 138 Potassium 3.7 - 5.1 mmol/L 5.4 (H) Chloride 97 - 105 mmol/L 105 CO2 22 - 30 mmol/L 23 Anion Gap 9 - 18 mmol/L 10 eGFR >=60 mL/min/1.73m 54 (L) WBC 3.70 - 11.00 k/uL 9.94 RBC 3.90 - 5.20 m/uL 4.47 Hemoglobin 11.5 - 15.5 g/dL 13.0 Hematocrit 36.0 - 46.0 % 42.3 MCV 80.0 - 100.0 fL 94.6 MCH 26.0 - 34.0 pg 29.1 MCHC 30.5 - 36.0 g/dL 30.7 RDW-CV 11.5 - 15.0 % 13.4 Platelet Count 150 - 400 k/uL 332 MPV 9.0 - 12.7 fL 10.9 Cholesterol, Total <200 mg/dL 197 Triglyceride <150 mg/dL 257 (H) HDL Cholesterol >39 mg/dL 37 (L) Non HDL Cholesterol <130 mg/dL 160 (H) Fasting Time hrs 12 VLDL Cholesterol <30 mg/dL 51 (H) TC:HDL Ratio <5.10 5.32 (H) LDL Cholesterol <100 mg/dL 109 (H) LDL:HDL Ratio <2.54 2.95 (H) Hemoglobin A1C 4.3 - 5.6 % 6.7 (H) Estimated Average Glucose mg/dL 146 ASSESSMENT/PLAN: 1. Chronic left-sided low back pain with left-sided sciatica - ICD9: 724.2, 724.3, 338.29, ICD10: M54.42, G89.29 (primary diagnosis) Update x-ray L-spine Add flexeril as needed Referral to PT - XR LUMBAR PARS DEFECT 4V AP/LAT/BOTH OBL - CYCLOBENZAPRINE 10 MG TABLET - CONSULT TO PHYSICAL THERAPY 2. Hyperlipidemia LDL goal <70 - ICD9: 272.4, ICD10: E78.5 - suboptimal control - Continue current dose of rosuvastatin (Crestor) 20 mg. - Encouraged following a low fat, low cholesterol diet. - Discussed the benefits of regular aerobic exercise and weight loss. - ROSUVASTATIN 20 MG TABLET 3. Essential (primary) hypertension - ICD9: 401.9, ICD10: I10 - poor control, non compliance - Continue current medication(s) - coreg 12.5 mg BID - Recommended regular aerobic exercise. - Recommend home blood pressure monitoring, to bring results in on next visit - Follow up in 1 month for BP recheck. - Goal of BP <130/80 - CARVEDILOL 12.5 MG TABLET 4. Type 2 diabetes (HCC) - ICD9: 250.00, ICD10: E11.9 Controlled. - Blood glucose monitoring on a once a day schedule - Encouraged regular aerobic exercise and weight loss - BP goal of <130/80 - LDL goal of <100 - ALBUMIN/CREAT RATIO RND UR 5. Hyperkalemia - ICD9: 276.7, ICD10: E87.5 Check labs - COMP METABOLIC PANEL 6. Left leg numbness - ICD9: 782.0, ICD10: R20.0 X-ray L-spine - XR LUMBAR PARS DEFECT 4V AP/LAT/BOTH OBL - CONSULT TO PHYSICAL THERAPY - CT BRAIN WO IVCON 7. Left arm numbness - ICD9: 782.0, ICD10: R20.0 Having numbness in left leg as well She has a history of stroke, BP has been elevated Exam is showing some left leg weakness, otherwise exam is normal Will get CT brain today to r/o acute stroke - CT BRAIN WO IVCON 8. History of stroke - ICD9: V12.54, ICD10: Z86.73 - CT BRAIN WO IVCON 9. Dizziness - ICD9: 780.4, ICD10: R42 CT brain today BP is uncontrolled Restarting HTN medications FU 2 weeks Marlene Boyer APRN.CONGRESSIONAL AIDE documented in this encounter [facility] 10-19-2021 Miscellaneous Notes Called patient to schedule her an appointment. Patient did not answer, I left a voicemail for patient to call back if she is still in need of an appointment. Ching Valverde Please help assist with scheduling appointment. Charlee Lyon MA Patient should be evaluated in person. Marlene Boyer APRN.CNP Pt called she is having tingling in the L leg that starts in the hip. Pt is wanting to know what to do does she need to be assessed Pt does have a history of left sciatica Vicky Obrien MA documented in this encounter [facility] 09-10-2021 Miscellaneous Notes No Show Documentation Galilea Rosas no showed for an appointment on 09/10/2021 with Marlene Boyer APRN.CNP at 8:40 am. She was scheduled for 1 month follow up for diabetes. I called and left a message for the patient regarding her missed appointment. Told her to call the office to reschedule. Resources discussed/offered to patient: na No show determined to be fault of patient: Yes This is the patients first no show in the last 12 months. Patient was rescheduled for na. Letter mailed : Yes Is this the Third or Fourth No Show ? No Ching Valverde September 10, 2021 10:43 AM documented in this encounter [facility] documented as of this encounter (statuses as of 09/10/2021) [facility] History of Past illness Narrative* Problem Noted Date Resolved Date Legionella pneumonia 05/21/2019 11/18/2020 documented as of this encounter (statuses as of 10/19/2021) [address]17-2019 History of Past illness Narrative* Problem Noted Date Resolved Date Legionella pneumonia 05/21/2019 11/18/2020 documented as of this encounter (statuses as of 10/21/2021) [address]17-2019 History of Past illness Narrative* Problem Noted Date Resolved Date Legionella pneumonia 05/21/2019 11/18/2020 documented as of this encounter (statuses as of 10/21/2021) [address]17[address]2019 History of Past illness Narrative* Problem Noted Date Resolved Date Legionella pneumonia 05/21/2019 11/18/2020 documented as of this encounter (statuses as of 10/25/2021) [address]17-2019 History of Past illness Narrative* Problem Noted Date Resolved Date Legionella pneumonia 05/21/2019 11/18/2020 documented as of this encounter (statuses as of 10/28/2021) [address]17[address]2019 History of Past illness Narrative* Problem Noted Date Resolved Date Legionella pneumonia 05/21/2019 11/18/2020 documented as of this encounter (statuses as of 11/04/2021) [address]17[address]2019 History of Past illness Narrative* Problem Noted Date Resolved Date Legionella pneumonia 05/21/2019 11/18/2020 documented as of this encounter (statuses as of 11/05/2021) [address]17[address]2019 History of Past illness Narrative* Problem Noted Date Resolved Date Legionella pneumonia 05/21/2019 11/18/2020 documented as of this encounter (statuses as of 11/09/2021) [address]2019 History of Past illness Narrative* Problem Noted Date Resolved Date Legionella pneumonia 05/21/2019 11/18/2020 documented as of this encounter (statuses as of 11/15/2021) [address]17[address]2019 History of Past illness Narrative* Problem Noted Date Resolved Date Legionella pneumonia 05/21/2019 11/18/2020 documented as of this encounter (statuses as of 11/17/2021) [address]2019 History of Past illness Narrative* Problem Noted Date Resolved Date Legionella pneumonia 05/21/2019 11/18/2020 documented as of this encounter (statuses as of 12/30/2021) [address]2019 History of Past illness Narrative* Problem Noted Date Resolved Date Legionella pneumonia 05/21/2019 11/18/2020 documented as of this encounter (statuses as of 12/31/2021) [address]2019 History of Past illness Narrative* Problem Noted Date Resolved Date Legionella pneumonia 05/21/2019 11/18/2020 documented as of this encounter (statuses as of 12/31/2021) [address]2019 History of Past illness Narrative* Problem Noted Date Resolved Date Legionella pneumonia 05/21/2019 11/18/2020 documented as of this encounter (statuses as of 01/01/2022) [address]2019 History of Past illness Narrative* Problem Noted Date Resolved Date Legionella pneumonia 05/21/2019 11/18/2020 documented as of this encounter (statuses as of 01/04/2022) [address]2019 History of Past illness Narrative* Problem Noted Date Resolved Date Legionella pneumonia 05/21/2019 11/18/2020 documented as of this encounter (statuses as of 01/04/2022) [address]2019 History of Past illness Narrative* Problem Noted Date Resolved Date Legionella pneumonia 05/21/2019 11/18/2020 documented as of this encounter (statuses as of 06/10/2022) [address]2019 History of Past illness Narrative* Problem Noted Date Resolved Date Legionella pneumonia 05/21/2019 11/18/2020 documented as of this encounter (statuses as of 06/13/2022) [address]2019 History of Past illness Narrative* Problem Noted Date Resolved Date Legionella pneumonia 05/21/2019 11/18/2020 documented as of this encounter (statuses as of 07/01/2022) [address]2019 History of Past illness Narrative* Problem Noted Date Resolved Date Legionella pneumonia 05/21/2019 11/18/2020 documented as of this encounter (statuses as of 08/05/2022) [address]2019 History of Past illness Narrative* Problem Noted Date Resolved Date Legionella pneumonia 05/21/2019 11/18/2020 documented as of this encounter (statuses as of 12/06/2022) [facility] History of Past illness Narrative* Problem Noted Date Diagnosed Date Resolved Date Legionella pneumonia 05/21/2019 021 documented as of this encounter (statuses as of 12/12/2022) [facility] History of Past illness Narrative* Problem Noted Date Diagnosed Date Resolved Date Legionella pneumonia 05/21/2019 021 documented as of this encounter (statuses as of 03/27/2023) [facility] History of Past illness Narrative* Problem Noted Date Diagnosed Date Resolved Date Legionella pneumonia 05/21/2019 021 documented as of this encounter (statuses as of 05/29/2023) [facility] Left leg numbness Disturbance of skin sensation Left arm numbness Disturbance of skin sensation History of stroke Transient ischemic attack (TIA), and cerebral infarction without residual deficits [facility] Diagnosis Chronic left-sided low back pain with left-sided sciatica Left leg numbness Disturbance of skin sensation [facility] Chronic left-sided low back pain with left-sided sciatica- Primary Hyperlipidemia LDL goal <70 Other and unspecified hyperlipidemia Essential (primary) hypertension Unspecified essential hypertension Type 2 diabetes (HCC) Hyperkalemia Hyperpotassemia Left leg numbness Disturbance of skin sensation Left arm numbness Disturbance of skin sensation History of stroke Transient ischemic attack (TIA), and cerebral infarction without residual deficits Dizziness Dizziness and giddiness [facility] Diagnosis Essential (primary) hypertension- Primary Unspecified essential hypertension Hyperlipidemia, unspecified hyperlipidemia type Weakness of both hands Numbness and tingling in left hand Disturbance of skin sensation Chronic left-sided low back pain with left-sided sciatica [facility] Diagnosis Weakness of both hands Numbness and tingling in left hand Disturbance of skin sensation Carpal tunnel syndrome, right upper limb Pain in left arm Paresthesia of skin Disturbance of skin sensation [facility] Diagnosis Carpal tunnel syndrome, bilateral- Primary Carpal tunnel syndrome documented in this encounter [facility] note* Diagnosis Hyperlipidemia, unspecified hyperlipidemia type- Primary Type 2 diabetes (HCC) documented in this encounter [facility] note* Diagnosis Neck pain Cervicalgia Cervical radiculopathy Brachial neuritis or radiculitis nos documented in this encounter [facility] note* Diagnosis Encounter for screening mammogram for breast cancer documented in this encounter [facility] note* Diagnosis Chronic left-sided low back pain with left-sided sciatica- Primary Encounter for screening mammogram for breast cancer Colon cancer screening Special screening for malignant neoplasms, colon Essential (primary) hypertension Unspecified essential hypertension Hyperlipidemia, unspecified hyperlipidemia type Neck pain Cervicalgia Cervical radiculopathy Brachial neuritis or radiculitis nos documented in this encounter [facility] note* Diagnosis Type 2 diabetes (HCC)- Primary Essential (primary) hypertension Unspecified essential hypertension Nephrosclerosis, stage 1 through stage 4 or unspecified chronic kidney disease History of ST elevation myocardial infarction (STEMI) Old myocardial infarction Gastroesophageal reflux disease without esophagitis Esophageal reflux Chronic kidney disease with active medical management without dialysis, stage 3 (moderate) (HCC) Recurrent major depressive disorder, in partial remission (HCC) Colon cancer screening Special screening for malignant neoplasms, colon Hyperlipidemia, unspecified hyperlipidemia type Vitamin D deficiency Unspecified vitamin D deficiency Acute left ankle pain Cold sores documented in this encounter [facility] note* Diagnosis Hyperlipidemia LDL goal <70 Other and unspecified hyperlipidemia documented in this encounter [facility] note* Diagnosis Bacterial sinusitis- Primary Unspecified sinusitis (chronic) Acute cough Otalgia of both ears Otalgia, unspecified documented in this encounter [facility] note* Diagnosis Hyperlipidemia LDL goal <70 Other and unspecified hyperlipidemia documented in this encounter [facility] for referral (narrative)* Diagnostic Procedure Only (Routine) - Closed Specialty Diagnoses / Procedures Referred By Yasmin t Referred To Contact XR IMAGING Diagnoses Chronic left-sided low back pain with left-sided sciatica Left leg numbness Procedures XR LUMBAR PARS DEFECT 4V AP/LAT/BOTH OBL RADEX SPINE LUMBOSACRAL MINIMUM 4 VIEWS Marlene Boyer, ANIMAL BIOLOGIST.CONGRESSIONAL AIDE [address] [place] [address] Xr Imaging Referral ID Status Reason Start Date Expiration Date V isits Requested Visits Authorized [id number] Closed Auto-Generate d Referral 10/20/2021 11/19/2022 1 1 [facility] for referral (narrative)* Outpatient Procedure (Routine) - Authorized Specialty Diagnoses / Procedures Referred By Yasmin t Referred To Contact [facility] Diagnoses Weakness of both hands Numbness and tingling in left hand Procedures EMG(NEURO/NI) NERVE CONDUCTION STUDIES 9-10 STUDIES Marlene Boyer APRN.CONGRESSIONAL AIDE [address] [place] [address] [facility] [address] [place] [address] Referral ID Status Reason Start Date Expiration Date Visits Requested Visits Authorized [id number] Authorized Auto-Generat ed Referral 10/29/2021 10/29/2022 1 1 [facility] for referral (narrative)* Diagnostic Procedure Only (Routine) - Closed Specialty Diagnoses / Procedures Referred By Yasmin coates Referred To Contact XR IMAGING Diagnoses Neck pain Cervical radiculopathy Procedures XR CERV OTHER 4V AP/LAT/OBL RADEX SPINE CERVICAL 4 OR 5 VIEWS Marlene Boyer APRN.CONGRESSIONAL AIDE [address] [place] [address] Xr Imaging Referral ID Status Reason Start Date Expiration Date V isits Requested Visits Authorized [id number] Closed Auto-Generate d Referral 12/29/2021 01/28/2023 1 1 [facility] for referral (narrative)* Diagnostic Procedure Only (Routine) - Closed Specialty Diagnoses / Procedures Referred By Yasmin t Referred To Contact [facility] Diagnoses Encounter for screening mammogram for breast cancer Procedures HUMBERTO SCREENING SCREENING MAMMOGRAPHY BI 2-VIEW BREAST INC CAD Marlene Boyer APRN.CONGRESSIONAL AIDE [address] [place] [address] [facility] [address] [place] [address] Referral ID Status Reason Start Date Expiration Date V isits Requested Visits Authorized [id number] Closed Auto-Generate d Referral 12/29/2021 01/28/2023 1 1 [facility] for referral (narrative)* Diagnostic Procedure Only (Routine) - Closed Specialty Diagnoses / Procedures Referred By Contac t Referred To Contact XR IMAGING Diagnoses Neck pain Cervical radiculopathy Procedures XR CERV OTHER 4V AP/LAT/OBL RADEX SPINE CERVICAL 4 OR 5 VIEWS Marlene Boyer APRN.CONGRESSIONAL AIDE [address] [place] [address] Xr Imaging Referral ID Status Reason Start Date Expiration Date V isits Requested Visits Authorized [id number] Closed Auto-Generate d Referral 12/29/2021 01/28/2023 1 1 * Consult, Test, Treat (Routine) - Authorized Specialty Diagnoses / Procedures Referred By Contac t Referred To Contact General Surgery / GENERAL SURGERY Diagnoses Colon cancer screening Procedures CONSULT TO GENERAL SURGERY OFFICE/OUTPATIENT [facility] MDM [id number] MINUTES Marlene Boyer APRN.CONGRESSIONAL AIDE [address] [place] [address] Michael Hensley MD [address] [address] Referral ID Status Reason Start Date Expiration Date Visits Requested Visits Authorized [id number] Authorized PCP Requested Referral 12/29/2021 12/29/2022 1 1 * Diagnostic Procedure Only (Routine) - Closed Specialty Diagnoses / Procedures Referred By Contac t Referred To Contact BR IMAGING Diagnoses Encounter for screening mammogram for breast cancer Procedures HUMBERTO SCREENING SCREENING MAMMOGRAPHY BI 2-VIEW BREAST INC CAD Marlene Boyer APRN.CONGRESSIONAL AIDE [address] [place] [address] Br Imaging [address] [place] [address] Referral ID Status Reason Start Date Expiration Date V isits Requested Visits Authorized [id number] Closed Auto-Generate d Referral 12/29/2021 01/28/2023 1 1 [facility] for referral (narrative)* Diagnostic Procedure Only (Routine) - Closed Specialty Diagnoses / Procedures Referred By Contac t Referred To Contact XR IMAGING Diagnoses Acute left ankle pain Procedures XR ANKLE GENERAL 3V AP/LAT/OBL LEFT RADEX ANKLE COMPLETE MINIMUM 3 VIEWS Marlene Boyer APRN.CONGRESSIONAL AIDE [address] [place] [address] Xr Imaging Referral ID Status Reason Start Date Expiration Date V isits Requested Visits Authorized [id number] Closed Auto-Generate d Referral 06/07/2022 07/07/2023 1 1 * Consult, Test, Treat (Routine) - Authorized Specialty Diagnoses / Procedures Referred By Contac t Referred To Contact Diagnoses Type 2 diabetes (HCC) Procedures CONSULT TO OPHTHALMOLOGY OFFICE/OUTPATIENT [facility] 60-74 MINUTES Marlene Boyer APRN.CONGRESSIONAL AIDE [address] [place] [address] Ophthalmology Referral ID Status Reason Start Date Expiration Date Visits Requested Visits Authorized [id number] Authorized PCP Requested Referral 06/07/2022 06/07/2023 1 1 * Consult, Test, Treat (Routine) - Authorized Specialty Diagnoses / Procedures Referred By Contac t Referred To Contact General Surgery / [facility] Department Diagnoses Colon cancer screening Procedures CONSULT TO GENERAL SURGERY OFFICE/OUTPATIENT [facility] 60-74 MINUTES Marlene Boyer APRN.CNP [address] [place] [address] Cristina Miguel MD [address] [place] [address] Referral ID Status Reason Start Date Expiration Date Visits Requested Visits Authorized [id number] Authorized PCP Requested Referral 06/07/2022 06/07/2023 1 1 [facility] for visit Narrative* Diagnostic Procedure Only (Routine) - Closed Specialty Diagnoses / Procedures Referred By Yasmin t Referred To Contact XR IMAGING Diagnoses Chronic left-sided low back pain with left-sided sciatica Left leg numbness Procedures XR LUMBAR PARS DEFECT 4V AP/LAT/BOTH OBL RADEX SPINE LUMBOSACRAL MINIMUM 4 VIEWS Marlene Boyer APRN.CONGRESSIONAL AIDE [address] [place] [address] Xr Imaging Referral ID Status Reason Start Date Expiration Date V isits Requested Visits Authorized [id number] Closed Auto-Generate d Referral 10/20/2021 11/19/2022 1 1 [facility] for visit Narrative* Diagnostic Procedure Only (Routine) - Closed Specialty Diagnoses / Procedures Referred By Contac t Referred To Contact XR IMAGING Diagnoses Neck pain Cervical radiculopathy Procedures XR CERV OTHER 4V AP/LAT/OBL RADEX SPINE CERVICAL 4 OR 5 VIEWS Marlene Boyer APRN.CONGRESSIONAL AIDE [address] [place] [address] Xr Imaging Referral ID Status Reason Start Date Expiration Date V isits Requested Visits Authorized [id number] Closed Auto-Generate d Referral 12/29/2021 01/28/2023 1 1 [facility] for visit Narrative* Diagnostic Procedure Only (Routine) - Closed Specialty Diagnoses / Procedures Referred By Contac t Referred To Contact BR IMAGING Diagnoses Encounter for screening mammogram for breast cancer Procedures HUMBERTO SCREENING SCREENING MAMMOGRAPHY BI 2-VIEW BREAST INC CAD Marlene Boyer APRN.CONGRESSIONAL AIDE [address] [place] [address] Br Imaging [address] [place] [address] Referral ID Status Reason Start Date Expiration Date V isits Requested Visits Authorized [id number] Closed Auto-Generate d Referral 12/29/2021 01/28/2023 1 1 [facility] Summary Purpose Family History No Family History Records FoundNo Family History Records FoundNo Family History Records Found Advance Directives Documents on File Type Date Recorded Patient Supervisor Pigment Making Expl anation Advance Directive(s) 08/11/2020 11:06 AM Advance Directive(s) 05/20/2020 6:16 PM Advance Directive(s) 05/06/2020 6:50 PM Advance Directive(s) 12/03/2018 9:57 AM Documents on File Type Date Recorded Patient Supervisor Pigment Making Expl anation Advance Directive(s) 08/11/2020 11:06 AM Advance Directive(s) 05/20/2020 6:16 PM Advance Directive(s) 05/06/2020 6:50 PM Advance Directive(s) 12/03/2018 9:57 AM Reason for Referral Specialty Diagnoses / Procedures Referred By Yasmin t Referred To Contact CT IMAGING Diagnoses Left leg numbness Left arm numbness History of stroke Procedures CT BRAIN WO IVCON CT HEAD/BRAIN W/O CONTRAST MATERIAL Marlene Boyer, ANIMAL BIOLOGIST.CONGRESSIONAL AIDE [address] [place] [address] Ct Imaging Referral ID Status Reason Start Date Expiration Date Visits Requested Visits Authorized [id number] Waiting for Response Auto-Generat ed Referral 10/20/2021 11/19/2022 1 1 Referral ID Status Reason Start Date Expiration Date V isits Requested Visits Authorized [id number] Closed Auto-Generate d Referral 10/20/2021 12/19/2021 1 1 Specialty Diagnoses / Procedures Referred By Contac t Referred To Contact [facility] Diagnoses Chronic left-sided low back pain with left-sided sciatica Left leg numbness Procedures CONSULT TO PHYSICAL THERAPY PHYSICAL THERAPY EVALUATION HIGH COMPLEX 45 MINS Marlene Boyer, ANIMAL BIOLOGIST.CONGRESSIONAL AIDE [address] [place] [address] [facility] [address] [place] [address] Referral ID Status Reason Start Date Expiration Date Visits Requested Visits Authorized [id number] Pending Review Auto-Generat ed Referral 10/20/2021 10/20/2022 1 1 Specialty Diagnoses / Procedures Referred By Contac t Referred To Contact XR IMAGING Diagnoses Chronic left-sided low back pain with left-sided sciatica Left leg numbness Procedures XR LUMBAR PARS DEFECT 4V AP/LAT/BOTH OBL RADEX SPINE LUMBOSACRAL MINIMUM 4 VIEWS Marlene Boyer, ANIMAL BIOLOGIST.CONGRESSIONAL AIDE [address] [place] [address] Xr Imaging Referral ID Status Reason Start Date Expiration Date V isits Requested Visits Authorized [id number] Closed Auto-Generate d Referral 10/20/2021 11/19/2022 1 1 Specialty Diagnoses / Procedures Referred By Contac t Referred To Contact Orthopedics Diagnoses Carpal tunnel syndrome, bilateral Procedures CONSULT TO ORTHOPAEDICS OFFICE/OUTPATIENT [facility] 60-74 MINUTES Marlene Boyer, ANIMAL BIOLOGIST.CONGRESSIONAL AIDE [address] [place] [address] Referral ID Status Reason Start Date Expiration Date Visits Requested Visits Authorized [id number] Authorized PCP Requested Referral 11/08/2021 11/08/2022 1 1 Specialty Diagnoses / Procedures Referred By Contac t Referred To Contact Diagnoses Carpal tunnel syndrome, bilateral Procedures CONSULT TO ORTHOPAEDICS OFFICE/OUTPATIENT [facility] 60-74 MINUTES Marlene Boyer, ANIMAL BIOLOGIST.CONGRESSIONAL AIDE [address] [place] [address] Michael Del Castillo Jr., MD [address] [place] [address] Referral ID Status Reason Start Date Expiration Date Visits Requested Visits Authorized [id number] Authorized PCP Requested Referral 11/06/2021 11/06/2022 1 1 Additional Source Comments INFORMATION SOURCE (unrecogn ized section and content) DATE CREATED AUTHOR AUTHOR'S ORGANIZ ATION 04/07/2023 [facility] DATE CREATED AUTHOR AUTHOR'S ORGANIZ ATION 05/22/2023 [facility] Source Comments (unrecognize d section and content) In the event this informatio n is protected by the Federal Confidentiality of Alcohol and Drug Abuse Patient Records regulations: The Federal rules restrict any use of the information to criminally investigate or prosecute any alcohol or drug abuse patient.[facility] the event this information is protected by the Federal Confidentiality of Alcohol and Drug Abuse Patient Records regulations: The Federal rules restrict any use of the information to criminally investigate or prosecute any alcohol or drug abuse patient.[facility] the event this information is protected by the Federal Confidentiality of Alcohol and Drug Abuse Patient Records regulations: The Federal rules restrict any use of the information to criminally investigate or prosecute any alcohol or drug abuse patient.[facility] the event this information is protected by the Federal Confidentiality of Alcohol and Drug Abuse Patient Records regulations: The Federal rules restrict any use of the information to criminally investigate or prosecute any alcohol or drug abuse patient.[facility] the event this information is protected by the Federal Confidentiality of Alcohol and Drug Abuse Patient Records regulations: The Federal rules restrict any use of the information to criminally investigate or prosecute any alcohol or drug abuse patient.[facility] the event this information is protected by the Federal Confidentiality of Alcohol and Drug Abuse Patient Records regulations: The Federal rules restrict any use of the information to criminally investigate or prosecute any alcohol or drug abuse patient.[facility] Hospital[facility] the event this information is protected by the Federal Confidentiality of Alcohol and Drug Abuse Patient Records regulations: The Federal rules restrict any use of the information to criminally investigate or prosecute any alcohol or drug abuse patient.[facility] the event this information is protected by the Federal Confidentiality of Alcohol and Drug Abuse Patient Records regulations: The Federal rules restrict any use of the information to criminally investigate or prosecute any alcohol or drug abuse patient.[facility] Hospital[facility] the event this information is protected by the Federal Confidentiality of Alcohol and Drug Abuse Patient Records regulations: The Federal rules restrict any use of the information to criminally investigate or prosecute any alcohol or drug abuse patient.[facility] Hospital[facility] the event this information is protected by the Federal Confidentiality of Alcohol and Drug Abuse Patient Records regulations: The Federal rules restrict any use of the information to criminally investigate or prosecute any alcohol or drug abuse patient.[facility] Hospital[facility] the event this information is protected by the Federal Confidentiality of Alcohol and Drug Abuse Patient Records regulations: The Federal rules restrict any use of the information to criminally investigate or prosecute any alcohol or drug abuse patient.[facility] Hospital[facility] the event this information is protected by the Federal Confidentiality of Alcohol and Drug Abuse Patient Records regulations: The Federal rules restrict any use of the information to criminally investigate or prosecute any alcohol or drug abuse patient.[facility] Hospital[facility] the event this information is protected by the Federal Confidentiality of Alcohol and Drug Abuse Patient Records regulations: The Federal rules restrict any use of the information to criminally investigate or prosecute any alcohol or drug abuse patient.[facility] Hospital[facility] the event this information is protected by the Federal Confidentiality of Alcohol and Drug Abuse Patient Records regulations: The Federal rules restrict any use of the information to criminally investigate or prosecute any alcohol or drug abuse patient.[facility] Hospital[facility] the event this information is protected by the Federal Confidentiality of Alcohol and Drug Abuse Patient Records regulations: The Federal rules restrict any use of the information to criminally investigate or prosecute any alcohol or drug abuse patient.[facility] Hospital[facility] the event this information is protected by the Federal Confidentiality of Alcohol and Drug Abuse Patient Records regulations: The Federal rules restrict any use of the information to criminally investigate or prosecute any alcohol or drug abuse patient.[facility] HospitalIn the event this information is protected by the Federal Confidentiality of Alcohol and Drug Abuse Patient Records regulations: The Federal rules restrict any use of the information to criminally investigate or prosecute any alcohol or drug abuse patient.[facility] HospitalIn the event this information is protected by the Federal Confidentiality of Alcohol and Drug Abuse Patient Records regulations: The Federal rules restrict any use of the information to criminally investigate or prosecute any alcohol or drug abuse patient.[facility] HospitalIn the event this information is protected by the Federal Confidentiality of Alcohol and Drug Abuse Patient Records regulations: The Federal rules restrict any use of the information to criminally investigate or prosecute any alcohol or drug abuse patient.[facility] HospitalIn the event this information is protected by the Federal Confidentiality of Alcohol and Drug Abuse Patient Records regulations: The Federal rules restrict any use of the information to criminally investigate or prosecute any alcohol or drug abuse patient.[facility] HospitalIn the event this information is protected by the Federal Confidentiality of Alcohol and Drug Abuse Patient Records regulations: The Federal rules restrict any use of the information to criminally investigate or prosecute any alcohol or drug abuse patient.[facility] HospitalIn the event this information is protected by the Federal Confidentiality of Alcohol and Drug Abuse Patient Records regulations: The Federal rules restrict any use of the information to criminally investigate or prosecute any alcohol or drug abuse patient.[facility] HospitalIn the event this information is protected by the Federal Confidentiality of Alcohol and Drug Abuse Patient Records regulations: The Federal rules restrict any use of the information to criminally investigate or prosecute any alcohol or drug abuse patient.[facility] HospitalIn the event this information is protected by the Federal Confidentiality of Alcohol and Drug Abuse Patient Records regulations: The Federal rules restrict any use of the information to criminally investigate or prosecute any alcohol or drug abuse patient.[facility] HospitalIn the event this information is protected by the Federal Confidentiality of Alcohol and Drug Abuse Patient Records regulations: The Federal rules restrict any use of the information to criminally investigate or prosecute any alcohol or drug abuse patient.[facility] HospitalIn the event this information is protected by the Federal Confidentiality of Alcohol and Drug Abuse Patient Records regulations: The Federal rules restrict any use of the information to criminally investigate or prosecute any alcohol or drug abuse patient.[facility] Reason for Visit (unrecogniz ed section and content) Reason Comments Patient Question Specialty Diagnoses / Procedures Referred By Contac t Referred To Contact CT IMAGING Diagnoses Left leg numbness Left arm numbness History of stroke Procedures CT BRAIN WO IVCON CT HEAD/BRAIN W/O CONTRAST MATERIAL Marlene Boyer, NISHI.CONGRESSIONAL AIDE [address] [place] [address] Ct Imaging Referral ID Status Reason Start Date Expiration Date Visits Requested Visits Authorized [id number] Waiting for Response Auto-Generat ed Referral 10/20/2021 11/19/2022 1 1 Reason Comments Results Reason Comments Appointment Reason Comments Pain, Back gotten worse pain go ing down left leg gets numb Reason Comments Pain, Back Reason Onset Date Comments EMG 11/05/2021 Specialty Diagnoses / Procedures Referred By Yasmin coates Referred To [facility] Diagnoses Weakness of both hands Numbness and tingling in left hand Procedures EMG(NEURO/NI) NERVE CONDUCTION STUDIES 9-10 STUDIES Marlene Boyer, NISHI.CONGRESSIONAL AIDE [address] [place] [address] [facility] [address] [place] [address] Referral ID Status Reason Start Date Expiration Date V isits Requested Visits Authorized [id number] Closed Auto-Generate d Referral 10/29/2021 10/29/2022 1 1 Reason Comments Results EMG Reason Comments Lab Orders Reason Comments Pain, Back Reason Comments Hypertension Reason Comments Refill Request Reason Comments No Show 1st no show Reason Comments Head Congestion chest congestion, co ugh, bilateral ear pain and sore throat x 5 days Care Teams (unrecognized sec tion and content) Mass Spectrometry Manager Relationship Specialty Start Date End Date Marlene Boyer, ANIMAL BIOLOGIST.CONGRESSIONAL AIDE [address] [place] [address] PCP - General Family Practice 02/27/17 Mass Spectrometry Manager Relationship Specialty Start Date End Date Marlene Boyer APRN.CONGRESSIONAL AIDE [address] [place] [address] PCP - General Family Practice 02/27/17 Mass Spectrometry Manager Relationship Specialty Start Date End Date Marlene Boyer, ANIMAL BIOLOGIST.CONGRESSIONAL AIDE [address] [place] [address] PCP - General Family Practice 02/27/17 Mass Spectrometry Manager Relationship Specialty Start Date End Date Marlene Boyer, ANIMAL BIOLOGIST.CONGRESSIONAL AIDE [address] [place] [address] PCP - General Family Practice 02/27/17 Mass Spectrometry Manager Relationship Specialty Start Date End Date Marlene Boyer, ANIMAL BIOLOGIST.CONGRESSIONAL AIDE [address] [place] [address] PCP - General Family Practice 02/27/17 Mass Spectrometry Manager Relationship Specialty Start Date End Date Marlene Boyer, ANIMAL BIOLOGIST.CONGRESSIONAL AIDE [address] [place] [address] PCP - General Family Practice 02/27/17 Mass Spectrometry Manager Relationship Specialty Start Date End Date Marlene Boyer, ANIMAL BIOLOGIST.CONGRESSIONAL AIDE [address] [place] [address] PCP - General Family Practice 02/27/17 Mass Spectrometry Manager Relationship Specialty Start Date End Date Marlene Boyer, ANIMAL BIOLOGIST.CONGRESSIONAL AIDE [address] [place] [address] PCP - General Family Practice 02/27/17 Mass Spectrometry Manager Relationship Specialty Start Date End Date Marlene Boyer, ANIMAL BIOLOGIST.CONGRESSIONAL AIDE [address] [place] [address] PCP - General Family Practice 02/27/17 Mass Spectrometry Manager Relationship Specialty Start Date End Date Marlene Boyer ANIMAL BIOLOGIST.CONGRESSIONAL AIDE [address] [place] [address] PCP - General Family Practice 02/27/17 Mass Spectrometry Manager Relationship Specialty Start Date End Date Marlene Boyer, ANIMAL BIOLOGIST.CONGRESSIONAL AIDE [address] [place] [address] PCP - General Family Practice 02/27/17 Mass Spectrometry Manager Relationship Specialty Start Date End Date Marlene Boyer, ANIMAL BIOLOGIST.CONGRESSIONAL AIDE [address] [place] [address] PCP - General Family Practice 02/27/17 Mass Spectrometry Manager Relationship Specialty Start Date End Date Marlene Boyer, ANIMAL BIOLOGIST.CONGRESSIONAL AIDE [address] [place] [address] PCP - General Family Practice 02/27/17 Mass Spectrometry Manager Relationship Specialty Start Date End Date Marlene Boyer APRN.CONGRESSIONAL AIDE [address] [place] [address] PCP - General Family Practice 02/27/17 Mass Spectrometry Manager Relationship Specialty Start Date End Date Marlene Boyer APRN.CONGRESSIONAL AIDE [address] [place] [address] PCP - General Family Medicine 02/27/17 Mass Spectrometry Manager Relationship Specialty Start Date End Date Marlene Boyer APRN.CONGRESSIONAL AIDE [address] [place] [address] PCP - General Family Medicine 02/27/17 Mass Spectrometry Manager Relationship Specialty Start Date End Date Marlene Boyer APRN.CONGRESSIONAL AIDE [address] [place] [address] PCP - General Family Medicine 02/27/17 Mass Spectrometry Manager Relationship Specialty Start Date End Date Marlene Boyer APRN.CONGRESSIONAL AIDE [address] [place] [address] PCP - General Family Medicine 02/27/17 Mass Spectrometry Manager Relationship Specialty Start Date End Date Marlene Boyer APRN.CONGRESSIONAL AIDE [address] [place] [address] PCP - General Family Medicine 02/27/17 Mass Spectrometry Manager Relationship Specialty Start Date End Date Marlene Boyer APRN.CONGRESSIONAL AIDE [address] [place] [address] PCP - General Family Medicine 02/27/17 Mass Spectrometry Manager Relationship Specialty Start Date End Date Marlene Boyer APRN.CONGRESSIONAL AIDE [address] [facility] [place] [address] PCP - General Family Medicine 02/27/17 FOR RECORDS PERTAINING TO PATIENTS WHO ARE OR HAVE BEEN ENROLLED IN A CHEMICAL DEPENDENCY/SUBSTANCEABUSE PROGRAM, SOME INFORMATION MAY BE OMITTED. This clinical summary was aggregated from multiple sources. Caution should be exercised in using it in the provision of clinical care. This summary normalizes information from multiple sources, and as a consequence, information in this document may materially change the coding, format and clinical context of patient data. In addition, data may be omitted in some cases. CLINICAL DECISIONS SHOULD BE BASED ON THE PRIMARY CLINICAL RECORDS. [employer] provides no warranty or guarantee of the accuracy or completeness of information in this document.
[2023-06-12 12:17] LABS: BNP,B-Type NATRIURETIC PEPTIDE 78.4 pg/mL (0-100)
[2023-06-12 12:19] LABS: Anion Gap 4 (5-15); BUN 17 mg/dL (7-18); Calcium,Total 8.4 mg/dL (8.5-10.1); Chloride 112 mmol/L (98-107); Creatinine, Serum 1.31 mg/dL (0.55-1.02); EST Glomerular Filtration Rate 46 mL/min (>60); Est Glom Filt Rate - Afr Amer 56 mL/min (>60); Glucose 110 mg/dL (74-106); Potassium 5.2 mmol/L (3.5-5.1); Sodium Level 139 mmol/L (136-145)
== END | disposition home or self-care (01) ==
LOC: LAB 11:16
PROVIDERS: PCP Nurse Practitioner Family; Referring Provider Nurse Practitioner Gerontology; Visit Provider Nurse Practitioner Gerontology
DX: R53.83 Other fatigue (principal); R06.00 Dyspnea, unspecified
CPT/HCPCS: 36415; 80048; 83880; 85025

== ENCOUNTER 2024-01-22 06:49 | Emergency (ER) | payer MEDICAID, SELFPAY ==
[2024-01-22 06:49] VITALS: BP 159/78; PULSE 68; RESP 28; TEMP 36.8; O2SAT 98
--- NOTE | 2024-01-22 07:07 | RAD_ITS ---
STUDY: X-RAY CHEST REASON FOR EXAM: Female, 48 years old. Chest pain TECHNIQUE: Single AP portable view of the chest. COMPARISON: Comparison is made with prior study dated May 09, 2023. FINDINGS: EKG electrodes are seen. The lungs are clear and expanded. There is no demonstrated pleural abnormality. Normal size heart. Normal mediastinum and prashant. Normal visualized pulmonary arteries. Normal visualized aortic arch and descending thoracic aorta. Normal visualized thoracic spine. Normal visualized ribs, clavicles, and shoulders. There is no demonstrated abnormality of the visualized soft tissue structures of the upper abdomen. RAD/Chest 1 View (Portable) IMPRESSION: Normal x-ray examination of the chest. Electronically Signed: Duane Davidson MD at 8:19 EDT ,
--- NOTE | 2024-01-22 07:07 | EKG12_ITS ---
Test Reason : CP Blood Pressure : / mmHG Vent. Rate : 069 BPM Atrial Rate : 069 BPM P-R Int : 150 ms QRS Dur : 086 ms QT Int : 402 ms P-R-T Axes : 040 -76 043 degrees QTc Int : 430 ms Normal sinus rhythm Low voltage QRS Left anterior fascicular block Cannot rule out Anterior infarct , age undetermined Abnormal ECG Confirmed by KEELEY LEAL, ASTER ([id number]), editor sound ZEKE GUPTA ([id number]) on 01/26/2024 7:29:31 AM Referred By: Confirmed By:NICHOLAS MINA MD
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
[2024-01-22 07:17] LABS: Absolute Lymphocyte Count 3.24 X10^3/uL (0.83-4.51); Absolute Neutrophil Count 4.8 X10^3/uL (2.0-7.7); Basophil# 0.07 X10^3/uL; Basophil% 0.7 % (0-1); Eosinophil# 0.28 X10^3/uL; Hematocrit 39.7 % (37-47); Hemoglobin 12.2 g/dL (12.0-15.0); Lymphocyte # 3.24 X10^3/ul (0.83-4.51); Lymphocyte % 34.6 % (19-41); Mean Corp Hgb Conc 30.7 g/dL (32-36); Mean Corpuscular Volume 91.3 fL (81-99); Mean Platelet Vol. 10.5 fl (6.2-12.0); Monocyte# 0.93 X10^3/uL; Monocyte% 9.9 % (0-10); NRBC Flagged by Analyzer 0 % (0-5); Neutrophil # 4.81 X10^3/uL (2.7-7.7); Neutrophil % 51.4 % (47-70); Platelet Count 250 K/mm3 (150-450); RBC Distribution Width CV 14.6 % (11.6-14.6); RBC Distribution Width SD 49.1 fl (35.1-43.9); Red Blood Count 4.35 M/mm3 (4.2-5.4); White Blood Count 9.4 K/mm3 (4.4-11.0)
[2024-01-22 07:36] LABS: Anion Gap 5 (5-15); BUN 19 mg/dL (7-18); BUN/Creat Ratio 14.4 RATIO (10-20); Calcium,Total 8.5 mg/dL (8.5-10.1); Chloride 109 mmol/L (98-107); Creatinine, Serum 1.32 mg/dL (0.55-1.02); EST Glomerular Filtration Rate 46 mL/min (>60); Est Glom Filt Rate - Afr Amer 55 mL/min (>60); Glucose 201 mg/dL (74-106); Magnesium 2.2 mg/dL (1.6-2.6); Sodium Level 137 mmol/L (136-145); Troponin-I HS 4 pg/mL (3.0-54.0)
[2024-01-22] MEDS: Ketorolac 15 MG/ML Vial IV (07:48)
[2024-01-22 07:51] VITALS: BP 129/86; PULSE 63; RESP 13; O2SAT 96
[2024-01-22 08:00] VITALS: BP 138/96; PULSE 59; RESP 13; O2SAT 96
[2024-01-22 09:52] VITALS: BP 136/89; PULSE 78; RESP 18; TEMP 36.8; O2SAT 97
== END 2024-01-22 09:54 | disposition home or self-care (01) ==
PROVIDERS: Emergency Provider Emergency Medicine; PCP Nurse Practitioner Family; Visit Provider Emergency Medicine
DX: R20.2 Paresthesia of skin (principal); I25.10 Atherosclerotic heart disease of native coronary artery without angina pectoris; F17.200 Nicotine dependence, unspecified, uncomplicated; I12.9 Hypertensive chronic kidney disease with stage 1 through stage 4 chronic kidney disease, or unspecified chronic kidney disease; N18.9 Chronic kidney disease, unspecified; E78.5 Hyperlipidemia, unspecified; R20.0 Anesthesia of skin; Z86.73 Personal history of transient ischemic attack (TIA), and cerebral infarction without residual deficits; Z79.899 Other long term (current) drug therapy; E66.9 Obesity, unspecified
CPT/HCPCS: 71045; 80048; 83735; 84484; 85025; 93005; 96374; 99285; A4216

== ENCOUNTER → 2024-11-26 | Outpatient (CLI) | payer MEDICAID, SELFPAY ==
[2024-11-26 11:17] LABS: Hematocrit 36.4 % (37-47); Hemoglobin 11.1 g/dL (12.0-15.0); Mean Corp Hgb Conc 30.5 g/dL (32-36); Mean Corpuscular Hgb 27.3 pg (27.0-32.0); Mean Corpuscular Volume 89.7 fL (81-99); Mean Platelet Vol. 10.8 fl (6.2-12.0); Platelet Count 266 K/mm3 (150-450); RBC Distribution Width CV 13.6 % (11.6-14.6); RBC Distribution Width SD 44.4 fl (35.1-43.9); Red Blood Count 4.06 M/mm3 (4.2-5.4); White Blood Count 8.9 K/mm3 (4.4-11.0)
[2024-11-26 12:05] LABS: PTHIN 51 pg/mL (11-61)
[2024-11-26 12:20] LABS: Albumin, Serum 3.8 g/dL (3.5-5.0); Anion Gap 9 (5-15); BUN 17 mg/dL (4-19); Calcium,Total 9.5 mg/dL (7.6-11.0); Carbon Dioxide 22.3 mmol/L (21.0-32.0); Chloride 107 mmol/L (98-108); Creatinine, Serum 1.33 mg/dL (0.70-1.20); EST Glomerular Filtration Rate 49 (>60); Glucose 144 mg/dL (70-99); Phosphorus 4.1 mg/dL (2.7-4.5); Potassium 5.2 mmol/L (3.3-5.1); Sodium Level 138 mmol/L (133-145)
[2024-11-26 12:32] LABS: Vitamin D,25 Hydroxy 21.1 ng/mL (30-100)
[2024-11-26 13:10] LABS: Protein, Urine (Random) 9.2 mg/dL (0.0-12.0); Protein:Creat Ratio 140 mg/g CRE (0-200)
== END | disposition home or self-care (01) ==
LOC: LAB 10:19
PROVIDERS: PCP Nurse Practitioner Family; Referring Provider Internal Medicine Nephrology; Visit Provider Internal Medicine Nephrology
DX: N18.32 Chronic kidney disease, stage 3b (principal)
CPT/HCPCS: 36415; 80069; 82306; 82570; 83970; 84156; 85027

== ENCOUNTER 2024-12-04 08:01 | Day surgery (SDC) | payer MEDICAID, SELFPAY ==
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
[2024-12-04] VITALS (8 sets, daily range): BP systolic 105–115; BP diastolic 56–70; PULSE 55–67; RESP 14–18; TEMP 36.1–36.7; O2SAT 94–96; BMI 55.7
[2024-12-04] MEDS: Lactated Ringers 1,000 ML 15 ML IV (08:15)
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
--- NOTE | 2024-12-04 09:00 | EGD_PTH ---
PATIENT: DARREL VICK LOC: EN U#:[id number] AGE/SX: 49/F ROOM: RE12/04/[address]: Dr. Garfield Wu DO : 1975 BED: DIS: 12/04/2024 SPEC #: [id number] RECD: 12/04/24 13:14 STATUS: BAKARI FAMILIA #: [id number] JULIOCESAR: 12/04/24 09:[address]: Garfield Wu DEPT: SURGICAL PATHOLOGY RECD BY: Alex Bland ENTERED: 12/04/24 14:49 SP TYPE: EGD BIOPSY ODIN DR: Kayla Noe, CRYSTAL CALIBRATOR-C Tissues: A - Duodenum, NOS B - Gastric mucous membrane C - Ileum, NOS D - Rectum, NOS Procedures: Immunohistochemical Stains Surgery Specimen Level IV HEADER OPERATION: Colonoscopy with biopsy, EGD PRE-OP DIAGNOSIS: GERD, microcytic anemia, diarrhea TISSUE SUBMITTED: A- Duodenum biopsy, B- Gastric body biopsy, C- Terminal ileum biopsy,D- Rectal polyp MICROSCOPIC DIAGNOSIS A. Small intestine, duodenum, biopsies: * Benign without active inflammation B. Stomach, gastric body: * Oxyntic mucosa with slight chronic inflammation * No Helicobacter pylori-like organisms are identified in these H & E stained sections C. Small intestine, terminal ileum: * Benign without active inflammation or architectural distortion D. Rectum, polyp: * Hyperplastic polyp MICROSCOPIC DESCRIPTION Slides are reviewed. GROSS DESCRIPTION A. Received in fixative is one container labeled with the patient's name and designated Duodenum biopsy. The specimen consists of two irregular fragments of light [place] tissue, each measuring 0.4 cm. The specimen is totally submitted in one cassette. B. Received in fixative is one container labeled with the patient's name and designated Gastric body biopsy. The specimen consists of three irregular fragments of light [place] tissue that in aggregate measure <0.1 to 0.5 cm. The specimen is totally submitted in one cassette. C. Received in fixative is one container labeled with the patient's name and designated Terminal ileum biopsy. The specimen consists of multiple irregular fragments of light [place] tissue that in aggregate measure <0.1 to 0.2 cm. The specimen is totally submitted in one cassette. D. Received in fixative is one container labeled with the patient's name and designated Rectal polyp. The specimen consists of one irregular fragment of light [place] tissue that measures 0.7 cm and vegetable material. The specimen is totally submitted in one cassette. CARMEN/ 12/04/2024 CPT:26195o8,60817
[2024-12-04 09:03] LABS: Internal QC Validated? YES +Cl - CLEAR BKGD; Pregnancy, Urine Negative Negative; Record Kit Lot#,Urine Preg 0000947241
--- NOTE | 2024-12-04 10:13 | OP.EGD_ITS ---
Patient Name: Galilea Rosas Procedure Date: 12/04/2024 9:26 AM Date of : 1975 Age: 49 Procedure: Upper GI endoscopy Indications: Epigastric abdominal pain, Functional Dyspepsia, Suspected reflux esophagitis Providers: Garfield Wu DO Referring MD: Tena Gomez Medicines: Monitored Anesthesia Care Patient Profile: This is a 49 year old female. Refer to note in patient chart for documentation of history and physical. Patient has symptoms. Complications: No immediate complications. Procedure: Pre-Anesthesia Assessment: - Prior to the procedure, a History and Physical was performed, and patient medications and allergies were reviewed. The patient is competent. The risks and benefits of the procedure and the sedation options and risks were discussed with the patient. All questions were answered and informed consent was obtained. Patient identification and proposed procedure were verified by the physician in the pre-procedure area. Mental Status Examination: alert and oriented. Airway Examination: normal oropharyngeal airway and neck mobility. Respiratory Examination: clear to auscultation. CV Examination: normal. Prophylactic Antibiotics: The patient does not require prophylactic antibiotics. Prior Anticoagulants: The patient has taken no anticoagulant or antiplatelet agents except for NSAID medication. ASA Grade Assessment: II - A patient with mild systemic disease. After reviewing the risks and benefits, the patient was deemed in satisfactory condition to undergo the procedure. The anesthesia plan was to use minimal sedation / analgesia (anxiolysis). Immediately prior to administration of medications, the patient was re-assessed for adequacy to receive sedatives. The heart rate, respiratory rate, oxygen saturations, blood pressure, adequacy of pulmonary ventilation, and response to care were monitored throughout the procedure. The physical status of the patient was re-assessed after the procedure. After obtaining informed consent, the endoscope was passed under direct vision. Throughout the procedure, the patient's blood pressure, pulse, and oxygen saturations were monitored continuously. The colonoscope was introduced through the mouth, and advanced to the fourth part of the duodenum. Small bowel enteroscopy was deemed necessary. The upper GI endoscopy was accomplished without difficulty. The patient tolerated the procedure well. Scope In: 9:34:30 AM Scope Out: 9:37:35 AM Total Procedure Duration Time 0 hours 3 minutes 5 seconds Findings: The examined esophagus was normal. Patchy mildly erythematous mucosa without bleeding was found in the gastric body. Biopsies were taken with a cold forceps for histology. Verification of patient identification for the specimen was done. Estimated blood loss was minimal. Biopsies were taken with a cold forceps for Helicobacter pylori testing. Verification of patient identification for the specimen was done. Estimated blood loss was minimal. Patchy mildly erythematous mucosa without active bleeding and with no stigmata of bleeding was found in the entire duodenum. Biopsies were taken with a cold forceps for histology. Verification of patient identification for the specimen was done. Estimated blood loss was minimal. A benign-appearing, intrinsic moderate stenosis was found at the pylorus. This was traversed. Impression: - Normal esophagus. - Erythematous mucosa in the gastric body. Biopsied. - Erythematous duodenopathy. Biopsied. Recommendation: - Discharge patient to home. - Resume previous diet. - Continue present medications. - Await pathology results. Procedure Code(s): --- Professional --- 81876, Small intestinal endoscopy, enteroscopy beyond second portion of duodenum, not including ileum; with biopsy, single or multiple CPT copyright 2021 [employer]. All rights reserved. The codes documented in this report are preliminary and upon real estate site analyst review may be revised to meet current compliance requirements. Garfield Wu DO 12/04/2024 10:12:30 AM This report has been signed electronically. Number of Addenda: 0 Note Initiated On: 12/04/2024 9:26 AM
--- NOTE | 2024-12-04 10:13 | OP.CCLET_ITS ---
12/04/2024 Tena Gomez Re : Upper GI endoscopy procedure for Galilea Rosas Dear Kusum This procedure was performed on Wednesday, December 04, 2024. My impressions and recommendations are as follows: Impressions : - Normal esophagus. - Erythematous mucosa in the gastric body. Biopsied. - Erythematous duodenopathy. Biopsied. Recommendations : - Discharge patient to home. - Resume previous diet. - Continue present medications. - Await pathology results. My findings are described in the full procedure note, which is enclosed. If I can be of further assistance, please feel free to contact me at . Sincerely, Garfield Wu, 12/04/2024 10:12:30 AM This report has been signed electronically.
--- NOTE | 2024-12-04 10:15 | PCM.POST.ANE ---
Anesthesia: Postop Eval I Current Vital Signs Temperature: 97.4 F Pulse Rate: 64 Blood Pressure: 106/56 Respiratory Rate: 16 Pulse Ox: 96 Oxygen Delivery Method: Nasal Cannula Oxygen Flow Rate (L/min): 2 Assessment Airway patent: Yes Spontaneous unlabored respirations: Yes Mental status: Awake and Calm nausea: No Vomiting: No Anesthesia Complication: Yes Anesthesia Complication Comment:: vagal sensitive, glyco then ephedrine adm IV Fluid Hydration Crystalloid volume administer (ml): 400 Total IV fluid infused: 400 Progress Note Anesthesia document: Postop Eval 1 completed: Yes
--- NOTE | 2024-12-04 10:16 | OP.COLON_ITS ---
Patient Name: Galilea Rosas Procedure Date: 12/04/2024 9:37 AM Date of : 1975 Age: 49 Procedure: Colonoscopy Indications: Screening for colorectal malignant neoplasm Providers: Garfield Wu DO Referring MD: Tena Gomez Medicines: Monitored Anesthesia Care Patient Profile: This is a 49 year old female. Refer to note in patient chart for documentation of history and physical. Patient has symptoms. Last Colonoscopy: none. The patient's first colonoscopy is today. Complications: No immediate complications. Procedure: Pre-Anesthesia Assessment: - Prior to the procedure, a History and Physical was performed, and patient medications and allergies were reviewed. The patient is competent. The risks and benefits of the procedure and the sedation options and risks were discussed with the patient. All questions were answered and informed consent was obtained. Patient identification and proposed procedure were verified by the physician in the pre-procedure area. Mental Status Examination: alert and oriented. Airway Examination: normal oropharyngeal airway and neck mobility. Respiratory Examination: clear to auscultation. CV Examination: normal. Prophylactic Antibiotics: The patient does not require prophylactic antibiotics. Prior Anticoagulants: The patient has taken no anticoagulant or antiplatelet agents except for NSAID medication. ASA Grade Assessment: II - A patient with mild systemic disease. After reviewing the risks and benefits, the patient was deemed in satisfactory condition to undergo the procedure. The anesthesia plan was to use minimal sedation / analgesia (anxiolysis). Immediately prior to administration of medications, the patient was re-assessed for adequacy to receive sedatives. The heart rate, respiratory rate, oxygen saturations, blood pressure, adequacy of pulmonary ventilation, and response to care were monitored throughout the procedure. The physical status of the patient was re-assessed after the procedure. After I obtained informed consent, the scope was passed under direct vision. Throughout the procedure, the patient's blood pressure, pulse, and oxygen saturations were monitored continuously. The colonoscope was introduced through the anus and advanced to the terminal ileum. The colonoscopy was performed without difficulty. The patient tolerated the procedure well. The quality of the bowel preparation was adequate. The terminal ileum, ileocecal valve, appendiceal orifice, and rectum were photographed. Scope In: 9:39:25 AM Scope Withdrawal Time 0 hours 21 minutes 39 seconds Scope Out: 10:06:36 AM Total Procedure Duration Time 0 hours 27 minutes 11 seconds Findings: The perianal and digital rectal examinations were normal. A 10 mm polyp was found in the recto-sigmoid colon. The polyp was sessile. The polyp was removed with a hot snare. The polyp was removed with a cold snare. Resection and retrieval were complete. Verification of patient identification for the specimen was done. A few small-mouthed diverticula were found in the recto-sigmoid colon, sigmoid colon, hepatic flexure and ascending colon. The terminal ileum contained a few five mm ulcers. No bleeding was present. No stigmata of recent bleeding were seen. Biopsies were taken with a cold forceps for histology. Verification of patient identification for the specimen was done. Estimated blood loss was minimal. Impression: - One 10 mm polyp at the recto-sigmoid colon, removed with a cold snare and removed with a hot snare. Resected and retrieved. - Diverticulosis in the recto-sigmoid colon, in the sigmoid colon, at the hepatic flexure and in the ascending colon. - A few ulcers in the terminal ileum. Biopsied. Recommendation: - Written discharge instructions were provided to the patient. - The signs and symptoms of potential delayed complications were discussed with the patient. - Patient has a contact number available for emergencies. - Return to normal activities tomorrow. - Resume previous diet. - Continue present medications. - Await pathology results. - Repeat colonoscopy in 5 years for surveillance. Procedure Code(s): --- Professional --- 54661, Colonoscopy, flexible; with removal of tumor(s), polyp(s), or other lesion(s) by snare technique 11218, 59, Colonoscopy, flexible; with biopsy, single or multiple CPT copyright 2021 [employer]. All rights reserved. The codes documented in this report are preliminary and upon leather coverer review may be revised to meet current compliance requirements. Garfield Wu DO 12/04/2024 10:15:47 AM This report has been signed electronically. Number of Addenda: 0 Note Initiated On: 12/04/2024 9:37 AM
--- NOTE | 2024-12-04 10:16 | OP.CCLET_ITS ---
12/04/2024 Tena Gomez Re : Colonoscopy procedure for Galilea Rosas Dear Kusum This procedure was performed on Wednesday, December 04, 2024. My impressions and recommendations are as follows: Impressions : - One 10 mm polyp at the recto-sigmoid colon, removed with a cold snare and removed with a hot snare. Resected and retrieved. - Diverticulosis in the recto-sigmoid colon, in the sigmoid colon, at the hepatic flexure and in the ascending colon. - A few ulcers in the terminal ileum. Biopsied. Recommendations : - Written discharge instructions were provided to the patient. - The signs and symptoms of potential delayed complications were discussed with the patient. - Patient has a contact number available for emergencies. - Return to normal activities tomorrow. - Resume previous diet. - Continue present medications. - Await pathology results. - Repeat colonoscopy in 5 years for surveillance. My findings are described in the full procedure note, which is enclosed. If I can be of further assistance, please feel free to contact me at . Sincerely, Garfield Wu, 12/04/2024 10:15:47 AM This report has been signed electronically.
--- NOTE | 2024-12-04 14:48 | PCM.POSTANE2 ---
Anesthesia Postop Eval I Sum Postop Eval Completion status Anesthesia document: Postop Eval 1 completed: Yes Anesthesia Postop Eval I Summary Anesthesia Postop Eval I Summary: Anesthesia Postop Eval I: Assessment Summary Airway patent Yes 12/04/24 10:16 [email or web address] Spontaneous unlabored Yes 12/04/24 10:16 [email or web address] respirations Mental status Awake,Calm 12/04/24 10:16 [email or web address] nausea No 12/04/24 10:16 [email or web address] Vomiting No 12/04/24 10:16 [email or web address] Anesthesia Postop Eval I: Fluid Summary Crystalloid volume administer 400 12/04/24 10:16 [email or web address] (ml) Colloids volume administered ( ml) Blood Product volume administered (ml) Total IV fluid infused 400 12/04/24 10:16 [email or web address] Anesthesia Postop Eval I: Summary Notes Anesthesia Complication Yes 12/04/24 10:16 [email or web address] Anesthesia Complication vagal sensitive, 12/04/24 10:16 [email or web address] Comment: glyco then ephedrine adm IV Post-operative progress note Anesthesia: Postop Eval II Evaluation Mental status: Awake Pain Level: 0 nausea: No Vomiting: No
== END 2024-12-04 11:05 | disposition home or self-care (01) ==
LOC: EN 08:03 → AC 08:38
PROVIDERS: Anesthesiology; PCP Nurse Practitioner Family; Referring Provider Nurse Practitioner Family; Visit Provider Internal Medicine Gastroenterology
PROC: 0DJD8ZZ Inspection of Lower Intestinal Tract, Via Natural or Artificial Opening Endoscopic (ICD-10-PCS; CPT 45378; principal; 2024-12-04 08:55)
DX: K52.9 Noninfective gastroenteritis and colitis, unspecified (principal); E66.01 Morbid (severe) obesity due to excess calories; Z68.43 Body mass index [BMI] 50.0-59.9, adult; N18.30 Chronic kidney disease, stage 3 unspecified; K29.50 Unspecified chronic gastritis without bleeding; K21.9 Gastro-esophageal reflux disease without esophagitis; K62.1 Rectal polyp; K63.3 Ulcer of intestine; K59.00 Constipation, unspecified; K57.30 Diverticulosis of large intestine without perforation or abscess without bleeding; D50.9 Iron deficiency anemia, unspecified; E78.5 Hyperlipidemia, unspecified; I25.2 Old myocardial infarction; I25.5 Ischemic cardiomyopathy; I25.10 Atherosclerotic heart disease of native coronary artery without angina pectoris; I12.9 Hypertensive chronic kidney disease with stage 1 through stage 4 chronic kidney disease, or unspecified chronic kidney disease; G47.33 Obstructive sleep apnea (adult) (pediatric); Z95.5 Presence of coronary angioplasty implant and graft; Z90.49 Acquired absence of other specified parts of digestive tract; Z79.85 Long-term (current) use of injectable non-insulin antidiabetic drugs; Z86.73 Personal history of transient ischemic attack (TIA), and cerebral infarction without residual deficits; Z79.02 Long term (current) use of antithrombotics/antiplatelets; Z79.899 Other long term (current) drug therapy; Z87.891 Personal history of nicotine dependence
CPT/HCPCS: 45385; 45380; 43239; 81025; 82962; 88305; 88342; J2405

== ENCOUNTER → 2024-12-17 | Outpatient (CLI) | payer MEDICAID, SELFPAY ==
[2024-12-17 09:47] LABS: AST(SGOT) 15 U/L (<=31); Alanine Aminotransfer ALT/SGPT 13 U/L (<=34); Albumin, Serum 3.6 g/dL (3.5-5.0); Alkaline Phosphatase 106 U/L (35-104); Bilirubin, Direct 0.10 mg/dL (0.00-0.30); Globulin 3.4 g/dL (2.2-4.2)
[2024-12-17 09:48] LABS: CRP < 3.00 mg/L (0.0-3.0)
[2024-12-18 14:08] LABS: ANTINUCLEAR ANTIBODIES DIRECT Positive (Negative); Anti-Chromatin <0.2 AI (0.0-0.9); Anti-Jo <0.2 AI (0.0-0.9); Anti-dsDNA Ab 2 IU/mL (0-9); SJOGREN'S Anti-SS-A test < 0.2 AI (0.0-0.9); SJOGREN'S Anti-SS-B test < 0.2 AI (0.0-0.9)
[2024-12-23 14:08] LABS: ACCA 51 units (0-90); ALCA 7 units (0-60); AMCA 14 units (0-100); QNTFERON TB Mitogen Value > 10.00 IU/mL (.); QNTFERON TB Nil Value 0.04 IU/mL (.); QNTFERON TB1+ Ag Value 0.08 IU/mL (.); QNTFERON TB2+ Ag Value 0.07 IU/mL (.); QNTIFERON TB Positive Criteria Negative (Negative)
== END | disposition home or self-care (01) ==
LOC: LAB 08:44
PROVIDERS: PCP Nurse Practitioner Family
DX: K59.00 Constipation, unspecified (principal); R19.7 Diarrhea, unspecified; K21.9 Gastro-esophageal reflux disease without esophagitis
CPT/HCPCS: 36415; 80076; 83516; 86036; 86038; 86140; 86225; 86235; 86480; 86671

== ENCOUNTER → 2024-12-23 | Outpatient (CLI) | payer MEDICAID, SELFPAY ==
[2024-12-23 09:47] LABS: Anion Gap 9 (5-15); BUN 16 mg/dL (4-19); BUN/Creat Ratio 13.4 RATIO (10-20); Calcium,Total 8.6 mg/dL (7.6-11.0); Carbon Dioxide 22.0 mmol/L (21.0-32.0); Chloride 104 mmol/L (98-108); Glucose 161 mg/dL (70-99); Potassium 5.1 mmol/L (3.3-5.1)
[2024-12-25 07:08] LABS: Calprotectin, Stool 154 ug/g (0-120)
== END | disposition home or self-care (01) ==
PROVIDERS: PCP Nurse Practitioner Family; Referring Provider Internal Medicine Gastroenterology; Visit Provider Internal Medicine Nephrology
DX: N18.31 Chronic kidney disease, stage 3a (principal)
CPT/HCPCS: 36415; 80048; 83993

== ENCOUNTER → 2025-03-11 | Outpatient (CLI) | payer MEDICARE, SELFPAY ==
[2025-03-11 16:01] LABS: Creatinine, Urine (random) 77.40 mg/dL (28.00-217.00); Protein, Urine (Random) 11.1 mg/dL (0.0-12.0); Protein:Creat Ratio 143 mg/g CRE (0-200)
[2025-03-11 16:16] LABS: Anion Gap 9 (5-15); BUN 25 mg/dL (4-19); BUN/Creat Ratio 16.5 RATIO (10-20); Calcium,Total 9.1 mg/dL (7.6-11.0); Carbon Dioxide 22.7 mmol/L (21.0-32.0); Chloride 105 mmol/L (98-108); Glucose 189 mg/dL (70-99); Potassium 6.1 mmol/L (3.3-5.1)
== END | disposition home or self-care (01) ==
LOC: LAB 14:14
PROVIDERS: PCP Nurse Practitioner Family; Referring Provider Internal Medicine Nephrology; Visit Provider Internal Medicine Nephrology
DX: N18.31 Chronic kidney disease, stage 3a (principal)
CPT/HCPCS: 36415; 80048; 82570; 84156